=== PATIENT | female | born 1955 | race Caucasian/White ===

== ENCOUNTER → 2018-04-15 14:59 | Outpatient (CLI) | payer MEDICARE, SELFPAY ==
[2018-04-15 17:55] LABS: Hemoglobin A1C 8.6 % (0.0-7.0)
[2018-04-15 18:24] LABS: Alanine Aminotransferase 24 U/L (12-78); Albumin Level 3.5 gm/dL (3.4-5.0); Alkaline Phosphatase 81 U/L (46-116); Aspartate Amino Transferase 25 U/L (15-37); Bilirubin,Total 0.3 mg/dL (0.2-1.0); Blood Urea Nitrogen 15 mg/dL (7-18); Calcium 8.7 mg/dL (8.5-10.1); Carbon Dioxide 28 mmol/L (21.0-32.0); Chloride 101 mmol/L (98-107); Chol/HDL Ratio 2.6 (1-3.5); Cholesterol 243 mg/dL (140-200); Creatinine,Serum 0.83 mg/dL (0.55-1.02); Estimated Glomerular Filt Rate 70 ml/min (>60); GFR (African American) 85 ML/MIN (>60); Globulin 3.6 gm/dl (1.3-3.2); Glucose 102 mg/dL (74-106); HDL Cholesterol 94 mg/dL (29-89); LDL Cholesterol 142 mg/dL (0-130); Sodium 137 mmol/L (136-145); Thyroid Stimulating Hormone 1.79 uIU/ml (0.358-3.740); Total Protein,Serum 7.1 gm/dL (6.4-8.2); Triglycerides 33 mg/dL (30-200); VLDL Cholesterol 7 mg/dL (0-40)
[2018-04-17 11:20] LABS: Microalbumin, Urine 30.6 ug/mL (Not Estab.)
== END ==
PROVIDERS: Visit Provider Internal Medicine
DX: E11.59 Type 2 diabetes mellitus with other circulatory complications (principal); E11.42 Type 2 diabetes mellitus with diabetic polyneuropathy; I25.10 Atherosclerotic heart disease of native coronary artery without angina pectoris; I10 Essential (primary) hypertension; E03.9 Hypothyroidism, unspecified; E78.5 Hyperlipidemia, unspecified
CPT/HCPCS: 80053; 80061; 82043; 83036; 84443

== ENCOUNTER → 2019-04-14 14:40 | Outpatient (CLI) | payer MEDICARE, SELFPAY ==
--- NOTE | 2019-04-14 15:06 | ECG_ITS ---
APPROVED REPORT Exam: Resting ECG HR:87 bpm ECG Measurements Heart Rate 87 AXES SD 180 P 69 QRSd 70 QRS 75 QT 354 T 88 QTc 425 <Conclusion> Normal sinus rhythm Poor R Wave Progression Abnormal ECG Electronically signed by : Marques Isbell, 04/14/2019 16:54:23
== END ==
PROVIDERS: PCP Internal Medicine; Visit Provider Internal Medicine
DX: Z01.810 Encounter for preprocedural cardiovascular examination (principal); I25.10 Atherosclerotic heart disease of native coronary artery without angina pectoris; I10 Essential (primary) hypertension
CPT/HCPCS: 93005

== ENCOUNTER 2019-05-01 20:55 | Observation (INO) ==
[2019-05-01 22:01] LABS: Basophils # 0.1 K/mm3 (0-0.2); Eosinophils # 0.2 K/mm3 (0.0-0.4); Eosinophils % 1.3 % (0.1-12.0); Hematocrit 38.1 % (37.0-47.0); Hemoglobin 12.7 g/dL (12.2-16.2); Lymphocytes # 2.3 K/mm3 (0.7-4.5); Lymphocytes % 18.8 % (10-50); Mean Corpuscular HGB Conc 33.3 g/dL (31.8-35.4); Mean Corpuscular Volume 92.6 fl (81-99); Mean Platelet Volume 8.8 fl (7.4-10.4); Monocytes # 0.7 K/mm3 (0.1-1.0); Monocytes % 5.6 % (1.7-9.3); Neutrophils # 9.1 K/mm3 (1.8-7.8); Neutrophils % 73.3 % (37.0-80.0); Platelet Count 331 K/mm3 (142-424); Red Blood Count 4.12 M/mm3 (4.20-5.40); Red Cell Distribution Width 13.9 % (11.5-17.5); White Blood Count 12.4 K/mm3 (4.8-10.8)
--- NOTE | 2019-05-01 22:05 | Emergency Department Note ---
ED Disposition Clinical Impression: Obesity (BMI 30-39.9), Diabetes mellitus, insulin dependent (IDDM), uncontrolled, Renal insufficiency Ankle fracture, right Qualifiers: Encounter type: initial encounter Fracture type: closed Qualified Code(s): S82.891A - Other fracture of right lower leg, initial encounter for closed fracture Ankle dislocation Qualifiers: Encounter type: initial encounter Laterality: right Qualified Code(s): S93.04XA - Dislocation of right ankle joint, initial encounter Disposition: Admitted As Inpatient Condition on Discharge: Good Referrals: Marques Isbell [Primary Care Provider] - - Critical Care Critical Care Time: No Attestation: On 05/01/19, the high probability of a clinically significant, sudden or life threatening deterioration of the following system(s) required my full and direct attention, intervention and personal management. The time I documented below is in addition to time spent performing reported procedures but includes the following listed in this critical care notation. Medical Decision Making - Medical Records Medical records reviewed: Yes: I reviewed the patient's medical records. - Bro Inquiry Pt receiving controlled substance: No Vital Signs: 05/01/19 21:07 Temperature 98.3 F Temperature Source Oral Pulse Rate [Right] 103 H Respiratory Rate 18 Blood Pressure [Right Arm] 114/79 Blood Pressure Mean [Right Arm] 90 Blood Pressure Source [Right Arm] Automatic Cuff Blood Pressure Position [Right Arm] Sitting 02 Sat by Pulse Oximetry 98 Oxygen Delivery Method Room Air - Lab Data Lab results reviewed: Yes: I reviewed the patient's lab results. Lab Results 05/01/19 21:45: WBC 12.4 H, RBC 4.12 L, Hgb 12.7, Hct 38.1, MCV 92.6, MCH 30.8, MCHC 33.3, RDW 13.9, Plt Count 331, MPV 8.8, Neut % (Auto) 73.3, Lymph % (Auto) 18.8, [place] % (Auto) 5.6, Eos % (Auto) 1.3, Baso % (Auto) 1.0, Neut # (Auto) 9.1 H, Lymph # (Auto) 2.3, [place] # (Auto) 0.7, Eos # (Auto) 0.2, Baso # (Auto) 0.1 05/01/19 21:45: Sodium 136, Potassium 4.4, Chloride 100, Carbon Dioxide 28, Anion Gap 12.4, BUN 19 H, Creatinine 1.09 H, Estimated Creat Clear 83, Estimated GFR 51 L, Est GFR ( Amer) 61, Glucose 329 H, Calcium 8.7, Total Bilirubin 0.3, AST 17, ALT 17, Alkaline Phosphatase 82, Total Protein 6.8, Albumin 3.4, Globulin 3.4 H, Albumin/Globulin Ratio 1.0 L Result diagrams: 05/01/19 21:45 05/01/19 21:45 Orders (Tests/Meds): ED MEDICATIONS Generic Name Dose Route Start Last Admin Trade Name Freq PRN Reason Stop Dose Admin Sodium Chloride 1,000 mls @ 999 mls/hr 05/01/19 23:45 05/01/19 23:00 Sod Chlor 0.9% 1000ml Bag IV 05/02/19 00:45 999 mls/hr .Q1H1M [place] Administration Discontinued Medications Generic Name Dose Route Start Last Admin Trade Name Freq PRN Reason Stop Dose Admin Fentanyl Citrate 100 mcg 05/01/19 23:56 05/01/19 23:10 Fentanyl 100mcg/2ml Vial IV 05/01/19 23:57 100 mcg ONCE ONE Administration Fentanyl Citrate 50 mcg 05/01/19 23:59 05/01/19 23:15 Fentanyl 250mcg/5ml Vial IV 05/02/19 00:00 50 mcg ONCE ONE Administration Midazolam HCl 2 mg 05/01/19 23:56 05/01/19 23:10 Midazolam 2mg/2ml Vial IV 05/01/19 23:57 2 mg ONCE ONE Administration Morphine Sulfate 4 mg 05/01/19 21:36 05/01/19 21:38 Morphine 2mg/Ml Syringe IM 05/01/19 21:37 4 mg ONCE ONE Administration Ondansetron HCl 4 mg 05/01/19 21:36 05/01/19 21:38 Zofran 4mg/2ml Vial IM 05/01/19 21:37 4 mg ONCE ONE Administration ORDERS Category Date Time Status XR ankle RT 2V Stat Exams 05/01/19 21:13 Taken XR ankle RT 2V Stat Exams 05/01/19 22:12 Taken XR ankle RT 2V Stat Exams 05/01/19 23:19 Ordered - Radiology Data #1 Image(s): Ankle Image Reviewed: Yes I reviewed the patient's radiology image Preliminary Findings: Abnormal (fx/dislocation) - Physician Consults Physician Consulted: dimas Reason -: Admission Additional Consult: shea Time: 00:22 Reason -: Pt condition Lower Extremity Injury HPI - General Chief Complaint: Extremity Injury, Lower Stated Complaint: AO 05/01/2019 @ 1000 fell injury to right ankle Time Seen by Provider: 05/01/19 21:20 Mode of Arrival: Wheelchair Source of Information: Patient, Spouse, Medical Record Limitations: No Limitations Description of Symptoms (Recalled from ER Triage Doc. by RN): Pt rolled ankle getting out of bed this AM, unable to walk, ankle has edema, bruising and deforation - History of Present Illness HPI Narrative: acute injury to rt ankle this am with persistent swelling and deformity and unable to bear wt - no other injury reported MD complaint: ankle injury Onset (ago): hour(s) Injury: Right: ankle Place: home Severity: moderate Context: fall Associated symptoms: unable to bear weight Other symptoms: none - Related Data Home Medications Medication Instructions Recorded Confirmed Duloxetine HCl 60 mg PO DAILY 05/01/19 05/01/19 Gabapentin [Gabapentin 300mg Cap] 300 mg PO DAILY PRN 05/01/19 05/01/19 Insulin Aspart [Novolog Flexpen] 10 units SQ TID 05/01/19 05/01/19 Insulin Glargine,Hum.rec.anlog 10 units SQ HS 05/01/19 05/01/19 [Insulin Glargine 100 Units/mL 3mL flexpen] Levothyroxine Sodium 150 mcg PO DAILY 05/01/19 05/01/19 [Levothyroxine 150mcg (0.15mg) Tab] ramipriL [Ramipril] 1.25 mg PO DAILY 05/01/19 05/01/19 Allergies Allergy/AdvReac Type Severity Reaction Status Date / Time codeine Allergy Intermediate MENTAL Verified 05/02/19 00:04 STATUS CHANGES/DROPS BLOOD SUGAR Penicillins Allergy Intermediate I-RASH Verified 05/02/19 00:04 [facility] History - Hepatitis A Screen Drug use history?: No High risk sexual behaviors?: No History of sexually transmitted infection?: No Currently employed?: No Childcare worker?: No Do you have indoor plumbing?: Yes Do you have electricity?: Yes Attestation statement:: This patient has been screened for Hepatitis A risk factors. I have reviewed the patient's past medical history: Yes Medical History: Reports:: Diabetes Mellitus Type 1 Denies:: Diabetes Mellitus Type 2, Internal Pacemaker Other Surgeries: No: Pacemaker - Social History Smoking Status: Current every day smoker Tobacco Type: cigarettes # Packs/Day (cigarettes): 1 Alcohol Intake: never Occupational Status: retired ROS Obtained: Yes All systems reviewed & no additional complaints - Constitutional Constitutional: Denies fever(s) - Eyes Eyes: Denies change in vision - ENT Ears, Nose, Mouth, and Throat: Denies sore throat - Cardiovascular Cardiovascular: Denies chest pain - Respiratory Respiratory: No cough - Gastrointestinal Gastrointestingal: Denies: abdominal pain - Genitourinary Female Genitourinary: Denies hematuria - Musculoskeletal Musculoskeletal: Reports as per HPI, Reports joint pain, Denies back pain, Reports deformity, Reports joint swelling, Reports limited range of motion, Denies neck pain - Integumentary/Breasts Skin/Breast: Denies rash - Neurologic Neurologic: Denies seizure-like activity Physical Exam - General General appearance: alert - Head Head exam: normocephalic - Eye Eye exam: Present: PERRL, EOMI - ENT ENT exam: Present: mucous membranes moist - Neck Neck exam: Present: trachea midline - Respiratory Respiratory exam: Absent: respiratory distress - Cardiovascular Cardiovascular exam: Present: regular rate, systolic murmur - Abdominal Exam Abdominal exam: Present: soft - Expanded Lower Extremity Exam Right Ankle exam: Present: tenderness, swelling, deformity. Absent: full ROM Neurovascular/Tendon exam: Absent: pulse deficit - Neurological Exam Neurological exam: Present: alert, oriented X3, CN II-XII intact - Psychiatric Psychiatric exam: Present: normal affect - Skin Skin exam: Absent: rash Procedures - Orthopedic Joint Reduction Joint #1 Time Out Performed: Yes Side: right Joint Reduction Location: ankle Analgesia: procedural sedation Technique used: direct manipulation Post-reduction neuro exam: intact Post-reduction vascular: intact Post Reduction X-Ray Obtained: Yes Post Reduction X-Ray Results: reduced Splint Applied: Yes Patient Tolerated Procedure: well - Orthopedic Splinting/Casting Injury #1 Side: right Lower Extremity Injury Location: ankle Lower Extremity Immobilizer: posterior splint, stirrup splint Post Cast/Splinting Neuro Status: intact Post Cast/Splinting Vasc Status: intact - Procedural Sedation Indication: fracture/dislocation reduction ASA Class: II Preparation: distribution estimator applied, pulse oximeter, supplemental O2 applied, suction/airway equipment at bedside, IV secured Fentanyl: IV Fentanyl dose (mcg): 15 Midazolam: IV Midazolam dose (mg): 2 Patient Tolerated Procedure: well, no complications Complications: none
[2019-05-01 22:32] LABS: Albumin Level 3.4 gm/dL (3.4-5.0); Anion Gap 12.4 mEq/L (5-15); Bilirubin,Total 0.3 mg/dL (0.2-1.0); Calcium 8.7 mg/dL (8.5-10.1); Globulin 3.4 gm/dl (1.3-3.2); Total Protein,Serum 6.8 gm/dL (6.4-8.2)
[2019-05-02 06:12] LABS: Anion Gap 10.2 mEq/L (5-15); Calcium 8.4 mg/dL (8.5-10.1)
[2019-05-02 06:13] LABS: Basophils # 0.1 K/mm3 (0-0.2); Eosinophils # 0.3 K/mm3 (0.0-0.4); Eosinophils % 2.5 % (0.1-12.0); Hematocrit 38.2 % (37.0-47.0); Hemoglobin 12.5 g/dL (12.2-16.2); Lymphocytes # 2.8 K/mm3 (0.7-4.5); Lymphocytes % 25.7 % (10-50); Mean Corpuscular HGB Conc 32.6 g/dL (31.8-35.4); Mean Corpuscular Volume 93.4 fl (81-99); Mean Platelet Volume 8.7 fl (7.4-10.4); Monocytes # 0.7 K/mm3 (0.1-1.0); Monocytes % 6.6 % (1.7-9.3); Neutrophils % 64.2 % (37.0-80.0); Platelet Count 335 K/mm3 (142-424); Red Blood Count 4.09 M/mm3 (4.20-5.40)
--- NOTE | 2019-05-02 08:31 | History & Physical Report ---
*Admission Date: 05/01/19 *Chief complaint: Fall with right ankle fracture *History of present illness: 64-year-old diabetic with history of coronary disease status post stent placement greater than 2 years ago, who presented to the hospital late yesterday evening with a chief complaint of severe ankle pain. She gives a history of getting out of bed yesterday morning and rolling her ankle with an inversion type injury when she got out of bed with intense pain and inability to walk over the next several hours. At home methods to relieve pain were unsuccessful and she came to the emergency department. X-rays revealed fracture with dislocation, reduced in the ER but given the significant nature of the fracture she was admitted to hospital for pain control and orthopedic consultation for probable surgical intervention. [facility] History I have reviewed the patient's past medical history: Yes Medical History: Reports:: Coronary Artery Disease (Stents [place] in [address] Recinos. No recurrent disease evident), Diabetes Mellitus Type 1 (Insulin requiring.) Denies:: Cancer, Diabetes Mellitus Type 2, Internal Pacemaker *Have you ever received a pneumonia vaccine?: No *Have you received a flu vaccine this season?: Yes Other Medical History: Reports: Hypothyroidism Other Surgeries: Yes: Appendectomy, Cardiac Catheterization, Cholecystectomy, Coronary Stent, Hysterectomy-Total, Tubal Ligation. No: Pacemaker Amputation: No Fractures: No - *Social History Educational Level: Completed High School Smoking Status: Current every day smoker Tobacco Type: cigarettes # Packs/Day (cigarettes): 1 Alcohol Intake: never *Occupational Status:: retired Housing: house Household Members: spouse *Travel in the last 8 weeks: None Family Hx:: Coronary Artery Disease, Diabetes, Heart Attack, Stroke Review of Systems - Review of Systems Review of systems:: pertinent systems reviewed and negative unless documented below - Constitutional Denies anorexia, Denies fever(s), Denies headache(s) - Eyes Denies blurry vision - ENT Denies abnormal hearing, Denies poor balance, Denies dizziness - *Cardiovascular Denies chest pain, Denies chest pain at rest, Denies chest pain with activity (Excellent activity levels. Climb steps, walks, no chest pain), Denies joshua rtness of breath, Denies shortness of breath with activity - *Respiratory Denies change in phlegm color, Denies shortness of breath with activity, Denies excessive phlegm production - *Gastrointestinal Denies abdominal pain - *Genitourinary Denies abnormal periods - *Musculoskeletal Reports joint swelling, Denies abnormal walking - *Neurologic Denies seizure-like activity - Endocrine Denies cold intolerance - Hematologic/Lymphatic Denies easy bleeding - Allergic/Immunologic Denies GI upset with certain foods Meds Home Medications Medication Instructions Recorded Confirmed Type Duloxetine HCl 60 mg PO HS 05/01/19 05/02/19 History Gabapentin [Gabapentin 300mg Cap] 300 mg PO DAILY PRN 05/01/19 05/01/19 History Insulin Aspart [Novolog Flexpen] 10 units SQ TID 05/01/19 05/02/19 History Insulin Glargine,Hum.rec.anlog 10 units SQ HS 05/01/19 05/02/19 History [Insulin Glargine 100 Units/mL 3mL flexpen] Levothyroxine Sodium 150 mcg PO DAILY 05/01/19 05/02/19 History [Levothyroxine 150mcg (0.15mg) Tab] ramipriL [Ramipril] 1.25 mg PO HS 05/01/19 05/02/19 History Allergies Allergy/AdvReac Type Severity Reaction Status Date / Time codeine Allergy Intermediate MENTAL Verified 05/02/19 00:04 STATUS CHANGES/DROPS BLOOD SUGAR Penicillins Allergy Intermediate I-RASH Verified 05/02/19 00:04 Exam Vital signs and Labs for Last 24 Hours: Temp Pulse Resp BP Pulse Ox 97.9 F 101 H 16 145/69 H 100 05/02/19 08:00 05/02/19 08:00 05/02/19 08:00 05/02/19 08:00 05/02/19 08:00 Laboratory Results - last 24 hr 05/01/19 21:45: WBC 12.4 H, RBC 4.12 L, Hgb 12.7, Hct 38.1, MCV 92.6, MCH 30.8, MCHC 33.3, RDW 13.9, Plt Count 331, MPV 8.8, Neut % (Auto) 73.3, Lymph % (Auto) 18.8, [place] % (Auto) 5.6, Eos % (Auto) 1.3, Baso % (Auto) 1.0, Neut # (Auto) 9.1 H, Lymph # (Auto) 2.3, [place] # (Auto) 0.7, Eos # (Auto) 0.2, Baso # (Auto) 0.1 05/01/19 21:45: Sodium 136, Potassium 4.4, Chloride 100, Carbon Dioxide 28, Anion Gap 12.4, BUN 19 H, Creatinine 1.09 H, Estimated Creat Clear 83, Estimated GFR 51 L, Est GFR ( Amer) 61, Glucose 329 H, Calcium 8.7, Total Bilirubin 0.3, AST 17, ALT 17, Alkaline Phosphatase 82, Total Protein 6.8, Albumin 3.4, Globulin 3.4 H, Albumin/Globulin Ratio 1.0 L 05/02/19 05:56: WBC 11.0 H, RBC 4.09 L, Hgb 12.5, Hct 38.2, MCV 93.4, MCH 30.4, MCHC 32.6, RDW 14.0, Plt Count 335, MPV 8.7, Neut % (Auto) 64.2, Lymph % (Auto) 25.7, [place] % (Auto) 6.6, Eos % (Auto) 2.5, Baso % (Auto) 1.0, Neut # (Auto) 7.0, Lymph # (Auto) 2.8, [place] # (Auto) 0.7, Eos # (Auto) 0.3, Baso # (Auto) 0.1 05/02/19 05:56: Sodium 140, Potassium 4.2, Chloride 104, Carbon Dioxide 30, Anion Gap 10.2, BUN 16, Creatinine 0.83 D, Estimated Creat Clear 97, Estimated GFR 69, Est GFR ( Amer) 84 D, Glucose 139 H D, Calcium 8.4 L 05/02/19 06:09: POC Glucose 115 H 05/02/19 06:27: POC Glucose 120 H I & O for Last 24 hours: Intake & Output 04/29/19 04/30/19 05/01/19 05/02/19 11:59 11:59 11:59 11:59 Intake Total 1358 / 1358 Balance 1358 / 1358 Weight 235 lb 8 oz Narrative: Patient is sleeping after having several doses of morphine and Dilaudid through the night. When awakened she is alert, oriented x3. Oropharynx clear, moist. No JVD. Heart rate regular without murmurs or gallops. Abdomen soft, nontender. Right leg is in a splint and elevated. Left side has no edema or clubbing. Good distal pulses. Lungs have good air movement, no JVD noted. Assessment and Plan (1) Coronary atherosclerosis of [place] coronary artery Current visit: Yes Status: Acute Category: Medical Code(s): I25.10 - Atherosclerotic heart disease of [place] coronary artery without angina pectoris Patient currently asymptomatic. Has excellent functional status at home. No contraindication to surgical procedures. Patient has no history of difficulty with anesthesia or free bleeding from prior multiple surgical procedures. We will obtain records of heart disease issues from her primary physician's office. (2) Personal history of nicotine dependence Current visit: Yes Status: Acute Category: Medical Code(s): Z87.891 - Personal history of nicotine dependence Complicates all aspects of her care, will be problems with wound healing given her diabetes and she will be encouraged to stop smoking completely, nicotine replacement in the hospital. (3) Ankle fracture, right Current visit: Yes Status: Acute Qualifiers: Encounter type: initial encounter Fracture type: closed Qualified Code(s): S82.891A - Other fracture of right lower leg, initial encounter for closed fracture Category: Medical Code(s): S82.891A - Other fracture of right lower leg, initial encounter for closed fracture Given dislocation and significant nature of fracture orthopedics will be involved. Significant pain control problems overnight. Given her somnolence this morning we will continue oxygen therapy and cut Dilaudid dose down to 1 mg every 3 hours as needed. (4) Diabetes mellitus, insulin dependent (IDDM), uncontrolled Current visit: Yes Status: Acute Category: Medical Code(s): E11.65 - Type 2 diabetes mellitus with hyperglycemia; Z79.4 - care home (current) use of insulin Some hypoglycemia overnight. Patient has a history of "brittle" diabetes. Currently on glucose infusions. We will watch carefully and try to avoid hypoglycemia. (5) Obesity (BMI 30-39.9) Current visit: Yes Status: Acute Category: Medical Code(s): E66.9 - Obesity, unspecified Complicates all aspects of her care (6) Renal insufficiency Current visit: Yes Status: Acute Category: Medical Code(s): N28.9 - Disorder of kidney and ureter, unspecified Renal insufficiency noted, follow tomorrow on labs (7) Diabetic neuropathy associated with type 2 diabetes mellitus Current visit: Yes Status: Acute Category: Medical Code(s): E11.40 - Type 2 diabetes mellitus with diabetic neuropathy, unspecified Complicates care, continue gabapentin.
--- NOTE | 2019-05-02 12:53 | Pharmacy Consult Notes ---
[facility] Pharmacy VTE Monitoring - Patient Demographics Admission date: 05/02/19 Report Date: 05/02/19 Time: 12:53 Allergies/Adverse Reactions: Patient Allergies codeine Allergy (Intermediate, Verified 05/02/19 00:04) MENTAL STATUS CHANGES/DROPS BLOOD SUGAR Penicillins Allergy (Intermediate, Verified 05/02/19 00:04) I-RASH Height: 1.63 m Weight: 106.821 kg Patient Problems: Current Active Problems Ankle fracture, right (Acute) Ankle dislocation (Acute) Obesity (BMI 30-39.9) (Acute) Diabetes mellitus, insulin dependent (IDDM), uncontrolled (Acute) Renal insufficiency (Acute) Coronary atherosclerosis of [place] coronary artery (Acute) Personal history of nicotine dependence (Acute) Diabetic neuropathy associated with type 2 diabetes mellitus (Acute) - VTE Risk Labs: VTE Related Lab Results Hgb 12.5 g/dL (12.2-16.2) 05/02/19 05:56 Hct 38.2 % (37.0-47.0) 05/02/19 05:56 Plt Count 335 K/mm3 (142-424) 05/02/19 05:56 BUN 16 mg/dL (7-18) 05/02/19 05:56 Creatinine 0.83 mg/dL (0.55-1.02) D 05/02/19 05:56 Estimated Creat Clear 97 mL/min (50-200) 05/02/19 05:56 Was VTE Risk Assessment Performed: Yes VTE Score: 3 VTE Risk Level: Low Risk - Prophylaxis Types of VTE Prophylaxis: TEDS Knee High (PARVIZ HOSE ORDERED. MAY PUT ON UNAFFECTED LEG.) Location of Applied Device: Not Applicable
--- NOTE | 2019-05-02 14:08 | Consult Report ---
*Admission Date: 05/02/19 *Reason for consult:: R ankle fracture *History of present illness: 64yo F admitted overnight with a right ankle fracture. She rolled her ankle while getting out of bed yesterday morning and had immediate, significant pain with difficulty walking. She suspected a bad sprain and tried to treat this at home with elevation and OTC pain medication. Her pain increased throughout the day so she presented to the ER last night where XR revealed a trimalleolar fracture/dislocation. This was reduced and splinted by the ER and admitted. She has had the ankle elevated and iced overnight and reports significant pain but no numbness. She has a history of diabetes since the age of 18 and is on insulin. She is unsure what her last A1C was. She has a history of CAD s/p stent placement >2 years ago. Denies current chest pain, no dyspnea on exertion at baseline. She is a smoker and smokes 1ppd. Review of Systems - Review of Systems Review of systems:: pertinent systems reviewed and negative unless documented below - *Neurologic Denies abnormal walking, Denies abnormal hearing, Denies unsteadiness, Denies dizziness, Denies headache(s), Denies seizure-like activity [facility] History I have reviewed the patient's past medical history: Yes Medical History: Reports:: Coronary Artery Disease (Stents [place] [address] Recinos. No recurrent disease evident), Diabetes Mellitus Type 1 (Insulin requiring.) Denies:: Cancer, Diabetes Mellitus Type 2, Internal Pacemaker *Have you ever received a pneumonia vaccine?: No *Have you received a flu vaccine this season?: Yes Other Medical History: Reports: Hypothyroidism Other Surgeries: Yes: Appendectomy, Cardiac Catheterization, Cholecystectomy, Coronary Stent, Hysterectomy-Total, Tubal Ligation. No: Pacemaker Amputation: No Fractures: No - *Social History Educational Level: Completed High School Smoking Status: Current every day smoker Tobacco Type: cigarettes # Packs/Day (cigarettes): 1 Alcohol Intake: never *Occupational Status:: retired Housing: house Household Members: spouse *Travel in the last 8 weeks: None Family Hx:: Coronary Artery Disease, Diabetes, Heart Attack, Stroke Meds Home Medications Medication Instructions Recorded Confirmed Type Duloxetine HCl 60 mg PO HS 05/01/19 05/02/19 History Gabapentin [Gabapentin 300mg Cap] 300 mg PO DAILY PRN 05/01/19 05/01/19 History Insulin Aspart [Novolog Flexpen] 10 units SQ TID 05/01/19 05/02/19 History Insulin Glargine,Hum.rec.anlog 15 units SQ HS 05/01/19 05/02/19 History [Insulin Glargine 100 Units/mL 3mL flexpen] Levothyroxine Sodium 150 mcg PO DAILY 05/01/19 05/02/19 History [Levothyroxine 150mcg (0.15mg) Tab] ramipriL [Ramipril] 1.25 mg PO HS 05/01/19 05/02/19 History Allergies Allergy/AdvReac Type Severity Reaction Status Date / Time codeine Allergy Intermediate MENTAL Verified 05/02/19 00:04 STATUS CHANGES/DROPS BLOOD SUGAR Penicillins Allergy Intermediate I-RASH Verified 05/02/19 00:04 Exam Vital signs and Labs for Last 24 Hours: Temp Pulse Resp BP Pulse Ox 97.9 F 101 H 16 145/69 H 100 05/02/19 08:00 05/02/19 08:00 05/02/19 08:00 05/02/19 08:00 05/02/19 08:00 Laboratory Results - last 24 hr 05/01/19 21:45: WBC 12.4 H, RBC 4.12 L, Hgb 12.7, Hct 38.1, MCV 92.6, MCH 30.8, MCHC 33.3, RDW 13.9, Plt Count 331, MPV 8.8, Neut % (Auto) 73.3, Lymph % (Auto) 18.8, [place] % (Auto) 5.6, Eos % (Auto) 1.3, Baso % (Auto) 1.0, Neut # (Auto) 9.1 H, Lymph # (Auto) 2.3, [place] # (Auto) 0.7, Eos # (Auto) 0.2, Baso # (Auto) 0.1 05/01/19 21:45: Sodium 136, Potassium 4.4, Chloride 100, Carbon Dioxide 28, Anion Gap 12.4, BUN 19 H, Creatinine 1.09 H, Estimated Creat Clear 83, Estimated GFR 51 L, Est GFR ( Amer) 61, Glucose 329 H, Calcium 8.7, Total Bilirubin 0.3, AST 17, ALT 17, Alkaline Phosphatase 82, Total Protein 6.8, Albumin 3.4, Globulin 3.4 H, Albumin/Globulin Ratio 1.0 L 05/02/19 05:56: WBC 11.0 H, RBC 4.09 L, Hgb 12.5, Hct 38.2, MCV 93.4, MCH 30.4, MCHC 32.6, RDW 14.0, Plt Count 335, MPV 8.7, Neut % (Auto) 64.2, Lymph % (Auto) 25.7, [place] % (Auto) 6.6, Eos % (Auto) 2.5, Baso % (Auto) 1.0, Neut # (Auto) 7.0, Lymph # (Auto) 2.8, [place] # (Auto) 0.7, Eos # (Auto) 0.3, Baso # (Auto) 0.1 05/02/19 05:56: Sodium 140, Potassium 4.2, Chloride 104, Carbon Dioxide 30, Anion Gap 10.2, BUN 16, Creatinine 0.83 D, Estimated Creat Clear 97, Estimated GFR 69, Est GFR ( Amer) 84 D, Glucose 139 H D, Calcium 8.4 L 05/02/19 06:09: POC Glucose 115 H 05/02/19 06:27: POC Glucose 120 H 05/02/19 08:56: POC Glucose 179 H 05/02/19 11:50: POC Glucose 228 H I & O for Last 24 hours: Intake & Output 04/30/19 05/01/19 05/02/19 05/03/19 11:59 11:59 11:59 11:59 Intake Total 1358 / 1358 Balance 1358 / 1358 Weight 235 lb 8 oz - Constitutional no acute distress - *Routine HEENT Exam Head: Present: normocephalic Eye: Present: EOMI ENT: Present: mucous membranes moist - *Routine Respiratory Exam Absent: accessory muscle use, respiratory distress, wheezes - *Routine Cardiovascular Exam Present: RRR - *Routine Abdominal Exam Present: soft. Absent: tenderness - *Routine Extremities Exam Comments: RLE splint removed, ankle was not moved & was kept stationary/elevated by programs assistant R ankle with moderate/severe soft tissue swelling, ecchymosis medially faintly palpable pedal pulses RLE; skin pink/warm SILT distally RLE in all distributions wiggles toes; cannot DF/PF ankle due to pain/deformity/fx; EHL intact R calf soft, non-tender - *Routine Skin Exam Present: intact, warm, ecchymosis. Absent: erythema - *Routine Neurological Exam Present: alert, oriented X3, moving all extremities, normal tone, hearing grossly intact, normal speech. Absent: sensory deficit, motor deficit, altered mental status Results - Labs Result Diagrams: 05/02/19 05:56 05/02/19 05:56 Labs: Abnormal lab results 05/01/19 05/01/19 05/02/19 Range/Units 21:45 21:45 05:56 WBC 12.4 H 11.0 H (4.8-10.8) K/mm3 RBC 4.12 L 4.09 L (4.20-5.40) M/mm3 Neut # (Auto) 9.1 H (1.8-7.8) K/mm3 BUN 19 H (7-18) mg/dL Creatinine 1.09 H (0.55-1.02) mg/dL Estimated GFR 51 L (>60) ml/min Glucose 329 H (74-106) mg/dL POC Glucose (70-110) Calcium (8.5-10.1) mg/dL Globulin 3.4 H (1.3-3.2) gm/dl Albumin/Globulin Ratio 1.0 L (1.1-1.8) 05/02/19 05/02/19 05/02/19 Range/Units 05:56 06:09 06:27 WBC (4.8-10.8) K/mm3 RBC (4.20-5.40) M/mm3 Neut # (Auto) (1.8-7.8) K/mm3 BUN (7-18) mg/dL Creatinine (0.55-1.02) mg/dL Estimated GFR (>60) ml/min Glucose 139 H D (74-106) mg/dL POC Glucose 115 H 120 H (70-110) Calcium 8.4 L (8.5-10.1) mg/dL Globulin (1.3-3.2) gm/dl Albumin/Globulin Ratio (1.1-1.8) 05/02/19 05/02/19 Range/Units 08:56 11:50 WBC (4.8-10.8) K/mm3 RBC (4.20-5.40) M/mm3 Neut # (Auto) (1.8-7.8) K/mm3 BUN (7-18) mg/dL Creatinine (0.55-1.02) mg/dL Estimated GFR (>60) ml/min Glucose (74-106) mg/dL POC Glucose 179 H 228 H (70-110) Calcium (8.5-10.1) mg/dL Globulin (1.3-3.2) gm/dl Albumin/Globulin Ratio (1.1-1.8) H & H 05/01/19 05/02/19 Range/Units 21:45 05:56 Hgb 12.7 12.5 (12.2-16.2) g/dL Hct 38.1 38.2 (37.0-47.0) % All other labs normal. - Diagnostic results Ankle/Foot x-ray: image reviewed (trimalleolar fracture-dislocation R ankle on injury XR; reduced on post-reduction XR ) Assessment and Plan (1) Coronary atherosclerosis of [place] coronary artery Current visit: Yes Status: Acute Category: Medical Code(s): I25.10 - Atherosclerotic heart disease of [place] coronary artery without angina pectoris (2) Personal history of nicotine dependence Current visit: Yes Status: Acute Category: Medical Code(s): Z87.891 - Personal history of nicotine dependence (3) Ankle fracture, right Current visit: Yes Status: Acute Qualifiers: Encounter type: initial encounter Fracture type: closed Qualified Code(s): S82.891A - Other fracture of right lower leg, initial encounter for closed fracture Category: Medical Code(s): S82.891A - Other fracture of right lower leg, initial encounter for closed fracture (4) Diabetes mellitus, insulin dependent (IDDM), uncontrolled Current visit: Yes Status: Acute Category: Medical Code(s): E11.65 - Type 2 diabetes mellitus with hyperglycemia; Z79.4 - [facility] (current) use of insulin (5) Obesity (BMI 30-39.9) Current visit: Yes Status: Acute Category: Medical Code(s): E66.9 - Obesity, unspecified (6) Renal insufficiency Current visit: Yes Status: Acute Category: Medical Code(s): N28.9 - Disorder of kidney and ureter, unspecified (7) Diabetic neuropathy associated with type 2 diabetes mellitus Current visit: Yes Status: Acute Category: Medical Code(s): E11.40 - Type 2 diabetes mellitus with diabetic neuropathy, unspecified - Assessment and plan all Dx Assessment and Plan for all problems:: 64yo F with R ankle trimalleolar fracture/dislocation -- XR after splint change today shows loss of reduction; the fracture is highly unstable and, in combination with the condition of the soft tissues, need to be taken to the OR today for stabilization. ORIF is not feasible at this time. Will take for closed reduction and external fixator application this afternoon. -- NPO -- NWB RLE, continue to ice/elevate -- the procedure was discussed with the patient and her family, including the surgical plan and the associated risks/benefits. I discussed the risk of bleeding, infection, loss of reduction, need for ORIF when soft tissues are amenable, risk of eventual non-union/infection given h/o smoking and DM, and risks of anesthesia. The patient vocalized understanding and provided informed consent for the procedure.
--- NOTE | 2019-05-02 19:59 | Progress Note ---
[facility] Anesthesia Checklist - Patient Identification Patient Identification: Arm Band, Verbal (Name & ) - Structural Data Admitted From: Inpatient Planned Operative Procedure/s: Closed reduction, external fixation of right ankle fracture Consent for Planned Operative Procedure(s) Verified: Yes Verified Documents: Surgical Consent, History and Physical - NPO Status Verified Time NPO: 11:30 - Chart Verification Results Verified: CBC, BMP - Additional verifications Anesthesia Reactions: No - Airway Assessment C-Spine Mobility Assessed: Yes TMJ Mobility Assessed: Yes Dentition: Good Dentition - Neurological Assessment Level of Consciousness: Awake, Appropriate, Follows Commands, Drowsy Hx Seizures: No Numbness or tingling in extremities: Yes (peripheral neuropathy) - Anesthesia Plan Anesthesia Risk discussed: Yes Anesthesia Plan: Verified ASA Class: III (emergent) Anesthesia Type: General w/block [facility] History I have reviewed the patient's past medical history: Yes Medical History: Reports:: Coronary Artery Disease (St[place] [address] Recinos. No recurrent disease evident), Diabetes Mellitus Type 1 (Insulin req uiring.), Hypertension Denies:: Cancer, Diabetes Mellitus Type 2, Internal Pacemaker *Have you ever received a pneumonia vaccine?: No *Have you received a flu vaccine this season?: Yes Other Medical History: Reports: Hypothyroidism Comment:: morbid obesity, peripheral neuropathy Anesthesia experience/problems:: no complications Other Surgeries: Yes: Appendectomy, Cardiac Catheterization, Cholecystectomy, Coronary Stent, Hysterectomy-Total, Tubal Ligation. No: Pacemaker Amputation: No Fractures: No - *Social History Educational Level: Completed High School Smoking Status: Current every day smoker Tobacco Type: cigarettes # Packs/Day (cigarettes): 1 Alcohol Intake: never Substance Use Type: denies use *Occupational Status:: retired Housing: house Household Members: spouse *Travel in the last 8 weeks: None Family Hx:: Coronary Artery Disease, Diabetes, Heart Attack, Stroke
--- NOTE | 2019-05-02 20:00 | Progress Note ---
[facility] Anesthesia Record Part I Intake, IV Amount: 400 Estimated blood loss (mL): 5 Urine output (mL): 0 (NM) Blood Products used (#): none Blood Pressure: 162/68 SaO2: 98 Pulse Rate: 98 Respiratory Rate: 8 Temperature: 98.8 F Patient is:: Drowsy, Nasal O2, Stable Stable to PACU at:: 19:48
--- NOTE | 2019-05-02 20:14 | Operative Note ---
Date of procedure: 05/02/19 Pre-op Diagnosis:: trimalleolar fracture-dislocation R ankle Post-op Diagnosis:: same Procedure performed:: closed reduction R ankle fracture, application of external fixator Surgeon:: MD Christine Parker DPM Wire Frame Dipper(s):: Yancy Cohen CHASSIS DRIVER:: Shon Hayes Anesthesia: regional, LMA Estimated blood loss (mL): 5 Clinical Note:: 64yo F admitted overnight with a right ankle fracture. She rolled her ankle while getting out of bed yesterday morning and had immediate, significant pain with difficulty walking. She suspected a bad sprain and tried to treat this at home with elevation and OTC pain medication. Her pain increased throughout the day so she presented to the ER last night where XR revealed a trimalleolar fracture/dislocation. This was reduced and splinted by the ER and admitted. She has had the ankle elevated and iced overnight and reports significant pain but no numbness. She has a history of diabetes since the age of 18 and is on insulin. She is unsure what her last A1C was. She has a history of CAD s/p stent placement >2 years ago. Denies current chest pain, no dyspnea on exertion at baseline. She is a smoker and smokes 1ppd. I changed her splint on the floor in order to assess her soft tissue status, and felt ORIF was not possible today due to severe swelling and bruising of the ankle. XR after splint change today shows loss of reduction; the fracture is highly unstable and, in combination with the condition of the soft tissues, the decision was made to take the patient to the OR today for stabilization, namely closed reduction and external fixator application. The procedure was discussed with the patient and her family, including the surgical plan and the associated risks/benefits. I discussed the risk of bleeding, infection, loss of reduction, need for ORIF when soft tissues are amenable, risk of eventual non-union/infection given h/o smoking and DM, and risks of anesthesia. The patient vocalized understanding and provided informed consent for the procedure. Operative findings:: [employer] 3 ex-fix system was used, with the following components: pins: tibia = 5 x 180mm apex pins (2) calcaneus = 5 x 250mm transfix pin (1) bars: 8 x 500mm (2) from tibia to calcaneus Operative note:: The patient was identified in preoperative holding and the right leg signed by myself. I reviewed the consent with the patient and her family and answered all questions. Regional nerve block was performed by anesthesia. She was then taken to the operating room and placed supine on the OR table. 900mg clindamycin were infused intravenously and general anesthesia induced with an LMA. Once the patient was asleep, the splint was removed from her right ankle and the right leg prepped and draped in the usual sterile fashion from the upper thigh to the toes. Timeout was performed, identifying the correct patient, correct procedure, and correct site. The procedure was begun by using the C arm to identify the fracture site at the right ankle. Trimalleolar fracture-dislocation was confirmed. A blabfeed 3 external fixator system was used for this case. The first pin placed was a calcaneus pin, which was a 5 x 250 mm transfix pin, which was centrally threaded. This was held over the skin over the lateral calcaneus until the desired starting point was found, at which time the pin was used to rodriguez the skin and placed under power through the center of the calcaneus. Next, 2 pins were placed in the proximal tibia, each measuring 5 x 180 mm. These were distally threaded apex pins and were placed around 3 to 4 cm apart in the proximal tibia, well distal to the tubercle and far below the capsule so as not to be placed intra-articularly. These were placed under power, also under direct visualization with C arm, and were started just medial to the tibial crest over the anterior tibia. They were placed bicortically. Once both tibial pins have been placed, bars were placed on the frame using pin to bar and bar to bar clamps. Radiolucent bars were placed, both measuring 8 x 500 mm from the tibia to the calcaneus both medially and laterally. Once the bars were clamped into place loosely, close reduction of the ankle was performed under C-arm visualization, until the ankle was well reduced on both AP and lateral. I held the ankle in a reduced position while my personal assistant tightened all brackets on the ex fix construct. Appropriate reduction of the ankle was confirmed on both AP and lateral fluoroscopy views. This completed the procedure and the ankle fracture was seen to be well reduced and stable in this construct and all bolts were tightened once more. The pin sites were all dressed with sterile Xeroform, 4 x 4's and the entire construct wrapped with Kerlix, webril and Tadeo wraps. The patient was then awoken from anesthesia and transferred to her cart, where she was taken to PACU in good condition. No tourniquet was used during this case and blood loss was minimal, less than 5 cc. The patient tolerated this procedure well with no immediate perioperative complications. Tourniquet time (min): 0 Condition: stable Disposition: PACU Specimens:: none Complications:: none
[2019-05-03 07:00] LABS: Basophils # 0.1 K/mm3 (0-0.2); Basophils % 0.7 % (0.1-2.0); Eosinophils # 0.1 K/mm3 (0.0-0.4); Eosinophils % 0.9 % (0.1-12.0); Hematocrit 33.5 % (37.0-47.0); Hemoglobin 10.6 g/dL (12.2-16.2); Lymphocytes # 1.6 K/mm3 (0.7-4.5); Lymphocytes % 14.1 % (10-50); Mean Corpuscular HGB Conc 31.6 g/dL (31.8-35.4); Monocytes # 0.6 K/mm3 (0.1-1.0); Neutrophils # 9.1 K/mm3 (1.8-7.8); Neutrophils % 79.3 % (37.0-80.0); Platelet Count 290 K/mm3 (142-424); Red Blood Count 3.49 M/mm3 (4.20-5.40); White Blood Count 11.5 K/mm3 (4.8-10.8)
[2019-05-03 07:13] LABS: Anion Gap 15.4 mEq/L (5-15); Calcium 8.2 mg/dL (8.5-10.1)
--- NOTE | 2019-05-03 08:40 | Progress Note ---
Internal Medicine - PN: Subj *Date: 05/03/19 *Time: 08:36 Interval history: Patient is much more alert than yesterday morning postoperatively, and with less Dilaudid on board. Her pain is improving after surgical fixation. Hyperglycemia this morning prompted discontinuation of D5 infusions. She is now able to eat clear liquids and did so last night and this morning. Exam Vital signs and Labs for Last 24 Hours: Temp Pulse Resp BP Pulse Ox 99.0 F 94 H 16 116/49 L 95 05/03/19 08:00 05/03/19 08:00 05/03/19 08:00 05/03/19 08:00 05/03/19 08:00 Laboratory Results - last 24 hr 05/02/19 08:56: POC Glucose 179 H 05/02/19 11:50: POC Glucose 228 H 05/02/19 15:05: Hemoglobin A1c 7.7 H 05/02/19 16:00: POC Glucose 182 H 05/02/19 19:56: POC Glucose 257 H 05/02/19 21:05: POC Glucose 141 H 05/03/19 03:50: POC Glucose 309 H* 05/03/19 05:12: POC Glucose 329 H* 05/03/19 06:25: WBC 11.5 H, RBC 3.49 L, Hgb 10.6 L, Hct 33.5 L, MCV 96.0, MCH 30.3, MCHC 31.6 L, RDW 14.0, Plt Count 290, MPV 9.0, Neut % (Auto) 79.3, Lymph % (Auto) 14.1, [place] % (Auto) 5.0, Eos % (Auto) 0.9, Baso % (Auto) 0.7, Neut # (Auto) 9.1 H, Lymph # (Auto) 1.6, [place] # (Auto) 0.6, Eos # (Auto) 0.1, Baso # (Auto) 0.1 05/03/19 06:25: Sodium 137, Potassium 4.4, Chloride 102, Carbon Dioxide 24, Anion Gap 15.4 H, BUN 16, Creatinine 1.06 H D, Estimated Creat Clear 91, Estimated GFR 52 L, Est GFR ( Amer) 63 D, Glucose 241 H, Calcium 8.2 L I & O for Last 24 hours: Intake & Output 04/30/19 05/01/19 05/02/19 05/03/19 11:59 11:59 11:59 11:59 Intake Total 1358 / 1358 520 / 520 Output Total 500 / 500 Balance 1358 / 1358 Weight 235 lb 8 oz 234 lb 3 oz Narrative: Alert, talkative, pleasant, normal cranial nerve exam. Oropharynx clear, no JVD. Heart rate regular. Slight expiratory wheezing in the right middle and lower lung field but good air movement. Abdomen soft. Lower extremity exam abnormal with right leg in splint and ORIF device. Please refer to orthopedic notes for details Assessment and Plan (1) Coronary atherosclerosis of [place] coronary artery Current visit: Yes Status: Acute Category: Medical Code(s): I25.10 - Atherosclerotic heart disease of [place] coronary artery without angina pectoris (2) Personal history of nicotine dependence Current visit: Yes Status: Acute Category: Medical Code(s): Z87.891 - Personal history of nicotine dependence Given her pain issues start nicotine patch to avoid complication from cigarette withdrawal (3) Ankle fracture, right Current visit: Yes Status: Acute Qualifiers: Encounter type: initial encounter Fracture type: closed Qualified Code(s): S82.891A - Other fracture of right lower leg, initial encounter for closed fracture Category: Medical Code(s): S82.891A - Other fracture of right lower leg, initial encounter for closed fracture Surgical fixation went well. Continue to follow with orthopedics (4) Diabetes mellitus, insulin dependent (IDDM), uncontrolled Current visit: Yes Status: Acute Category: Medical Code(s): E11.65 - Type 2 diabetes mellitus with hyperglycemia; Z79.4 - intermodal truck driver (current) use of insulin No further hypoglycemia, continue lactated Ringer's infusion and advance diet as tolerated (5) Obesity (BMI 30-39.9) Current visit: Yes Status: Acute Category: Medical Code(s): E66.9 - Obesity, unspecified (6) Renal insufficiency Current visit: Yes Status: Acute Category: Medical Code(s): N28.9 - Disorder of kidney and ureter, unspecified (7) Diabetic neuropathy associated with type 2 diabetes mellitus Current visit: Yes Status: Acute Category: Medical Code(s): E11.40 - Type 2 diabetes mellitus with diabetic neuropathy, unspecified Part of her pain component seems neuropathic. Start 3 times daily gabapentin (8) Wheezing Current visit: Yes Status: Acute Category: Medical Code(s): R06.2 - Wheezing High likelihood of COPD given her long-term cigarette use. Check chest x-ray, start duo nebs.
--- NOTE | 2019-05-03 12:36 | Progress Note ---
Subjective Date: 05/03/19 Time: 11:00 Principal diagnosis: R trimalleolar ankle fracture-dislocation Interval history: The patient is doing well this morning, pain has decreased since ex-fix application. She believes her pain medication is not lasting as long as it shoul d and wears off too quickly; she inquires if it can be given more frequently than every 6 hours. Glucose has been quite elevated, ranging from 115-329 overnight, and accucheck during my visit was >400. WBC 11.5; A1C yesterday was 7.7. Her family reports significantly labile glucose at home with frequent hypoglycemic episodes resulting in falls or necessitating EMS calls. PN: Obj Ex Vital signs: Temp Pulse Resp BP Pulse Ox 99.0 F 94 H 16 116/49 L 94 L 05/03/19 08:00 05/03/19 08:00 05/03/19 08:00 05/03/19 08:00 05/03/19 08:00 - Constitutional no acute distress - Routine Extremities Exam Comments: RLE ex-fix intact, dressings c/d/i w/o strikethrough pin sites c/d/i w/o drainage wiggles toes; cannot DF/PF ankle due to ex-fix; EHL intact palpable pedal pulses RLE, skin warm and pink with BCR SILT distally RLE R calf soft, non-tender Progress Note: A&P (1) Coronary atherosclerosis of [place] coronary artery Status: Acute Current Visit: Yes (2) Personal history of nicotine dependence Status: Acute Current Visit: Yes (3) Ankle fracture, right Status: Acute Current Visit: Yes (4) Diabetes mellitus, insulin dependent (IDDM), uncontrolled Status: Acute Current Visit: Yes (5) Obesity (BMI 30-39.9) Status: Acute Current Visit: Yes (6) Renal insufficiency Status: Acute Current Visit: Yes (7) Diabetic neuropathy associated with type 2 diabetes mellitus Status: Acute Current Visit: Yes (8) Wheezing Status: Acute Current Visit: Yes Assessment and Plan for All Diagnoses:: 64yo F POD 1 s/p closed reduction + external fixator application R trimalleolar ankle fracture-dislocation -- soft tissue envelope needs time to cool off before definitive fixation; swelling is severe, moderate ecchymosis. Keep RLE elevated as often and as high as possible to decrease edema. Once tissue is amenable, ORIF will be performed. Anticipate , 05/07/19 if possible. -- finish 24hr prophy antibiotics; will switch to oral as long as ex-fix in place, but will avoid further use of clinda to avoid possibility of diarrhea and/or c. diff -- will increase percocet to q4 hours; avoid use of IV narcotics. Gabapentin has been added, continue this. -- DVT prophy: continue lovenox 40mg Qday; d/c the night before surgery -- vitamin D level pending -- dispo planning; her family can care for her at home starting tomorrow, until definitive fixation; after that, the patient would like to be discharged to [place] if possible
[2019-05-04 06:42] LABS: Basophils # 0.1 K/mm3 (0-0.2); Basophils % 0.9 % (0.1-2.0); Eosinophils # 0.3 K/mm3 (0.0-0.4); Eosinophils % 1.8 % (0.1-12.0); Hemoglobin 10.8 g/dL (12.2-16.2); Lymphocytes # 1.6 K/mm3 (0.7-4.5); Lymphocytes % 10.7 % (10-50); Mean Corpuscular HGB Conc 31.6 g/dL (31.8-35.4); Mean Corpuscular Volume 96.2 fl (81-99); Monocytes # 0.9 K/mm3 (0.1-1.0); Monocytes % 6.2 % (1.7-9.3); Neutrophils # 11.7 K/mm3 (1.8-7.8); Neutrophils % 80.5 % (37.0-80.0); Platelet Count 311 K/mm3 (142-424); Red Blood Count 3.53 M/mm3 (4.20-5.40); Red Cell Distribution Width 13.8 % (11.5-17.5); White Blood Count 14.6 K/mm3 (4.8-10.8)
[2019-05-04 06:50] LABS: Anion Gap 17.1 mEq/L (5-15); Calcium 8.2 mg/dL (8.5-10.1)
--- NOTE | 2019-05-04 08:37 | Discharge Summary ---
General - General Admission date:: 05/02/19 Discharge date: 05/04/19 HPI HPI: 64-year-old diabetic with history of coronary disease status post stent placement greater than 2 years ago, who presented to the hospital late yesterday evening with a chief complaint of severe ankle pain. She gives a history of getting out of bed yesterday morning and rolling her ankle with an inversion type injury when she got out of bed with intense pain and inability to walk over the next several hours. At home methods to relieve pain were unsuccessful and she came to the emergency department. X-rays revealed fracture with dislocation, reduced in the ER but given the significant nature of the fracture she was admitted to hospital for pain control and orthopedic consultation for probable surgical intervention. Hospital Course Hospital Course: Patient was admitted. Significant swelling and ankle fractures noted. Please see orthopedic consultation. Patient taken to the OR for ORIF. She did well with this. Did have some pain control issues but this was resolved after surgery with oral Percocet in conjunction with occasional IV medication. Was hypoglycemic on admission, this was treated with intravenous dextrose infusion. This is settled out. This morning she is doing great, please see exam notes below. She will be discharged home today with p.o. pain control, follow-up in orthopedic clinic as noted and with her regular physician as tolerated. Have instructed her to avoid hypoglycemia and to reduce her sliding scale dose to maintain glucose levels between 150 and 250. Of note, patient had significant pain related to neuropathic issues. I did increase her gabapentin dose to 3 times daily from nightly dosing of the seems to help. We will prescribe this on discharge as well as a limited supply of Percocet for postoperative surgical fixation pain. Objective Vital signs: Temp Pulse Resp BP Pulse Ox 98.4 F 104 H 18 147/70 H 90 L 05/04/19 08:00 05/04/19 08:00 05/04/19 08:00 05/04/19 08:00 05/04/19 08:00 Narrative: Patient is pleasant, talkative, oriented x3. Of note she was sleeping when I went in the room but was awakened easily with no respiratory distress. Oropharynx clear, no JVD. Anterior lung stern are clear. Abdomen soft. Right leg in a fairly extensive splint with external hardware. Left side with no edema or clubbing. Neurologically intact. Results Labs on day of discharge: Labs from last 24 hours 05/04/19 05/04/19 05/04/19 06:07 06:07 05:58 WBC 14.6 H D RBC 3.53 L Hgb 10.8 L Hct 34.0 L MCV 96.2 MCH 30.4 MCHC 31.6 L RDW 13.8 Plt Count 311 MPV 9.0 Neut % (Auto) 80.5 H Lymph % (Auto) 10.7 [place] % (Auto) 6.2 Eos % (Auto) 1.8 Baso % (Auto) 0.9 Neut # (Auto) 11.7 H Lymph # (Auto) 1.6 [place] # (Auto) 0.9 Eos # (Auto) 0.3 Baso # (Auto) 0.1 Sodium 134 L Potassium 5.1 Chloride 97 L Carbon Dioxide 25 Anion Gap 17.1 H BUN 14 Creatinine 0.92 Estimated Creat Clear 98 Estimated GFR 62 Est GFR ( Amer) 75 Glucose 378 H D POC Glucose 377 H* Calcium 8.2 L 05/03/19 05/03/19 05/03/19 20:25 16:12 12:04 WBC RBC Hgb Hct MCV MCH MCHC RDW Plt Count MPV Neut % (Auto) Lymph % (Auto) [place] % (Auto) Eos % (Auto) Baso % (Auto) Neut # (Auto) Lymph # (Auto) [place] # (Auto) Eos # (Auto) Baso # (Auto) Sodium Potassium Chloride Carbon Dioxide Anion Gap BUN Creatinine Estimated Creat Clear Estimated GFR Est GFR ( Amer) Glucose POC Glucose 113 H 237 H 460 H* Calcium DS: Diagnosis - Discharge Diagnosis (1) Coronary atherosclerosis of [place] coronary artery Status: Chronic (2) Personal history of nicotine dependence Status: Chronic (3) Ankle fracture, right Status: Acute (4) Diabetes mellitus, insulin dependent (IDDM), uncontrolled Status: Chronic (5) Obesity (BMI 30-39.9) Status: Acute (6) Renal insufficiency Status: Chronic (7) Diabetic neuropathy associated with type 2 diabetes mellitus Status: Chronic (8) Wheezing Status: Resolved Discharge Plan - Patient Discharge Instructions ACTIVITY: Limited activity, Up with assistance DIET: continue same diet, diabetic diet Patient Instructions: Ankle Fracture, DI for Ankle Fracture, DI for Fracture Reduction, DI for Surgical Site Infection, How to Care for Your External Fixation Device, DI for Ankle Dislocation - Follow up Plan Follow up with: Maria Antonia Gardner MD [Physician] - Disposition: Home, Self-Alf Medications: Home Medications Medication Instructions Recorded Confirmed Type Duloxetine HCl 60 mg PO HS 05/01/19 05/02/19 History Gabapentin [Gabapentin 300mg Cap] 300 mg PO DAILY PRN 05/01/19 05/01/19 History Insulin Aspart [Novolog Flexpen] 10 units SQ TID 05/01/19 05/02/19 History Insulin Glargine,Hum.rec.anlog 15 units SQ HS 05/01/19 05/02/19 History [Lantus Solostar 100 Units/mL 3mL flexpen] Levothyroxine Sodium 150 mcg PO DAILY 05/01/19 05/02/19 History [Levothyroxine 150mcg (0.15mg) Tab] ramipriL [Ramipril] 1.25 mg PO HS 05/01/19 05/02/19 History Gabapentin [Neurontin 300mg 300 mg PO TID #90 capsule 05/04/19 Rx capsule] Oxycodone HCl/Acetaminophen 1 each PO Q4HP PRN #24 tablet 05/04/19 Rx [Percocet 7.5-325 mg Tablet] Prescriptions/Medication Reconciliation: New Gabapentin [Neurontin 300mg capsule] 300 mg PO TID #90 capsule Oxycodone HCl/Acetaminophen [Percocet 7.5-325 mg Tablet] 1 each PO Q4HP PRN #24 tablet PRN Reason: Severe Pain Continued Levothyroxine Sodium [Levothyroxine 150mcg (0.15mg) Tab] 150 mcg PO DAILY Insulin Glargine,Hum.rec.anlog [Lantus Solostar 100 Units/mL 3mL flexpen] 15 units SQ HS Duloxetine HCl 60 mg PO HS ramipriL [Ramipril] 1.25 mg PO HS Insulin Aspart [Novolog Flexpen] 10 units SQ TID Gabapentin [Gabapentin 300mg Cap] 300 mg PO DAILY PRN PRN Reason: PAIN/SLEEP - Problem Reconciliation Problems Reviewed?: Yes
[2019-05-04 10:11] VITALS: BP 139/60
--- NOTE | 2019-05-04 10:11 | Progress Note ---
[facility] Anesthesia Record Part II Discharge Time: 20:18 Destination: Medical Surgical Department PACU nurse assessment reviewed?: Yes Patient Condition:: Fair Anesthesia Complications:: None Swallowing reflex intact?: Yes Cyanosis?: No Blood Pressure: 139/60 Pulse Rate: 104 Temperature: 99.3 F Mental Status: Confused and Disoriented Pain level:: 10 Nausea and/or vomitting:: None Intake, IV Amount: 0
--- NOTE | 2019-05-04 12:28 | Progress Note ---
Subjective Date: 05/04/19 Time: 09:00 Principal diagnosis: R trimalleolar ankle fracture-dislocation Interval history: The patient is doing well this morning. Changing her percocet to q4hr helped her pain control. She reports a burning sensation in the ankle; she is on g abapentin. Glucose remains labile; >360 this morning. PN: Obj Ex Vital signs: Temp Pulse Resp BP Pulse Ox 99.3 F 104 H 18 139/60 90 L 05/04/19 10:11 05/04/19 10:11 05/04/19 08:00 05/04/19 10:11 05/04/19 08:00 - Constitutional no acute distress - Routine HEENT Exam Head: Present: normocephalic Eye: Present: EOMI ENT: Present: mucous membranes moist - Routine Extremities Exam Comments: RLE ex-fix intact, dressings c/d/i w/o strikethrough pin sites c/d/i w/o drainage wiggles toes; cannot DF/PF ankle due to ex-fix; EHL intact palpable pedal pulses RLE, skin warm and pink with BCR SILT distally RLE R calf soft, non-tender Progress Note: A&P (1) Coronary atherosclerosis of [place] coronary artery Status: Chronic Current Visit: Yes (2) Personal history of nicotine dependence Status: Chronic Current Visit: Yes (3) Ankle fracture, right Status: Acute Current Visit: Yes (4) Diabetes mellitus, insulin dependent (IDDM), uncontrolled Status: Chronic Current Visit: Yes (5) Obesity (BMI 30-39.9) Status: Acute Current Visit: Yes (6) Renal insufficiency Status: Chronic Current Visit: Yes (7) Diabetic neuropathy associated with type 2 diabetes mellitus Status: Chronic Current Visit: Yes (8) Wheezing Status: Resolved Current Visit: Yes Assessment and Plan for All Diagnoses:: 64yo F POD 2 s/p closed reduction + external fixator application R trimalleolar ankle fracture-dislocation -- ok to d/c home today with family; f/u to surgery for possible ORIF pending state of soft tissues. NPO after midnight the night before. Our office will call the patient and/or her son this afternoon with details.
== END 2019-05-04 14:30 | disposition home or self-care (01) ==
LOC: ER 20:55 → 2ND 20:55
PROVIDERS: ADMIT Internal Medicine Adolescent Medicine; ATTEND Internal Medicine Adolescent Medicine
CPT/HCPCS: 36415; 71010; 71045; 73600; 73610; 73700; 76000; 80048; 80053; 82652; 82962; 83036; 85025; 90732; 96365; 96372; 96375; 97161; 99152; 99153; 99285; C1713; G0009; G0378; J2405

== ENCOUNTER 2019-05-07 08:25 | Observation (INO) ==
[2019-05-07 09:09] LABS: Albumin Level 2.4 gm/dL (3.4-5.0); Bilirubin,Direct 0.1 mg/dL (0.0-0.2); Bilirubin,Indirect 0.4 mg/dL (0.0-0.9); Bilirubin,Total 0.5 mg/dL (0.2-1.0); Total Protein,Serum 6.8 gm/dL (6.4-8.2)
--- NOTE | 2019-05-07 10:22 | Emergency Department Note ---
ED Disposition Clinical Impression: Pneumonia, Ankle fracture, right Disposition: Admitted As Inpatient Condition on Discharge: Good - Critical Care Critical Care Time: No Attestation: On 05/07/19, the high probability of a clinically significant, sudden or life threatening deterioration of the following system(s) required my full and direct attention, intervention and personal management. The time I documented below is in addition to time spent performing reported procedures but includes the following listed in this critical care notation. Medical Decision Making - Bro Inquiry Pt receiving controlled substance: No Bro was queried for this patient: No Vital Signs: 05/07/19 08:31 05/07/19 09:14 05/07/19 09:28 Temperature 98.4 F Temperature Source Oral Pulse Rate 98 H Pulse Rate [Right Radial] 89 94 H Respiratory Rate 17 18 Blood Pressure [Right Arm] 148/66 H 152/55 H Blood Pressure Mean [Right Arm] 93 87 Blood Pressure Source [Right Arm] Automatic Cuff Blood Pressure Position [Right Arm] Supine 02 Sat by Pulse Oximetry 94 L 94 L 100 Oxygen Delivery Method Room Air Room Air Room Air - Lab Data Lab results reviewed: Yes: I reviewed the patient's lab results. Lab Results 05/07/19 08:46: Lactate 1.4 05/07/19 08:46: Influenza Type A Ag Negative, Influenza Type B Ag Negative 05/07/19 08:46: Total Bilirubin 0.5, Direct Bilirubin 0.1, Indirect Bilirubin 0.4, AST 23, ALT 21, Alkaline Phosphatase 110, Troponin I 0.05, Total Protein 6.8, Albumin 2.4 L 05/07/19 08:46: B-Natriuretic Peptide 158 H Orders (Tests/Meds): ED MEDICATIONS Generic Name Dose Route Start Last Admin Trade Name Freq PRN Reason Stop Dose Admin Levofloxacin/Dextrose 750 mg in 150 mls @ 100 mls/hr 05/07/19 09:45 05/07/19 09:30 Levofloxacin 750mg/150ml Premix IV 05/21/19 09:44 100 mls/hr Q24H MONICA Administration Protocol Discontinued Medications Generic Name Dose Route Start Last Admin Trade Name Freq PRN Reason Stop Dose Admin Albuterol/Ipratropium 3 ml 05/07/19 08:47 05/07/19 08:55 Duoneb 3ml Neb IH 05/07/19 08:48 3 ml ONCE ONE Administration Levofloxacin/Dextrose 500 mg in 100 mls @ 100 mls/hr 05/07/19 09:00 05/07/19 09:38 Levaquin 500mg/100ml Premix IV 05/21/19 08:59 Not Given Q24H COUNT INCLUDES THE [facility] Protocol Methylprednisolone Sodium Succinate 40 mg 05/07/19 08:46 05/07/19 08:55 Methylprednisolone Sod Succinate 40mg Vial IV 05/07/19 08:47 40 mg ONCE ONE Administration Ondansetron HCl 4 mg 05/07/19 09:24 05/07/19 09:25 Zofran 4mg/2ml Vial IV 05/07/19 09:25 4 mg ONCE ONE Administration ORDERS Category Date Time Status Troponin I Q3H Lab 05/07/19 11:45 Ordered Troponin I Q3H Lab 05/07/19 14:45 Ordered Blood Culture Stat Micro 05/07/19 08:52 Received Medical Decision Narrative: Patient improved after breathing treatment. Improved after IV antibiotics and IV fluids and IV steroids. EKG: Heart rate 85. No P waves. QRS complexes. No ST segment deviations. Is a normal EKG X-ray: Right lower lobe and right upper lobe pneumonia probable Resp/SOB HPI - General Chief Complaint: Upper Respiratory Infection Stated Complaint: Shortness of breath Time Seen by Provider: 05/07/19 09:30 Mode of Arrival: Ambulatory Source of Information: Patient Limitations: Physical Limitations Description of Symptoms (Recalled from ER Triage Doc. by RN): pt presents to ed from pre op in which she was scheduled to have a right ankle surgery by dr barcenas. pt had pre op work up complete and it was found that patient has pneumonia. pt states she has had a slight cough at home over the week but denies fever or other complaints. - History of Present Illness Patient was getting ready to have a procedure done this morning and they noted on chest x-ray she developed a right lower lobe pneumonia. She states that she has had a productive cough for the last 3 to 4 days. Also complains of some minor shortness of breath. Denies any chest pain. States she has had an overwhelming fatigue for the last 2 weeks. She denies any recent fever shakes or chills. MD Complaint: shortness of breath, cough Onset (ago): week(s) Severity: moderate Consistency/Duration: constant Relieving factors: nothing Exacerbating factors: nothing Associated symptoms: denies other symptoms - Related Data Home Medications Medication Instructions Recorded Confirmed Duloxetine HCl 60 mg PO HS 05/01/19 05/07/19 Gabapentin [Gabapentin 300mg Cap] 300 mg PO DAILY PRN 05/01/19 05/07/19 Insulin Aspart [Novolog Flexpen] 10 units SQ TID 05/01/19 05/07/19 Insulin Glargine,Hum.rec.anlog 10 units SQ HS 05/01/19 05/07/19 [Lantus Solostar 100 Units/mL 3mL flexpen] Levothyroxine Sodium 150 mcg PO DAILY 05/01/19 05/07/19 [Levothyroxine 150mcg (0.15mg) Tab] ramipriL [Ramipril] 1.25 mg PO HS 05/01/19 05/07/19 Doxycycline Hyclate [Vibra-Tab 100 mg PO BID 05/06/19 05/07/19 100mg tablet] Enoxaparin Sodium [Lovenox 40 mg SQ BID 05/06/19 05/07/19 40mg/0.4mL syringe] Gabapentin [Neurontin 300mg 300 mg PO TID 05/06/19 05/07/19 capsule] Previous Rx's Medication Instructions Recorded Oxycodone HCl/Acetaminophen 1 each PO Q4HP PRN #24 tab 05/04/19 [Percocet 7.5-325 mg Tablet] Allergies Allergy/AdvReac Type Severity Reaction Status Date / Time codeine Allergy Intermediate MENTAL Verified 05/07/19 08:36 STATUS CHANGES/DROPS BLOOD SUGAR Penicillins Allergy Intermediate I-RASH Verified 05/07/19 08:36 [facility] History - Hepatitis A Screen Drug use history?: No High risk sexual behaviors?: No History of sexually transmitted infection?: No Currently employed?: No Childcare worker?: No Do you have indoor plumbing?: Yes Do you have electricity?: Yes Attestation statement:: This patient has been screened for Hepatitis A risk factors. I have reviewed the patient's past medical history: Yes Medical History: Reports:: Coronary Artery Disease (Stents [place] [address] Recinos. No recurrent disease evident), Diabetes Mellitus Type 1 (Insulin requiring.), Hypertension Denies:: Cancer, Diabetes Mellitus Type 2, Internal Pacemaker, MRSA, Seizures Other Medical History: Reports: Hypothyroidism. Denies: Blood Transfusion Reaction Comment: morbid obesity, peripheral neuropathy Other Surgeries: Yes: Appendectomy, Cardiac Catheterization, Cholecystectomy, Coronary Stent, Hysterectomy-Total, Tubal Ligation. No: Pacemaker Amputation: No Fractures: No - Social History Smoking Status: Current every day smoker Tobacco Type: cigarettes # Packs/Day (cigarettes): 1 Alcohol Intake: never Substance Use Type: denies use Occupational Status: retired Housing: house Household Members: family Family Hx:: Coronary Artery Disease, Diabetes, Heart Attack, Hypertension, Stroke ROS Obtained: Yes All systems reviewed & no additional complaints - Constitutional Constitutional: Reports system reviewed and no additional complaints, except as docu - Eyes Eyes: Reports system reviewed and no additional complaints, except as docu - ENT Ears, Nose, Mouth, and Throat: Reports system reviewed and no additional complaints, except as docu - Cardiovascular Cardiovascular: Reports system reviewed and no additional complaints, except as docu - Gastrointestinal Gastrointestingal: Reports: system reviewed and no additional complaints, except as docu - Genitourinary Male Genitourinary: Reports system reviewed and no additional complaints, except as docu - Musculoskeletal Musculoskeletal: Reports system reviewed and no additional complaints, except as docu - Integumentary/Breasts Skin/Breast: Reports system reviewed and no additional complaints, except as docu - Neurologic Neurologic: Reports system reviewed and no additional complaints, except as docu - Endocrine Endocrine: Reports system reviewed and no additional complaints, except as docu Physical Exam - General General appearance: alert, in no apparent distress - Head Head exam: atraumatic, normocephalic, normal inspection - Eye Eye exam: Present: normal appearance, PERRL, EOMI - ENT ENT exam: Present: normal exam, normal oropharynx, mucous membranes moist - Neck Neck exam: Present: normal inspection - Chest Chest inspection: Present: normal inspection, symmetric chest wall rise - Respiratory Respiratory exam: Present: wheezes - Cardiovascular Cardiovascular exam: Present: regular rate, normal rhythm - Abdominal Exam Abdominal exam: Present: soft - Extremities Exam Extremities exam: Present: normal inspection - Back Exam Back exam: Present: normal inspection - Neurological Exam Neurological exam: Present: alert, oriented X3, CN II-XII intact - Psychiatric Psychiatric exam: Present: normal affect - Skin Skin exam: Present: warm
--- NOTE | 2019-05-07 14:58 | Pharmacy Consult Notes ---
[facility] Pharmacy VTE Monitoring - Patient Demographics Allergies/Adverse Reactions: Patient Allergies codeine Allergy (Intermediate, Verified 05/07/19 08:36) MENTAL STATUS CHANGES/DROPS BLOOD SUGAR Penicillins Allergy (Intermediate, Verified 05/07/19 08:36) I-RASH Height: 1.64 m Weight: 106.254 kg Patient Problems: Current Active Problems Ankle fracture, right (Acute) Pneumonia (Acute) - VTE Risk Was VTE Risk Assessment Performed: Yes VTE Score: 4 VTE Risk Level: Low Risk Clinical Trial Participant: No - Prophylaxis VTE Prophylaxis Ordered?: Yes Types of VTE Prophylaxis: TEDS Knee High
--- NOTE | 2019-05-07 17:10 | History & Physical Report ---
*Admission Date: 05/07/19 *Chief complaint: Pneumonia, SOA *History of present illness: Ms. Sena is a pleasant 64-year-old female who sees Dr. Isbell for primary care. Past medical history concerning for diabetes with complications, long-term insulin dependency, Charcot deformities of her feet, and recent fracture of her right foot with external fixation. She presented today for follow-up on her right tri-malleoli are ankle fracture sustained on 05/01/19 that had closed reduction performed on 05/02 with external fixator placed. Original plan was for ORIF, however on preop labs it was noted that she had concern for infection and electrolyte disturbances along with chest x-ray showing concern for pneumonia. She was sent to the ER for evaluation. On evaluation in the ER it was noted that she had right lower lobe pneumonia and elevated glucose. Her most recent A1c obtained on 05/02 is a 7.7. She has been on insulin since her late teenage years and has multiple complications consisting of coronary artery disease, chronic kidney disease, polyneuropathy, and Charcot deformity. Medicine was consulted for admission and further management. Initiated on antibiotics, orthopedics consulted for monitoring and maintenance of external fixator. [facility] History I have reviewed the patient's past medical history: Yes Medical History: Reports:: Coronary Artery Disease, Diabetes Mellitus Type 1 (Insulin requiring.), Hypertension Denies:: Cancer, Diabetes Mellitus Type 2, Internal Pacemaker, MRSA, Seizures *Have you ever received a pneumonia vaccine?: Yes *Have you received a flu vaccine this season?: Yes Other Medical History: Reports: Hypothyroidism. Denies: Blood Transfusion Reaction Laterality Cases: Bilateral: Cataract Other Surgeries: Yes: Appendectomy, Cardiac Catheterization, Cholecystectomy, Coronary Stent, Hysterectomy-Total, Tubal Ligation. No: Pacemaker Amputation: No Fractures: Yes - *Social History Educational Level: Completed High School Smoking Status: Former smoker Tobacco Type: cigarettes # Packs/Day (cigarettes): 1 #Yrs smoked (if former smoker): 20 Smoking End Date: 04/30/2019 Alcohol Intake: never Substance Use Type: denies use *Occupational Status:: retired Housing: house Household Members: family *Travel in the last 8 weeks: None Family Hx:: Coronary Artery Disease, Diabetes, Heart Attack, Hypertension, Stroke Review of Systems - Review of Systems Review of systems:: pertinent systems reviewed and negative unless documented below (14 point review of systems performed, pertinent positives and negatives as stated in HPI) Meds Home Medications Medication Instructions Recorded Confirmed Type Duloxetine HCl 60 mg PO HS 05/01/19 05/07/19 History Gabapentin [Gabapentin 300mg Cap] 300 mg PO TID PRN 05/01/19 05/07/19 History Insulin Aspart [Novolog Flexpen] 10 units SQ TID 05/01/19 05/07/19 History Insulin Glargine,Hum.rec.anlog 10 units SQ HS 05/01/19 05/07/19 History [Lantus Solostar 100 Units/mL 3mL flexpen] Levothyroxine Sodium 150 mcg PO DAILY 05/01/19 05/07/19 History [Levothyroxine 150mcg (0.15mg) Tab] ramipriL [Ramipril] 1.25 mg PO HS 05/01/19 05/07/19 History Oxycodone HCl/Acetaminophen 1 each PO Q4HP PRN #24 tab 05/04/19 05/07/19 Rx [Percocet 7.5-325 mg Tablet] Doxycycline Hyclate [Vibra-Tab 100 mg PO BID 05/06/19 05/07/19 History 100mg tablet] Gabapentin [Neurontin 300mg 300 mg PO TID 05/06/19 05/07/19 History capsule] Allergies Allergy/AdvReac Type Severity Reaction Status Date / Time codeine Allergy Intermediate MENTAL Verified 05/07/19 08:36 STATUS CHANGES/DROPS BLOOD SUGAR Penicillins Allergy Intermediate I-RASH Verified 05/07/19 08:36 Exam Vital signs and Labs for Last 24 Hours: Temp Pulse Resp BP Pulse Ox 98.1 F 85 20 141/56 H 92 L 05/07/19 15:58 05/07/19 15:58 05/07/19 15:58 05/07/19 15:58 05/07/19 15:58 Laboratory Results - last 24 hr 05/07/19 08:46: Lactate 1.4 05/07/19 08:46: Influenza Type A Ag Negative, Influenza Type B Ag Negative 05/07/19 08:46: Total Bilirubin 0.5, Direct Bilirubin 0.1, Indirect Bilirubin 0.4, AST 23, ALT 21, Alkaline Phosphatase 110, Troponin I 0.05, Total Protein 6.8, Albumin 2.4 L 05/07/19 08:46: B-Natriuretic Peptide 158 H 05/07/19 12:01: POC Glucose 304 H* 05/07/19 16:38: POC Glucose 332 H* I & O for Last 24 hours: Intake & Output 05/04/19 05/05/19 05/06/19 05/07/19 23:59 23:59 23:59 23:59 Intake Total 360 / 360 Balance 360 / 360 Weight 106.254 kg - Constitutional no acute distress, obese - *Routine HEENT Exam Head: Present: normocephalic Eye: Present: EOMI, PERRL ENT: Present: mucous membranes moist - *Routine Neck Exam Present: supple. Absent: lymphadenopathy - *Routine Respiratory Exam Present: CTA bilaterally - *Routine Cardiovascular Exam Present: RRR - *Routine Abdominal Exam Present: soft, normoactive bowel sounds. Absent: tenderness - *Routine Extremities Exam Present: edema (1+). Absent: cyanosis, clubbing Comments: External fixator on right ankle and foot, wrapped in Tadeo bandage. Neurovascularly intact in toes on right foot - *Routine Skin Exam Present: warm. Absent: rash - *Routine Neurological Exam Present: alert, oriented X3 Assessment and Plan (1) Ankle fracture, right Current visit: Yes Status: Acute Category: Medical Code(s): S82.891A - Other fracture of right lower leg, initial encounter for closed fracture Management per Ortho. Pain management as needed. Currently well-tolerated. ORIF pending improvement in response of pneumonia to antibiotics. (2) Pneumonia Current visit: Yes Status: Acute Qualifiers: Laterality: right Lung location: lower lobe of lung Category: Medical Code(s): J18.9 - Pneumonia, unspecified organism Initiated on steroids and antibiotics. Will monitor for improvement. Stable on room air at this time. (3) Obesity (BMI 30-39.9) Current visit: No Status: Chronic Category: Medical Code(s): E66.9 - Obesity, unspecified Class II obesity, complicates all aspects of her care. (4) Coronary atherosclerosis of [place] coronary artery Current visit: No Status: Chronic Qualifiers: [place] vs. transplanted heart: [place] heart Associated angina: without angina Qualified Code(s): I25.10 - Atherosclerotic heart disease of [place] coronary artery without angina pectoris Category: Medical Code(s): I25.10 - Atherosclerotic heart disease of [place] coronary artery without angina pectoris Multiple stents per history. Continue medical management (5) Diabetes mellitus, insulin dependent (IDDM), uncontrolled Current visit: No Status: Chronic Category: Medical Code(s): E11.65 - Type 2 diabetes mellitus with hyperglycemia; Z79.4 - medical terminologist (current) use of insulin Poorly controlled, multiple complications. A1c 7.7 five days ago. -Anticipate worsening control with use of steroids for pneumonia. Will increase basal insulin during admission with continued sliding scale. Monitor for signs of DKA in setting of hyperglycemia and illness. (6) Renal insufficiency Current visit: No Status: Acute Category: Medical Code(s): N28.9 - Disorder of kidney and ureter, unspecified Acute on chronic. Caution with nephrotoxins. Monitor daily (7) Hypothyroidism Current visit: Yes Status: Chronic Qualifiers: Hypothyroidism type: acquired Qualified Code(s): E03.9 - Hypothyroidism, unspecified Category: Medical Code(s): E03.9 - Hypothyroidism, unspecified Continue home levothyroxine. (8) Diabetic neuropathy associated with type 2 diabetes mellitus Current visit: No Status: Chronic Qualifiers: Diabetes mellitus complication detail: diabetic polyneuropathy Qualified Code(s): E11.42 - Type 2 diabetes mellitus with diabetic polyneuropathy Category: Medical Code(s): E11.40 - Type 2 diabetes mellitus with diabetic neuropathy, unspecified Continue gabapentin and Cymbalta. Complicates her healing, directly underlies her reason for injury and fracture. - Assessment and plan all Dx Assessment and Plan for all problems:: 64-year-old uncontrolled diabetic with multiple comorbidities and recent ankle fracture. Admitted acutely for pneumonia. Monitor for improvement with IV antibiotics and steroids. If continues to improve, will discuss discharge versus surgical intervention and appropriate timing thereof. Management as per above. Continues to require inpatient management at this time. Orthopedics assisting with external fixator. Appreciate recommendations.
--- NOTE | 2019-05-07 21:27 | Consult Report ---
*Admission Date: 05/07/19 *Reason for consult:: R ankle fracture *History of present illness: 64yo F admitted this morning with suspected pneumonia. She sustained a R trimalleolar ankle fracture on 05/01/2019 and due to severe soft tissue swelling and instability, closed reduction was performed 05/02/2019 with external fixator placement. She was discharged home on 05/04/2019 with instructions to keep the ankle elevated; she was discharged on oral doxycycline. She presented to pre-op this morning for anticipated ORIF and pre-op labs/CXR/EKG performed. Her CXR was concerning and anesthesia did not feel surgery was safe at this time. She was sent to the ER for evaluation and admitted to Dr. Ford/Shara. Review of Systems - Review of Systems Review of systems:: pertinent systems reviewed and negative unless documented below [facility] History I have reviewed the patient's past medical history: Yes Medical History: Reports:: Coronary Artery Disease, Diabetes Mellitus Type 1 (I nsulin requiring.), Hypertension Denies:: Cancer, Diabetes Mellitus Type 2, Internal Pacemaker, MRSA, Seizures *Have you ever received a pneumonia vaccine?: Yes *Have you received a flu vaccine this season?: Yes Other Medical History: Reports: Hypothyroidism. Denies: Blood Transfusion Reaction Laterality Cases: Bilateral: Cataract Other Surgeries: Yes: Appendectomy, Cardiac Catheterization, Cholecystectomy, Coronary Stent, Hysterectomy-Total, Tubal Ligation. No: Pacemaker Amputation: No Fractures: Yes - *Social History Educational Level: Completed High School Smoking Status: Former smoker Tobacco Type: cigarettes # Packs/Day (cigarettes): 1 #Yrs smoked (if former smoker): 20 Smoking End Date: 04/30/2019 Alcohol Intake: never Substance Use Type: denies use *Occupational Status:: retired Housing: house Household Members: family *Travel in the last 8 weeks: None Family Hx:: Coronary Artery Disease, Diabetes, Heart Attack, Hypertension, Stroke Meds Home Medications Medication Instructions Recorded Confirmed Type Duloxetine HCl 60 mg PO HS 05/01/19 05/07/19 History Gabapentin [Gabapentin 300mg Cap] 300 mg PO TID PRN 05/01/19 05/07/19 History Insulin Aspart [Novolog Flexpen] 10 units SQ TID 05/01/19 05/07/19 History Insulin Glargine,Hum.rec.anlog 10 units SQ HS 05/01/19 05/07/19 History [Lantus Solostar 100 Units/mL 3mL flexpen] Levothyroxine Sodium 150 mcg PO DAILY 05/01/19 05/07/19 History [Levothyroxine 150mcg (0.15mg) Tab] ramipriL [Ramipril] 1.25 mg PO HS 05/01/19 05/07/19 History Oxycodone HCl/Acetaminophen 1 each PO Q4HP PRN #24 tab 05/04/19 05/07/19 Rx [Percocet 7.5-325 mg Tablet] Doxycycline Hyclate [Vibra-Tab 100 mg PO BID 05/06/19 05/07/19 History 100mg tablet] Gabapentin [Neurontin 300mg 300 mg PO TID 05/06/19 05/07/19 History capsule] Allergies Allergy/AdvReac Type Severity Reaction Status Date / Time codeine Allergy Intermediate MENTAL Verified 05/07/19 08:36 STATUS CHANGES/DROPS BLOOD SUGAR Penicillins Allergy Intermediate I-RASH Verified 05/07/19 08:36 Exam Vital signs and Labs for Last 24 Hours: Temp Pulse Resp BP Pulse Ox 98.2 F 92 H 17 144/69 H 93 L 05/07/19 20:00 05/07/19 20:00 05/07/19 20:00 05/07/19 20:00 05/07/19 20:00 Laboratory Results - last 24 hr 05/07/19 08:46: Lactate 1.4 05/07/19 08:46: Influenza Type A Ag Negative, Influenza Type B Ag Negative 05/07/19 08:46: Total Bilirubin 0.5, Direct Bilirubin 0.1, Indirect Bilirubin 0.4, AST 23, ALT 21, Alkaline Phosphatase 110, Troponin I 0.05, Total Protein 6.8, Albumin 2.4 L 05/07/19 08:46: B-Natriuretic Peptide 158 H 05/07/19 12:01: POC Glucose 304 H* 05/07/19 16:38: POC Glucose 332 H* 05/07/19 20:33: POC Glucose 383 H* I & O for Last 24 hours: Intake & Output 05/05/19 05/06/19 05/07/19 05/08/19 11:59 11:59 11:59 11:59 Intake Total 720 / 720 Balance 720 / 720 Weight 234 lb 4 oz Microbiology Reports for the Last 24 Hours: Microbiology 05/07/19 18:15 Sputum - Expectorated Sputum Gram Stain - Final - Constitutional no acute distress - *Routine HEENT Exam Head: Present: normocephalic Eye: Present: EOMI ENT: Present: mucous membranes moist - *Routine Respiratory Exam Present: wheezes, crackles. Absent: respiratory distress - *Routine Cardiovascular Exam Present: RRR - *Routine Abdominal Exam Present: soft. Absent: tenderness - *Routine Extremities Exam Comments: RLE with external fixator in place: 2 pins in proximal tibia, 1 through calcaneus dressings removed, pin sites c/d/i, no erythema or drainage soft tissue swelling improved from last exam 5 days ago interval development of large fluid-filled blister over anterior ankle, extending medially wiggles toes R foot, no DF/PF given presence of ex-fix; EHL intact sensation intact to light touch RLE in all distributions palpable pedal pulses RLE, skin warm with brisk capillary refill R calf soft, non-tender - *Routine Skin Exam Present: wounds, ecchymosis - *Routine Neurological Exam Present: alert, oriented X3, moving all extremities, normal tone, hearing grossly intact, normal speech. Absent: sensory deficit, motor deficit, altered mental status - Routine Psychiatric Exam Present: normal affect Results - Labs Labs: Abnormal lab results 05/07/19 05/07/19 05/07/19 Range/Units 08:46 08:46 12:01 POC Glucose 304 H* (70-110) B-Natriuretic Peptide 158 H (0-100) pg/mL Albumin 2.4 L (3.4-5.0) gm/dL 05/07/19 05/07/19 Range/Units 16:38 20:33 POC Glucose 332 H* 383 H* (70-110) B-Natriuretic Peptide (0-100) pg/mL Albumin (3.4-5.0) gm/dL All other labs normal. Assessment and Plan (1) Ankle fracture, right Current visit: Yes Status: Acute Category: Medical Code(s): S82.891A - Other fracture of right lower leg, initial encounter for closed fracture (2) Pneumonia Current visit: Yes Status: Acute Category: Medical Code(s): J18.9 - Pneumonia, unspecified organism (3) Ankle dislocation Current visit: No Status: Acute Qualifiers: Encounter type: initial encounter Laterality: right Qualified Code(s): S93.04XA - Dislocation of right ankle joint, initial encounter Category: Medical Code(s): S93.06XA - Dislocation of unspecified ankle joint, initial encounter (4) Obesity (BMI 30-39.9) Current visit: No Status: Acute Category: Medical Code(s): E66.9 - Obesity, unspecified (5) Coronary atherosclerosis of [place] coronary artery Current visit: No Status: Chronic Category: Medical Code(s): I25.10 - Atherosclerotic heart disease of [place] coronary artery without angina pectoris (6) Diabetes mellitus, insulin dependent (IDDM), uncontrolled Current visit: No Status: Chronic Category: Medical Code(s): E11.65 - Type 2 diabetes mellitus with hyperglycemia; Z79.4 - care home (current) use of insulin (7) Personal history of nicotine dependence Current visit: No Status: Chronic Category: Medical Code(s): Z87.891 - Personal history of nicotine dependence - Assessment and plan all Dx Assessment and Plan for all problems:: 64yo F with R ankle trimalleolar fracture-dislocation s/p closed reduction/ex- fix application 05/02/19 -- NWB RLE, keep leg elevated to continue to decrease swelling -- pin care performed today, recommend performing this + dressing change at least every other day -- medical management per primary physicians Logan/Shara -- will plan on definitive ORIF when soft tissues are amenable to fixation and when pulmonary status improved
[2019-05-08 07:21] LABS: Basophils % 0.1 % (0.1-2.0); Eosinophils % 0.2 % (0.1-12.0); Hematocrit 31.4 % (37.0-47.0); Hemoglobin 10.1 g/dL (12.2-16.2); Lymphocytes # 0.8 K/mm3 (0.7-4.5); Lymphocytes % 6.6 % (10-50); Mean Corpuscular HGB Conc 32.3 g/dL (31.8-35.4); Mean Corpuscular Volume 96.8 fl (81-99); Mean Platelet Volume 9.5 fl (7.4-10.4); Monocytes # 0.4 K/mm3 (0.1-1.0); Neutrophils # 10.5 K/mm3 (1.8-7.8); Neutrophils % 90.1 % (37.0-80.0); Platelet Count 347 K/mm3 (142-424); Red Blood Count 3.24 M/mm3 (4.20-5.40); Red Cell Distribution Width 14.1 % (11.5-17.5); White Blood Count 11.6 K/mm3 (4.8-10.8)
[2019-05-08 07:23] LABS: Albumin Level 2.3 gm/dL (3.4-5.0); Albumin/Globulin Ratio 0.5 (1.1-1.8); Anion Gap 15.6 mEq/L (5-15); Bilirubin,Total 0.3 mg/dL (0.2-1.0); Calcium 8.5 mg/dL (8.5-10.1); Globulin 4.4 gm/dl (1.3-3.2); Total Protein,Serum 6.7 gm/dL (6.4-8.2)
--- NOTE | 2019-05-08 08:23 | Discharge Summary ---
General - General Admission date:: 05/07/19 Discharge date: 05/08/19 HPI HPI: Ms. Sena is a pleasant 64-year-old female who sees Dr. Isbell for primary care. Past medical history concerning for diabetes with complications, long-term insulin dependency, Charcot deformities of her feet, and recent fracture of her right foot with external fixation. She presented today for follow-up on her right tri-malleoli are ankle fracture sustained on 05/01/19 that had closed reduction performed on 05/02 with external fixator placed. Original plan was for ORIF, however on preop labs it was noted that she had concern for infection and electrolyte disturbances along with chest x-ray showing concern for pneumonia. She was sent to the ER for evaluation. On evaluation in the ER it was noted that she had right lower lobe pneumonia and elevated glucose. Her most recent A1c obtained on 05/02 is a 7.7. She has been on insulin since her late teenage years and has multiple complications consisting of coronary artery disease, chronic kidney disease, polyneuropathy, and Charcot deformity. Medicine was consulted for admission and further management. Initiated on antibiotics, orthopedics consulted for monitoring and maintenance of external fixator. Hospital Course Hospital Course: Presented for outpatient surgery, was found to have pneumonia and abnormal labs. Admitted overnight and monitored with improvement in overall clinical status. Transition oral antibiotics. Did not need any oxygen during admission. Blood sugar severely elevated with use of steroids. We will stop steroids at this time and not continue in the outpatient setting due to risk for worsening hyperglycemia/DKA. Recommend insulin increase to 15 units nightly of basaglar. Continue her adjustable dose with meals. Overall patient feeling well. Denies chest pain, shortness of breath, nausea, vomiting, diarrhea. Leg pain stable. Continue management of right lower extremity per orthopedics. Would recommend waiting 1 to 2 weeks before surgery to allow for resolution of pneumonia and improvement of glucose control. Follow-up with her primary care within a week Objective Vital signs: Temp Pulse Resp BP Pulse Ox 98.4 F 85 19 159/61 H 96 05/08/19 07:51 05/08/19 07:51 05/08/19 07:51 05/08/19 07:51 05/08/19 08:00 Narrative: - Constitutional no acute distress, obese - *Routine HEENT Exam Head: Present: normocephalic Eye: Present: EOMI, PERRL ENT: Present: mucous membranes moist - *Routine Neck Exam Present: supple. Absent: lymphadenopathy - *Routine Respiratory Exam Present: crackles in right lower posterior field. no rhonchi or wheeze, left lung field CTA - *Routine Cardiovascular Exam Present: RRR - *Routine Abdominal Exam Present: soft, normoactive bowel sounds. Absent: tenderness - *Routine Extremities Exam Present: edema (1+). Absent: cyanosis, clubbing Comments: External fixator on right ankle and foot, wrapped in Tadeo bandage. Neurovascularly intact in toes on right foot - *Routine Skin Exam Present: warm. Absent: rash - *Routine Neurological Exam Present: alert, oriented X3 Results Labs on day of discharge: Labs from last 24 hours 05/08/19 05/08/19 05/08/19 07:02 07:02 06:41 WBC 11.6 H RBC 3.24 L Hgb 10.1 L Hct 31.4 L MCV 96.8 MCH 31.3 H MCHC 32.3 RDW 14.1 Plt Count 347 MPV 9.5 Neut % (Auto) 90.1 H Lymph % (Auto) 6.6 L [place] % (Auto) 3.0 Eos % (Auto) 0.2 Baso % (Auto) 0.1 Neut # (Auto) 10.5 H Lymph # (Auto) 0.8 [place] # (Auto) 0.4 Eos # (Auto) 0.0 Baso # (Auto) 0.0 Sodium 133 L Potassium 5.6 H D Chloride 96 L Carbon Dioxide 27 Anion Gap 15.6 H BUN 20 H D Creatinine 0.99 Estimated Creat Clear 97 Estimated GFR 57 L Est GFR ( Amer) 69 Glucose 413 H* POC Glucose 401 H* Lactate Calcium 8.5 Magnesium 1.8 Total Bilirubin 0.3 Direct Bilirubin Indirect Bilirubin AST 19 ALT 22 Alkaline Phosphatase 107 Troponin I B-Natriuretic Peptide Total Protein 6.7 Albumin 2.3 L Globulin 4.4 H Albumin/Globulin Ratio 0.5 L Influenza Type A Ag Influenza Type B Ag 05/07/19 05/07/19 05/07/19 20:33 16:38 12:01 WBC RBC Hgb Hct MCV MCH MCHC RDW Plt Count MPV Neut % (Auto) Lymph % (Auto) [place] % (Auto) Eos % (Auto) Baso % (Auto) Neut # (Auto) Lymph # (Auto) [place] # (Auto) Eos # (Auto) Baso # (Auto) Sodium Potassium Chloride Carbon Dioxide Anion Gap BUN Creatinine Estimated Creat Clear Estimated GFR Est GFR ( Amer) Glucose POC Glucose 383 H* 332 H* 304 H* Lactate Calcium Magnesium Total Bilirubin Direct Bilirubin Indirect Bilirubin AST ALT Alkaline Phosphatase Troponin I B-Natriuretic Peptide Total Protein Albumin Globulin Albumin/Globulin Ratio Influenza Type A Ag Influenza Type B Ag 05/07/19 05/07/19 05/07/19 08:46 08:46 08:46 WBC RBC Hgb Hct MCV MCH MCHC RDW Plt Count MPV Neut % (Auto) Lymph % (Auto) [place] % (Auto) Eos % (Auto) Baso % (Auto) Neut # (Auto) Lymph # (Auto) [place] # (Auto) Eos # (Auto) Baso # (Auto) Sodium Potassium Chloride Carbon Dioxide Anion Gap BUN Creatinine Estimated Creat Clear Estimated GFR Est GFR ( Amer) Glucose POC Glucose Lactate Calcium Magnesium Total Bilirubin 0.5 Direct Bilirubin 0.1 Indirect Bilirubin 0.4 AST 23 ALT 21 Alkaline Phosphatase 110 Troponin I 0.05 B-Natriuretic Peptide 158 H Total Protein 6.8 Albumin 2.4 L Globulin Albumin/Globulin Ratio Influenza Type A Ag Negative Influenza Type B Ag Negative 05/07/19 08:46 WBC RBC Hgb Hct MCV MCH MCHC RDW Plt Count MPV Neut % (Auto) Lymph % (Auto) [place] % (Auto) Eos % (Auto) Baso % (Auto) Neut # (Auto) Lymph # (Auto) [place] # (Auto) Eos # (Auto) Baso # (Auto) Sodium Potassium Chloride Carbon Dioxide Anion Gap BUN Creatinine Estimated Creat Clear Estimated GFR Est GFR ( Amer) Glucose POC Glucose Lactate 1.4 Calcium Magnesium Total Bilirubin Direct Bilirubin Indirect Bilirubin AST ALT Alkaline Phosphatase Troponin I B-Natriuretic Peptide Total Protein Albumin Globulin Albumin/Globulin Ratio Influenza Type A Ag Influenza Type B Ag Preliminary micro results at discharge 05/07/19 18:15 Sputum Culture - Preliminary Sputum - Expectorated Sputum DS: Diagnosis - Discharge Diagnosis (1) Ankle fracture, right Status: Acute (2) Pneumonia Status: Acute (3) Obesity (BMI 30-39.9) Status: Chronic (4) Coronary atherosclerosis of [place] coronary artery Status: Chronic (5) Diabetes mellitus, insulin dependent (IDDM), uncontrolled Status: Chronic (6) Renal insufficiency Status: Resolved (7) Hypothyroidism Status: Chronic (8) Diabetic neuropathy associated with type 2 diabetes mellitus Status: Chronic Discharge Plan - Patient Discharge Instructions Patient Instructions: Pneumonia-Adult, DI for Ankle Fracture, DI for Urinary Tract Infection (UTI) - Follow up Plan Follow up with: Marques Isbell [Primary Care Provider] - 05/13/19 2:20 pm Maria Antonia Gardner MD [Physician] - 05/15/19 11:00 am Disposition: Home Health Service Home Medications: Home Medications Medication Instructions Recorded Confirmed Type Duloxetine HCl 60 mg PO HS 05/01/19 05/07/19 History Gabapentin [Gabapentin 300mg Cap] 300 mg PO TID PRN 05/01/19 05/07/19 History Insulin Aspart [Novolog Flexpen] 10 units SQ TID 05/01/19 05/07/19 History Levothyroxine Sodium 150 mcg PO DAILY 05/01/19 05/07/19 History [Levothyroxine 150mcg (0.15mg) Tab] ramipriL [Ramipril] 1.25 mg PO HS 05/01/19 05/07/19 History Oxycodone HCl/Acetaminophen 1 each PO Q4HP PRN #24 tab 05/04/19 05/07/19 Rx [Percocet 7.5-325 mg Tablet] Gabapentin [Neurontin 300mg 300 mg PO TID 05/06/19 05/07/19 History capsule] Insulin Glargine,Hum.rec.anlog 15 units SQ HS #0 05/08/19 05/07/19 Rx [Lantus Solostar 100 Units/mL 3mL flexpen] Sennosides [Senokot 8.6mg tablet] 8.6 mg PO BID PRN 15 Days #30 tab 05/08/19 Rx levoFLOXacin [Levaquin 750mg 750 mg PO DAILY #5 tab 05/08/19 Rx tablet] polyethylene glycoL 3350 [Miralax 17 gm PO BID PRN 15 Days #30 05/08/19 Rx 17gm Packet] [email or web address] Prescriptions/Medication Reconciliation: New levoFLOXacin [Levaquin 750mg tablet] 750 mg PO DAILY #5 tab polyethylene glycoL 3350 [Miralax 17gm Packet] 17 gm PO BID PRN 15 Days #30 powd.pack PRN Reason: Constipation Sennosides [Senokot 8.6mg tablet] 8.6 mg PO BID PRN 15 Days #30 tab PRN Reason: Constipation Continued Levothyroxine Sodium [Levothyroxine 150mcg (0.15mg) Tab] 150 mcg PO DAILY Duloxetine HCl 60 mg PO HS Gabapentin [Neurontin 300mg capsule] 300 mg PO TID ramipriL [Ramipril] 1.25 mg PO HS Insulin Aspart [Novolog Flexpen] 10 units SQ TID Gabapentin [Gabapentin 300mg Cap] 300 mg PO TID PRN PRN Reason: PAIN/SLEEP Oxycodone HCl/Acetaminophen [Percocet 7.5-325 mg Tablet] 1 each PO Q4HP PRN #24 tab PRN Reason: Severe Pain Changed Insulin Glargine,Hum.rec.anlog [Lantus Solostar 100 Units/mL 3mL flexpen] 15 units SQ HS #0 Discontinued Doxycycline Hyclate [Vibra-Tab 100mg tablet] 100 mg PO BID - Problem Reconciliation Problems Reviewed?: Yes
[2019-05-08 10:21] LABS: Lymphocytes % 9 % (10-50); Monocytes % 2 % (2-9); Neutrophils % 89 % (42-76); RBC Morphology Normal; Total Cells Counted 100
== END 2019-05-08 13:58 | disposition home health service (06) ==
LOC: 2ND 08:25 → ER 08:25 → 2ND 11:11
PROVIDERS: ADMIT Internal Medicine Adolescent Medicine; ATTEND Internal Medicine Adolescent Medicine
CPT/HCPCS: 36415; 80053; 80076; 82962; 83605; 83735; 83880; 84484; 85007; 85025; 87040; 87070; 87077; 87205; 87275; 87276; 94640; 96365; 96367; 96375; 97162; 99284; G0378; J1956; J2405

== ENCOUNTER 2019-05-19 09:00 | Observation (INO) ==
[2019-05-19 10:32] LABS: Basophils # 0.2 K/mm3 (0-0.2); Basophils % 1.9 % (0.1-2.0); Eosinophils # 0.2 K/mm3 (0.0-0.4); Eosinophils % 2.3 % (0.1-12.0); Hematocrit 39.9 % (37.0-47.0); Hemoglobin 12.9 g/dL (12.2-16.2); Lymphocytes # 1.3 K/mm3 (0.7-4.5); Lymphocytes % 14.6 % (10-50); Mean Corpuscular HGB Conc 32.3 g/dL (31.8-35.4); Mean Corpuscular Volume 93.5 fl (81-99); Mean Platelet Volume 8.8 fl (7.4-10.4); Monocytes # 0.5 K/mm3 (0.1-1.0); Monocytes % 6.1 % (1.7-9.3); Neutrophils # 6.6 K/mm3 (1.8-7.8); Neutrophils % 75.1 % (37.0-80.0); Platelet Count 609 K/mm3 (142-424); Red Blood Count 4.27 M/mm3 (4.20-5.40); Red Cell Distribution Width 14.3 % (11.5-17.5); White Blood Count 8.8 K/mm3 (4.8-10.8)
[2019-05-19 10:44] LABS: Anion Gap 13.6 mEq/L (5-15); C-Reactive Protein 2.2 mg/dL (0.0-0.9); Calcium 9.2 mg/dL (8.5-10.1)
[2019-05-19 10:56] LABS: Erythrocyte Sedimentation Rate 29 mm/hr (0-30)
--- NOTE | 2019-05-19 12:41 | Progress Note ---
[facility] Anesthesia Checklist - Patient Identification Patient Identification: Arm Band - Structural Data Admitted From: Home Planned Operative Procedure/s: ORIF right ankle Consent for Planned Operative Procedure(s) Verified: Yes Verified Documents: Surgical Consent, History and Physical - NPO Status Verified Time NPO: 00:00 - Additional verifications Anesthesia Reactions: No Hx Blood Transfusions: No Blood Transfusion Reaction: No - Airway Assessment C-Spine Mobility Assessed: Yes (mp2) TMJ Mobility Assessed: Yes Dentition: Good Dentition - Neurological Assessment Level of Consciousness: Awake, Alert - Anesthesia Plan Anesthesia Risk discussed: Yes ASA Class: III Anesthesia Type: General w/block [facility] History I have reviewed the patient's past medical history: Yes Medical History: Reports:: Coronary Artery Disease, Diabetes Mellitus Type 1, Hypertension Denies:: Cancer, Diabetes Mellitus Type 2, Internal Pacemaker, MRSA, Seizures *Have you ever received a pneumonia vaccine?: Yes *Have you received a flu vaccine this season?: Yes Other Medical History: Reports: Hypothyroidism. Denies: Blood Transfusion Reaction Anesthesia experience/problems:: nac Laterality Cases: Bilateral: Cataract Other Surgeries: Yes: Appendectomy, Cardiac Catheterization, Cholecystectomy, Coronary Stent, Hysterectomy-Total, Tubal Ligation, Other. No: Pacemaker Amputation: No Fractures: Yes - *Social History Educational Level: Completed High School Smoking Status: Never smoker Tobacco Type: cigarettes # Packs/Day (cigarettes): 1 #Yrs smoked (if former smoker): 20 Alcohol Intake: never Substance Use Type: denies use *Occupational Status:: retired Housing: house Household Members: none *Travel in the last 8 weeks: None Family Hx:: Hyperlipidemia, Hypertension
--- NOTE | 2019-05-19 19:35 | History & Physical Report ---
*Admission Date: 05/19/19 *Reason for consult:: s/p ORIF R ankle + ex-fix application *History of present illness: 64yo F status post closed trimalleolar fracture dislocation of the right ankle sustained on 05/01/2019, followed by closed reduction and external fixator application on 05/02/2019. She subsequently developed pneumonia and this, in combination with severe soft tissue swelling and fracture blistering, led to an inability to definitively fix the fracture on 05/07/2019. She was treated with prophylactic antibiotics while the pins were in place as well as antibiotics for her pneumonia, but she developed significantly increased redness around the ankle at her office visit on 05/15/19. XR at that time were also concerning for early Charcot changes, so the frame was removed on 05/15/19. Unna boot and a bulky dressing w/splint was applied. She presented to outpatient surgery today with decreased soft tissue swelling, no respiratory issues, and was able to undergo definitive fixation. Procedure: ORIF R ankle (posterior malleolus + distal fibula + medial malleolus + syndesmosis), HENRIK, repair of peroneus brevis/longus tendons + posterior tibial tendon, ankle synovectomy, soft tissue debridement with graft application, external fixator application. Intra-operatively the patient did well but did have 2-3 runs of a-fib each lasting <1 min (HR 120-125). IV metoprolol was given. BP was stable throughout the case. 2900cc crystalloid given (LR). 450cc UOP. [facility] History I have reviewed the patient's past medical history: Yes Medical History: Reports:: Coronary Artery Disease, Diabetes Mellitus Type 1, Hypertension Denies:: Cancer, Diabetes Mellitus Type 2, Internal Pacemaker, MRSA, Seizures *Have you ever received a pneumonia vaccine?: Yes *Have you received a flu vaccine this season?: Yes Other Medical History: Reports: Hypothyroidism. Denies: Blood Transfusion Reaction Anesthesia experience/problems:: nac Laterality Cases: Bilateral: Cataract Other Surgeries: Yes: Appendectomy, Cardiac Catheterization, Cholecystectomy, Coronary Stent, Hysterectomy-Total, Tubal Ligation, Other. No: Pacemaker Amputation: No Fractures: Yes - *Social History Educational Level: Completed High School Smoking Status: Never smoker Tobacco Type: cigarettes # Packs/Day (cigarettes): 1 #Yrs smoked (if former smoker): 20 Alcohol Intake: never Substance Use Type: denies use *Occupational Status:: retired Housing: house Household Members: none *Travel in the last 8 weeks: None Family Hx:: Hyperlipidemia, Hypertension Review of Systems - Review of Systems Review of systems:: pertinent systems reviewed and negative unless documented below Meds Home Medications Medication Instructions Recorded Confirmed Type Duloxetine HCl 60 mg PO HS 05/01/19 05/19/19 History Gabapentin [Gabapentin 300mg Cap] 300 mg PO TID PRN 05/01/19 05/19/19 History Insulin Aspart [Novolog Flexpen] 10 units SQ TID 05/01/19 05/19/19 History Levothyroxine Sodium 150 mcg PO DAILY 05/01/19 05/19/19 History [Levothyroxine 150mcg (0.15mg) Tab] ramipriL [Ramipril] 1.25 mg PO HS 05/01/19 05/19/19 History Oxycodone HCl/Acetaminophen 1 each PO Q4HP PRN #24 tab 05/04/19 05/19/19 Rx [Percocet 7.5-325 mg Tablet] Gabapentin [Neurontin 300mg 300 mg PO TID 05/06/19 05/19/19 History capsule] Insulin Glargine,Hum.rec.anlog 15 units SQ HS #0 05/08/19 05/19/19 Rx [Lantus Solostar 100 Units/mL 3mL flexpen] Sennosides [Senokot 8.6mg tablet] 8.6 mg PO BID PRN 15 Days #30 tab 05/08/19 05/19/19 Rx polyethylene glycoL 3350 [Miralax 17 gm PO BID PRN 15 Days #30 05/08/19 05/19/19 Rx 17gm Packet] powd.pack Enoxaparin Sodium [Lovenox 40 mg SQ DAILY 05/15/19 05/19/19 History 40mg/0.4mL syringe] Allergies Allergy/AdvReac Type Severity Reaction Status Date / Time codeine Allergy Intermediate MENTAL Verified 05/19/19 10:02 STATUS CHANGES/DROPS BLOOD SUGAR Penicillins Allergy Intermediate I-RASH Verified 05/19/19 10:02 Exam Vital signs and Labs for Last 24 Hours: Temp Pulse Resp BP Pulse Ox 98.2 F 92 H 18 116/62 98 05/19/19 10:14 05/19/19 10:14 05/19/19 10:14 05/19/19 10:14 05/19/19 10:14 Laboratory Results - last 24 hr 05/19/19 10:20: WBC 8.8, RBC 4.27, Hgb 12.9, Hct 39.9, MCV 93.5, MCH 30.2, MCHC 32.3, RDW 14.3, Plt Count 609 H, MPV 8.8, Neut % (Auto) 75.1, Lymph % (Auto) 14 .6, [place] % (Auto) 6.1, Eos % (Auto) 2.3, Baso % (Auto) 1.9, Neut # (Auto) 6.6, Lymph # (Auto) 1.3, [place] # (Auto) 0.5, Eos # (Auto) 0.2, Baso # (Auto) 0.2, ESR 29 05/19/19 10:20: Sodium 139, Potassium 4.6, Chloride 102, Carbon Dioxide 28, Anion Gap 13.6, BUN 15, Creatinine 0.89, Estimated Creat Clear 91, Estimated GFR 64, Est GFR ( Amer) 78, Glucose 233 H, Calcium 9.2, C-Reactive Protein 2.2 H 05/19/19 10:20: POC Glucose 222 H 05/19/19 11:35: Urine Color Yellow, Urine Appearance Clear, Urine pH 6.5, Ur Specific [place] 1.015, Urine Protein Negative, Urine Glucose (UA) 3+, Urine Ketones Negative, Urine Blood Negative, Urine Nitrate Negative, Urine Bilirubin Negative, Urine Urobilinogen 0.2, Ur Leukocyte Esterase Negative, Urine RBC 5- 10, Urine WBC Occasional, Ur Squamous Epith Cells Occasional, Urine Bacteria None I & O for Last 24 hours: Intake & Output 05/17/19 05/18/19 05/19/19 05/20/19 11:59 11:59 11:59 11:59 Weight 220 lb Narrative: patient is recovering in PACU - Constitutional no acute distress - *Routine HEENT Exam Head: Present: normocephalic Eye: Present: EOMI ENT: Present: mucous membranes moist - *Routine Respiratory Exam Present: CTA bilaterally. Absent: respiratory distress, wheezes - *Routine Cardiovascular Exam Present: RRR - *Routine Abdominal Exam Present: soft. Absent: tenderness - *Routine Exam Comments: lester to gravity, clear yellow urine - *Routine Extremities Exam Comments: RLE external fixator intact, dressings c/d/i due to presence of nerve block, sensation/motion diminished RLE foot pink, warm, palpable pedal pulses, brisk capillary refill RLE R calf soft, compressible, non-tender - *Routine Skin Exam Present: warm Results - Labs Result Diagrams: 05/19/19 10:20 05/19/19 10:20 Labs: Abnormal lab results 05/19/19 05/19/19 05/19/19 Range/Units 10:20 10:20 10:20 Plt Count 609 H (142-424) K/mm3 Glucose 233 H (74-106) mg/dL POC Glucose 222 H (70-110) C-Reactive Protein 2.2 H (0.0-0.9) mg/dL H & H 05/19/19 Range/Units 10:20 Hgb 12.9 (12.2-16.2) g/dL Hct 39.9 (37.0-47.0) % All other labs normal. Assessment and Plan (1) Ankle dislocation Current visit: No Status: Acute Qualifiers: Encounter type: initial encounter Laterality: right Qualified Code(s): S93.04XA - Dislocation of right ankle joint, initial encounter Category: Medical Code(s): S93.06XA - Dislocation of unspecified ankle joint, initial encounter (2) Ankle fracture, right Current visit: No Status: Acute Category: Medical Code(s): S82.891A - Other fracture of right lower leg, initial encounter for closed fracture (3) Diabetes mellitus, insulin dependent (IDDM), uncontrolled Current visit: No Status: Chronic Category: Medical Code(s): E11.65 - Type 2 diabetes mellitus with hyperglycemia; Z79.4 - manager floor (current) use of insulin (4) Diabetic neuropathy associated with type 2 diabetes mellitus Current visit: No Status: Chronic Qualifiers: Diabetes mellitus complication detail: diabetic polyneuropathy Qualified Code(s): E11.42 - Type 2 diabetes mellitus with diabetic polyneuropathy Category: Medical Code(s): E11.40 - Type 2 diabetes mellitus with diabetic neuropathy, unspecified (5) Obesity (BMI 30-39.9) Current visit: No Status: Chronic Category: Medical Code(s): E66.9 - Obesity, unspecified (6) Personal history of nicotine dependence Current visit: No Status: Chronic Category: Medical Code(s): Z87.891 - Personal history of nicotine dependence - Assessment and plan all Dx Assessment and Plan for all problems:: 64yo F POD 0 s/p ORIF R ankle (posterior malleolus + distal fibula + medial malleolus + syndesmosis), HENRIK, repair of peroneus brevis/longus tendons + posterior tibial tendon, ankle synovectomy, soft tissue debridement with graft application, external fixator application. -- admit to med/surg floor, Dr. Olmedo on consult -- stat labs, EKG, XR in PACU -- will place on tele overnight -- restart home meds -- SSI, low dose; q6hr accuchecks -- elevate RLE, out of bed with assistance -- PT/OT evals -- NWB RLE -- do not remove dressings; notify of drainage -- d/c lester tomorrow morning -- pain control: norco/morphine PRN -- SCDs, encourage IS -- DVT prophy: lovenox 40mg qday to start tomorrow -- 24hr prophy antibiotics; clinda 900mg -- dispo planning: plan on d/c to SNF pending insurance approval/acceptance
--- NOTE | 2019-05-19 19:50 | Progress Note ---
[facility] Anesthesia Record Part I Intake, IV Amount: 2,900 Estimated blood loss (mL): 50 Urine output (mL): 450 Blood Pressure: 132/51 SaO2: 95 Pulse Rate: 90 Respiratory Rate: 16 Temperature: 97.9 F Patient is:: Drowsy, Stable Stable to PACU at:: 19:45 Comments:: Dr. Gardner notified of unstable blood glucose during procedure along with intermittant arrythmia. Orders for labs/ekg/cxr in pacu. Dr. Linder notified Dr. Olmedo of these findings.
--- NOTE | 2019-05-19 19:54 | Operative Note ---
Date of procedure: 05/19/19 Pre-op Diagnosis:: 1. Right displaced trimalleolar diabetic ankle fracture 2. Right Charcot ankle deformity 3. Right gastrocsoleus equinus 4. Right posterior tibial tendon entrapment and tear 5. Right peroneal tendon tear 6. Right ankle synovitis 7. Right anterior ankle wound Post-op Diagnosis:: Same Procedure performed:: See Dr. Gardner's op note for full list: right ORIF trimalleolar displaced ankle fracture (posterior malleolus, distal fibula, medial malleolus, syndesmosis ORIF), ankle synovectomy, application of external fixation device 1. Right tendo Achilles lengthening 2. Right peroneal tendon debridement and repair x 2 3. Right posterior tibial tendon debridement and repair 4. Right anterior ankle wound debridement 5. Right anterior ankle wound graft application 6. Right application of external fixation device Surgeon:: MD Christine Parker DPM TRAINING AND DEVELOPMENT REP:: Donato Feeback Anesthesia: GETA, regional (R popliteal block) Estimated blood loss (mL): 50 Clinical Note:: See Dr. Gardner's H&P Operative findings:: There was a tear noted to the peroneal tendons. The brevis had a longitudinal full-thickness split tear. The longus had a partial thickness longitudinal tear. The posterior tibial tendon was noted to be entrapped within the medial mall fracture fragment and torn. Synovitis and fibrotic tissue within the ankle joint. Comminuted medial malleolus, posterior malleolus and distal fibula fractures. Syndesmosis tear. Equinus deformity noted. Soft crumbly bone consistent with osteo-porosis and Charcot deformity. There is also a wound noted to the anterior ankle. It was sharply excisionally debrided. Post debridement measurements: 5.1 x 3.4 x 0.2 cm, wound base 100% granular. Operative note:: See Dr. Gardner's op note for complete details. I assisted during the case. I performed the tendo Achilles lengthening, peroneal tendon debridement and repair, posterior tibial tendon debridement and repair and wound debridement with graft application. Also performed to the application of external fixation device. Right Tendon Achilles Lengthening Attention was directed to the posterior leg once the posterior excision had been made. Three stab incisions where made overlying the Achilles. Utilizing the three holes, david-section of the Achilles was performed with the foot maximally dorsiflexed. Release of the Achilles contracture was noted. The incisions were flushed with copious amounts of sterile saline with bacitracin irrigation and the wound was closed with 3-0 Nylon. Right ankle synovectomy: The tourniquet was inflated at 250 mmHg. Attention was directed to the posterior lateral foot where the incision was mapped out. Dissection was carried through skin to subcutaneous tissue with care taken to maintain surgical hemostasis and safely retract neurovascular structures. The peroneal tendons were identified. There was pink and red synovitic tissue and fluid noted surrounding the tendon sheath and in the ankle joint. Dissection was then carried down through the sheath overlying the peroneal tendons and immediately synovitic fluid was noted. Synovitis and fluid was cleaned up and the synovitis was debrided from around the tendons. The incision was flushed with copious amounts of sterile saline. RIGHT PERONEAL TENDON EXPLORATION, RIGHT PERONEUS BREVIS DIRECT OPEN REPAIR: At this point the wound was flushed copious as normal sterile saline. The peroneus brevis and longus tendons were identified and evaluated. There was some synovitis noted around the brevis and longus tendon. It was debrided and the wound was flushed copious amounts of normal sterile saline. The brevis had a splint longitudinal tear noted at the level of the lateral malleoli and was about 4 cm long. A 15' blade was used to debride the tendon. A piece of the tendon was sent to the lab as a specimen. Each of the tears were separately repaired. The peroneal tendon was re-tubularized with 4-0 Vicryl. Next 4-0 Prolene was used to reinforce the entire longitudinal tear in a running baseball type fashion. RIGHT PERONEUS LONGUS DEBRIDEMENT AND REPAIR: The peroneal longus tendon did have a longitudinal tear. The tendon was debrided and repaired in same fashion as the brevis. It was flushed with copious amounts of normal sterile saline. RIGHT POSTERIOR TIBIAL TENDON DEBRIDEMENT AND REPAIR: The PT tendon was noted to be entrapped within the medial malleolar fracture fragment. It did have a longitudinal tear. The tendon was debrided and repaired in same fashion as the brevis. It was flushed with copious amounts of normal sterile saline. RIGHT APPLICATION OF AMNIOTIC TISSUE GRAFT: Half of an amnio graft was cut and wrapped around the peroneal tendons so they would not adhesions or adhered to the staple or deep tissue. Deep tissues were approximated with 2-0 in a running fashion and interrupted sutures. 3-0 Vicryl was used to reapproximate the subcutaneous tissue in an interrupted suture fashion. The other half of the amniotic graft was inserted prior to skin closure. Skin was closed with 3-0 nylon in an interrupted mattress fashion. Viaflow x1 (2cc) was inserted into the skin incisions. RIGHT ANKLE WOUND DEBRIDEMENT and ActiShield wound skin graft application: Patient was directed to the anterior ankle where 100% dark eschar was noted to wound from previous trauma fracture blister. Utilizing a 15 blade and forceps the wound was sharply debrided through the skin and subcutaneous tissue layer. Post debridement sharply excisionally into the subcu layer revealed 100% granular tissue. Post debridement the wound measured 5.1 x 3.4 x 0.2 cm. The ActiShield graft x 1 (4x8cm) was placed over the open wound and vicryl was used to tag down corners. Next steri strips applied over the graft. Next adaptic placed and secured over the graft site with steri strips. The skin was cleansed. RIGHT APPLICATION OF EXTERNAL FIXATION (ILIZAROV) DEVICE: Leg holders were positioned and the leg placed in the frame. [facility] frame used, size 220 with 3 rings. Attention was directed to the lateral calcaneus where an olive wire was positioned from the inferior lateral calcaneus and driven to the medial inferior calcaneus. The calcaneus felt very soft in texture. Next a second olive wire was driven from the medial calcaneus into the lateral calcaneus. Attention was directed proximally to the proximal most ring where a wire was driven from the anterior face of the tibia lateral to medial and a second wire driven from medial to lateral. The wires were tensioned and some stability was noted to the frame. Next 2 more wires were used this time on the distal tibia. The leg wires were tensioned to 125. Good stability of the frame was noted. Next an olive wire was positioned from the medial first metatarsal capturing the second and third metatarsals and exi ting dorsal lateral on the midfoot. Similarly another olive wire was placed from the fifth metatarsal angle proximal medial capturing the fifth fourth and third metatarsal prior to exiting. The distal foot olive wires were then tensioned to 80 and some deformity was noted to be reduced with the foot being pulled internally and more medially in the frame. Adequate position of the foot within the frame was noted. The skin was not touching or rubbing against the frame in any plane. Intraoperative fluoroscopy was utilized to obtain x-rays which showed adequate position with some reduction of the deformity. Charcot ankle fracture dislocation appreciated with stable ORIF and frame application. Skin was cleansed. Xeroform applied to each pin site followed by a dry sterile dressing. Tourniquet time (min): 240 Condition: stable Disposition: floor Specimens:: Right peroneal tendon Complications:: None
[2019-05-19 20:02] LABS: Basophils # 0.1 K/mm3 (0-0.2); Eosinophils % 0.1 % (0.1-12.0); Monocytes # 0.1 K/mm3 (0.1-1.0)
--- NOTE | 2019-05-19 20:09 | Operative Note ---
Date of procedure: 05/19/19 Pre-op Diagnosis:: 1) trimalleolar fracture-dislocation RIGHT ankle 2) diabetes mellitus, type 1 3) R ankle Charcot deformity 4) R ankle equinus deformity 5) R anterior ankle wound Post-op Diagnosis:: 1) trimalleolar fracture-dislocation RIGHT ankle 2) diabetes mellitus, type 1 3) R ankle Charcot deformity 4) R ankle equinus deformity 5) R posterior tibial tendon entrapment and tear 6) R peroneal tendon tear 7) R ankle synovitis 8) R anterior ankle wound Procedure performed:: 1) R tendo Achilles lengthening 2) open reduction internal fixation (ORIF) R ankle fracture --> posterior fixation of posterior malleolus (tibia) + distal fibula fractures; anteromedial fixation of medial malleolus fracture 3) syndesmosis fixation with tightrope, R ankle 4) bone grafting R medial malleolus fracture defect 5) R ankle synovectomy 6) R peroneal tendon debridement and repair x2 7) R posterior tibial tendon debridement and repair 8) R anterior ankle wound debridement + graft application 9) application of external fixation device R ankle See Dr. Arauz's op note for full detail of: tendo Achilles lengthening, repairs of peroneal tendons/posterior tibial tendon, ankle synovectomy, wound debridement with graft application, application of external fixator. Surgeon:: MD Christine Parker, DPM Real Estate Intern(s):: BYRON Cheek DIRECTOR OF MECHANICAL ENGINEERING:: Donato Leroy Anesthesia: GETA, regional (popliteal block) Estimated blood loss (mL): 50 Clinical Note:: 64yo F s/p closed trimalleolar fracture-dislocation of the R ankle sustained on 05/01/2019, followed by closed reduction and external fixator application on 05/02/2019. She subsequently developed pneumonia and this, in combination with severe soft tissue swelling and fracture blistering, led to an inability to definitively fix the fracture as planned on 05/07/2019. She was treated with prophylactic antibiotics for her pin sites, as well as antibiotics for her pneumonia, but she developed significantly increased redness around the ankle. X-rays on 05/15/19 were also concerning for early Charcot changes, so the frame was removed on that date. Unna boot and a bulky dressing w/splint was applied. She presented to outpatient surgery today with decreased soft tissue swelling, no respiratory issues, and was felt to be appropriate for definitive fixation today. Chest XR was performed in pre-op today, which showed resolution of pneumonia. Risks of the surgery were discussed with the patient, including bleeding, infection, neurovascular damage, fracture comminution/failure of fixation requiring ankle fusion, and risks of anesthesia. The patient vocalized understanding and provided informed consent for the procedure. Operative findings:: -- equinus deformity; HENRIK performed -- posterior malleolus fracture: fixed with giddy posterior tibial plate + 6 screws, all 3.5mm (1 non-locking; 5 locking) -- distal fibula fracture: highly comminuted, fixed with giddy lateral fibula plate + 9 screws, all 3.5mm locking -- tears noted to peroneus brevis + longus; debrided/repaired -- syndesmosis injury: giddy Synchfix tightrope x1 placed -- medial malleolus fracture: highly comminuted with bone void, fixed with giddy medial tibial plate + 5 screws; 3.5mm x4 (3 locking, 1 non- locking), 2.7mm x1 (locking) --> void was grafted with Augment + ViaFlow + 5cc crushed cancellous bone chips -- ankle synovitis present, synovectomy performed -- posterior tibial tendon was entrapped in medial malleolus fracture site and torn; repaired -- anterior ankle wound debrided + graft applied (Actishield) -- external fixator applied (Ilizarov-type recon frame); [facility] frame biologics used: ViaFlow (flowable placental tissue matrix) [[place]] Augment (injectable DBM) [[place]] Actishield 4x8cm graft (amniotic barrier membrane) [[place]] Amnio Biograft 3x4cm [[employer]] Operative note:: The patient was identified in preoperative holding and the right ankle signed by myself. Operative consent was reviewed with the patient and all questions were answered. Popliteal nerve block was then performed by DIRECTOR OF MECHANICAL ENGINEERING. The patient was taken to the OR and general anesthesia was induced while the patient was still on her cart. After she was asleep, she was turned into a prone position with well-padded chest and pelvic rolls in place. All bony prominences were well- padded and lap belt placed. The splint was then removed from the right ankle, a nonsterile tourniquet placed on the upper thigh, and the ankle prepped and draped in the usual sterile fashion. Timeout was performed, identifying the correct patient, correct procedure, and correct site. The procedure was begun by exsanguinating the right lower extremity with an Esmarch and elevating the tourniquet to 250 mmHg. Next, an incision was made over the posterolateral ankle. The incision was based in the interval between the Achilles tendon and the peroneal tendons, measuring approximately 8 cm long. Skin was incised with a 15 blade and the subcutaneous tissue bluntly dissected with finger dissection and Metzenbaum scissors. Care was taken around the inferior portion of the incision to identify, avoid and protect the sural nerve. Prior to fracture fixation, Achilles lengthening was performed; see Dr. Arauz's operative note for more detail. The interval between the Achilles and peroneals was developed and blunt self-retaining retractors placed. The distal fibula and distal tibia were immediately identified and soft tissue was cleared off of both of these bones. The fibula fracture was highly comminuted and bone quality poor. The posterior tibia was fixed first. Pointed reduction forceps were used to reduce/hold the fracture in an acceptable position. C-arm was used to confirm adequate reduction/alignment on PA and lateral views. The fracture was fixed with a giddy posterior tibial plate and 6 screws; all were 3.5mm diameter, 1 was non-locking and 5 locking screws. The ankle was seen to have abundant synovial tissue and fibrous tissue at the fracture sites, and ankle synovectomy was performed. The talar dome was visualized during this portion of the procedure as well, and seen to be intact without any large OCD lesions. The dome was slightly flattened however, consistent with Charcot changes seen on preoperative x-rays. Next the distal fibula was fixed using a giddy lateral fibula plate and 9 screws, all 3.5mm diameter locking screws. The fracture site was of soft, poor bone quality and was highly comminuted. The plate was placed and fixed proximally, then the distal fracture reduced to the plate and distal screws placed to secure the plate and bridge the fracture site. After the fibula was fixed, the peroneal tendons were examined and both were in poor condition with extensive tearing. Both were repaired; see Dr. Arauz's note for more detail. The wound was then closed in a layered fashion, including nylon on the skin, reinforced with jaquan. Sterile dressings were applied to the wound, tourniquet dropped and drapes removed. The patient was then turned supine, the leg re-prepped, and new drapes placed in sterile fashion. A medial incision was made, taking care to avoid the wound over the anterior ankle; this was a fracture blister and exact wound measurements can be found in Dr. Arauz's operative note. Skin was incised and bluntly dissected, exposing the medial malleolus fracture. The was also highly comminuted, and the posterior tibial tendon was seen to be entrapped in the fracture site. This was torn longitudinally as well. After the ankle synovectomy was continued/completed anteriorly and fracture debris cleared, a large bone void was seen medially. The medial malleolus fracture was reduced and provisionally pinned with k-wires, then fixed with a [facility] medial tibial plate. The bone void was filled with cancellous bone chips and DBM putty, and the anterior joint capsule repaired. The posterior tibial tendon was repaired, as dictated in Dr. Arauz's report. To complete bony fixation of the fracture, syndesmosis fixation was added with [facility] Synchfix tightrope x1. The medial wound was then closed in a layered fashion; it should be noted that the tourniquet was not inflated during the supine portion of the case and was only used while prone, with a total tourniquet time of 2 hours. The anterior ankle wound was sharply debrided per Dr. Arauz's report and wound graft applied. To complete the procedure, an Ilizarov-type reconstruction frame was added; this was the [facility] Sal[facility] frame. For full detail on ex-fix application see Dr. Arauz's report. Sterile dressings were applied to the wound and pin sites and wrapped with sterile DARYA wraps. The patient was then extubated and transferred to her cart; she was then taken to PACU in good condition. The patient tolerated the procedure well with no immediate adverse sequelae. There were no complications during this case. See Dr. Arauz's op note for full detail of: tendo Achilles lengthening, repairs of peroneal tendons/posterior tibial tendon, ankle synovectomy, wound debridement with graft application, application of external fixator. Tourniquet time (min): 120 Condition: stable Disposition: PACU Specimens:: R peroneal tendon Complications:: none
[2019-05-19 20:13] LABS: Anion Gap 21.6 mEq/L (5-15); Calcium 8.3 mg/dL (8.5-10.1)
[2019-05-19 20:18] LABS: Basophils % 0.3 % (0.1-2.0); Hematocrit 34.4 % (37.0-47.0); Lymphocytes # 0.7 K/mm3 (0.7-4.5); Lymphocytes % 4.6 % (10-50); Mean Platelet Volume 9.7 fl (7.4-10.4); Neutrophils # 13.7 K/mm3 (1.8-7.8); Platelet Count 554 K/mm3 (142-424); Red Blood Count 3.51 M/mm3 (4.20-5.40); Red Cell Distribution Width 14.5 % (11.5-17.5); White Blood Count 14.6 K/mm3 (4.8-10.8)
[2019-05-19 20:19] LABS: Hemoglobin 10.7 g/dL (12.2-16.2)
[2019-05-19 20:23] LABS: Lymphocytes % 3 % (10-50); Neutrophils % 97 % (42-76); Total Cells Counted 100
[2019-05-19 20:24] LABS: Hypochromasia 1+
[2019-05-20 06:03] LABS: Basophils % 0.2 % (0.1-2.0); Eosinophils % 0.1 % (0.1-12.0); Hematocrit 30.9 % (37.0-47.0); Lymphocytes # 1.4 K/mm3 (0.7-4.5); Lymphocytes % 6.5 % (10-50); Mean Corpuscular HGB Conc 32.2 g/dL (31.8-35.4); Mean Corpuscular Volume 94.2 fl (81-99); Mean Platelet Volume 9.5 fl (7.4-10.4); Monocytes # 1.2 K/mm3 (0.1-1.0); Monocytes % 5.6 % (1.7-9.3); Neutrophils # 18.5 K/mm3 (1.8-7.8); Neutrophils % 87.7 % (37.0-80.0); Platelet Count 503 K/mm3 (142-424); Red Blood Count 3.28 M/mm3 (4.20-5.40); Red Cell Distribution Width 14.4 % (11.5-17.5); White Blood Count 21.1 K/mm3 (4.8-10.8)
[2019-05-20 06:33] LABS: Anion Gap 13.2 mEq/L (5-15); Calcium 7.9 mg/dL (8.5-10.1)
--- NOTE | 2019-05-20 07:36 | Pharmacy Consult Notes ---
[facility] Pharmacy VTE Monitoring - Patient Demographics Admission date: 05/19/19 Report Date: 05/20/19 Time: 07:36 Allergies/Adverse Reactions: Patient Allergies codeine Allergy (Intermediate, Verified 05/19/19 10:02) MENTAL STATUS CHANGES/DROPS BLOOD SUGAR Penicillins Allergy (Intermediate, Verified 05/19/19 10:02) I-RASH Height: 1.63 m Weight: 104.525 kg - VTE Risk Labs: VTE Related Lab Results Hgb 10.0 g/dL (12.2-16.2) L 05/20/19 05:47 Hct 30.9 % (37.0-47.0) L 05/20/19 05:47 Plt Count 503 K/mm3 (142-424) H 05/20/19 05:47 BUN 20 mg/dL (7-18) H 05/20/19 05:47 Creatinine 1.07 mg/dL (0.55-1.02) H D 05/20/19 05:47 Estimated Creat Clear 89 mL/min (50-200) 05/20/19 05:47 VTE Score: 3 VTE Risk Level: Low Risk - Prophylaxis VTE Prophylaxis Ordered?: Yes Types of VTE Prophylaxis: TEDS Knee High Location of Applied Device: Left Leg Pharmacologic Type: Enoxaparin
[2019-05-20 08:43] LABS: Lymphocytes % 9 % (10-50); Monocytes % 4 % (2-9); Neutrophils % 87 % (42-76); Total Cells Counted 100
[2019-05-20 08:44] LABS: RBC Morphology Normal
--- NOTE | 2019-05-20 08:53 | Consult Report ---
*Admission Date: 05/19/19 *Reason for consult:: Follow-up glucose, postoperative status *History of present illness: 64yo F status post closed trimalleolar fracture dislocation of the right ankle sustained on 05/01/2019, followed by closed reduction and external fixator application on 05/02/2019. She subsequently developed pneumonia and this, in combination with severe soft tissue swelling and fracture blistering, led to an inability to definitively fix the fracture on 05/07/2019. She was treated with prophylactic antibiotics while the pins were in place as well as antibiotics for her pneumonia, but she developed significantly increased redness around the ankle at her office visit on 05/15/19. XR at that time were also concerning for early Charcot changes, so the frame was removed on 05/15/19. Unna boot and a bulky dressing w/splint was applied. She presented to outpatient surgery today with decreased soft tissue swelling, no respiratory issues, and was able to undergo definitive fixation. Procedure: ORIF R ankle (posterior malleolus + distal fibula + medial malleolus + syndesmosis), HENRIK, repair of peroneus brevis/longus tendons + posterior tibial tendon, ankle synovectomy, soft tissue debridement with graft application, external fixator application. Intra-operatively the patient did well but did have 2-3 runs of a-fib each lasting <1 min (HR 120-125). IV metoprolol was given. BP was stable throughout the case. 2900cc crystalloid given (LR). 450cc UOP. Above note per orthopedics. Patient transitioned well to second floor. Telemetry monitoring has been sinus rhythm. We changed insulin regimen to low intensity sliding scale given her propensity for hypoglycemia. This morning patient is awake, alert. Drinking well but is unable to hold food utensils. Secondary to weakness. [facility] History I have reviewed the patient's past medical history: Yes Medical History: Reports:: Coronary Artery Disease, Diabetes Mellitus Type 1, Hypertension Denies:: Cancer, Diabetes Mellitus Type 2, Internal Pacemaker, MRSA, Seizures *Have you ever received a pneumonia vaccine?: No *Have you received a flu vaccine this season?: Yes Other Medical History: Reports: Hypothyroidism. Denies: Blood Transfusion Reaction Anesthesia experience/problems:: nac Laterality Cases: Bilateral: Cataract Other Surgeries: Yes: Appendectomy, Cardiac Catheterization, Cholecystectomy, Coronary Stent, Hysterectomy-Total, Tubal Ligation, Other. No: Pacemaker Amputation: No Fractures: Yes - *Social History Educational Level: Completed High School Smoking Status: Never smoker Tobacco Type: cigarettes # Packs/Day (cigarettes): 1 #Yrs smoked (if former smoker): 20 Alcohol Intake: never Substance Use Type: denies use *Occupational Status:: disabled Housing: house Household Members: none *Travel in the last 8 weeks: None Family Hx:: Unable to obtain Review of Systems - Review of Systems Denies chest pain or shortness of air. Please see orthopedic review of systems for details Meds Home Medications Medication Instructions Recorded Confirmed Type Duloxetine HCl 60 mg PO HS 05/01/19 05/20/19 History Gabapentin [Gabapentin 300mg Cap] 300 mg PO HS 05/01/19 05/20/19 History Insulin Aspart [Novolog Flexpen] 10 units SQ TID 05/01/19 05/20/19 History Levothyroxine Sodium 150 mcg PO DAILY 05/01/19 05/20/19 History [Levothyroxine 150mcg (0.15mg) Tab] ramipriL [Ramipril] 1.25 mg PO HS 05/01/19 05/20/19 History Oxycodone HCl/Acetaminophen 1 each PO Q4HP PRN #24 tab 05/04/19 05/20/19 Rx [Percocet 7.5-325 mg Tablet] Gabapentin [Neurontin 300mg 300 mg PO TIDP PRN 05/06/19 05/20/19 History capsule] Insulin Glargine,Hum.rec.anlog 15 units SQ HS #0 05/08/19 05/20/19 Rx [Lantus Solostar 100 Units/mL 3mL flexpen] Sennosides [Senokot 8.6mg tablet] 8.6 mg PO BID PRN 15 Days #30 tab 05/08/19 05/20/19 Rx polyethylene glycoL 3350 [Miralax 17 gm PO BID PRN 15 Days #30 05/08/19 05/20/19 Rx 17gm Packet] powd.pack Enoxaparin Sodium [Lovenox 40 mg SQ DAILY 05/15/19 05/20/19 History 40mg/0.4mL syringe] Allergies Allergy/AdvReac Type Severity Reaction Status Date / Time codeine Allergy Intermediate MENTAL Verified 05/19/19 10:02 STATUS CHANGES/DROPS BLOOD SUGAR Penicillins Allergy Intermediate I-RASH Verified 05/19/19 10:02 Exam Vital signs and Labs for Last 24 Hours: Temp Pulse Resp BP Pulse Ox 98.7 F 92 H 18 138/51 L 97 05/20/19 08:00 05/20/19 08:00 05/20/19 08:00 05/20/19 08:00 05/20/19 08:00 Laboratory Results - last 24 hr 05/19/19 10:20: WBC 8.8, RBC 4.27, Hgb 12.9, Hct 39.9, MCV 93.5, MCH 30.2, MCHC 32.3, RDW 14.3, Plt Count 609 H, MPV 8.8, Neut % (Auto) 75.1, Lymph % (Auto) 14.6, [place] % (Auto) 6.1, Eos % (Auto) 2.3, Baso % (Auto) 1.9, Neut # (Auto) 6.6, Lymph # (Auto) 1.3, [place] # (Auto) 0.5, Eos # (Auto) 0.2, Baso # (Auto) 0.2, ESR 29 05/19/19 10:20: Sodium 139, Potassium 4.6, Chloride 102, Carbon Dioxide 28, Anion Gap 13.6, BUN 15, Creatinine 0.89, Estimated Creat Clear 91, Estimated GFR 64, Est GFR ( Amer) 78, Glucose 233 H, Calcium 9.2, C-Reactive Protein 2.2 H 05/19/19 10:20: POC Glucose 222 H 05/19/19 11:35: Urine Color Yellow, Urine Appearance Clear, Urine pH 6.5, Ur Specific [place] 1.015, Urine Protein Negative, Urine Glucose (UA) 3+, Urine Ketones Negative, Urine Blood Negative, Urine Nitrate Negative, Urine Bilirubin Negative, Urine Urobilinogen 0.2, Ur Leukocyte Esterase Negative, Urine RBC 5- 10, Urine WBC Occasional, Ur Squamous Epith Cells Occasional, Urine Bacteria None 05/19/19 12:25: POC Glucose 291 H 05/19/19 12:58: POC Glucose 202 H 05/19/19 13:45: POC Glucose 102 05/19/19 15:28: POC Glucose 132 H 05/19/19 19:26: POC Glucose 394 H* 05/19/19 19:52: POC Glucose 386 H* 05/19/19 19:54: WBC 14.6 H D, RBC 3.51 L, Hgb 10.7 L D, Hct 34.4 L, MCV 98.0, MCH 30.4, MCHC 31.0 L, RDW 14.5, Plt Count 554 H, MPV 9.7, Neut % (Auto) 94.0 H, Lymph % (Auto) 4.6 L, [place] % (Auto) 1.0 L, Eos % (Auto) 0.1, Baso % (Auto) 0.3, Neut # (Auto) 13.7 H, Lymph # (Auto) 0.7, [place] # (Auto) 0.1, Eos # (Auto) 0.0, Baso # (Auto) 0.1, Total Counted 100, Neutrophils % (Manual) 97 H, Lymphocytes % (Manual) 3 L, Platelet Estimate Slight increase, Hypochromasia 1+ 05/19/19 19:54: Sodium 138, Potassium 4.6, Chloride 101, Carbon Dioxide 20 L D, Anion Gap 21.6 H, BUN 20 H D, Creatinine 1.90 H D, Estimated Creat Clear 48, Estimated GFR 27 L, Est GFR ( Amer) 32 L D, Glucose 373 H D, Calcium 8.3 L 05/20/19 05:47: WBC 21.1 H* D, RBC 3.28 L, Hgb 10.0 L, Hct 30.9 L, MCV 94.2, MCH 30.4, MCHC 32.2, RDW 14.4, Plt Count 503 H, MPV 9.5, Neut % (Auto) 87.7 H, Lymph % (Auto) 6.5 L, [place] % (Auto) 5.6, Eos % (Auto) 0.1, Baso % (Auto) 0.2, Neut # (Auto) 18.5 H, Lymph # (Auto) 1.4, [place] # (Auto) 1.2 H, Eos # (Auto) 0.0, Baso # (Auto) 0.0, Total Counted 100, Neutrophils % (Manual) 87 H, Lymphocytes % (Manual) 9 L, Monocytes % (Manual) 4, Platelet Estimate Slight increase, RBC Morphology Normal 05/20/19 05:47: Sodium 139, Potassium 5.2 H, Chloride 104, Carbon Dioxide 27 D, Anion Gap 13.2, BUN 20 H, Creatinine 1.07 H D, Estimated Creat Clear 89, Estimated GFR 52 L, Est GFR ( Amer) 63 D, Glucose 244 H D, Calcium 7.9 L 05/20/19 07:51: POC Glucose 317 H* I & O for Last 24 hours: Intake & Output 05/17/19 05/18/19 05/19/19 05/20/19 11:59 11:59 11:59 11:59 Intake Total 3525 / 3525 Output Total 400 / 400 Balance 3125 / 3125 Weight 220 lb 230 lb 7 oz Narrative: Patient is awake, drowsy. Oriented x3. ENT exam clear, no JVD. Heart rate regular. Lungs clear. Abdomen soft. Extremity and neuro exam per orthopedic service. Internal Medicine - CN: Reslt - Labs CBC & Chem 7: 05/20/19 05:47 05/20/19 05:47 Labs: Short CBC 05/19/19 05/19/19 05/20/19 Range/Units 10:20 19:54 05:47 WBC 8.8 14.6 H D 21.1 H* D (4.8-10.8) K/mm3 Hgb 12.9 10.7 L D 10.0 L (12.2-16.2) g/dL Hct 39.9 34.4 L 30.9 L (37.0-47.0) % Plt Count 609 H 554 H 503 H (142-424) K/mm3 BMP 05/19/19 05/19/19 05/20/19 10:20 19:54 05:47 Sodium 139 138 139 Potassium 4.6 4.6 5.2 H Chloride 102 101 104 Carbon Dioxide 28 20 L D 27 D BUN 15 20 H D 20 H Creatinine 0.89 1.90 H D 1.07 H D Glucose 233 H 373 H D 244 H D Calcium 9.2 8.3 L 7.9 L Urine 05/19/19 Range/Units 11:35 Urine Color Yellow (Yellow) Urine Appearance Clear (Clear) Urine pH 6.5 (5.0-8.5) Ur Specific [place] 1.015 (1.005-1.030) Urine Protein Negative (Negative) Urine Glucose (UA) 3+ (Negative) Assessment and Plan (1) Ankle dislocation Current visit: No Status: Acute Qualifiers: Encounter type: initial encounter Laterality: right Qualified Code(s): S93.04XA - Dislocation of right ankle joint, initial encounter Category: Medical Code(s): S93.06XA - Dislocation of unspecified ankle joint, initial encounter (2) Ankle fracture, right Current visit: No Status: Acute Category: Medical Code(s): S82.891A - Other fracture of right lower leg, initial encounter for closed fracture (3) Diabetes mellitus, insulin dependent (IDDM), uncontrolled Current visit: No Status: Chronic Category: Medical Code(s): E11.65 - Type 2 diabetes mellitus with hyperglycemia; Z79.4 - intermediate (current) use of insulin (4) Diabetic neuropathy associated with type 2 diabetes mellitus Current visit: No Status: Chronic Qualifiers: Diabetes mellitus complication detail: diabetic polyneuropathy Qualified Code(s): E11.42 - Type 2 diabetes mellitus with diabetic polyneuropathy Category: Medical Code(s): E11.40 - Type 2 diabetes mellitus with diabetic neuropathy, unspecified (5) Obesity (BMI 30-39.9) Current visit: No Status: Chronic Category: Medical Code(s): E66.9 - Obesity, unspecified (6) Personal history of nicotine dependence Current visit: No Status: Chronic Category: Medical Code(s): Z87.891 - Personal history of nicotine dependence - Assessment and plan all Dx Assessment and Plan for all problems:: Reviewed medications. Start incentive spirometry. Low intensity sliding scale until patient is able to eat better. Clear liquids until patient is able to safely handle food.
--- NOTE | 2019-05-20 10:38 | Progress Note ---
Subjective Date: 05/20/19 Time: 09:30 Principal diagnosis: s/p ORIF R ankle + ex-fix application Interval history: The patient did well overnight. Feeling fatigued this morning with pain in the R ankle, appropriate for post-op state. No fevers/chills reported, no chest pain or shortness of breath. On tele overnight, sinus rhythm. PN: Obj Ex Vital signs: Temp Pulse Resp BP Pulse Ox 98.7 F 92 H 18 138/51 L 97 05/20/19 08:00 05/20/19 08:00 05/20/19 08:00 05/20/19 08:00 05/20/19 08:00 - Constitutional no acute distress - Routine HEENT Exam Head: Present: normocephalic Eye: Present: EOMI ENT: Present: mucous membranes moist - Routine Extremities Exam Comments: RLE external fixator intact, dressings c/d/i wiggles toes RLE; unable to perform any other motion of foot/ankle due to presence of ex-fix sensation intact RLE in all distributions, slightly diminished quality c/w baseline neuropathy foot pink, warm, palpable pedal pulses, brisk capillary refill RLE R calf soft, compressible, non-tender - Routine Neurological Exam Present: alert, oriented X3, moving all extremities, normal tone, hearing grossly intact, normal speech. Absent: sensory deficit, motor deficit, altered mental status - Urinary Catheter Management Lester Cath placed during this visit: no Progress Note: A&P (1) Ankle dislocation Status: Acute Current Visit: No (2) Ankle fracture, right Status: Acute Current Visit: No (3) Diabetes mellitus, insulin dependent (IDDM), uncontrolled Status: Chronic Current Visit: No (4) Diabetic neuropathy associated with type 2 diabetes mellitus Status: Chronic Current Visit: No (5) Obesity (BMI 30-39.9) Status: Chronic Current Visit: No (6) Personal history of nicotine dependence Status: Chronic Current Visit: No Assessment and Plan for All Diagnoses:: 64yo F POD 1 s/p ORIF R ankle (posterior malleolus + distal fibula + medial malleolus + syndesmosis), HENRIK, repair of peroneus brevis/longus tendons + posterior tibial tendon, ankle synovectomy, soft tissue debridement with graft application, external fixator application. -- PT/OT evals this morning -- NWB RLE, elevate RLE in bed; may be OOB with assistance -- do not remove dressings; notify MD of drainage -- d/c lester today -- SSI, low dose; q6hr accuchecks -- pain control: norco/morphine PRN -- SCDs, encourage IS -- DVT prophy: lovenox 40mg qday to start today -- 24hr prophy antibiotics; clinda 900mg to finish today -- Dr. Olmedo on consult, appreciate medical management -- dispo planning: plan on d/c to SNF pending insurance approval/acceptance
--- NOTE | 2019-05-20 10:52 | Progress Note ---
[facility] Anesthesia Record Part II Discharge Time: 22:30 Destination: Medical Surgical Department PACU nurse assessment reviewed?: Yes Patient Condition:: Good Anesthesia Complications:: None Swallowing reflex intact?: Yes Cyanosis?: No Blood Pressure: 147/62 Pulse Rate: 94 Temperature: 97.9 F Mental Status: Alert & Oriented Pain level:: 0 Nausea and/or vomitting:: None Intake, IV Amount: 0
[2019-05-21 06:31] LABS: Basophils # 0.1 K/mm3 (0-0.2); Basophils % 0.9 % (0.1-2.0); Eosinophils # 0.2 K/mm3 (0.0-0.4); Eosinophils % 1.1 % (0.1-12.0); Hematocrit 30.3 % (37.0-47.0); Hemoglobin 9.3 g/dL (12.2-16.2); Lymphocytes # 2.2 K/mm3 (0.7-4.5); Lymphocytes % 15.1 % (10-50); Mean Corpuscular HGB Conc 30.7 g/dL (31.8-35.4); Mean Corpuscular Volume 96.1 fl (81-99); Mean Platelet Volume 9.4 fl (7.4-10.4); Monocytes # 0.9 K/mm3 (0.1-1.0); Monocytes % 6.5 % (1.7-9.3); Neutrophils % 76.3 % (37.0-80.0); Platelet Count 450 K/mm3 (142-424); Red Blood Count 3.15 M/mm3 (4.20-5.40); Red Cell Distribution Width 14.7 % (11.5-17.5); White Blood Count 14.4 K/mm3 (4.8-10.8)
[2019-05-21 06:51] LABS: Anion Gap 13.2 mEq/L (5-15); Calcium 8.2 mg/dL (8.5-10.1)
--- NOTE | 2019-05-21 09:04 | Progress Note ---
Internal Medicine - PN: Subj *Date: 05/21/19 *Time: 08:45 Interval history: Patient has had intermittent nausea and vomiting overnight. Mostly related to her pain. Otherwise hemodynamically stable. Afebrile. Poorly tolerant of liquid diet due to pain induced nausea. Shortness of breath, chest pain, confusion. Exam Vital signs and Labs for Last 24 Hours: Temp Pulse Resp BP Pulse Ox 98.2 F 115 H 18 181/69 H 93 L 05/21/19 07:47 05/21/19 07:47 05/21/19 07:47 05/21/19 07:47 05/21/19 07:47 Laboratory Results - last 24 hr 05/20/19 14:39: POC Glucose 412 H* 05/20/19 20:36: POC Glucose 160 H 05/21/19 01:56: POC Glucose 202 H 05/21/19 06:15: WBC 14.4 H D, RBC 3.15 L, Hgb 9.3 L, Hct 30.3 L, MCV 96.1, MCH 29.5, MCHC 30.7 L, RDW 14.7, Plt Count 450 H, MPV 9.4, Neut % (Auto) 76.3, Lymph % (Auto) 15.1, [place] % (Auto) 6.5, Eos % (Auto) 1.1, Baso % (Auto) 0.9, Neut # (Auto) 11.0 H, Lymph # (Auto) 2.2, [place] # (Auto) 0.9, Eos # (Auto) 0.2, Baso # (Auto) 0.1 05/21/19 06:15: Sodium 140, Potassium 4.2, Chloride 104, Carbon Dioxide 27, Anion Gap 13.2, BUN 11 D, Creatinine 0.72 D, Estimated Creat Clear 93, Estimated GFR 82, Est GFR ( Amer) 99 D, Glucose 171 H, Calcium 8.2 L I & O for Last 24 hours: Intake & Output 05/18/19 05/19/19 05/20/19 05/21/19 23:59 23:59 23:59 23:59 Intake Total 2900 / 2900 1465 / 1465 480 / 480 Output Total 400 / 400 Balance 2900 / 2700 1065 / 1065 480 / 480 Weight 99.79 kg 101.179 kg 105 kg 102.682 kg Narrative: Patient is awake, alert and oriented x3. No acute distress on room air. Heart rate regular, no murmurs Lungs clear to auscultation bilaterally, no rhonchi or wheeze ENT exam clear, no JVD. Abdomen soft. Active bowel sounds, nonfocal tenderness. Extremity and neuro exam per orthopedic service. Assessment and Plan (1) Ankle dislocation Current visit: No Status: Acute Qualifiers: Encounter type: initial encounter Laterality: right Qualified Code(s): S93.04XA - Dislocation of right ankle joint, initial encounter Category: Medical Code(s): S93.06XA - Dislocation of unspecified ankle joint, initial encounter (2) Ankle fracture, right Current visit: No Status: Acute Category: Medical Code(s): S82.891A - Other fracture of right lower leg, initial encounter for closed fracture (3) Diabetes mellitus, insulin dependent (IDDM), uncontrolled Current visit: No Status: Chronic Category: Medical Code(s): E11.65 - Type 2 diabetes mellitus with hyperglycemia; Z79.4 - long term (current) use of insulin (4) Diabetic neuropathy associated with type 2 diabetes mellitus Current visit: No Status: Chronic Qualifiers: Diabetes mellitus complication detail: diabetic polyneuropathy Qualified Code(s): E11.42 - Type 2 diabetes mellitus with diabetic polyneuropathy Category: Medical Code(s): E11.40 - Type 2 diabetes mellitus with diabetic neuropathy, unspecified (5) Obesity (BMI 30-39.9) Current visit: No Status: Chronic Category: Medical Code(s): E66.9 - Obesity, unspecified (6) Personal history of nicotine dependence Current visit: No Status: Chronic Category: Medical Code(s): Z87.891 - Personal history of nicotine dependence (7) Nausea and vomiting Current visit: Yes Status: Acute Category: Medical Code(s): R11.2 - Nausea with vomiting, unspecified - Assessment and plan all Dx Assessment and Plan for all problems:: Hemodynamically stable overnight. Pain difficult to control. Required gradual escalation to IV Dilaudid. Emesis responding to antiemetics at this time. Patient interested in advancing her diet, recommend advancing to full liquid. Continue incentive spirometry. We will continue with low intensity sliding scale however, will resume basal insulin at reduced dose tonight. Will for placement and disposition placed however do not anticipate patient b eing ready for another day or 2 pending pain control regimen and advancement of diet/diabetes management. Continue wound care per orthopedics nursing
--- NOTE | 2019-05-21 12:56 | Progress Note ---
Subjective Date: 05/21/19 Time: 12:30 Principal diagnosis: s/p ORIF R ankle + ex-fix application Interval history: The patient is well this morning but continues to experience severe pain in the R ankle. Pain medication was changed to Percocet/dilaudid yesterday, which has helped. She is lethargic but responds appropriately to questions this morning. Reports nausea and decreased oral intake. Urinating, but only 2x in past 24 hours. No chest pain/shortness of breath, no fevers/chills, vitals stable. Using incentive spirometer as instructed. PN: Obj Ex Vital signs: Temp Pulse Resp BP Pulse Ox 98.7 F 98 H 18 141/61 H 96 05/21/19 12:00 05/21/19 12:00 05/21/19 12:00 05/21/19 12:00 05/21/19 12:00 - Constitutional no acute distress - Routine HEENT Exam Head: Present: normocephalic Eye: Present: EOMI ENT: Present: mucous membranes moist - Routine Respiratory Exam Present: CTA bilaterally - Routine Cardiovascular Exam Present: RRR - Routine Abdominal Exam Present: soft. Absent: tenderness - Routine Extremities Exam Comments: RLE external fixator intact, dressings c/d/i wiggles toes RLE; unable to perform any other motion of foot/ankle due to presence of ex-fix sensation intact RLE in all distributions, slightly diminished quality c/w baseline neuropathy foot pink, warm, palpable pedal pulses, brisk capillary refill RLE R calf soft, compressible, non-tender - Routine Skin Exam Present: warm - Routine Neurological Exam Present: alert, oriented X3, moving all extremities, normal tone, hearing grossly intact, normal speech. Absent: sensory deficit, motor deficit, altered mental status - Urinary Catheter Management Garcia Cath placed during this visit: no Progress Note: A&P (1) Ankle dislocation Status: Acute Current Visit: No (2) Ankle fracture, right Status: Acute Current Visit: No (3) Diabetes mellitus, insulin dependent (IDDM), uncontrolled Status: Chronic Current Visit: No (4) Diabetic neuropathy associated with type 2 diabetes mellitus Status: Chronic Current Visit: No (5) Obesity (BMI 30-39.9) Status: Chronic Current Visit: No (6) Personal history of nicotine dependence Status: Chronic Current Visit: No Assessment and Plan for All Diagnoses:: 64yo F POD 2 s/p ORIF R ankle (posterior malleolus + distal fibula + medial malleolus + syndesmosis), HENRIK, repair of peroneus brevis/longus tendons + posterior tibial tendon, ankle synovectomy, soft tissue debridement with graft application, external fixator application. -- continue PT/OT -- NWB RLE, elevate RLE in bed; may be OOB with assistance -- do not remove dressings; notify of drainage -- SSI, low dose; q6hr accuchecks -- pain control: percocet/dilaudid PRN -- SCDs, encourage IS -- DVT prophy: lovenox 40mg daily -- keflex 500mg TID x3 weeks -- dispo planning: plan on d/c to SNF pending insurance approval/acceptance
[2019-05-22 09:54] LABS: Basophils # 0.1 K/mm3 (0-0.2); Basophils % 1.3 % (0.1-2.0); Eosinophils # 0.3 K/mm3 (0.0-0.4); Eosinophils % 2.7 % (0.1-12.0); Hematocrit 29.6 % (37.0-47.0); Hemoglobin 9.1 g/dL (12.2-16.2); Lymphocytes # 1.9 K/mm3 (0.7-4.5); Lymphocytes % 16.9 % (10-50); Mean Corpuscular HGB Conc 30.8 g/dL (31.8-35.4); Mean Corpuscular Volume 94.2 fl (81-99); Mean Platelet Volume 11.3 fl (7.4-10.4); Monocytes # 0.6 K/mm3 (0.1-1.0); Monocytes % 5.4 % (1.7-9.3); Neutrophils # 8.1 K/mm3 (1.8-7.8); Neutrophils % 73.7 % (37.0-80.0); Platelet Count 399 K/mm3 (142-424); Red Blood Count 3.15 M/mm3 (4.20-5.40); Red Cell Distribution Width 14.4 % (11.5-17.5)
[2019-05-22 10:17] LABS: Anion Gap 11.8 mEq/L (5-15); Calcium 8.5 mg/dL (8.5-10.1)
--- NOTE | 2019-05-22 13:28 | Progress Note ---
Internal Medicine - PN: Subj *Date: 05/22/19 *Time: 08:30 Interval history: Patient had persistent pain overnight. Tolerating intense regimen of 10 mg every 4 hours of oxycodone with PRN Dilaudid use twice in the past 24 hours. Pain described as burning. Has history of neuropathy. Denies any further nausea or vomiting. No diarrhea. Patient's glucose noted to be high on labs. Steroids were stopped. Tolerated basal insulin last night at reduced dose. Still awaiting placement at this time, has been referred to [facility], awaiting their acceptance. Denies chest pain, palpitations, shortness of breath, headache, confusion. Does report however when she takes the pain meds she feels a little "loopy." Exam Vital signs and Labs for Last 24 Hours: Temp Pulse Resp BP Pulse Ox 98.0 F 70 18 129/52 L 96 05/22/19 12:00 05/22/19 12:00 05/22/19 12:00 05/22/19 12:00 05/22/19 12:00 Laboratory Results - last 24 hr 05/19/19 19:00: POC Glucose 439 H* 05/19/19 20:50: POC Glucose 293 H 05/20/19 01:49: POC Glucose 296 H 05/21/19 09:01: POC Glucose 341 H* 05/21/19 13:32: POC Glucose 297 H 05/21/19 20:43: POC Glucose 370 H* 05/22/19 02:02: POC Glucose 390 H* 05/22/19 07:25: C-Reactive Protein 13.8 H D 05/22/19 08:12: POC Glucose 179 H 05/22/19 09:45: WBC 11.0 H, RBC 3.15 L, Hgb 9.1 L, Hct 29.6 L, MCV 94.2, MCH 29.0, MCHC 30.8 L, RDW 14.4, Plt Count 399, MPV 11.3 H, Neut % (Auto) 73.7, Lymph % (Auto) 16.9, [place] % (Auto) 5.4, Eos % (Auto) 2.7, Baso % (Auto) 1.3, Neut # (Auto) 8.1 H, Lymph # (Auto) 1.9, [place] # (Auto) 0.6, Eos # (Auto) 0.3, Baso # (Auto) 0.1 05/22/19 09:45: Sodium 139, Potassium 4.8, Chloride 102, Carbon Dioxide 30, Anion Gap 11.8, BUN 7 D, Creatinine 0.70, Estimated Creat Clear 94, Estimated GFR 85, Est GFR ( Amer) 102, Glucose 189 H, Calcium 8.5 I & O for Last 24 hours: Intake & Output 05/19/19 05/20/19 05/21/19 05/22/19 23:59 23:59 23:59 23:59 Intake Total 2900 / 2900 1465 / 1465 3300 / 3420 4159 / 4159 Output Total 400 / 400 500 / 500 Balance 2900 / 2700 1065 / 1065 3300 / 2920 3659 / 3659 Weight 101.179 kg 105 kg 102.682 kg 103.022 kg Narrative: Patient is awake, alert and oriented x3. Mild distress due to pain in foot. Stable on ambient air. Heart rate regular, no murmurs Lungs clear to auscultation bilaterally, no rhonchi or wheeze ENT exam clear, no JVD. Abdomen soft. Active bowel sounds, nonfocal tenderness. Extremity and neuro exam per orthopedic service. Assessment and Plan (1) Ankle dislocation Current visit: No Status: Acute Qualifiers: Encounter type: initial encounter Laterality: right Qualified Code(s): S93.04XA - Dislocation of right ankle joint, initial encounter Category: Medical Code(s): S93.06XA - Dislocation of unspecified ankle joint, initial encounter (2) Ankle fracture, right Current visit: No Status: Acute Category: Medical Code(s): S82.891A - Other fracture of right lower leg, initial encounter for closed fracture (3) Diabetes mellitus, insulin dependent (IDDM), uncontrolled Current visit: No Status: Chronic Category: Medical Code(s): E11.65 - Type 2 diabetes mellitus with hyperglycemia; Z79.4 - group home (current) use of insulin (4) Diabetic neuropathy associated with type 2 diabetes mellitus Current visit: No Status: Chronic Qualifiers: Diabetes mellitus complication detail: diabetic polyneuropathy Qualified Code(s): E11.42 - Type 2 diabetes mellitus with diabetic polyneuropathy Category: Medical Code(s): E11.40 - Type 2 diabetes mellitus with diabetic neuropathy, unspecified (5) Obesity (BMI 30-39.9) Current visit: No Status: Chronic Category: Medical Code(s): E66.9 - Obesity, unspecified (6) Personal history of nicotine dependence Current visit: No Status: Chronic Category: Medical Code(s): Z87.891 - Personal history of nicotine dependence (7) Nausea and vomiting Current visit: Yes Status: Acute Category: Medical Code(s): R11.2 - Nausea with vomiting, unspecified - Assessment and plan all Dx Assessment and Plan for all problems:: Hemodynamically stable overnight. Pain difficult to control. Required significant opioids over the past 24 hours. Better tolerance of p.o. intake. recommend any advancement of her diet. Continue incentive spirometry. We will increase to moderate intensity sliding scale insulin, resume her home basal insulin dosage Monitor for improved pain control on more consistent regimen today. Increase gabapentin to 900 mg 4 times a day. Anticipate patient being ready as early as tomorrow for discharge given improvement in pain management. Continue home regimen for blood pressure and other comorbidities Continue wound care per orthopedics nursing
--- NOTE | 2019-05-22 15:44 | Progress Note ---
Subjective Date: 05/22/19 Time: 15:00 Principal diagnosis: s/p ORIF R ankle + ex-fix application Interval history: Patient seen this morning, pain significant but tolerable with pain medication. She has had difficulty with pain control, requiring percocet 10/325mg q4hr + 2 doses of dilaudid in the past 24 hours. Gabapentin has been increased. Vitals stable, WBC trending downwards. Glucose remains labile. PN: Obj Ex Vital signs: Temp Pulse Resp BP Pulse Ox 98.0 F 70 18 129/52 L 96 05/22/19 12:00 05/22/19 12:00 05/22/19 12:00 05/22/19 12:00 05/22/19 12:00 - Constitutional no acute distress - Routine HEENT Exam Head: Present: normocephalic Eye: Present: EOMI ENT: Present: mucous membranes moist - Routine Respiratory Exam Absent: respiratory distress, wheezes - Routine Cardiovascular Exam Present: RRR - Routine Abdominal Exam Present: soft. Absent: tenderness - Routine Extremities Exam Comments: RLE external fixator intact, dressings c/d/i dressings removed/changed; pin sites all c/d/i w/o erythema or drainage surgical incisions c/d/i w/o erythema anterior ankle graft intact wiggles toes RLE; unable to perform any other motion of foot/ankle due to presence of ex-fix sensation intact RLE in all distributions, slightly diminished quality c/w baseline neuropathy foot pink, warm, palpable pedal pulses, brisk capillary refill RLE R calf soft, compressible, non-tender - Routine Neurological Exam Present: alert, oriented X3, moving all extremities, normal tone, hearing grossly intact, normal speech. Absent: sensory deficit, motor deficit, altered mental status - Urinary Catheter Management Garcia Cath placed during this visit: no Progress Note: A&P (1) Ankle dislocation Status: Acute Current Visit: No (2) Ankle fracture, right Status: Acute Current Visit: No (3) Diabetes mellitus, insulin dependent (IDDM), uncontrolled Status: Chronic Current Visit: No (4) Diabetic neuropathy associated with type 2 diabetes mellitus Status: Chronic Current Visit: No (5) Obesity (BMI 30-39.9) Status: Chronic Current Visit: No (6) Personal history of nicotine dependence Status: Chronic Current Visit: No (7) Nausea and vomiting Status: Acute Current Visit: Yes Assessment and Plan for All Diagnoses:: 64yo F POD 3 s/p ORIF R ankle (posterior malleolus + distal fibula + medial malleolus + syndesmosis), H[facility]RIK, repair of peroneus brevis/longus tendons + posterior tibial tendon, ankle synovectomy, soft tissue debridement with graft application, external fixator application. -- continue PT/OT -- NWB RLE, elevate RLE in bed; may be OOB with assistance -- dressings changed today; do not remove at [facility], will perform dressing change at first clinic follow-up -- SSI, low dose; q6hr accuchecks -- pain control: percocet/dilaudid PRN. Would not recommend repeat nerve block; On-Q pumps not available here and [facility] will not take her with nerve block. Gabapentin has been increased. -- SCDs, encourage IS -- DVT prophy: lovenox 40mg daily -- keflex 500mg TID x3 weeks -- dispo planning: plan on d/c to [facility], likely tomorrow
[2019-05-23 05:47] LABS: Basophils # 0.1 K/mm3 (0-0.2); Basophils % 1.1 % (0.1-2.0); Eosinophils # 0.4 K/mm3 (0.0-0.4); Hemoglobin 8.9 g/dL (12.2-16.2); Lymphocytes # 2.2 K/mm3 (0.7-4.5); Lymphocytes % 20.9 % (10-50); Mean Corpuscular HGB Conc 31.8 g/dL (31.8-35.4); Mean Platelet Volume 9.8 fl (7.4-10.4); Monocytes # 0.7 K/mm3 (0.1-1.0); Monocytes % 6.3 % (1.7-9.3); Neutrophils # 7.2 K/mm3 (1.8-7.8); Neutrophils % 67.8 % (37.0-80.0); Platelet Count 403 K/mm3 (142-424); Red Blood Count 2.96 M/mm3 (4.20-5.40); Red Cell Distribution Width 14.4 % (11.5-17.5); White Blood Count 10.7 K/mm3 (4.8-10.8)
[2019-05-23 05:51] LABS: Anion Gap 10.9 mEq/L (5-15); Calcium 8.6 mg/dL (8.5-10.1)
[2019-05-23 05:52] LABS: Hematocrit 27.9 % (37.0-47.0)
--- NOTE | 2019-05-23 10:48 | Discharge Summary ---
General - General Admission date:: 05/19/19 Discharge date: 05/23/19 HPI HPI: 64yo F status post closed trimalleolar fracture dislocation of the right ankle sustained on 05/01/2019, followed by closed reduction and external fixator application on 05/02/2019. She subsequently developed pneumonia and this, in combination with severe soft tissue swelling and fracture blistering, led to an inability to definitively fix the fracture on 05/07/2019. She was treated with prophylactic antibiotics while the pins were in place as well as antibiotics for her pneumonia, but she developed significantly increased redness around the ankle at her office visit on 05/15/19. XR at that time were also concerning for early Charcot changes, so the frame was removed on 05/15/19. Unna boot and a bulky dressing w/splint was applied. She presented to outpatient surgery today with decreased soft tissue swelling, no respiratory issues, and was able to undergo definitive fixation. Procedure: ORIF R ankle (posterior malleolus + distal fibula + medial malleolus + syndesmosis), HENRIK, repair of peroneus brevis/longus tendons + posterior tibial tendon, ankle synovectomy, soft tissue debridement with graft application, external fixator application. Intra-operatively the patient did well but did have 2-3 runs of a-fib each lasting <1 min (HR 120-125). IV metoprolol was given. BP was stable throughout the case. 2900cc crystalloid given (LR). 450cc UOP. Hospital Course Hospital Course: Post-operatively the patient was found not to be in atrial fibrillation, on 12 lead EKG and continuous bus monitor. She was followed by Drs. Olmedo and Logan and had no acute issues during her stay. Glucose is labile, which is her baseline. She has periods of hyperglycemia >400, followed by lows <50 at home, which may have contributed to her initial injury. SSI was given as needed during her stay. SCDs were placed on BLE, IS encouraged, and lester removed POD 1. The main issue during her stay was pain control, which was improved after switching to Percocet/Dilaudid. Gabapentin was increased as well. Dressings were removed on POD 3 and pin care performed, with new dressings applied; these should not be removed unless absolutely necessary, and the next dressing change will be done in the office on 05/28/19. Lovenox 40mg daily was started on POD 1, will continue after discharge. Oral antibiotics were started after initial 24hr of IV antibiotics; keflex TID x3 weeks. PT/OT evals were performed during admission and the patient did well, will continue after discharge and the patient must remain strictly non-weightbearing RLE. Objective Vital signs: Temp Pulse Resp BP Pulse Ox 98.7 F 93 H 18 144/62 H 96 05/23/19 07:33 05/23/19 07:33 05/23/19 07:33 05/23/19 07:33 05/23/19 07:33 - *Routine HEENT Exam Head: Present: normocephalic Eye: Present: EOMI ENT: Present: mucous membranes moist - *Routine Respiratory Exam Absent: respiratory distress, rhonchi, wheezes - *Routine Cardiovascular Exam Present: RRR - *Routine Abdominal Exam Present: soft. Absent: tenderness - *Routine Extremities Exam Comments: RLE external fixator intact, dressings c/d/i wiggles toes RLE; unable to perform any other motion of foot/ankle due to presence of ex-fix sensation intact RLE in all distributions, slightly diminished quality c/w baseline neuropathy foot pink, warm, palpable pedal pulses, brisk capillary refill RLE R calf soft, compressible, non-tender - *Routine Skin Exam Present: warm - *Routine Neurological Exam Present: alert, oriented X3, moving all extremities, normal tone, hearing grossly intact, normal speech. Absent: sensory deficit, motor deficit, altered mental status Results Completed studies during hospitalization [Text1]: Laboratory Tests 05/19/19 05/19/19 05/19/19 10:20 10:20 10:20 WBC 8.8 RBC 4.27 Hgb 12.9 Hct 39.9 MCV 93.5 MCH 30.2 MCHC 32.3 RDW 14.3 Plt Count 609 H MPV 8.8 Neut % (Auto) 75.1 Lymph % (Auto) 14.6 [place] % (Auto) 6.1 Eos % (Auto) 2.3 Baso % (Auto) 1.9 Neut # (Auto) 6.6 Lymph # (Auto) 1.3 [place] # (Auto) 0.5 Eos # (Auto) 0.2 Baso # (Auto) 0.2 Total Counted Neutrophils % (Manual) Lymphocytes % (Manual) Monocytes % (Manual) Platelet Estimate RBC Morphology Hypochromasia ESR 29 Sodium 139 Potassium 4.6 Chloride 102 Carbon Dioxide 28 Anion Gap 13.6 BUN 15 Creatinine 0.89 Estimated Creat Clear 91 Estimated GFR 64 Est GFR ( Amer) 78 Glucose 233 H POC Glucose 222 H Calcium 9.2 C-Reactive Protein 2.2 H Urine Color Urine Appearance Urine pH Ur Specific [place] Urine Protein Urine Glucose (UA) Urine Ketones Urine Blood Urine Nitrate Urine Bilirubin Urine Urobilinogen Ur Leukocyte Esterase Urine RBC Urine WBC Ur Squamous Epith Cells Urine Bacteria 05/19/19 05/19/19 05/19/19 11:35 12:25 12:58 WBC RBC Hgb Hct MCV MCH MCHC RDW Plt Count MPV Neut % (Auto) Lymph % (Auto) [place] % (Auto) Eos % (Auto) Baso % (Auto) Neut # (Auto) Lymph # (Auto) [place] # (Auto) Eos # (Auto) Baso # (Auto) Total Counted Neutrophils % (Manual) Lymphocytes % (Manual) Monocytes % (Manual) Platelet Estimate RBC Morphology Hypochromasia ESR Sodium Potassium Chloride Carbon Dioxide Anion Gap BUN Creatinine Estimated Creat Clear Estimated GFR Est GFR ( Amer) Glucose POC Glucose 291 H 202 H Calcium C-Reactive Protein Urine Color Yellow Urine Appearance Clear Urine pH 6.5 Ur Specific [place] 1.015 Urine Protein Negative Urine Glucose (UA) 3+ Urine Ketones Negative Urine Blood Negative Urine Nitrate Negative Urine Bilirubin Negative Urine Urobilinogen 0.2 Ur Leukocyte Esterase Negative Urine RBC 5-10 Urine WBC Occasional Ur Squamous Epith Cells Occasional Urine Bacteria None 05/19/19 05/19/19 05/19/19 13:45 15:28 19:00 WBC RBC Hgb Hct MCV MCH MCHC RDW Plt Count MPV Neut % (Auto) Lymph % (Auto) [place] % (Auto) Eos % (Auto) Baso % (Auto) Neut # (Auto) Lymph # (Auto) [place] # (Auto) Eos # (Auto) Baso # (Auto) Total Counted Neutrophils % (Manual) Lymphocytes % (Manual) Monocytes % (Manual) Platelet Estimate RBC Morphology Hypochromasia ESR Sodium Potassium Chloride Carbon Dioxide Anion Gap BUN Creatinine Estimated Creat Clear Estimated GFR Est GFR ( Amer) Glucose POC Glucose 102 132 H 439 H* Calcium C-Reactive Protein Urine Color Urine Appearance Urine pH Ur Specific [place] Urine Protein Urine Glucose (UA) Urine Ketones Urine Blood Urine Nitrate Urine Bilirubin Urine Urobilinogen Ur Leukocyte Esterase Urine RBC Urine WBC Ur Squamous Epith Cells Urine Bacteria 05/19/19 05/19/19 05/19/19 19:26 19:52 19:54 WBC 14.6 H D RBC 3.51 L Hgb 10.7 L D Hct 34.4 L MCV 98.0 MCH 30.4 MCHC 31.0 L RDW 14.5 Plt Count 554 H MPV 9.7 Neut % (Auto) 94.0 H Lymph % (Auto) 4.6 L [place] % (Auto) 1.0 L Eos % (Auto) 0.1 Baso % (Auto) 0.3 Neut # (Auto) 13.7 H Lymph # (Auto) 0.7 [place] # (Auto) 0.1 Eos # (Auto) 0.0 Baso # (Auto) 0.1 Total Counted 100 Neutrophils % (Manual) 97 H Lymphocytes % (Manual) 3 L Monocytes % (Manual) Platelet Estimate Slight increase RBC Morphology Hypochromasia 1+ ESR Sodium Potassium Chloride Carbon Dioxide Anion Gap BUN Creatinine Estimated Creat Clear Estimated GFR Est GFR ( Amer) Glucose POC Glucose 394 H* 386 H* Calcium C-Reactive Protein Urine Color Urine Appearance Urine pH Ur Specific [place] Urine Protein Urine Glucose (UA) Urine Ketones Urine Blood Urine Nitrate Urine Bilirubin Urine Urobilinogen Ur Leukocyte Esterase Urine RBC Urine WBC Ur Squamous Epith Cells Urine Bacteria 05/19/19 05/19/19 05/20/19 19:54 20:50 01:49 WBC RBC Hgb Hct MCV MCH MCHC RDW Plt Count MPV Neut % (Auto) Lymph % (Auto) [place] % (Auto) Eos % (Auto) Baso % (Auto) Neut # (Auto) Lymph # (Auto) [place] # (Auto) Eos # (Auto) Baso # (Auto) Total Counted Neutrophils % (Manual) Lymphocytes % (Manual) Monocytes % (Manual) Platelet Estimate RBC Morphology Hypochromasia ESR Sodium 138 Potassium 4.6 Chloride 101 Carbon Dioxide 20 L D Anion Gap 21.6 H BUN 20 H D Creatinine 1.90 H D Estimated Creat Clear 48 Estimated GFR 27 L Est GFR ( Amer) 32 L D Glucose 373 H D POC Glucose 293 H 296 H Calcium 8.3 L C-Reactive Protein Urine Color Urine Appearance Urine pH Ur Specific [place] Urine Protein Urine Glucose (UA) Urine Ketones Urine Blood Urine Nitrate Urine Bilirubin Urine Urobilinogen Ur Leukocyte Esterase Urine RBC Urine WBC Ur Squamous Epith Cells Urine Bacteria 05/20/19 05/20/19 05/20/19 05:47 05:47 07:51 WBC 21.1 H* D RBC 3.28 L Hgb 10.0 L Hct 30.9 L MCV 94.2 MCH 30.4 MCHC 32.2 RDW 14.4 Plt Count 503 H MPV 9.5 Neut % (Auto) 87.7 H Lymph % (Auto) 6.5 L [place] % (Auto) 5.6 Eos % (Auto) 0.1 Baso % (Auto) 0.2 Neut # (Auto) 18.5 H Lymph # (Auto) 1.4 [place] # (Auto) 1.2 H Eos # (Auto) 0.0 Baso # (Auto) 0.0 Total Counted 100 Neutrophils % (Manual) 87 H Lymphocytes % (Manual) 9 L Monocytes % (Manual) 4 Platelet Estimate Slight increase RBC Morphology Normal Hypochromasia ESR Sodium 139 Potassium 5.2 H Chloride 104 Carbon Dioxide 27 D Anion Gap 13.2 BUN 20 H Creatinine 1.07 H D Estimated Creat Clear 89 Estimated GFR 52 L Est GFR ( Amer) 63 D Glucose 244 H D POC Glucose 317 H* Calcium 7.9 L C-Reactive Protein Urine Color Urine Appearance Urine pH Ur Specific [place] Urine Protein Urine Glucose (UA) Urine Ketones Urine Blood Urine Nitrate Urine Bilirubin Urine Urobilinogen Ur Leukocyte Esterase Urine RBC Urine WBC Ur Squamous Epith Cells Urine Bacteria 05/20/19 05/20/19 05/21/19 14:39 20:36 01:56 WBC RBC Hgb Hct MCV MCH MCHC RDW Plt Count MPV Neut % (Auto) Lymph % (Auto) [place] % (Auto) Eos % (Auto) Baso % (Auto) Neut # (Auto) Lymph # (Auto) [place] # (Auto) Eos # (Auto) Baso # (Auto) Total Counted Neutrophils % (Manual) Lymphocytes % (Manual) Monocytes % (Manual) Platelet Estimate RBC Morphology Hypochromasia ESR Sodium Potassium Chloride Carbon Dioxide Anion Gap BUN Creatinine Estimated Creat Clear Estimated GFR Est GFR ( Amer) Glucose POC Glucose 412 H* 160 H 202 H Calcium C-Reactive Protein Urine Color Urine Appearance Urine pH Ur Specific [place] Urine Protein Urine Glucose (UA) Urine Ketones Urine Blood Urine Nitrate Urine Bilirubin Urine Urobilinogen Ur Leukocyte Esterase Urine RBC Urine WBC Ur Squamous Epith Cells Urine Bacteria 05/21/19 05/21/19 05/21/19 06:15 06:15 09:01 WBC 14.4 H D RBC 3.15 L Hgb 9.3 L Hct 30.3 L MCV 96.1 MCH 29.5 MCHC 30.7 L RDW 14.7 Plt Count 450 H MPV 9.4 Neut % (Auto) 76.3 Lymph % (Auto) 15.1 [place] % (Auto) 6.5 Eos % (Auto) 1.1 Baso % (Auto) 0.9 Neut # (Auto) 11.0 H Lymph # (Auto) 2.2 [place] # (Auto) 0.9 Eos # (Auto) 0.2 Baso # (Auto) 0.1 Total Counted Neutrophils % (Manual) Lymphocytes % (Manual) Monocytes % (Manual) Platelet Estimate RBC Morphology Hypochromasia ESR Sodium 140 Potassium 4.2 Chloride 104 Carbon Dioxide 27 Anion Gap 13.2 BUN 11 D Creatinine 0.72 D Estimated Creat Clear 93 Estimated GFR 82 Est GFR ( Amer) 99 D Glucose 171 H POC Glucose 341 H* Calcium 8.2 L C-Reactive Protein Urine Color Urine Appearance Urine pH Ur Specific [place] Urine Protein Urine Glucose (UA) Urine Ketones Urine Blood Urine Nitrate Urine Bilirubin Urine Urobilinogen Ur Leukocyte Esterase Urine RBC Urine WBC Ur Squamous Epith Cells Urine Bacteria 05/21/19 05/21/19 05/22/19 13:32 20:43 02:02 WBC RBC Hgb Hct MCV MCH MCHC RDW Plt Count MPV Neut % (Auto) Lymph % (Auto) [place] % (Auto) Eos % (Auto) Baso % (Auto) Neut # (Auto) Lymph # (Auto) [place] # (Auto) Eos # (Auto) Baso # (Auto) Total Counted Neutrophils % (Manual) Lymphocytes % (Manual) Monocytes % (Manual) Platelet Estimate RBC Morphology Hypochromasia ESR Sodium Potassium Chloride Carbon Dioxide Anion Gap BUN Creatinine Estimated Creat Clear Estimated GFR Est GFR ( Amer) Glucose POC Glucose 297 H 370 H* 390 H* Calcium C-Reactive Protein Urine Color Urine Appearance Urine pH Ur Specific [place] Urine Protein Urine Glucose (UA) Urine Ketones Urine Blood Urine Nitrate Urine Bilirubin Urine Urobilinogen Ur Leukocyte Esterase Urine RBC Urine WBC Ur Squamous Epith Cells Urine Bacteria 05/22/19 05/22/19 05/22/19 07:25 08:12 09:45 WBC 11.0 H RBC 3.15 L Hgb 9.1 L Hct 29.6 L MCV 94.2 MCH 29.0 MCHC 30.8 L RDW 14.4 Plt Count 399 MPV 11.3 H Neut % (Auto) 73.7 Lymph % (Auto) 16.9 [place] % (Auto) 5.4 Eos % (Auto) 2.7 Baso % (Auto) 1.3 Neut # (Auto) 8.1 H Lymph # (Auto) 1.9 [place] # (Auto) 0.6 Eos # (Auto) 0.3 Baso # (Auto) 0.1 Total Counted Neutrophils % (Manual) Lymphocytes % (Manual) Monocytes % (Manual) Platelet Estimate RBC Morphology Hypochromasia ESR Sodium Potassium Chloride Carbon Dioxide Anion Gap BUN Creatinine Estimated Creat Clear Estimated GFR Est GFR ( Amer) Glucose POC Glucose 179 H Calcium C-Reactive Protein 13.8 H D Urine Color Urine Appearance Urine pH Ur Specific [place] Urine Protein Urine Glucose (UA) Urine Ketones Urine Blood Urine Nitrate Urine Bilirubin Urine Urobilinogen Ur Leukocyte Esterase Urine RBC Urine WBC Ur Squamous Epith Cells Urine Bacteria 05/22/19 05/22/19 05/22/19 09:45 14:13 16:15 WBC RBC Hgb Hct MCV MCH MCHC RDW Plt Count MPV Neut % (Auto) Lymph % (Auto) [place] % (Auto) Eos % (Auto) Baso % (Auto) Neut # (Auto) Lymph # (Auto) [place] # (Auto) Eos # (Auto) Baso # (Auto) Total Counted Neutrophils % (Manual) Lymphocytes % (Manual) Monocytes % (Manual) Platelet Estimate RBC Morphology Hypochromasia ESR Sodium 139 Potassium 4.8 Chloride 102 Carbon Dioxide 30 Anion Gap 11.8 BUN 7 D Creatinine 0.70 Estimated Creat Clear 94 Estimated GFR 85 Est GFR ( Amer) 102 Glucose 189 H POC Glucose 311 H* 290 H Calcium 8.5 C-Reactive Protein Urine Color Urine Appearance Urine pH Ur Specific [place] Urine Protein Urine Glucose (UA) Urine Ketones Urine Blood Urine Nitrate Urine Bilirubin Urine Urobilinogen Ur Leukocyte Esterase Urine RBC Urine WBC Ur Squamous Epith Cells Urine Bacteria 05/22/19 05/23/19 05/23/19 20:13 02:02 05:25 WBC 10.7 RBC 2.96 L Hgb 8.9 L Hct 27.9 L MCV 94.0 MCH 29.9 MCHC 31.8 RDW 14.4 Plt Count 403 MPV 9.8 Neut % (Auto) 67.8 Lymph % (Auto) 20.9 [place] % (Auto) 6.3 Eos % (Auto) 4.0 Baso % (Auto) 1.1 Neut # (Auto) 7.2 Lymph # (Auto) 2.2 [place] # (Auto) 0.7 Eos # (Auto) 0.4 Baso # (Auto) 0.1 Total Counted Neutrophils % (Manual) Lymphocytes % (Manual) Monocytes % (Manual) Platelet Estimate RBC Morphology Hypochromasia ESR Sodium Potassium Chloride Carbon Dioxide Anion Gap BUN Creatinine Estimated Creat Clear Estimated GFR Est GFR ( Amer) Glucose POC Glucose 205 H 127 H Calcium C-Reactive Protein Urine Color Urine Appearance Urine pH Ur Specific [place] Urine Protein Urine Glucose (UA) Urine Ketones Urine Blood Urine Nitrate Urine Bilirubin Urine Urobilinogen Ur Leukocyte Esterase Urine RBC Urine WBC Ur Squamous Epith Cells Urine Bacteria 05/23/19 05/23/19 05/23/19 05:25 05:25 07:51 WBC RBC Hgb Hct MCV MCH MCHC RDW Plt Count MPV Neut % (Auto) Lymph % (Auto) [place] % (Auto) Eos % (Auto) Baso % (Auto) Neut # (Auto) Lymph # (Auto) [place] # (Auto) Eos # (Auto) Baso # (Auto) Total Counted Neutrophils % (Manual) Lymphocytes % (Manual) Monocytes % (Manual) Platelet Estimate RBC Morphology Hypochromasia ESR Sodium 145 Potassium 4.9 Chloride 107 Carbon Dioxide 32 Anion Gap 10.9 BUN 5 L D Creatinine 0.71 Estimated Creat Clear 94 Estimated GFR 83 Est GFR ( Amer) 101 Glucose 105 D POC Glucose 112 H 108 Calcium 8.6 C-Reactive Protein Urine Color Urine Appearance Urine pH Ur Specific [place] Urine Protein Urine Glucose (UA) Urine Ketones Urine Blood Urine Nitrate Urine Bilirubin Urine Urobilinogen Ur Leukocyte Esterase Urine RBC Urine WBC Ur Squamous Epith Cells Urine Bacteria Labs on day of discharge: Labs from last 24 hours 05/23/19 05/23/19 05/23/19 07:51 05:25 05:25 WBC RBC Hgb Hct MCV MCH MCHC RDW Plt Count MPV Neut % (Auto) Lymph % (Auto) [place] % (Auto) Eos % (Auto) Baso % (Auto) Neut # (Auto) Lymph # (Auto) [place] # (Auto) Eos # (Auto) Baso # (Auto) Sodium 145 Potassium 4.9 Chloride 107 Carbon Dioxide 32 Anion Gap 10.9 BUN 5 L D Creatinine 0.71 Estimated Creat Clear 94 Estimated GFR 83 Est GFR ( Amer) 101 Glucose 105 D POC Glucose 108 112 H Calcium 8.6 05/23/19 05/23/19 05/22/19 05:25 02:02 20:13 WBC 10.7 RBC 2.96 L Hgb 8.9 L Hct 27.9 L MCV 94.0 MCH 29.9 MCHC 31.8 RDW 14.4 Plt Count 403 MPV 9.8 Neut % (Auto) 67.8 Lymph % (Auto) 20.9 [place] % (Auto) 6.3 Eos % (Auto) 4.0 Baso % (Auto) 1.1 Neut # (Auto) 7.2 Lymph # (Auto) 2.2 [place] # (Auto) 0.7 Eos # (Auto) 0.4 Baso # (Auto) 0.1 Sodium Potassium Chloride Carbon Dioxide Anion Gap BUN Creatinine Estimated Creat Clear Estimated GFR Est GFR ( Amer) Glucose POC Glucose 127 H 205 H Calcium 05/22/19 05/22/19 05/22/19 16:15 14:13 08:12 WBC RBC Hgb Hct MCV MCH MCHC RDW Plt Count MPV Neut % (Auto) Lymph % (Auto) [place] % (Auto) Eos % (Auto) Baso % (Auto) Neut # (Auto) Lymph # (Auto) [place] # (Auto) Eos # (Auto) Baso # (Auto) Sodium Potassium Chloride Carbon Dioxide Anion Gap BUN Creatinine Estimated Creat Clear Estimated GFR Est GFR ( Amer) Glucose POC Glucose 290 H 311 H* 179 H Calcium Preliminary micro results at discharge 05/22/19 22:10 Sputum Culture - Preliminary Sputum - Expectorated Sputum DS: Diagnosis - Discharge Diagnosis (1) Ankle dislocation Status: Acute (2) Ankle fracture, right Status: Acute (3) Diabetes mellitus, insulin dependent (IDDM), uncontrolled Status: Chronic (4) Diabetic neuropathy associated with type 2 diabetes mellitus Status: Chronic (5) Obesity (BMI 30-39.9) Status: Chronic (6) Personal history of nicotine dependence Status: Chronic (7) Nausea and vomiting Status: Acute Discharge Plan - Patient Discharge Instructions ACTIVITY: Up with assistance DIET: diabetic diet Additional Instructions: -- up with assistance, NWB RLE -- elevate RLE on pillows while seated/in bed -- do not remove dressings; this will be done at first office visit on 05/28/19 -- pain medication, oral antibiotic, DVT prophy RX given -- NON-WEIGHTBEARING RIGHT LOWER EXTREMITY -- follow-up with Dr. Gardner in the office 05/28/19 at 1pm; will need x-rays prior, suggest arriving around 12:30pm Patient Instructions: Ankle Fracture, DI for Open Reduction Internal Fixation Surgery, DI for Surgical Site Infection, How to Care for Your External Fixation Device - Follow up Plan Follow up with: Maria Antonia Gardner MD [Physician] - 05/28/19 1:00 pm Home Medications: Home Medications Medication Instructions Recorded Confirmed Type Duloxetine HCl 60 mg PO HS 05/01/19 05/20/19 History Gabapentin [Gabapentin 300mg Cap] 300 mg PO HS 05/01/19 05/20/19 History Insulin Aspart [Novolog Flexpen] 10 units SQ TID 05/01/19 05/20/19 History Levothyroxine Sodium 150 mcg PO DAILY 05/01/19 05/20/19 History [Levothyroxine 150mcg (0.15mg) Tab] ramipriL [Ramipril] 1.25 mg PO HS 05/01/19 05/20/19 History Oxycodone HCl/Acetaminophen 1 each PO Q4HP PRN #24 tab 05/04/19 05/20/19 Rx [Percocet 7.5-325 mg Tablet] Gabapentin [Neurontin 300mg 300 mg PO TIDP PRN 05/06/19 05/20/19 History capsule] Insulin Glargine,Hum.rec.anlog 15 units SQ HS #0 05/08/19 05/20/19 Rx [Lantus Solostar 100 Units/mL 3mL flexpen] Sennosides [Senokot 8.6mg tablet] 8.6 mg PO BID PRN 15 Days #30 tab 05/08/19 05/20/19 Rx polyethylene glycoL 3350 [Miralax 17 gm PO BID PRN 15 Days #30 05/08/19 05/20/19 Rx 17gm Packet] powd.pack Enoxaparin Sodium [Lovenox 40 mg SQ DAILY 05/15/19 05/20/19 History 40mg/0.4mL syringe] Acetaminophen [Acetaminophen 325mg 650 mg PO Q6HP PRN tablet 05/23/19 Rx tab] Docusate Sodium [Docusate Sodium 100 mg PO BIDP PRN capsule 05/23/19 Rx 100mg Cap] Enoxaparin Sodium [Lovenox 40 mg SQ DAILY 21 Days syringe 05/23/19 Rx 40mg/0.4mL syringe] Insulin Glargine,Hum.rec.anlog 8 unit SQ HS insuln.pen 05/23/19 Rx [Lantus Solostar 100 Units/mL 3mL flexpen] Insulin Glargine,Hum.rec.anlog 15 unit SQ HS insuln.pen 05/23/19 Rx [Lantus Solostar 100 Units/mL 3mL flexpen] Non Formulary [Pt's Own Medication] 0 each PO Q6H each 05/23/19 Rx Ondansetron HCl/Pf [Zofran 4mg/2mL 4 mg IV Q6HP PRN vial 05/23/19 Rx vial] Oxycodone HCl/Acetaminophen 1 each PO Q4HP PRN #30 tab 05/23/19 Rx [Oxycodone W/Apap 325mg Tablet] Sennosides [Senokot 8.6mg tablet] 8.6 mg PO DAILYP PRN tablet 05/23/19 Rx cephALEXin [cephALEXin 500mg 500 mg PO TID 21 Days cap 05/23/19 Rx capsule*] Prescriptions/Medication Reconciliation: New Oxycodone HCl/Acetaminophen [Oxycodone W/Apap 325mg Tablet] 1 each PO Q4HP PRN #30 tab PRN Reason: Moderate To Severe Pain cephALEXin [cephALEXin 500mg capsule*] 500 mg PO TID 21 Days cap Enoxaparin Sodium [Lovenox 40mg/0.4mL syringe] 40 mg SQ DAILY 21 Days syringe Acetaminophen [Acetaminophen 325mg tab] 650 mg PO Q6HP PRN tablet PRN Reason: Mild To Moderate Pain Docusate Sodium [Docusate Sodium 100mg Cap] 100 mg PO BIDP PRN capsule PRN Reason: Constipation Insulin Glargine,Hum.rec.anlog [Lantus Solostar 100 Units/mL 3mL flexpen] 15 unit SQ HS insuln.pen Insulin Glargine,Hum.rec.anlog [Lantus Solostar 100 Units/mL 3mL flexpen] 8 unit SQ HS insuln.pen Non Formulary [Pt's Own Medication] 0 each PO Q6H each Sennosides [Senokot 8.6mg tablet] 8.6 mg PO DAILYP PRN tablet PRN Reason: Constipation Ondansetron HCl/Pf [Zofran 4mg/2mL vial] 4 mg IV Q6HP PRN vial PRN Reason: Nausea Continued Levothyroxine Sodium [Levothyroxine 150mcg (0.15mg) Tab] 150 mcg PO DAILY Duloxetine HCl 60 mg PO HS Gabapentin [Neurontin 300mg capsule] 300 mg PO TIDP PRN PRN Reason: PAIN Insulin Glargine,Hum.rec.anlog [Lantus Solostar 100 Units/mL 3mL flexpen] 15 units SQ HS #0 Enoxaparin Sodium [Lovenox 40mg/0.4mL syringe] 40 mg SQ DAILY ramipriL [Ramipril] 1.25 mg PO HS Insulin Aspart [Novolog Flexpen] 10 units SQ TID Gabapentin [Gabapentin 300mg Cap] 300 mg PO HS Oxycodone HCl/Acetaminophen [Percocet 7.5-325 mg Tablet] 1 each PO Q4HP PRN #24 tab PRN Reason: Severe Pain polyethylene glycoL 3350 [Miralax 17gm Packet] 17 gm PO BID PRN 15 Days #30 powd.pack PRN Reason: Constipation Sennosides [Senokot 8.6mg tablet] 8.6 mg PO BID PRN 15 Days #30 tab PRN Reason: Constipation - Problem Reconciliation Problems Reviewed?: Yes
--- NOTE | 2019-05-24 07:53 | Electrocardiograph Report ---
APPROVED REPORT Exam: Resting ECG HR:95 bpm ECG Measurements Heart Rate 95 AXES ND 218 P 71 QRSd 82 QRS 75 QT 382 T88 QTc 480 <Conclusion> Sinus rhythm with 1st degree AV block Prolonged QT Abnormal ECG Electronically signed by : Ovi Olmedo, 05/24/2019 07:53:29
== END 2019-05-23 12:01 ==
LOC: OR 09:00 → 2ND 09:00
PROVIDERS: ADMIT Orthopaedic Surgery; ATTEND Orthopaedic Surgery
CPT/HCPCS: 36415; 71010; 71045; 73600; 73610; 73630; 76000; 80048; 81001; 82962; 85007; 85025; 85651; 86140; 87070; 87205; 88304; 93005; 93923; 96374; 97110; 97161; 97166; 97530; 97535; C1713; C1762; C1776; C9399; G0378; J2405; J2710; S0077

== ENCOUNTER → 2019-05-28 11:48 | Outpatient (CLI) | payer MEDICARE, SELFPAY ==
--- NOTE | 2019-05-28 11:54 | XR_ITS ---
PROCEDURE: XR TIBIA FIBULA RT 2V CLINICAL INDICATION: ankle fracture COMPARISON: No exams were available for comparison FINDINGS: There are 2 separate metallic fixation plates with reduction screws in the distal tibia and there is a metallic fixation plate and reduction screws in the distal fibula for reduction of trimalleolar fracture. External fixation apparatus is also noted. There is near anatomical positioning at the ankle. No fracture or dislocation of the proximal tibia/fibula are noted. Two lucent defects in the tibia from prior reduction hardware placement are noted. IMPRESSION: Postsurgical changes as described. Dictated by: Stephan Nguyễn 05/28/2019 13:21 Electronically signed by Stephan Nguyễn in [facility] 05/28/2019 13:21
--- NOTE | 2019-05-28 11:54 | XR_ITS ---
PROCEDURE: XR ANKLE RT MIN 3V CLINICAL INDICATION: ankle fracture COMPARISON: XR ANKLE RT MIN 3V from 05/02/2019 XR ANKLE RT MIN 3V from 05/15/2019 XR ANKLE RT MIN 3V from 05/15/2019 FINDINGS: There has been ORIF for fractures of the distal tibia and fibula. Two separate metallic fixation plates with reduction screws are seen in the distal tibia and 1 in the fibula. External fixation device is also present. There is some resulting limitation of the exam. There has been marked improvement from the initial pre reduction images with near anatomical positioning post reduction. The oblique view suggests some additional lateral displacement of the distal fibular fracture fragment compared to 05/15/2019 exam. There is diastasis up to 8 millimeters of the distal most fibula fracture fragment and the distal tibia. IMPRESSION: Postsurgical changes as described status post reduction of trimalleolar fracture. Dictated by: Stephan Nguyễn 05/28/2019 13:18 Electronically signed by Stephan Nguyễn in [facility] 05/28/2019 13:18
== END ==
PROVIDERS: PCP Internal Medicine; Visit Provider Orthopaedic Surgery
DX: S82.891A Other fracture of right lower leg, initial encounter for closed fracture (principal)
CPT/HCPCS: 73590; 73610

== ENCOUNTER → 2019-06-05 14:51 | Outpatient (CLI) | payer MEDICARE, SELFPAY ==
[2019-06-05 15:07] LABS: Basophils # 0.1 K/mm3 (0-0.2); Basophils % 1.2 % (0.1-2.0); Eosinophils # 0.2 K/mm3 (0.0-0.4); Eosinophils % 3.1 % (0.1-12.0); Hematocrit 32.2 % (37.0-47.0); Hemoglobin 10.6 g/dL (12.2-16.2); Lymphocytes # 1.8 K/mm3 (0.7-4.5); Lymphocytes % 26.6 % (10-50); Mean Corpuscular Hemoglobin 30.9 pg (27.0-31.2); Mean Corpuscular Volume 93.6 fl (81-99); Mean Platelet Volume 10.5 fl (7.4-10.4); Monocytes # 0.4 K/mm3 (0.1-1.0); Monocytes % 5.9 % (1.7-9.3); Neutrophils # 4.3 K/mm3 (1.8-7.8); Neutrophils % 63.3 % (37.0-80.0); Platelet Count 445 K/mm3 (142-424); Red Blood Count 3.44 M/mm3 (4.20-5.40); Red Cell Distribution Width 14.6 % (11.5-17.5); White Blood Count 6.8 K/mm3 (4.8-10.8)
[2019-06-05 17:26] LABS: Erythrocyte Sedimentation Rate > 140 mm/hr (0-30)
[2019-06-05 17:48] LABS: Alanine Aminotransferase 54 U/L (12-78); Albumin/Globulin Ratio 1.4 (1.1-1.8); Alkaline Phosphatase 133 U/L (38-126); Anion Gap 15.3 mEq/L (5-15); Aspartate Amino Transferase 93 U/L (14-36); Bilirubin,Total 0.2 mg/dl (0.2-1.3); Blood Urea Nitrogen 25 mg/dl (7-17); Calcium 9.7 mg/dl (8.4-10.2); Carbon Dioxide 28 mmol/L (22.0-30.0); Chloride 95 mmol/L (98-107); Estimated Glomerular Filt Rate 50 ml/min (>60); GFR (African American) 61 ML/MIN (>60); Globulin 2.8 g/dL (1.3-3.2); Glucose 102 mg/dl (74-100); Potassium 5.3 mmoL/L (3.5-5.1); Sodium 133 mmol/L (136-145); Total Protein,Serum 6.8 g/dl (6.3-8.2)
[2019-06-05 17:54] LABS: C-Reactive Protein 43.6 mg/L (0-4)
== END ==
PROVIDERS: Visit Provider Orthopaedic Surgery
DX: S82.891A Other fracture of right lower leg, initial encounter for closed fracture (principal)
CPT/HCPCS: 36415; 80053; 85025; 85651; 86140

== ENCOUNTER → 2019-06-10 08:03 | Outpatient (CLI) | payer MEDICARE, SELFPAY ==
--- NOTE | 2019-06-10 08:09 | XR_ITS ---
PROCEDURE: XR ANKLE RT 2V CLINICAL INDICATION: ankle fracture Follow-up ORIF COMPARISON: XR ANKLE RT MIN 3V from 05/15/2019 XR ANKLE RT MIN 3V from 05/15/2019 XR ANKLE RT MIN 3V from 05/19/2019 XR ANKLE RT MIN 3V from 05/28/2019 FINDINGS: Status post ORIF with lateral fibular bone plate, medial tibial bone plate, and posterior tibial bone plate. External fixator is in place and obscures fine detail and much of the bony structures. There is good alignment. Skin clips are present. IMPRESSION: Good alignment status post ORIF distal tib fib with external fixator in place Dictated by: Wally Banuelos MD 06/10/2019 18:25 Electronically signed by Wally Banuelos MD in [place] 06/10/2019 18:25
== END ==
PROVIDERS: PCP Internal Medicine; Visit Provider Orthopaedic Surgery
DX: S82.851A Displaced trimalleolar fracture of right lower leg, initial encounter for closed fracture (principal)
CPT/HCPCS: 73600

== ENCOUNTER → 2019-06-18 10:10 | Outpatient (CLI) | payer MEDICARE, SELFPAY ==
[2019-06-18 10:33] LABS: Basophils # 0.1 K/mm3 (0-0.2); Basophils % 1.4 % (0.1-2.0); Eosinophils # 0.4 K/mm3 (0.0-0.4); Eosinophils % 4.8 % (0.1-12.0); Hematocrit 35.6 % (37.0-47.0); Hemoglobin 11.3 g/dL (12.2-16.2); Lymphocytes # 2.2 K/mm3 (0.7-4.5); Lymphocytes % 26.8 % (10-50); Mean Corpuscular HGB Conc 31.8 g/dL (31.8-35.4); Mean Corpuscular Hemoglobin 30.7 pg (27.0-31.2); Mean Corpuscular Volume 96.5 fl (81-99); Mean Platelet Volume 8.9 fl (7.4-10.4); Monocytes # 0.6 K/mm3 (0.1-1.0); Neutrophils # 4.9 K/mm3 (1.8-7.8); Platelet Count 433 K/mm3 (142-424); Red Blood Count 3.69 M/mm3 (4.20-5.40); Red Cell Distribution Width 14.7 % (11.5-17.5); White Blood Count 8.2 K/mm3 (4.8-10.8)
[2019-06-18 10:37] LABS: Chloride 101 mmol/L (98-107); Potassium 5.1 mmoL/L (3.5-5.1); Sodium 141 mmol/L (136-145)
[2019-06-18 10:40] LABS: Blood Urea Nitrogen 14 mg/dl (7-17); Estimated Glomerular Filt Rate 85 ml/min (>60); GFR (African American) 102 ML/MIN (>60)
[2019-06-18 10:41] LABS: Anion Gap 17.1 mEq/L (5-15); Calcium 9.7 mg/dl (8.4-10.2); Carbon Dioxide 28 mmol/L (22.0-30.0); Glucose 84 mg/dl (74-100)
[2019-06-18 10:46] LABS: C-Reactive Protein 14.7 mg/L (0-4)
[2019-06-18 11:03] LABS: Erythrocyte Sedimentation Rate 58 mm/hr (0-30)
== END ==
PROVIDERS: Visit Provider Orthopaedic Surgery
DX: S82.853A Displaced trimalleolar fracture of unspecified lower leg, initial encounter for closed fracture (principal)
CPT/HCPCS: 36415; 80048; 85025; 85651; 86140

== ENCOUNTER → 2019-07-09 09:52 | Outpatient (CLI) | payer MEDICARE, SELFPAY ==
--- NOTE | 2019-07-09 10:09 | XR_ITS ---
PROCEDURE: XR FOOT RT MIN 3V CLINICAL INDICATION: follow up from surgery on 05/19/2019 COMPARISON: XR FOOT RT MIN 3V from 05/19/2019 FINDINGS: Patient is status post ORIF with lateral fibular bone plate, medial tibial bone plate, and posterior tibial bone plate. External fixator apparatus is in place. The bony elements are obscured by the metal. The overall bony alignment is similar to the previous exam and appears near anatomical. IMPRESSION: Status post ORIF. Bony alignment appears near anatomical. Exam markedly limited. Dictated by: Stephan Nguyễn 07/09/2019 15:14 Electronically signed by Stephan Nguyễn in [place] 07/09/2019 15:14
--- NOTE | 2019-07-09 10:09 | XR_ITS ---
PROCEDURE: XR ANKLE RT MIN 3V CLINICAL INDICATION: RT ankle surgery, xrays non weightbearing COMPARISON: XR ANKLE RT MIN 3V from 05/15/2019 XR ANKLE RT MIN 3V from 05/19/2019 XR ANKLE RT MIN 3V from 05/28/2019 FINDINGS: AP and lateral views were obtained. There are metallic fixation plates and reduction screws involving distal tibia and fibula for reduction of trimalleolar fracture with extension to the tibiotalar joint. External fixator apparatus is also noted. There is some resulting limitation of the exam. Alignment is not significantly changed. Some interval callus formation of healing of the fractures appears present at the tibia with fracture lines less discrete. No significant change in fibular fracture fragments are apparent. There is relative decreased medial and widened lateral tibiotalar joint space. 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 IMPRESSION: No significant change in overall alignment and positioning. Some interval healing of tibial fractures with little if any interval callus formation at fibular fracture. Dictated by: Stephan Nguyễn 07/09/2019 12:09 Electronically signed by Stephan Nguyễn in [place] 07/09/2019 12:09
[2019-07-09 10:47] LABS: Chloride 100 mmol/L (98-107); Potassium 5.2 mmoL/L (3.5-5.1); Sodium 135 mmol/L (136-145)
[2019-07-09 10:50] LABS: Anion Gap 13.2 mEq/L (5-15); Blood Urea Nitrogen 11 mg/dl (7-17); Calcium 9.6 mg/dl (8.4-10.2); Carbon Dioxide 27 mmol/L (22.0-30.0); Estimated Glomerular Filt Rate 101 ml/min (>60); GFR (African American) 122 ML/MIN (>60)
[2019-07-09 10:55] LABS: Glucose 49 mg/dl (74-100)
[2019-07-09 10:56] LABS: Basophils # 0.1 K/mm3 (0-0.2); Basophils % 1.4 % (0.1-2.0); Eosinophils # 0.2 K/mm3 (0.0-0.4); Hematocrit 35.6 % (37.0-47.0); Hemoglobin 11.3 g/dL (12.2-16.2); Lymphocytes # 1.5 K/mm3 (0.7-4.5); Lymphocytes % 20.3 % (10-50); Mean Corpuscular HGB Conc 31.6 g/dL (31.8-35.4); Mean Corpuscular Hemoglobin 29.7 pg (27.0-31.2); Mean Corpuscular Volume 94.1 fl (81-99); Mean Platelet Volume 9.2 fl (7.4-10.4); Monocytes # 0.5 K/mm3 (0.1-1.0); Neutrophils # 5.1 K/mm3 (1.8-7.8); Neutrophils % 68.3 % (37.0-80.0); Platelet Count 387 K/mm3 (142-424); Red Blood Count 3.79 M/mm3 (4.20-5.40); Red Cell Distribution Width 14.3 % (11.5-17.5); White Blood Count 7.4 K/mm3 (4.8-10.8)
[2019-07-09 11:31] LABS: Erythrocyte Sedimentation Rate 47 mm/hr (0-30)
== END ==
PROVIDERS: PCP Internal Medicine; Visit Provider Orthopaedic Surgery
DX: Z48.89 Encounter for other specified surgical aftercare (principal); S82.851G Displaced trimalleolar fracture of right lower leg, subsequent encounter for closed fracture with delayed healing; M14.671 Charcot's joint, right ankle and foot; S93.04XA Dislocation of right ankle joint, initial encounter
CPT/HCPCS: 36415; 73610; 73630; 80048; 85025; 85651; 86140

== ENCOUNTER → 2019-07-16 10:47 | Outpatient (CLI) | payer MEDICARE, SELFPAY ==
[2019-07-16 11:34] LABS: C-Reactive Protein 6.7 mg/L (0-4)
== END ==
PROVIDERS: Visit Provider Orthopaedic Surgery
DX: Z48.89 Encounter for other specified surgical aftercare (principal)
CPT/HCPCS: 36415; 86140

== ENCOUNTER → 2019-07-21 10:18 | Outpatient (CLI) | payer MEDICARE, SELFPAY ==
[2019-07-21 10:48] LABS: Basophils # 0.1 K/mm3 (0-0.2); Basophils % 1.7 % (0.1-2.0); Eosinophils # 0.2 K/mm3 (0.0-0.4); Eosinophils % 2.9 % (0.1-12.0); Hematocrit 37.1 % (37.0-47.0); Lymphocytes # 1.5 K/mm3 (0.7-4.5); Mean Corpuscular HGB Conc 32.3 g/dL (31.8-35.4); Mean Corpuscular Hemoglobin 30.3 pg (27.0-31.2); Mean Corpuscular Volume 94.1 fl (81-99); Mean Platelet Volume 8.6 fl (7.4-10.4); Monocytes # 0.4 K/mm3 (0.1-1.0); Monocytes % 5.9 % (1.7-9.3); Neutrophils # 4.7 K/mm3 (1.8-7.8); Neutrophils % 67.5 % (37.0-80.0); Platelet Count 476 K/mm3 (142-424); Red Blood Count 3.95 M/mm3 (4.20-5.40); Red Cell Distribution Width 14.7 % (11.5-17.5); White Blood Count 6.9 K/mm3 (4.8-10.8)
[2019-07-21 10:51] LABS: Alanine Aminotransferase 18 U/L (12-78); Albumin Level 4.3 g/dl (3.5-5.0); Albumin/Globulin Ratio 1.2 (1.1-1.8); Alkaline Phosphatase 79 U/L (38-126); Anion Gap 14.4 mEq/L (5-15); Aspartate Amino Transferase 24 U/L (14-36); Blood Urea Nitrogen 13 mg/dl (7-17); Calcium 9.9 mg/dl (8.4-10.2); Carbon Dioxide 27 mmol/L (22.0-30.0); Chloride 102 mmol/L (98-107); Estimated Glomerular Filt Rate 101 ml/min (>60); GFR (African American) 122 ML/MIN (>60); Globulin 3.5 g/dL (1.3-3.2); Glucose 61 mg/dl (74-100); Potassium 4.4 mmoL/L (3.5-5.1); Sodium 139 mmol/L (136-145); Total Protein,Serum 7.8 g/dl (6.3-8.2)
[2019-07-21 10:52] LABS: Bilirubin,Total 0.1 mg/dl (0.2-1.3)
[2019-07-21 11:16] LABS: Erythrocyte Sedimentation Rate 73 mm/hr (0-30)
--- NOTE | 2019-07-21 12:18 | XR_ITS ---
PROCEDURE: XR ANKLE RT MIN 3V CLINICAL INDICATION: follow up from surgery on 05/19/2019 Follow-up surgery/ COMPARISON: XR ANKLE RT MIN 3V from 05/15/2019 XR ANKLE RT MIN 3V from 05/19/2019 XR ANKLE RT MIN 3V from 05/28/2019 XR ANKLE RT 2V from 06/10/2019 XR ANKLE RT MIN 3V from 07/09/2019 FINDINGS: External fixator device remains in place stabilizing the distal tibia and fibula. No change in the orthopedic hardware with good alignment of the distal tibia and fibula. Is a transverse fracture of the distal tibia medially unchanged. Skin clips have been removed. There is diffuse osteopenia IMPRESSION: No change status post ORIF distal tib fib with orthopedic hardware in place with good alignment Dictated by: Wally Banuelos MD 07/21/2019 17:18 Electronically signed by Wally Banuelos MD in [place] 07/21/2019 17:18
--- NOTE | 2019-07-21 12:18 | XR_ITS ---
PROCEDURE: XR CHEST 2V CLINICAL HISTORY: PNEUMONIA FU COMPARISON: CXR1 CHEST-PORTABLE from 10/12/2012 XR CHEST PORTABLE from 05/03/2019 XR CHEST PORTABLE from 05/07/2019 XR CHEST PORTABLE from 05/19/2019 FINDINGS: The cardiomediastinal silhouette and pulmonary vascularity are within normal limits. No lobar consolidation or collapse. There is a faint nodular opacity in the right lower lung at 9 mm which is nonspecific. The remaining lungs are clear. No acute bony abnormalities. IMPRESSION: No acute finding. Nonspecific nodular opacity right lower lobe. CT may provide further evaluation Dictated by: Wally Banuelos MD 07/21/2019 17:12 Electronically signed by Wally Banuelos MD in [place] 07/21/2019 17:12
[2019-07-21 14:59] LABS: C-Reactive Protein 19.5 mg/L (0-4)
[2019-07-22 04:26] LABS: Iron 46 ug/dL (27-139); UIBC 255 ug/dL (118-369)
[2019-07-23 07:18] LABS: Iron Saturation 15 % (15-55)
[2019-07-23 07:19] LABS: Prealbumin 20 mg/dL (10-36); Vitamin D 25 Hydroxy 35.8 ng/mL (30.0-100.0)
== END ==
PROVIDERS: Visit Provider Orthopaedic Surgery
DX: S82.891A Other fracture of right lower leg, initial encounter for closed fracture (principal); E11.65 Type 2 diabetes mellitus with hyperglycemia; Z79.4 Long term (current) use of insulin; Z09 Encounter for follow-up examination after completed treatment for conditions other than malignant neoplasm; Z87.01 Personal history of pneumonia (recurrent)
CPT/HCPCS: 36415; 71046; 73610; 80053; 82652; 83036; 83540; 83550; 84134; 85025; 85651; 86140

== ENCOUNTER → 2019-07-30 08:34 | Outpatient (CLI) | payer MEDICARE, SELFPAY ==
[2019-07-30 09:16] LABS: Erythrocyte Sedimentation Rate 25 mm/hr (0-30)
[2019-07-30 09:23] LABS: C-Reactive Protein 9.5 mg/L (0-4)
== END ==
PROVIDERS: Visit Provider Orthopaedic Surgery
DX: S93.04XA Dislocation of right ankle joint, initial encounter (principal); S82.851A Displaced trimalleolar fracture of right lower leg, initial encounter for closed fracture
CPT/HCPCS: 36415; 85651; 86140

== ENCOUNTER → 2019-08-06 08:31 | Outpatient (CLI) | payer MEDICARE, SELFPAY ==
--- NOTE | 2019-08-06 08:47 | XR_ITS ---
PROCEDURE: XR ANKLE RT MIN 3V CLINICAL INDICATION: ankle fracture Follow-up postop right ankle fracture COMPARISON: XR ANKLE RT 2V from 05/01/2019 XR ANKLE RT MIN 3V from 05/28/2019 XR ANKLE RT 2V from 06/10/2019 XR ANKLE RT MIN 3V from 07/09/2019 XR ANKLE RT MIN 3V from 07/21/2019 FINDINGS: External fixator device remains in place along with the lateral fibular bone plate and the medial and posterior tibial bone plate with good alignment of the fracture fragments. Small calcification is noted along the anterior distal tibia. The ankle mortise appears intact and the talar dome has an unremarkable appearance IMPRESSION: Good alignment status post ORIF trimalleolar fracture with external fixator device also in place Dictated by: Wally Banuelos MD 08/06/2019 13:00 Electronically signed by Wally Banuelos MD in [place] 08/06/2019 13:00
[2019-08-06 08:50] LABS: Basophils # 0.2 K/mm3 (0-0.2); Eosinophils # 0.3 K/mm3 (0.0-0.4); Eosinophils % 3.2 % (0.1-12.0); Hematocrit 35.8 % (37.0-47.0); Hemoglobin 11.4 g/dL (12.2-16.2); Lymphocytes # 1.3 K/mm3 (0.7-4.5); Lymphocytes % 16.7 % (10-50); Mean Corpuscular HGB Conc 31.9 g/dL (31.8-35.4); Mean Corpuscular Hemoglobin 30.1 pg (27.0-31.2); Mean Corpuscular Volume 94.2 fl (81-99); Mean Platelet Volume 10.2 fl (7.4-10.4); Monocytes # 0.5 K/mm3 (0.1-1.0); Neutrophils # 5.6 K/mm3 (1.8-7.8); Neutrophils % 72.1 % (37.0-80.0); Platelet Count 385 K/mm3 (142-424); Red Cell Distribution Width 14.4 % (11.5-17.5); White Blood Count 7.8 K/mm3 (4.8-10.8)
[2019-08-06 09:24] LABS: Erythrocyte Sedimentation Rate 50 mm/hr (0-30)
[2019-08-06 09:39] LABS: C-Reactive Protein 10.3 mg/L (0-4)
== END ==
PROVIDERS: Visit Provider Orthopaedic Surgery
DX: S82.891A Other fracture of right lower leg, initial encounter for closed fracture (principal)
CPT/HCPCS: 36415; 73610; 85025; 85651; 86140

== ENCOUNTER → 2019-08-09 11:42 | Outpatient (CLI) | payer MEDICARE, SELFPAY ==
[2019-08-10 17:20] LABS: Covid-19 Nasal PCR Sendout Lex Not Detected
== END ==
PROVIDERS: Visit Provider Orthopaedic Surgery
DX: Z03.818 Encounter for observation for suspected exposure to other biological agents ruled out (principal)
CPT/HCPCS: U0003

== ENCOUNTER 2019-08-11 08:21 | Day surgery (SDC) | payer MEDICARE, SELFPAY ==
--- NOTE | 2019-08-07 12:40 | SUR.PREOP ---
Notified Lilibeth @[phone] on 08/07/19 to come to MRI entrance and contact covid nurse [phone] to have outpatient covid testing done on Monday 08/07@ 9 AM. Pt was also instructed that the test had to be done at this time in order to have surgery performed on Thursday 08/10. Pt Voiced understanding. Verbal Consent given to Tho and Lexis Wade for Covid testing. Consent placed in chart.
[2019-08-10 10:05] VITALS: BMI 36.0
--- NOTE | 2019-08-10 17:24 | PC.NURSE ---
notified pt of negative COVID 19 results.
--- NOTE | 2019-08-10 17:35 | PC.NURSE ---
notified pt and of negative COVID 19 results.
[2019-08-11] VITALS (16 sets, daily range): BP systolic 110–136; BP diastolic 48–74; PULSE 90–103; RESP 16–20; TEMP 36.6–43; O2SAT 95–100
[2019-08-11 09:07] LABS: POC Glucose,Bedside 216 (70-110)
--- NOTE | 2019-08-11 09:35 | XR_ITS ---
PROCEDURE: XR ANKLE RT 2V CLINICAL INDICATION: IN OR. E.F. REMOVAL Follow-up external fixator removal COMPARISON: XR ANKLE RT 2V from 06/10/2019 XR ANKLE RT MIN 3V from 07/09/2019 XR ANKLE RT MIN 3V from 07/21/2019 XR ANKLE RT MIN 3V from 08/06/2019 FINDINGS: External fixator has been removed. The fibular bone plate and 2 tibia bone plates are once again noted with good alignment. No significant callus formation. Suspect small avulsion fracture of the anterior distal tibia. IMPRESSION: Good alignment status post external fixator removal Dictated by: Wally Banuelos MD 08/11/2019 12:33 Electronically signed by Wally Banuelos MD in [place] 08/11/2019 12:33
--- NOTE | 2019-08-11 10:01 | P.PN_ITS ---
[facility] Anesthesia Checklist - Patient Identification Patient Identification: Arm Band - Structural Data Admitted From: Home Planned Operative Procedure/s: right external fixation device removal Consent for Planned Operative Procedure(s) Verified: Yes Verified Documents: Surgical Consent, History and Physical - NPO Status Verified Time NPO: 00:00 - Additional verifications Anesthesia Reactions: No Hx Blood Transfusions: No Blood Transfusion Reaction: No - Airway Assessment C-Spine Mobility Assessed: Yes (mp2) TMJ Mobility Assessed: Yes Dentition: Good Dentition - Neurological Assessment Level of Consciousness: Awake, Alert - Anesthesia Plan Anesthesia Risk discussed: Yes Anesthesia Plan: Verified ASA Class: III Anesthesia Type: General [facility] History Medical History: Reports:: Coronary Artery Disease, Diabetes Mellitus Type 1, Hypertension Denies:: Cancer, Diabetes Mellitus Type 2, Internal Pacemaker, MRSA, Seizures *Have you ever received a pneumonia vaccine?: Yes *Have you received a flu vaccine this season?: Yes Other Medical History: Reports: Hypothyroidism. Denies: Blood Transfusion Reaction Anesthesia experience/problems:: nac Laterality Cases: Bilateral: Cataract Other Surgeries: Yes: Appendectomy, Cardiac Catheterization, Cholecystectomy, Coronary Stent, Hysterectomy-Total, Tubal Ligation, Other. No: Pacemaker Amputation: No Fractures: Yes - *Social History Educational Level: Completed High School Smoking Status: Current every day smoker Tobacco Type: cigarettes # Packs/Day (cigarettes): 1 #Yrs smoked (if former smoker): 20 Alcohol Intake: never Substance Use Type: denies use *Occupational Status:: retired Housing: house Household Members: family *Travel in the last 8 weeks: None Family Hx:: Unable to obtain
[2019-08-11 10:43] LABS: POC Glucose,Bedside 146 (70-110)
--- NOTE | 2019-08-11 11:55 | P.PN_ITS ---
[facility] Anesthesia Record Part I Intake, IV Amount: 1,500 Estimated blood loss (mL): 10 Urine output (mL): 0 Blood Pressure: 120/53 SaO2: 99 Pulse Rate: 90 Respiratory Rate: 16 Temperature: 98.4 F Patient is:: Drowsy, Stable Stable to PACU at:: 11:50
[2019-08-11 12:00] LABS: POC Glucose,Bedside 194 (70-110)
--- NOTE | 2019-08-11 12:09 | XR_ITS ---
PROCEDURE: XR ANKLE RT 2V CLINICAL INDICATION: surgery External fixator removal in OR COMPARISON: XR ANKLE RT 2V from 06/10/2019 XR ANKLE RT MIN 3V from 07/09/2019 XR ANKLE RT MIN 3V from 07/21/2019 FINDINGS: Fluoro time: 4 seconds External fixator device use with C-arm guidance with post removal images showing good alignment. IMPRESSION: External fixator removal Dictated by: Wally Banuelos MD 08/11/2019 14:42 Electronically signed by Wally Banuelos MD in [place] 08/11/2019 14:42
--- NOTE | 2019-08-11 12:40 | HMH.OPNOTE ---
Date of procedure: 08/11/19 Pre-op Diagnosis:: 1) R trimalleolar fracture-dislocation, date of injury 05/01/19 2) s/p ORIF R ankle + ex-fix application 05/19/19 3) Charcot arthropathy R ankle 4) diabetes mellitus, type I 5) impaired wound healing R ankle 6) obesity 7) personal history of nicotine dependence Post-op Diagnosis:: 1) R trimalleolar fracture-dislocation, date of injury 05/01/19 2) s/p ORIF R ankle + ex-fix application 05/19/19 3) Charcot arthropathy R ankle 4) diabetes mellitus, type I 5) impaired wound healing R ankle 6) obesity 7) personal history of nicotine dependence Procedure performed:: 1) removal of external fixator RLE 2) debridement R ankle wounds (medial, anterior, lateral) 3) integra (acellular wound matrix) application to R ankle wounds (medial, anterior, lateral) 4) splint application RLE Surgeon:: Maria Antonia Gardner MD Shop Steward(s):: Christine Arauz DPM TERMITE TREATER:: Donato Leroy Anesthesia: GETErinn Estimated blood loss (mL): 25 Clinical Note:: 64-year-old female who sustained a right ankle trimalleolar fracture/dislocation on 05/01/2019; this was reduced in the emergency room. She was seen by myself the following day and due to malreduction and instability of the ankle, closed reduction with external fixator application was performed the following day in the operating room, 05/02/2019. This was a [place] delta frame and remained in place until 05/15/2019, at which time it was removed due to loss of reduction and early Charcot changes of the ankle. The patient underwent definitive fixation of the ankle on 05/19/2019, where ORIF of the trimalleolar fracture in addition to syndesmotic fixation, ankle synovectomy, tendoachilles lengthening, and wound debridement with amniotic tissue grafting was performed. At that time a Spaseebo reconstructive external fixator frame was applied to the ankle and she has been nonweightbearing since that time. She has been doing local wound and pin site care with no reported fevers or chills, no prolonged purulent drainage from her pin sites. She had one episode of questionable drainage from her pins, which resolved with wound care and antibiotics. She has been on oral antibiotics intermittently throughout the last 12 weeks, mostly doxycycline. She has never had leukocytosis and ESR/CRP have been fairly stable. CRP was 2.2 on 05/19/2019 which increased to a peak of 43.6 on 06/05/2019. Since that time it has steadily declined, with the exception of one peak on 07/09/2019 of 38. After that time the CRP continued to decline and was noted to be 10.3 on 08/06/2027. The frame has been on for 12 weeks at this point and she is showing evidence of fracture healing, albeit delayed; no further Charcot changes have been seen. She has had significantly delayed wound healing with development of eschars over all 3 of her surgical incisions. Local wound care has been performed with a variety of dressings and application of Santyl with in-office debridement weekly. The eschar has remained stable for the last 3 to 4 weeks and the lateral wound appears to be dehiscing slightly. There has been no erythema of the foot or ankle, no purulent drainage from her incisions, no exposed hardware. The remainder of her labs have remained stable over the last 3 months, and her most recent hemoglobin A1c on 07/21/2019 was 7.0, which is the best it has been several years. I discussed with the patient the need for external fixator removal, and at that time her wounds will be debrided. If additional wound grafting were needed, my plan would be an acellular dermal matrix such as Integra, which may later be followed with split thickness skin grafting or primatrix application in the office. This would be based upon intraoperative findings at the time of debridement. I discussed the risks of surgery with the patient, including the risk of infection, bleeding, neurovascular damage, persistent pain, ankle stiffness, need for pe
--- NOTE | 2019-08-11 14:01 | P.PN_ITS ---
[facility] Anesthesia Record Part II Discharge Time: 12:40 Destination: Surgical Day Care (OP Surgery) PACU nurse assessment reviewed?: Yes Patient Condition:: Good Anesthesia Complications:: None Swallowing reflex intact?: Yes Cyanosis?: No Blood Pressure: 132/56 Pulse Rate: 100 Temperature: 98.2 F Mental Status: Alert & Oriented Pain level:: 6 Nausea and/or vomitting:: None Intake, IV Amount: 0
== END 2019-08-11 13:36 | disposition home or self-care (01) ==
LOC: OR 08:22
PROVIDERS: PCP Internal Medicine; Visit Provider Orthopaedic Surgery
DX: S82.851G Displaced trimalleolar fracture of right lower leg, subsequent encounter for closed fracture with delayed healing; T81.42XD Infection following a procedure, deep incisional surgical site, subsequent encounter; E10.65 Type 1 diabetes mellitus with hyperglycemia; Z79.4 Long term (current) use of insulin; E10.610 Type 1 diabetes mellitus with diabetic neuropathic arthropathy; E10.42 Type 1 diabetes mellitus with diabetic polyneuropathy; I25.10 Atherosclerotic heart disease of native coronary artery without angina pectoris; Z95.5 Presence of coronary angioplasty implant and graft; E03.9 Hypothyroidism, unspecified; Z83.3 Family history of diabetes mellitus; Z88.0 Allergy status to penicillin; Z88.5 Allergy status to narcotic agent; Z82.49 Family history of ischemic heart disease and other diseases of the circulatory system; Z90.49 Acquired absence of other specified parts of digestive tract; Z96.1 Presence of intraocular lens; Z90.79 Acquired absence of other genital organ(s); Z87.891 Personal history of nicotine dependence
CPT/HCPCS: 15275; 15276 ×2; 73600; 73610; 76000; 82962; 87070; 87205; 96374; J2405; J3370; Q4104

== ENCOUNTER → 2019-08-13 13:21 | Outpatient (CLI) | payer MEDICARE, SELFPAY ==
--- NOTE | 2019-08-13 13:25 | XR_ITS ---
PROCEDURE: XR ANKLE RT MIN 3V CLINICAL INDICATION: Ankle FX Follow-up fracture/ORIF COMPARISON: XR ANKLE RT MIN 3V from 07/21/2019 XR ANKLE RT MIN 3V from 08/06/2019 XR ANKLE RT 2V from 08/11/2019 XR ANKLE RT 2V from 08/11/2019 FINDINGS: Prior ORIF with lateral bone plate at the fibula, posterior and medial bone plate at the tibia with good alignment. Multiple skin clips are present as before. Posterior splint remains in place. There is diffuse osteopenia. IMPRESSION: No change good alignment status post ORIF distal tib fib Dictated by: Wally Banuelos MD 08/13/2019 14:24 Electronically signed by Wally Banuelos MD in [place] 08/13/2019 14:24
== END ==
PROVIDERS: PCP Internal Medicine; Visit Provider Orthopaedic Surgery
DX: S82.891A Other fracture of right lower leg, initial encounter for closed fracture (principal)
CPT/HCPCS: 73610

== ENCOUNTER → 2019-08-24 13:27 | Outpatient (CLI) | payer MEDICARE, SELFPAY ==
[2019-08-24 13:37] LABS: Microscopic, Urine URINE MICROSCOPIC (MICROSCOPIC)
--- NOTE | 2019-08-24 13:56 | XR_ITS ---
PROCEDURE: XR ANKLE RT MIN 3V CLINICAL INDICATION: s/p rt ankle FX Follow-up ORIF COMPARISON: XR ANKLE RT 2V from 06/10/2019 XR ANKLE RT MIN 3V from 08/06/2019 XR ANKLE RT 2V from 08/11/2019 XR ANKLE RT 2V from 08/11/2019 XR ANKLE RT MIN 3V from 08/13/2019 FINDINGS: Status post ORIF trimalleolar fracture with lateral bone plate of the fibula, medial and posterior bone plates the tibia. There is some minimal lateral displacement of the distal fibular fracture by 2-3 mm. This is not readily apparent on the previous exam. The positioning could be slightly different. The ankle mortise appears slightly widened.. The talus at appears slightly dorsally subluxed. Bony fragment projects over the anterior aspect of the ankle joint. Follow-up recommended. IMPRESSION: Hardware remains in place. There is questionable minimal lateral displacement of the distal fibular fracture and mild dorsal subluxation of the talus with bone fragment projecting over the anterior aspect of the ankle joint. Dictated by: Wally Banuelos MD 08/24/2019 14:45 Electronically signed by Wally Banuelos MD in [place] 08/24/2019 14:45
[2019-08-24 14:12] LABS: C-Reactive Protein 31.7 mg/L (0-4)
[2019-08-24 14:20] LABS: Erythrocyte Sedimentation Rate 108 mm/hr (0-30)
[2019-08-24 14:24] LABS: Basophils # 0.1 K/mm3 (0-0.2); Basophils % 1.4 % (0.1-2.0); Eosinophils # 0.2 K/mm3 (0.0-0.4); Hematocrit 32.7 % (37.0-47.0); Hemoglobin 10.5 g/dL (12.2-16.2); Lymphocytes # 1.9 K/mm3 (0.7-4.5); Lymphocytes % 20.8 % (10-50); Mean Corpuscular HGB Conc 32.2 g/dL (31.8-35.4); Mean Corpuscular Hemoglobin 29.1 pg (27.0-31.2); Mean Corpuscular Volume 90.3 fl (81-99); Monocytes # 0.6 K/mm3 (0.1-1.0); Monocytes % 6.2 % (1.7-9.3); Neutrophils # 6.2 K/mm3 (1.8-7.8); Neutrophils % 69.5 % (37.0-80.0); Platelet Count 442 K/mm3 (142-424); Red Blood Count 3.62 M/mm3 (4.20-5.40); Red Cell Distribution Width 14.7 % (11.5-17.5)
[2019-08-24 15:20] LABS: Appearance,Urine CLEAR (Clear); Bilirubin,Urine Negative (Negative); Blood, Urine Negative (Negative); Color,Urine YELLOW (Yellow); Glucose,Urine (UA) Negative (Negative); Ketones,Urine Negative (Negative); Leukocyte Esterase,Urine Negative (Negative); Nitrate,Urine Negative (Negative); Protein,Urine TRACE (Negative); Urobilinogen,Urine 0.2 EU/dl (0.2)
[2019-08-24 15:53] LABS: Bacteria,Urine Trace /lpf; Squamous Epithelial Cell,Urine Occasional #/hpf (0-5); WBC,Urine Occasional #/hpf (0-3)
== END ==
PROVIDERS: Internal Medicine; Visit Provider Orthopaedic Surgery
DX: S82.891A Other fracture of right lower leg, initial encounter for closed fracture (principal); S93.06XA Dislocation of unspecified ankle joint, initial encounter
CPT/HCPCS: 36415; 73610; 81001; 85025; 85651; 86140

== ENCOUNTER 2019-09-01 15:00 | Outpatient (RCR) | payer MEDICARE, SELFPAY ==
--- NOTE | 2019-08-17 17:32 | HMH.PTOPWND ---
Rehab Outpt Wound Evaluation Rehab OP Wound Evaluation Start: 08/17/19 17:15 Freq: Status: Active Protocol: Document 08/17/19 17:15 PWMORGAN (Rec: 08/17/19 17:32 [email or web address] [id number]) Electronically Signed By Tl Hurst, DAT 08/17/19 17:15 Subjective/History History History This is the initial Physical Therapy wound evaluation for Lilibeth Sena. Pt was referred to PT for wound vac changes. Pt had fx tibial w/ ex-fix placement before ORIF. Pt has had integra graft placement for surgically debrided wounds . Pt reports now to PT for wound vac dressing change Wound Eval Wound Right Lower Medial Calf Wound Type Incision Is This a Chronic Wound Yes Wound Length (cm) 10 Wound Width (cm) 10 Wound Bed Appearance Beefy Red,Yellow Percentage Granulated (%) 25 Percentage of Eschar (Yellow) (%) 75 Wound Margins Description Well Defined Surrounding Tissue Appearance Shiny,Taut Drainage Amount None Drainage Odor No Odor Packing Type Woundvac Sponge Primary Dressing Film Dressing Dressing Change Date 08/17/19 Right Lower Lateral Calf Wound Type surgical debridement Is This a Chronic Wound Yes Wound Length (cm) 13 Wound Width (cm) 10 Wound Bed Appearance Beefy Red,Yellow Percentage Granulated (%) 25 Percentage of Eschar (Yellow) (%) 75 Wound Margins Description Well Defined Surrounding Tissue Appearance Shiny,Taut Drainage Description None Drainage Amount None Drainage Odor No Odor Packing Type Woundvac Sponge Comment wound vac Wound Secondary Dressing Type Film Dressing Wound Problems/Impairments Impairments Problems/Impairmments Wound Care Needs,Impaired Self Care/Self Management Prognosis Rehab Potential Good Clinical Impression Consistent with Diagnosis Yes Short Term Goals Number of Weeks 4 Decrease Wound Area Yes: 25% Increase Red Granulation Tissue % Yes: 50% Mcfp Goals Number of Weeks 8 Decrease Wound Area Yes: 50% Increase Red Granulation Tissue % Yes: 75% Outpatient Therapy Plan of Care Treatment Plan May Include Manual Lymphatic Drainage Yes Wound Care Yes Eval/Re-Eval
== END 2019-09-01 15:05 | disposition home or self-care (01) ==
LOC: PT 15:00
PROVIDERS: PCP Internal Medicine; Visit Provider Orthopaedic Surgery
DX: S82.851G Displaced trimalleolar fracture of right lower leg, subsequent encounter for closed fracture with delayed healing (principal)
CPT/HCPCS: 97140; 97161; 97597; 97598; 97605; 97606

== ENCOUNTER → 2019-09-03 11:09 | Outpatient (CLI) | payer MEDICARE, SELFPAY ==
--- NOTE | 2019-09-03 11:23 | XR_ITS ---
PROCEDURE: XR ANKLE RT MIN 3V CLINICAL INDICATION: S/P right ankle FX Follow-up surgery COMPARISON: XR ANKLE RT 2V from 08/11/2019 XR ANKLE RT 2V from 08/11/2019 XR ANKLE RT MIN 3V from 08/13/2019 XR ANKLE RT MIN 3V from 08/24/2019 FINDINGS: Status post ORIF with a medial and posterior bone plate at the distal tibia and lateral bone plate at the distal fibula. The distal fibular fracture fragment appears slightly lateral displaced similar to the previous exam.. While this could represent a slightly different degree and rotation, true lateral displacement is also consideration and continued follow-up is recommended. There is also mild dorsal subluxation of talus with a small bony fragment projecting over the anterior aspect of the ankle joint not significantly changed. There is generalized osteopenia. IMPRESSION: Postsurgical changes with persistent dorsal displacement of the talus and a bony fragment projecting over the ankle joint anteriorly. Mild lateral displacement of the distal fibular fragment. Overall no significant change Dictated by: Wally Banuelos MD 09/03/2019 13:07 Electronically signed by Wally Banuelos MD in [place] 09/03/2019 13:07
[2019-09-03 11:29] LABS: Basophils # 0.3 K/mm3 (0-0.2); Basophils % 1.5 % (0.1-2.0); Eosinophils # 0.2 K/mm3 (0.0-0.4); Eosinophils % 0.9 % (0.1-12.0); Hematocrit 31.2 % (37.0-47.0); Hemoglobin 10.5 g/dL (12.2-16.2); Lymphocytes # 1.2 K/mm3 (0.7-4.5); Lymphocytes % 6.8 % (10-50); Mean Corpuscular HGB Conc 33.6 g/dL (31.8-35.4); Mean Corpuscular Hemoglobin 30.4 pg (27.0-31.2); Mean Corpuscular Volume 90.5 fl (81-99); Mean Platelet Volume 8.9 fl (7.4-10.4); Monocytes % 5.5 % (1.7-9.3); Neutrophils # 15.1 K/mm3 (1.8-7.8); Neutrophils % 85.3 % (37.0-80.0); Platelet Count 442 K/mm3 (142-424); Red Blood Count 3.45 M/mm3 (4.20-5.40); Red Cell Distribution Width 14.2 % (11.5-17.5); White Blood Count 17.7 K/mm3 (4.8-10.8)
[2019-09-03 11:32] LABS: MANUAL DIFFERENTIAL MANUAL DIFFERENTIAL (MANUAL DIFF)
[2019-09-03 12:01] LABS: Erythrocyte Sedimentation Rate > 140 mm/hr (0-30)
[2019-09-03 12:04] LABS: Lymphocytes % 8 % (10-50); Monocytes % 3 % (2-9); Neutrophils % 83 % (42-76); Total Cells Counted 100
[2019-09-03 12:05] LABS: Platelet Estimate Marked Increase; RBC Morphology Normal
[2019-09-03 12:22] LABS: C-Reactive Protein 255.8 mg/L (0-4)
== END ==
PROVIDERS: Visit Provider Orthopaedic Surgery
DX: S82.853A Displaced trimalleolar fracture of unspecified lower leg, initial encounter for closed fracture; S93.06XA Dislocation of unspecified ankle joint, initial encounter
CPT/HCPCS: 36415; 73610; 85007; 85025; 85651; 86140; 87070; 87075; 87077; 87186; 87205; 88305; 88311

== ENCOUNTER 2019-09-03 12:41 | Inpatient (IN) | payer MEDICARE, SELFPAY ==
[2019-09-03] VITALS (19 sets, daily range): BP systolic 114–151; BP diastolic 48–73; PULSE 95–112; RESP 14–22; TEMP -8.8–38.5; O2SAT 16–98; BMI 34.8
--- NOTE | 2019-09-03 14:49 | HMH.ORTHHP ---
*Admission Date: 09/03/19 *Reason for consult:: R ankle wound infection/cellulitis *History of present illness: 64yo F with chronic, poorly-controlled type-1 DM; status-post: 05/02/2019 closed reduction R trimalleolar ankle fracture-dislocation + external fixator application (delta frame) 05/15/2019 external fixator removal; showing evidence of Charcot changes at that point 05/19/2019 ORIF R ankle + external fixator application [ORIF posterior malleolus/distal fibula while prone, with ankle synovectomy, achilles lengthening and repair of peroneal tendons --> ORIF medial malleolus and repair of posterior tibialis tendon supine --> debridement/grafting of anterior ankle wound (amniotic tissue graft placement) --> external fixator placement (ilizarov-type recon frame) 08/11/2019 external fixator removal, wound debridement with integra application; cultures taken from wounds, no growth to date The patient presented to my office this morning for routine post-operative follow-up and anticipated silicone layer removal from her integra and possible allograft application in the office. She had been doing very well and the wounds appeared heathy at prior visits. Around 2-3 days ago, however, she developed a foul odor with increasing pain at the wound vac site. She denies fevers or chills at home, no drainage from around her wound vac dressing. She has been strictly NWB RLE and elevating the leg as much as possible. Last week her WBC was 9; today it is 17.7. ESR last week was 108, today is >140; CRP was 31.7, today it is 255. The silicone was removed in clinic but the integra does not appear to have adhered to the underlying wound bed. There was no active drainage from the wounds, but cloudy fluid was expressible and there was a strong, foul odor. She was admitted from clinic for planned surgical I&D of her wounds this afternoon. [facility] History I have reviewed the patient's past medical history: Yes Medical History: Reports:: Congestive Heart Failure, Coronary Artery Disease, Diabetes Mellitus Type 1, Hypertension Denies:: Cancer, Diabetes Mellitus Type 2, Internal Pacemaker, MRSA, Seizures *Have you ever received a pneumonia vaccine?: Yes *Have you received a flu vaccine this season?: Yes Other Medical History: Reports: Cataracts, Hypothyroidism, Thyroid Disease. Denies: Blood Transfusion Reaction Other Surgeries: Yes: Appendectomy, Cardiac Catheterization, Cholecystectomy, Coronary Stent, Hysterectomy-Total, Tubal Ligation, Other. No: Pacemaker Amputation: No Fractures: Yes - *Social History Educational Level: Completed High School Smoking Status: Current every day smoker Tobacco Type: cigarettes # Packs/Day (cigarettes): 1 #Yrs smoked (if former smoker): 20 Alcohol Intake: never Substance Use Type: denies use *Occupational Status:: retired Housing: house Household Members: family *Travel in the last 8 weeks: None Family Hx:: Anemia, Diabetes, Heart Attack, Hypertension, Stroke Review of Systems - Review of Systems Review of systems:: pertinent systems reviewed and negative unless documented below Meds Home Medications Medication Instructions Recorded Confirmed Type Duloxetine HCl 60 mg PO HS 05/01/19 09/03/19 History Gabapentin [Gabapentin 300mg Cap] 300 mg PO HS 05/01/19 09/03/19 History Insulin Aspart [Novolog Flexpen] 15 units SQ TID 05/01/19 09/03/19 History Levothyroxine Sodium 150 mcg PO DAILY 05/01/19 09/03/19 History [Levothyroxine 150mcg (0.15mg) Tab] ramipriL [Ramipril] 1.25 mg PO HS 05/01/19 09/03/19 History polyethylene glycoL 3350 [Miralax 17 gm PO BID PRN 15 Days #30 05/08/19 09/03/19 Rx 17gm Packet] powd.pack Acetaminophen [Acetaminophen 325mg 650 mg PO Q6HP PRN tab 05/23/19 09/03/19 Rx tab] Docusate Sodium [Docusate Sodium 100 mg PO BIDP PRN cap 05/23/19 09/03/19 Rx 100mg Cap] Ondansetron HCl/Pf [Zofran 4mg/2mL 4 mg IV Q6HP PRN vial 05/23/19 09/03/19 Rx vial] Sennosides [Senokot 8.6mg table
--- NOTE | 2019-09-03 15:03 | P.CONPHA_ITS ---
[facility] Pharmacy VTE Monitoring - Patient Demographics Admission date: 09/03/19 Report Date: 09/03/19 Time: 15:03 Allergies/Adverse Reactions: Patient Allergies codeine Allergy (Intermediate, Verified 09/03/19 14:51) MENTAL STATUS CHANGES/DROPS BLOOD SUGAR Penicillins Allergy ([facility], Verified 09/03/19 14:51) I-RASH Height: 1.63 m Weight: 92.079 kg - VTE Risk Was VTE Risk Assessment Performed: Yes VTE Score: 9 VTE Risk Level: Moderate Risk Clinical Trial Participant: No - Prophylaxis VTE Prophylaxis Ordered?: Yes Types of VTE Prophylaxis: IPCS Thigh High (POST OP)
[2019-09-03 15:14] LABS: Chloride 98 mmol/L (98-107); Potassium 4.1 mmoL/L (3.5-5.1); Sodium 135 mmol/L (136-145)
[2019-09-03 15:17] LABS: Alanine Aminotransferase 11 U/L (12-78); Albumin Level 3.7 g/dl (3.5-5.0); Albumin/Globulin Ratio 1.1 (1.1-1.8); Alkaline Phosphatase 126 U/L (38-126); Anion Gap 15.1 mEq/L (5-15); Aspartate Amino Transferase 21 U/L (14-36); Bilirubin,Total 0.4 mg/dl (0.2-1.3); Blood Urea Nitrogen 15 mg/dl (7-17); Carbon Dioxide 26 mmol/L (22.0-30.0); Creatinine Clearance Estimated 84 mL/min (50-200); Estimated Glomerular Filt Rate 85 ml/min (>60); GFR (African American) 102 ML/MIN (>60); Globulin 3.5 g/dL (1.3-3.2); Glucose 111 mg/dl (74-100); Total Protein,Serum 7.2 g/dl (6.3-8.2)
[2019-09-03 15:38] LABS: Coronavirus 19 IgG Antibody Negative (Negative); Coronavirus 19 IgM Antibody Negative (Negative)
[2019-09-03 16:18] LABS: INR 0.93 (0.9-1.1); Prothrombin Time 9.5 seconds (9.4-11.8)
[2019-09-03 16:19] LABS: Activated Partial Thrombo Time 29.2 seconds (23.6-34.0)
--- NOTE | 2019-09-03 16:50 | HMH.HP ---
*Admission Date: 09/03/19 *Chief complaint: infection in foot. *History of present illness: Ms. Sena is a pleasant 64-year-old female who sees Dr. Isbell for primary care. Past medical history concerning for diabetes with complications, long-term insulin dependency, Charcot deformities of her feet, and recent fracture of her right foot with external fixation. She has had an extensive course of complications including infection and subsequent allograft and wound VAC placements. She presented to orthopedics clinic today for follow-up and further management where it was noted however that she had developed foul-smelling drainage and increased pain at her wound VAC site. She denied any fevers, chills, systemic symptoms. She reportedly has been strictly nonweightbearing and elevating her leg however has had progression of her wounds. Labs today noted to have significant elevation in her white cell count, increase in her inflammatory markers including both ESR and CRP. She was directly admitted to the hospital for IV antibiotics and further management of her ankle wound. Orthopedics planning further debridement. Medicine was consulted for medication comanagement. Appreciate the consultation Of note, see orthopedics H&P for full surgical timeline with current issues concerning her foot. [facility] History I have reviewed the patient's past medical history: Yes Medical History: Reports:: Congestive Heart Failure, Coronary Artery Disease, Diabetes Mellitus Type 1, Hypertension Denies:: Cancer, Diabetes Mellitus Type 2, Internal Pacemaker, MRSA, Seizures *Have you ever received a pneumonia vaccine?: Yes *Have you received a flu vaccine this season?: Yes Other Medical History: Reports: Cataracts, Hypothyroidism, Thyroid Disease. Denies: Blood Transfusion Reaction Other Surgeries: Yes: Appendectomy, Cardiac Catheterization, Cholecystectomy, Coronary Stent, Hysterectomy-Total, Tubal Ligation, Other. No: Pacemaker Amputation: No Fractures: Yes - *Social History Educational Level: Completed High School Smoking Status: Current every day smoker Tobacco Type: cigarettes # Packs/Day (cigarettes): 1 #Yrs smoked (if former smoker): 20 Alcohol Intake: never Substance Use Type: denies use *Occupational Status:: retired Housing: house Household Members: family *Travel in the last 8 weeks: None Family Hx:: Anemia, Diabetes, Heart Attack, Hypertension, Stroke Review of Systems - Review of Systems Review of systems:: pertinent systems reviewed and negative unless documented below (14 point review of systems performed, pertinent positives and negatives as per HPI) Meds Home Medications Medication Instructions Recorded Confirmed Type Duloxetine HCl 60 mg PO HS 05/01/19 09/03/19 History Gabapentin [Gabapentin 300mg Cap] 300 mg PO HS 05/01/19 09/03/19 History Insulin Aspart [Novolog Flexpen] 10 units SQ TID 05/01/19 09/03/19 History Levothyroxine Sodium 150 mcg PO DAILY 05/01/19 09/03/19 History [Levothyroxine 150mcg (0.15mg) Tab] ramipriL [Ramipril] 1.25 mg PO HS 05/01/19 09/03/19 History Acetaminophen [Acetaminophen 325mg 650 mg PO Q6HP PRN tab 05/23/19 09/03/19 Rx tab] Insulin Glargine,Hum.rec.anlog 18 unit SQ HS 08/11/19 09/03/19 History [Lantus Solostar 100 Units/mL 3mL flexpen] Oxycodone HCl/Acetaminophen 1 tab PO BID PRN 09/03/19 09/03/19 History [Percocet 5/325mg tablet] Allergies Allergy/AdvReac Type Severity Reaction Status Date / Time codeine Allergy Intermediate MENTAL Verified 09/03/19 14:51 STATUS CHANGES/DROPS BLOOD SUGAR Penicillins Allergy Intermediate I-RASH Verified 09/03/19 14:51 Exam Vital signs and Labs for Last 24 Hours: Temp Pulse Resp BP Pulse Ox 99.2 F 95 H 18 114/51 L 98 09/03/19 13:16 09/03/19 13:16 09/03/19 13:16 09/03/19 13:16 09/03/19 13:16 Laboratory Results - last 24 hr 09/03/19 14:00: PT 9.5, INR 0.93, APTT 29.2 09/03/19 14:00: Sodium 135 L,
[2019-09-03 16:51] LABS: POC Glucose,Bedside 176 (70-110)
--- NOTE | 2019-09-03 18:01 | HMH.ANESCL ---
[facility] Anesthesia Checklist - Patient Identification Patient Identification: Arm Band, Verbal (Name & ) - Structural Data Admitted From: Inpatient Planned Operative Procedure/s: i and d ankle Consent for Planned Operative Procedure(s) Verified: Yes Verified Documents: History and Physical - NPO Status Verified Time NPO: 10:00 - Chart Verification Results Verified: CBC, BMP - Additional verifications Patient : No Anesthesia Reactions: No Hx Blood Transfusions: No Blood Transfusion Reaction: No Cephalosporin Allergy: No Previous Colonoscopy: Yes - Cardiovascular Assessment Heart Sounds: S1 & S2 Pulse Strength: Baseline Pulse Rhythm: Regular Peripheral Edema: No - Airway Assessment C-Spine Mobility Assessed: Yes TMJ Mobility Assessed: Yes Dentition: Good Dentition - Neurological Assessment Level of Consciousness: Awake, Alert, Appropriate Hx Seizures: No Numbness or tingling in extremities: No - Anesthesia Plan Anesthesia Risk discussed: Yes Anesthesia Plan: Verified ASA Class: III Anesthesia Type: General [facility] History I have reviewed the patient's past medical history: Yes Medical History: Reports:: Congestive Heart Failure, Coronary Artery Disease, Diabetes Mellitus Type 1, Hypertension Denies:: Cancer, Diabetes Mellitus Type 2, Internal Pacemaker, MRSA, Seizures *Have you ever received a pneumonia vaccine?: Yes *Have you received a flu vaccine this season?: Yes Other Medical History: Reports: Cataracts, Hypothyroidism, Thyroid Disease. Denies: Blood Transfusion Reaction Anesthesia experience/problems:: none Other Surgeries: Yes: Appendectomy, Cardiac Catheterization, Cholecystectomy, Coronary Stent, Hysterectomy-Total, Tubal Ligation, Other. No: Pacemaker Amputation: No Fractures: Yes - *Social History Educational Level: Completed High School Smoking Status: Current every day smoker Tobacco Type: cigarettes # Packs/Day (cigarettes): 1 #Yrs smoked (if former smoker): 20 Alcohol Intake: never Substance Use Type: denies use *Occupational Status:: retired Housing: house Household Members: family *Travel in the last 8 weeks: None Family Hx:: Anemia, Diabetes, Heart Attack, Hypertension, Stroke
--- NOTE | 2019-09-03 18:54 | PC.NURSE ---
PATIENT OFF FLOOR AT 1830
--- NOTE | 2019-09-03 20:38 | P.PN_ITS ---
[facility] Anesthesia Record Part I Intake, IV Amount: 1,000 Estimated blood loss (mL): 50 Urine output (mL): 0 Blood Products used (#): none Blood Pressure: 142/61 SaO2: 94 Pulse Rate: 109 Respiratory Rate: 20 Temperature: 98.4 F Patient is:: Drowsy, Nasal O2, Stable Stable to PACU at:: 20:34
--- NOTE | 2019-09-03 20:41 | XR_ITS ---
PROCEDURE: XR ANKLE RT MIN 3V CLINICAL INDICATION: s/p I D with hardware removal Follow-up hardware removal COMPARISON: XR ANKLE RT 2V from 08/11/2019 XR ANKLE RT MIN 3V from 08/13/2019 XR ANKLE RT MIN 3V from 08/24/2019 XR ANKLE RT MIN 3V from 09/03/2019 FINDINGS: There is a cast in place. There has been interval removal of the medial tibial bone plate and the lateral fibular bone plate with good alignment of the fracture fragments. Posterior bone plate remains in place. IMPRESSION: Good alignment status post hardware removal Dictated by: Wally Banuelos MD 09/04/2019 05:30 Electronically signed by Wally Banuelos MD in [place] 09/04/2019 05:30
--- NOTE | 2019-09-03 20:45 | HMH.OPNOTE ---
Date of procedure: 09/04/19 Pre-op Diagnosis:: R ankle wound infection, cellulitis Post-op Diagnosis:: R ankle wound infection, cellulitis Procedure performed:: Right ankle: 1) irrigation and debridement of wounds 2) removal of hardware 3) bone biopsy Surgeon:: Maria Antonia Gardner MD [employer]r(s):: WESLEY Galeano HEALTH ANALYST:: Ovi Felix Anesthesia: LMA Estimated blood loss (mL): 50 Clinical Note:: 64yo F with chronic, poorly-controlled type-1 DM; status-post: 05/02/2019 closed reduction R trimalleolar ankle fracture-dislocation + external fixator application (delta frame) 05/15/2019 external fixator removal; showing evidence of Charcot changes at that point 05/19/2019 ORIF R ankle + external fixator application [ORIF posterior malleolus/distal fibula while prone, with ankle synovectomy, achilles lengthening and repair of peroneal tendons --> ORIF medial malleolus and repair of posterior tibialis tendon supine --> debridement/grafting of anterior ankle wound (amniotic tissue graft placement) --> external fixator placement (ilizarov-type recon frame) 08/11/2019 external fixator removal, wound debridement with integra application; cultures taken from wounds, no growth to date The patient presented to my office this morning for routine post-operative follow-up and anticipated silicone layer removal from her integra and possible allograft application in the office. She had been doing very well and the wounds appeared heathy at prior visits. Around 2-3 days ago, however, she developed a foul odor with increasing pain at the wound vac site. She denies fevers or chills at home, no drainage from around her wound vac dressing. She has been strictly NWB RLE and elevating the leg as much as possible. Last week her WBC was 9; today it is 17.7. ESR last week was 108, today is >140; CRP was 31.7, today it is 255. The silicone was removed in clinic but the integra does not appear to have adhered to the underlying wound bed. There was no active drainage from the wounds, but cloudy fluid was expressible and there was a strong, foul odor. She was admitted from clinic for planned surgical I&D of her wounds this afternoon. I discussed the risks of surgery with the patient, including the risk of persistent infection, bleeding, neurovascular damage, persistent pain, need for wound grafting and/or wound vac placement, possible need for plastic surgery consultation for soft tissue coverage procedure, risk of eventual amputation, and the risk of anesthesia including heart attack, stroke and . The patient vocalized understanding and provided informed consent for the procedure. Operative findings:: Wounds: Anteromedial: 8cm L x 10.4cm W; exposed tendon. Small amount of purulent fluid expressed from superior margin of wound. culture swabs (aerobic/anaerobic) + tissue sample sent for culture. Medial tibial plate/screws removed. Bone biopsy taken. Lateral: 14cm L x 8.5cm W; wound boggy, small amount of purulent fluid expressed, exposed lateral plate. culture swabs (aerobic/anaerobic) + tissue sample sent for culture. Lateral fibula plate/screws removed. Bone biopsy taken. Operative note:: The patient was identified in preoperative holding and the right ankle signed by myself. Consent was reviewed with the patient and all questions answered. She was then taken to the operating room and placed supine on the OR table, where general anesthesia was induced. Antibiotics were held; cultures were planned before they were to be given. Next the right lower extremity was prepped and draped in the usual sterile fashion; tourniquet was not applied. Timeout was performed, identifying the correct patient, correct procedure, and correct site. The patient's wounds were examined: the anteromedial wound measured 8cm L x 10.4cm W, largely unchanged from last debridement. The integra bilayer dermal matrix did not take. Tendon is still exposed anteriorly, and a smal
--- NOTE | 2019-09-03 20:48 | P.PN_ITS ---
Subjective Date: 09/03/19 Time: 20:48 Principal diagnosis: R ankle wound infection s/p I&D/hardware removal Interval history: The patient is in PACU recovering, comfortable and vitals stable. PN: Obj Ex Vital signs: Temp Pulse Resp BP Pulse Ox 98.4 F 109 H 20 142/61 H 97 09/03/19 20:40 09/03/19 20:40 09/03/19 20:40 09/03/19 20:40 09/03/19 16:00 - Constitutional no acute distress - Routine HEENT Exam Head: Present: normocephalic Eye: Present: EOMI ENT: Present: mucous membranes moist - Routine Respiratory Exam Absent: respiratory distress, wheezes - Routine Cardiovascular Exam Present: RRR - Routine Extremities Exam Comments: RLE splinted, no strikethrough on dressings toes pink/warm, brisk capillary refill RLE R calf soft, non-tender - Routine Skin Exam Present: warm Progress Note: A&P (1) Wound infection after surgery Status: Acute Current Visit: Yes (2) Cellulitis Status: Acute Current Visit: Yes (3) Ankle fracture, right Status: Acute Current Visit: No (4) Diabetes mellitus, insulin dependent (IDDM), uncontrolled Status: Chronic Current Visit: No (5) Obesity (BMI 30-39.9) Status: Chronic Current Visit: No (6) Personal history of nicotine dependence Status: Chronic Current Visit: No Assessment and Plan for All Diagnoses:: 64yo F with chronic, poorly-controlled type-1 DM; status-post: 05/02/2019 closed reduction R trimalleolar ankle fracture-dislocation + external fixator application (delta frame) 05/15/2019 external fixator removal; showing evidence of Charcot changes at that point 05/19/2019 ORIF R ankle + external fixator application [ORIF posterior malleolus/distal fibula while prone, with ankle synovectomy, achilles lengthening and repair of peroneal tendons --> ORIF medial malleolus and repair of posterior tibialis tendon supine --> debridement/grafting of anterior ankle wound (amniotic tissue graft placement) --> external fixator placement (ilizarov-type recon frame) 08/11/2019 external fixator removal, wound debridement with integra application; cultures taken from wounds, no growth to date 09/03/2019 I&D ankle wounds, hardware removal (medial/lateral plates & screws), b one biopsies Plan: -- do not remove splint, elevate RLE -- IV vancomycin + ertapenem -- f/u wound/bone biopsies -- continue NWB RLE -- anticipate wound vac application tomorrow
[2019-09-03 21:26] LABS: POC Glucose,Bedside 219 (70-110)
--- NOTE | 2019-09-03 21:48 | PC.NURSE ---
PT ARRIVED VIA BED FROM OR DEPARTMENT TO FLOOR @ [phone].
--- NOTE | 2019-09-03 22:34 | P.PN_ITS ---
[facility] Anesthesia Record Part II Discharge Time: 21:04 Destination: Medical Surgical Department PACU nurse assessment reviewed?: Yes Patient Condition:: Good Anesthesia Complications:: None Swallowing reflex intact?: Yes Cyanosis?: No Blood Pressure: 143/59 Pulse Rate: 111 Temperature: 16 F Mental Status: Alert & Oriented Pain level:: 2 Nausea and/or vomitting:: None Intake, IV Amount: 50
[2019-09-03 23:25] LABS: POC Glucose,Bedside 255 (70-110)
[2019-09-04] VITALS (11 sets, daily range): BP systolic 92–148; BP diastolic 49–63; PULSE 90–108; RESP 12–18; TEMP 36.7–38.2; O2SAT 92–100; BMI 34.5; BMI 34.6
--- NOTE | 2019-09-04 03:47 | PC.NURSE ---
A&OX4/ PT ON 2LNC ON ARRIVAL TO FLOOR BUT IS NOW TOLERATING RA WELL. PT HAS C/O SHARP PAIN IN R ANKLE X2, ADMINISTERED PAIN MED PER JUN. ON REASSESSMENT PT RESTING IN BED WITH EYES CLOSED. PT HAS RESTED WELL T/O MAJORITY OF SHIFT. PT R ANKLE ELEVATED. DRESSING CDI. PT UP TO BEDSIDE COMMODE X2 ASSIST USING WALKER, DID VERY WELL. PT HAS HAD ADEQUATE URINE OUTPUT. EDUCATED PT ON IMPORTANCE OF DEEP BREATHING. PT HAS NO OTHER COMPLAINTS THUS FAR, VSS WILL CONTINUE TO MONITOR.
[2019-09-04 06:38] LABS: POC Glucose,Bedside 153 (70-110)
[2019-09-04 07:42] LABS: Basophils # 0.3 K/mm3 (0-0.2); Basophils % 1.5 % (0.1-2.0); Eosinophils # 0.2 K/mm3 (0.0-0.4); Eosinophils % 1.3 % (0.1-12.0); Hematocrit 28.7 % (37.0-47.0); Lymphocytes # 1.7 K/mm3 (0.7-4.5); Lymphocytes % 8.9 % (10-50); Mean Corpuscular HGB Conc 32.3 g/dL (31.8-35.4); Mean Corpuscular Hemoglobin 30.5 pg (27.0-31.2); Mean Corpuscular Volume 94.5 fl (81-99); Mean Platelet Volume 9.4 fl (7.4-10.4); Monocytes # 1.5 K/mm3 (0.1-1.0); Monocytes % 8.3 % (1.7-9.3); Neutrophils % 80.2 % (37.0-80.0); Platelet Count 419 K/mm3 (142-424); Red Blood Count 3.03 M/mm3 (4.20-5.40); Red Cell Distribution Width 14.2 % (11.5-17.5); White Blood Count 18.7 K/mm3 (4.8-10.8)
--- NOTE | 2019-09-04 07:44 | SUR.PHASEI ---
09/03/2019 at 2046, radiology here to do x-rays
[2019-09-04 07:46] LABS: MANUAL DIFFERENTIAL MANUAL DIFFERENTIAL (MANUAL DIFF)
[2019-09-04 07:47] LABS: Anion Gap 10.7 mEq/L (5-15); Blood Urea Nitrogen 17 mg/dl (7-17); Calcium 8.8 mg/dl (8.4-10.2); Carbon Dioxide 28 mmol/L (22.0-30.0); Chloride 99 mmol/L (98-107); Creatinine Clearance Estimated 83 mL/min (50-200); Estimated Glomerular Filt Rate 72 ml/min (>60); GFR (African American) 88 ML/MIN (>60); Glucose 141 mg/dl (74-100); Potassium 4.7 mmoL/L (3.5-5.1); Sodium 133 mmol/L (136-145)
[2019-09-04 07:54] LABS: C-Reactive Protein 314.3 mg/L (0-4)
--- NOTE | 2019-09-04 08:19 | HMH.ACPN2 ---
Internal Medicine - PN: Subj *Date: 09/04/19 *Time: 08:22 Interval history: Patient had surgical debridement performed last night. Please see operative note for full details. Has had good pain control with as needed Dilaudid. Patient sleeping on exam this morning. Afebrile, hemodynamically stable. No acute events overnight. Reviewed labs, glucose control is fair. Exam Vital signs and Labs for Last 24 Hours: Temp Pulse Resp BP Pulse Ox 98.3 F 98 H 14 120/60 92 L 09/04/19 04:45 09/04/19 04:45 09/04/19 04:45 09/04/19 04:45 09/04/19 04:45 Laboratory Results - last 24 hr 09/03/19 14:00: PT 9.5, INR 0.93, APTT 29.2 09/03/19 14:00: Sodium 135 L, Potassium 4.1, Chloride 98, Carbon Dioxide 26, Anion Gap 15.1 H, BUN 15, Creatinine 0.70, Estimated Creat Clear 84, Estimated GFR 85, Est GFR ( Amer) 102, Glucose 111 H, Calcium 9.0, Total Bilirubin 0.4, AST 21, ALT 11 L, Alkaline Phosphatase 126, Total Protein 7.2, Albumin 3.7, Globulin 3.5 H, Albumin/Globulin Ratio 1.1 09/03/19 14:00: SARS-CoV-2 IgG Ab (Rapid) Negative, SARS-CoV-2 IgM Ab (Rapid) Negative 09/03/19 16:19: POC Glucose 176 H 09/03/19 21:23: POC Glucose 219 H 09/03/19 22:35: POC Glucose 255 H 09/04/19 05:25: POC Glucose 153 H 09/04/19 05:42: WBC 18.7 H, RBC 3.03 L, Hct 28.7 L, MCV 94.5, MCH 30.5, MCHC 32.3, RDW 14.2, Plt Count 419, MPV 9.4, Neut % (Auto) 80.2 H, Lymph % (Auto) 8.9 L, [place] % (Auto) 8.3, Eos % (Auto) 1.3, Baso % (Auto) 1.5, Neut # (Auto) 15.0 H, Lymph # (Auto) 1.7, [place] # (Auto) 1.5 H, Eos # (Auto) 0.2, Baso # (Auto) 0.3 H 09/04/19 05:42: Sodium 133 L, Potassium 4.7, Chloride 99, Carbon Dioxide 28, Anion Gap 10.7, BUN 17, Creatinine 0.80, Estimated Creat Clear 83, Estimated GFR 72, Est GFR ( Amer) 88, Glucose 141 H D, Calcium 8.8, C-Reactive Protein 314.3 H I & O for Last 24 hours: Intake & Output 09/01/19 09/02/19 09/03/19 09/04/19 23:59 23:59 23:59 23:59 Intake Total 1050 / 1050 574 / 574 Output Total 600 / 600 Balance 1050 / 1050 - Weight 92.079 kg 91.796 kg Microbiology Reports for the Last 24 Hours: Microbiology 09/03/19 20:14 Ankle,Right Gram Stain - Final 09/03/19 21:03 Ankle,Right Gram Stain - Final Narrative: - Constitutional no acute distress, obese, sleeping - *Routine HEENT Exam Head: Present: normocephalic ENT: Present: mucous membranes moist - *Routine Neck Exam Present: supple. Absent: lymphadenopathy - *Routine Respiratory Exam Present: CTA bilaterally. Absent: wheezes, crackles - *Routine Cardiovascular Exam Present: RRR - *Routine Abdominal Exam Present: soft, normoactive bowel sounds. Absent: tenderness - *Routine Extremities Exam Present: Right lower extremity in postsurgical bandage, elevated. Brisk capillary refill in toes. Assessment and Plan (1) Wound infection after surgery Current visit: Yes Status: Acute Category: Medical Code(s): T81.49XA - Infection following a procedure, other surgical site, initial encounter (2) Cellulitis Current visit: Yes Status: Acute Qualifiers: Site of cellulitis: extremity Site of cellulitis of extremity: lower extremity Laterality: right Qualified Code(s): L03.115 - Cellulitis of right lower limb Category: Medical Code(s): L03.90 - Cellulitis, unspecified (3) Ankle fracture, right Current visit: No Status: Acute Category: Medical Code(s): S82.891A - Other fracture of right lower leg, initial encounter for closed fracture (4) Diabetes mellitus, insulin dependent (IDDM), uncontrolled Current visit: No Status: Chronic Category: Medical Code(s): E11.65 - Type 2 diabetes mellitus with hyperglycemia; Z79.4 - intermediate (current) use of insulin (5) Obesity (BMI 30-39.9) Current visit: No Status: Chronic Category: Medical Code(s): E66.9 - Obesity, unspecified (6) Personal history of nicotine dependence Current visit: No Status: Chronic Category: Medical
--- NOTE | 2019-09-04 08:59 | HMH.PHACONS ---
- Pharmacy Consult Date: 09/04/19 Time: 08:59 Referring provider: DR. BYNUM Reason for Consult:: VANCOMYCIN DOSING Allergies and ADEs:: Allergies Allergy/AdvReac Type Severity Reaction Status Date / Time codeine Allergy Intermediate MENTAL Verified 09/03/19 14:51 STATUS CHANGES/DROPS BLOOD SUGAR Penicillins Allergy Intermediate I-RASH Verified 09/03/19 14:51 Home Medications:: Home Medications Medication Instructions Recorded Confirmed Type Duloxetine HCl 60 mg PO HS 05/01/19 09/03/19 History Gabapentin [Gabapentin 300mg Cap] 300 mg PO HS 05/01/19 09/03/19 History Insulin Aspart [Novolog Flexpen] 10 units SQ TID 05/01/19 09/03/19 History Levothyroxine Sodium 150 mcg PO DAILY 05/01/19 09/03/19 History [Levothyroxine 150mcg (0.15mg) Tab] ramipriL [Ramipril] 1.25 mg PO HS 05/01/19 09/03/19 History Acetaminophen [Acetaminophen 325mg 650 mg PO Q6HP PRN tab 05/23/19 09/03/19 Rx tab] Insulin Glargine,Hum.rec.anlog 18 unit SQ HS 08/11/19 09/03/19 History [Lantus Solostar 100 Units/mL 3mL flexpen] Oxycodone HCl/Acetaminophen 1 tab PO BID PRN 09/03/19 09/03/19 History [Percocet 5/325mg tablet] Height: 1.63 m Weight: 91.796 kg Laboratory Results:: Laboratory Results - last 24 hr 09/03/19 14:00: PT 9.5, INR 0.93, APTT 29.2 09/03/19 14:00: Sodium 135 L, Potassium 4.1, Chloride 98, Carbon Dioxide 26, Anion Gap 15.1 H, BUN 15, Creatinine 0.70, Estimated Creat Clear 84, Estimated GFR 85, Est GFR ( Amer) 102, Glucose 111 H, Calcium 9.0, Total Bilirubin 0.4, AST 21, ALT 11 L, Alkaline Phosphatase 126, Total Protein 7.2, Albumin 3.7, Globulin 3.5 H, Albumin/Globulin Ratio 1.1 09/03/19 14:00: SARS-CoV-2 IgG Ab (Rapid) Negative, SARS-CoV-2 IgM Ab (Rapid) Negative 09/03/19 16:19: POC Glucose 176 H 09/03/19 21:23: POC Glucose 219 H 09/03/19 22:35: POC Glucose 255 H 09/04/19 05:25: POC Glucose 153 H 09/04/19 05:42: WBC 18.7 H, RBC 3.03 L, Hct 28.7 L, MCV 94.5, MCH 30.5, MCHC 32.3, RDW 14.2, Plt Count 419, MPV 9.4, Neut % (Auto) 80.2 H, Lymph % (Auto) 8.9 L, [place] % (Auto) 8.3, Eos % (Auto) 1.3, Baso % (Auto) 1.5, Neut # (Auto) 15.0 H, Lymph # (Auto) 1.7, [place] # (Auto) 1.5 H, Eos # (Auto) 0.2, Baso # (Auto) 0.3 H 09/04/19 05:42: Sodium 133 L, Potassium 4.7, Chloride 99, Carbon Dioxide 28, Anion Gap 10.7, BUN 17, Creatinine 0.80, Estimated Creat Clear 83, Estimated GFR 72, Est GFR ( Amer) 88, Glucose 141 H D, Calcium 8.8, C-Reactive Protein 314.3 H Medical History: Reports:: Congestive Heart Failure, Coronary Artery Disease, Diabetes Mellitus Type 1, Hypertension Denies:: Cancer, Diabetes Mellitus Type 2, Internal Pacemaker, MRSA, Seizures Assessment and Plan (1) Wound infection after surgery Current visit: Yes Status: Acute Category: Medical Code(s): T81.49XA - Infection following a procedure, other surgical site, initial encounter (2) Cellulitis Current visit: Yes Status: Acute Qualifiers: Site of cellulitis: extremity Site of cellulitis of extremity: lower extremity Laterality: right Qualified Code(s): L03.115 - Cellulitis of right lower limb Category: Medical Code(s): L03.90 - Cellulitis, unspecified (3) Ankle fracture, right Current visit: No Status: Acute Category: Medical Code(s): S82.891A - Other fracture of right lower leg, initial encounter for closed fracture (4) Diabetes mellitus, insulin dependent (IDDM), uncontrolled Current visit: No Status: Chronic Category: Medical Code(s): E11.65 - Type 2 diabetes mellitus with hyperglycemia; Z79.4 - terminal press operator (current) use of insulin (5) Obesity (BMI 30-39.9) Current visit: No Status: Chronic Category: Medical Code(s): E66.9 - Obesity, unspecified (6) Personal history of nicotine dependence Current visit: No Status: Chronic Category: Medical Code(s): Z87.891 - Personal history of nicotine dependence - Assessment and plan all Dx Assessment and Plan for all pro
[2019-09-04 09:19] LABS: Hemoglobin 9.3 g/dL (12.2-16.2)
[2019-09-04 10:42] LABS: Eosinophils % 2 % (0-3); Lymphocytes % 10 % (10-50); Monocytes % 7 % (2-9); Neutrophils % 81 % (42-76); Total Cells Counted 100
[2019-09-04 10:43] LABS: Platelet Estimate Moderate Increase; RBC Morphology Normal
--- NOTE | 2019-09-04 11:58 | HMH.ORTHPN ---
Subjective Date: 09/04/19 Time: 10:00 Principal diagnosis: R ankle wound infection s/p I&D/hardware removal Interval history: The patient is doing well this morning but having quite a bit of pain in the R ankle. Remains afebrile. IV vancomycin and ertapenem being given. PN: Obj Ex Vital signs: Temp Pulse Resp BP Pulse Ox 98.1 F 90 16 139/50 L 100 09/04/19 08:00 09/04/19 08:00 09/04/19 08:00 09/04/19 08:00 09/04/19 08:00 - Constitutional no acute distress - Routine HEENT Exam Head: Present: normocephalic Eye: Present: EOMI ENT: Present: mucous membranes moist - Routine Respiratory Exam Absent: respiratory distress, wheezes - Routine Cardiovascular Exam Present: RRR - Routine Abdominal Exam Present: soft. Absent: distended - Routine Extremities Exam Comments: R ankle dressings/splint removed and wound packing removed no increasing erythema or wound necrosis, wound are dry w/o purulent material or active bleeding/drainage sensation intact to light touch RLE, palpable pedal pulses, skin warm/pink wounds: Anteromedial: 8cm L x 10.4cm W; exposed tendon. Wound base beefy red, no necrosis. Lateral: 14cm L x 8.5cm W; wound base beefy red, well defined margins w/o necrosis, periwound tissue with mild erythema - Routine Skin Exam Present: warm - Routine Neurological Exam Present: alert, oriented X3, moving all extremities, normal tone, vision grossly intact, hearing grossly intact, normal speech. Absent: sensory deficit, motor deficit, altered mental status - Routine Psychiatric Exam Present: normal affect Progress Note: A&P (1) Wound infection after surgery Status: Acute Current Visit: Yes (2) Cellulitis Status: Acute Current Visit: Yes (3) Ankle fracture, right Status: Acute Current Visit: No (4) Diabetes mellitus, insulin dependent (IDDM), uncontrolled Status: Chronic Current Visit: No (5) Obesity (BMI 30-39.9) Status: Chronic Current Visit: No (6) Personal history of nicotine dependence Status: Chronic Current Visit: No Assessment and Plan for All Diagnoses:: 64yo F with chronic, poorly-controlled type-1 DM; status-post: 05/02/2019 closed reduction R trimalleolar ankle fracture-dislocation + external fixator application (delta frame) 05/15/2019 external fixator removal; showing evidence of Charcot changes at that point 05/19/2019 ORIF R ankle + external fixator application [ORIF posterior malleolus/distal fibula while prone, with ankle synovectomy, achilles lengthening and repair of peroneal tendons --> ORIF medial malleolus and repair of posterior tibialis tendon supine --> debridement/grafting of anterior ankle wound (amniotic tissue graft placement) --> external fixator placement (ilizarov-type recon frame) 08/11/2019 external fixator removal, wound debridement with integra application; cultures taken from wounds, no growth to date 09/03/2019 I&D ankle wounds, hardware removal (medial/lateral plates & screws), bone biopsies Plan: -- dressing changed and wound vac applied at bedside today; patient tolerated well -- continue IV vancomycin + ertapenem; watch renal function -- PICC line placement today -- f/u wound/bone biopsies -- continue NWB RLE -- wound vac change Saturday -- do not feel patient is medically appropriate for discharge at this time, given WBC 18 and presence of infection; will need continued IV antibiotics. Anticipate need for home IV antibiotic administration after discharge as well as ongoing outpatient wound care clinic visits.
--- NOTE | 2019-09-04 11:58 | HMH.PTWOUND ---
Rehab Inpt Wound Evaluation Rehab IP Wound Evaluation Start: 09/04/19 11:48 Freq: Status: Active Protocol: Document 09/04/19 11:48 GAY (Rec: 09/04/19 11:58 PHORHECTOR [id number]) Rehab PT Wound Assessment Subjective Subjective 64 yowf adm with R ankle wound infection now S/P I&D with increased wound size. Pt had wound VAC previously and this will be reapplied. Wound Right Lateral Ankle Wound Type post surgical debridement Is This a Chronic Wound No Wound Length (cm) 14.0 Wound Width (cm) 8.5 Wound Bed Appearance Beefy Red Percentage Granulated (%) 100 Wound Margins Description Well Defined Surrounding Tissue Appearance [place],Bright Red Edema Appearance Puffy Surrounding Tissue Temperature Warm Wound Drainage Description Sanguineous Drainage Amount Moderate Packing Type Woundvac Sponge Primary Dressing Film Dressing Wound Debridement Amount of Tissue None Removed Dressing Change Patient Tolerance Tolerated Well Right Medial Ankle Wound Type post surgical debridement Is This a Chronic Wound No Wound Length (cm) 8.0 Wound Width (cm) 10.4 Wound Bed Appearance Beefy Red Percentage Granulated (%) 100 Wound Margins Description Well Defined Surrounding Tissue Appearance [place],Bright Red Edema Appearance Puffy Surrounding Tissue Temperature Warm Wound Drainage Description Sanguineous Drainage Amount Moderate Packing Type Woundvac Sponge Primary Dressing Film Dressing Wound Debridement Amount of Tissue None Removed Dressing Change Patient Tolerance Tolerated Well Plan/Recommendation Comment Wound VAC dressing to remain in place for 3-4 days then changed unless necessary sooner. Pt can retunr home once medically stable with outpatient VAC dressing changes. Eval Complexity Eval Charge Codes 87378 - High Complexity PHYSICIAN CERTIFICATION: I certify the specified therapy services for Lilibeth Sena are required, authorized, and reviewed every 30 days.
--- NOTE | 2019-09-04 12:18 | XR_ITS ---
PROCEDURE: XR CHEST PORTABLE PICC PLAC CLINICAL HISTORY: Confirm PICC line placement COMPARISON: XR CHEST PORTABLE from 05/07/2019 XR CHEST PORTABLE from 05/19/2019 XR CHEST 2V from 07/21/2019 FINDINGS: The cardiomediastinal silhouette and pulmonary vascularity are within normal limits. There are subtle somewhat ill-defined reticular nodular opacities in the right perihilar region and right lower lobe not seen on most recent chest film of 07/21/2019 suggesting mild diffuse pneumonic infiltrate possibly viral in origin. The right upper lobe and left lung stern are clear. There is no pleural fluid. The PICC line is seen ascending left axillary vein and the tip is in the SVC at the junction with the right atrium. There is no pneumothorax. No acute bony abnormalities. IMPRESSION: Satisfactory position of PICC line, possible new development of ill-defined diffuse pneumonic infiltrate right perihilar region and right lower lobe Dictated by: Dr. Teddy Gilbert MD 09/04/2019 14:[address] Teddy Gilbert MD in [place] 09/04/2019 14:33
--- NOTE | 2019-09-04 15:35 | SW/DCPLANNER ---
Addendum entered by Elisabet Garay 09/08/19 11:40: WENT BACK TO SEE PATIENT AND TO SET UP PATIENT WITH OUT PATIENT WOUND VAC CHANGES TO BE SET UP ON SEPTEMBER 09 @8:00 AM..SHE WILL ALSO RECEIVE PICC LINE CARE. SHE IS ALSO GOING TO BE SCHEDULED TO SEE PLASTICS ONCE AN APPT IS OBTAINED.... SHE IS GOING TO DISCHARGE LATER TODAY.... SHE WILL GET HER ANTIBIOTIC AT CLINIC PHARMACY AND DISCOUNT CARDS PER PROVIDED TO HER... Original Note: RECEIVED REFERRAL FOR THIS PATIENT WITH ANTICIPATION TO DISCHARGE AND WILL NEED ANTIBIOTIC INFUSIONS POST DISCHARGE.. PATIENT UNDERWENT SURGERY TO REMOVE HARDWARE IN ANKLE, SHE CURRENTLY HAS A WOUND VAC ON AND WISHES TO COME BACK TO HOSPITAL ONCE SHE IS DISCHARGED TO HAVE WOUND VAC CARE AND HER IV INFUSIONS.. I SPOKE WITH PATIENT AND THIS IS WHAT SHE WISHES TO DO.. MAY D/C OVER THE WEEKEND...
--- NOTE | 2019-09-04 16:20 | PC.NURSE ---
AT START OF THIS RN SHIFT, PATIENT WAS SLEEPING COMFORTABLY. AT 1300 ADL CHECK, PATIENT COMPLAINED OF PAIN, THIS RN ADMINISTERED 0.5MG IV DILAUDID. PATIENT IS ABLE TO USE WALKER AND STAND ON RIGHT FOOT AND PIVOT TO BEDSIDE COMMODE. DURING PICC INSERTION, PATIENT BEGAN CRYING IN PAIN, THIS RN ADMINISTERED 0.5MG IV DILAUDID AND 15 MINUTES LATER THIS RN ADMINISTERED PERCOCET. THIS RN NOTIFIED DR. BYNUM OF UNCONTROLLED PAIN. MD STATED TO INCREASE IV DILAUDID TO 1MG PRN Q 2HRS. PATIENT IS NOW RESTING COMFORTABLY. NO OTHER NEEDS AT THIS TIME.
[2019-09-04 16:27] LABS: POC Glucose,Bedside 252 (70-110)
[2019-09-04 16:54] LABS: POC Glucose,Bedside 176 (70-110)
--- NOTE | 2019-09-04 19:08 | PC.NURSE ---
report given to allen
[2019-09-04 20:19] LABS: POC Glucose,Bedside 195 (70-110)
[2019-09-05 01:03] LABS: POC Glucose,Bedside 217 (70-110)
--- NOTE | 2019-09-05 01:58 | PC.NURSE ---
A&OX4, PT HAS TOLERATED ROOM AIR WELL THROUGHOUT SHIFT. DIMINISHED LUNG SOUNDS NOTED THROUGHOUT. RESPIRATIONS REGULAR AND UNLABORED. NO COUGH NOTED. INCENTIVE SPIROMETER USED Q1 HOUR WHILE AWAKE. HEART RATE REGULAR. +2 PULSES NOTED THROUGHOUT. HAND WATER FABRICATOR OPERATOR EQUAL. ACTIVE BOWEL SOUNDS HEARD IN ALL 4 QUADRANTS. SOFT AND NONTENDER. PT HAS BEEN IN SEVERE PAIN AND HAS BEEN GIVEN DILAUDID AND PERCOCET NEEDED. ON REASSESSMENT, PT HAS BEEN RESTING WITH EYES CLOSED. PT HAS A WOUND VAC NOTED TO HER RIGHT LEG WITH SANGUINEOUS FLUID DRAINING INTO THE COLLECTION CHAMBER. R TOES ARE RED. CAPILLARY REFILL <3 SECONDS. PEDAL PULSES NOTED. SCUD NOTED TO HER L LEG. LR INFUSING AT 75ML/HR. PT SPIKED A FEVER AT MIDNIGHT OF 100.8. ACETAMINOPHEN WAS ADMINISTERED. PT WAS ASSISTED TO THE RESTROOM WITH STAFF MEMBER AND WALKER ONCE DURING THE SHIFT. PT REMAINED NONWEIGHT BEARING ON THE R LEG. PT TOLERATED WELL. PT RECEIVED BED BATH AND LINEN CHANGE BY THE TECHNICAL COMMUNICATOR. BED IN LOWEST POSITION. CALL LIGHT WITHIN REACH. VSS. NO CONCERNS AT THIS TIME. WILL CONTINUE TO MONITOR.
[2019-09-05 03:33] VITALS: BP 128/83; PULSE 94; RESP 20; TEMP 37; O2SAT 93
[2019-09-05 04:41] VITALS: BMI 36.3
[2019-09-05 05:57] LABS: POC Glucose,Bedside 195 (70-110)
[2019-09-05 07:13] LABS: Basophils # 0.1 K/mm3 (0-0.2); Basophils % 0.6 % (0.1-2.0); Eosinophils # 0.5 K/mm3 (0.0-0.4); Eosinophils % 4.2 % (0.1-12.0); Lymphocytes # 1.7 K/mm3 (0.7-4.5); Mean Corpuscular HGB Conc 32.2 g/dL (31.8-35.4); Mean Corpuscular Hemoglobin 29.8 pg (27.0-31.2); Mean Corpuscular Volume 92.4 fl (81-99); Mean Platelet Volume 8.8 fl (7.4-10.4); Monocytes # 0.8 K/mm3 (0.1-1.0); Neutrophils % 74.2 % (37.0-80.0); Platelet Count 372 K/mm3 (142-424); Red Cell Distribution Width 14.4 % (11.5-17.5); White Blood Count 12.1 K/mm3 (4.8-10.8)
[2019-09-05 07:16] LABS: Chloride 99 mmol/L (98-107); Potassium 4.2 mmoL/L (3.5-5.1); Sodium 134 mmol/L (136-145)
[2019-09-05 07:19] LABS: Anion Gap 10.2 mEq/L (5-15); Blood Urea Nitrogen 17 mg/dl (7-17); Calcium 8.6 mg/dl (8.4-10.2); Carbon Dioxide 29 mmol/L (22.0-30.0); Creatinine Clearance Estimated 88 mL/min (50-200); Estimated Glomerular Filt Rate 63 ml/min (>60); GFR (African American) 77 ML/MIN (>60); Glucose 165 mg/dl (74-100)
[2019-09-05 07:25] LABS: C-Reactive Protein 307.6 mg/L (0-4)
--- NOTE | 2019-09-05 07:58 | HMH.ACPN2 ---
Internal Medicine - PN: Subj *Date: 09/05/19 *Time: 07:58 Interval history: Overall patient feels good in regards to cardiopulmonary status and appetite. Complains of fairly significant discomfort in the right leg. Exam Vital signs and Labs for Last 24 Hours: Temp Pulse Resp BP Pulse Ox 98.6 F 94 H 20 128/83 93 L 09/05/19 03:33 09/05/19 03:33 09/05/19 03:33 09/05/19 03:33 09/05/19 03:33 Laboratory Results - last 24 hr 09/04/19 05:42: Hgb 9.3 L D, Total Counted 100, Neutrophils % (Manual) 81 H, Lymphocytes % (Manual) 10, Monocytes % (Manual) 7, Eosinophils % (Manual) 2, Platelet Estimate Moderate increase, RBC Morphology Normal 09/04/19 05:42: Sodium 133 L, Potassium 4.7, Chloride 99, Carbon Dioxide 28, Anion Gap 10.7, BUN 17, Creatinine 0.80, Estimated Creat Clear 83, Estimated GFR 72, Est GFR ( Amer) 88, Glucose 141 H D, Calcium 8.8, C-Reactive Protein 314.3 H 09/04/19 11:23: POC Glucose 252 H 09/04/19 16:46: POC Glucose 176 H 09/04/19 20:00: POC Glucose 195 H 09/05/19 00:55: POC Glucose 217 H 09/05/19 05:50: POC Glucose 195 H 09/05/19 06:42: WBC 12.1 H D, RBC 2.70 L, Hgb 8.0 L, Hct 25.0 L, MCV 92.4, MCH 29.8, MCHC 32.2, RDW 14.4, Plt Count 372, MPV 8.8, Neut % (Auto) 74.2, Lymph % (Auto) 14.0, [place] % (Auto) 7.0, Eos % (Auto) 4.2, Baso % (Auto) 0.6, Neut # (Auto) 9.0 H, Lymph # (Auto) 1.7, [place] # (Auto) 0.8, Eos # (Auto) 0.5 H, Baso # (Auto) 0.1 09/05/19 06:42: Sodium 134 L, Potassium 4.2, Chloride 99, Carbon Dioxide 29, Anion Gap 10.2, BUN 17, Creatinine 0.90, Estimated Creat Clear 88, Estimated GFR 63, Est GFR ( Amer) 77, Glucose 165 H, Calcium 8.6, C-Reactive Protein 307.6 H I & O for Last 24 hours: Intake & Output 09/02/19 09/03/19 09/04/19 09/05/19 11:59 11:59 11:59 11:59 Intake Total 1864 / 1864 2438 / 2438 Output Total 600 / 600 300 / 300 Balance 1264 / 1264 2138 / 2138 Weight 202 lb 13.204 oz 212 lb 8 oz Microbiology Reports for the Last 24 Hours: Microbiology 09/03/19 21:02 Ankle,Right Gram Stain - Final 09/03/19 21:02 Ankle,Right Surgical Biopsy Culture - Preliminary Gram Positive Cocci 09/03/19 21:04 Ankle,Right Gram Stain - Final 09/03/19 21:04 Ankle,Right Surgical Biopsy Culture - Preliminary Gram Positive Cocci 09/03/19 21:05 Ankle,Right Gram Stain - Final 09/03/19 21:05 Ankle,Right Surgical Biopsy Culture - Preliminary Gram Positive Cocci 09/03/19 21:00 Ankle,Right Gram Stain - Final 09/03/19 21:00 Ankle,Right Surgical Biopsy Culture - Preliminary Gram Positive Cocci 09/03/19 20:11 Ankle,Right Gram Stain - Final 09/03/19 20:11 Ankle,Right Surgical Biopsy Culture - Preliminary Gram Positive Cocci 09/03/19 21:01 Ankle,Right Gram Stain - Final 09/03/19 21:01 Ankle,Right Surgical Biopsy Culture - Preliminary Gram Positive Cocci 09/03/19 20:14 Ankle,Right Gram Stain - Final 09/03/19 20:14 Ankle,Right Wound Culture - Preliminary Gram Positive Cocci 09/03/19 21:03 Ankle,Right Gram Stain - Final 09/03/19 21:03 Ankle,Right Wound Culture - Preliminary Gram Positive Cocci Narrative: Extremity examination deferred to orthopedics. Right leg wrapped in surgical bandage and has drain with occasional scant amounts of blood. Heart rate regular, no murmurs. Lungs are clear, abdomen soft, ENT exam clear. Neurologic exam nonfocal. Assessment and Plan (1) Wound infection after surgery Current visit: Yes Status: Acute Category: Medical Code(s): T81.49XA - Infection following a procedure, other surgical site, initial encounter (2) Cellulitis Current visit: Yes Status: Acute Qualifiers: Site of cellulitis: extremity Site of cellulitis of extremity: lower extremity Lateralit
[2019-09-05 08:00] VITALS: BP 122/41; PULSE 95; RESP 20; TEMP 36.7; O2SAT 96
[2019-09-05 12:00] VITALS: BP 154/58; PULSE 89; RESP 18; TEMP 36.8; O2SAT 94
[2019-09-05 12:15] LABS: POC Glucose,Bedside 293 (70-110)
[2019-09-05 16:00] VITALS: BP 133/44; PULSE 96; RESP 20; TEMP 37.1; O2SAT 96
--- NOTE | 2019-09-05 17:29 | HMH.ORTHPN ---
Subjective Date: 09/05/19 Time: 17:00 Principal diagnosis: R ankle wound infection s/p I&D/hardware removal Interval history: Patient is status post right ankle wound debridement/I&D/hardware removal, post op day #2. Patient is lying down on the bed; says she is doing well and reports no problems. Patient reports some pain around the right ankle and says it's well-controlled with as needed pain medication. No history of any nausea or vomiting. No history of any cough, chest pain, shortness of breath or palpitations. Patient says she is eating and drinking well. PN: Obj Ex Vital signs: Temp Pulse Resp BP Pulse Ox 98.8 F 96 H 20 133/44 L 96 09/05/19 16:00 09/05/19 16:00 09/05/19 16:00 09/05/19 16:00 09/05/19 16:00 Narrative: Laboratory Results - last 24 hr 09/04/19 20:00: POC Glucose 195 H 09/05/19 00:55: POC Glucose 217 H 09/05/19 05:50: POC Glucose 195 H 09/05/19 06:42: WBC 12.1 H D, RBC 2.70 L, Hgb 8.0 L, Hct 25.0 L, MCV 92.4, MCH 29.8, MCHC 32.2, RDW 14.4, Plt Count 372, MPV 8.8, Neut % (Auto) 74.2, Lymph % (Auto) 14.0, [place] % (Auto) 7.0, Eos % (Auto) 4.2, Baso % (Auto) 0.6, Neut # (Auto) 9.0 H, Lymph # (Auto) 1.7, [place] # (Auto) 0.8, Eos # (Auto) 0.5 H, Baso # (Auto) 0.1 09/05/19 06:42: Sodium 134 L, Potassium 4.2, Chloride 99, Carbon Dioxide 29, Anion Gap 10.2, BUN 17, Creatinine 0.90, Estimated Creat Clear 88, Estimated GFR 63, Est GFR ( Amer) 77, Glucose 165 H, Calcium 8.6, C-Reactive Protein 307.6 H 09/05/19 11:52: POC Glucose 293 H Microbiology 09/03/19 21:02 Ankle,Right Gram Stain - Final 09/03/19 21:02 Ankle,Right Surgical Biopsy Culture - Preliminary Gram Positive Cocci 09/03/19 21:04 Ankle,Right Gram Stain - Final 09/03/19 21:04 Ankle,Right Surgical Biopsy Culture - Preliminary Gram Positive Cocci 09/03/19 21:05 Ankle,Right Gram Stain - Final 09/03/19 21:05 Ankle,Right Surgical Biopsy Culture - Preliminary Gram Positive Cocci 09/03/19 21:00 Ankle,Right Gram Stain - Final 09/03/19 21:00 Ankle,Right Surgical Biopsy Culture - Preliminary Gram Positive Cocci 09/03/19 20:11 Ankle,Right Gram Stain - Final 09/03/19 20:11 Ankle,Right Surgical Biopsy Culture - Preliminary Gram Positive Cocci 09/03/19 21:01 Ankle,Right Gram Stain - Final 09/03/19 21:01 Ankle,Right Surgical Biopsy Culture - Preliminary Gram Positive Cocci 09/03/19 20:14 Ankle,Right Gram Stain - Final 09/03/19 20:14 Ankle,Right Wound Culture - Preliminary Gram Positive Cocci 09/03/19 21:03 Ankle,Right Gram Stain - Final 09/03/19 21:03 Ankle,Right Wound Culture - Preliminary Gram Positive Cocci Exam General appearance: alert, active, awake, no acute distress Cardiovascular: regular rate & rhythm, normal peripheral pulses Respiratory: No respiratory distress noted, speaks in full sentences ABD: soft and non tender Neuro: alert, awake, oriented x 3 On examination of the lower extremities the dressings over the right ankle are clean, dry and intact. The VAC dressings are in place; there is no soakage of the dressings. Distally capillary refill is sluggish. There is some edema of the foot and toes. She is able to actively mobilize the toes. No stretch pain or symptoms of compartment syndrome noted. Progress Note: A&P (1) Wound infection after surgery Status: Acute Current Visit: Yes (2) Cellulitis Status: Acute Current Visit: Yes (3) Ankle fracture, right Status: Acute Current Visit: No (4) Diabetes mellitus, insulin dependent (IDDM), uncontrolled Status: Chronic Current Visit: No (5) Obesity (BMI 30-39.9) Status: Chronic Current Visit: No (6) Personal history of nicotine dependence Status: Chronic Current Visit: No Assess
--- NOTE | 2019-09-05 17:56 | PC.NURSE ---
PT IS RESTING IN BED. PT HAS BEEN IN SOME SIGNIFICANT PAIN THIS SHIFT. MEDICATED PER JUN. PT STATES THE PAIN MEDICATION HELPS FOR A VERY SHORT AMOUNT OF TIME BUT WHEN THE PAIN RETURNS IT IS EXCRUCIATING. DRESSING TO THE LLE C/D/I WITH WOUND VAC DRAINING. PT GETS OOB TO THE BSC WITH 1 ASSIST. LUNG SOUNDS CLEAR. ABDOMEN IS SOFT/NONTENDER WITH ACTIVE BOWEL SOUNDS. PT STILL HAS NOT BEEN ABLE TO HAVE A BOWEL MOVEMENT. VSS. PICC DRESSING TO THE JAZZY HAS BEEN CHANGED THIS SHIFT. WILL CONTINUE TO MONITOR.
--- NOTE | 2019-09-05 19:15 | PC.NURSE ---
Francy SERVIN will be providing care under my supervision.
[2019-09-05 19:48] LABS: POC Glucose,Bedside 159 (70-110)
[2019-09-05 20:00] VITALS: BP 131/54; PULSE 89; RESP 17; TEMP 37.4; O2SAT 95
[2019-09-05 20:56] LABS: POC Glucose,Bedside 222 (70-110)
[2019-09-06] VITALS (8 sets, daily range): BP systolic 136–149; BP diastolic 57–76; PULSE 64–105; RESP 16–20; TEMP 36.7–37.1; O2SAT 92–97; BMI 36.1
--- NOTE | 2019-09-06 05:25 | PC.NURSE ---
Pt has rested on and off t/o this shift. Pt has been up to BSC x2. Urine is clear and light yellow. Coarse crackles heard at bilateral bases. Pt has complained of pain x3 throughout the shift, medication administered per MAR. Wound vac working properly and draining serosanguineous exudate. No complaints at this time. Call light within reach, all safety measures are in place. No complaints at this time, will continue to monitor.
[2019-09-06 06:41] LABS: POC Glucose,Bedside 183 (70-110)
--- NOTE | 2019-09-06 08:45 | HMH.ACPN2 ---
Internal Medicine - PN: Subj *Date: 09/06/19 *Time: 08:45 Interval history: Internal medicine follow-up note: Patient resting comfortably and sleeping. When awakened feels pretty good. Had a good breakfast this morning. Exam Vital signs and Labs for Last 24 Hours: Temp Pulse Resp BP Pulse Ox 98.1 F 105 H 18 146/67 H 95 09/06/19 07:51 09/06/19 07:51 09/06/19 07:51 09/06/19 07:51 09/06/19 07:52 Laboratory Results - last 24 hr 09/05/19 11:52: POC Glucose 293 H 09/05/19 16:39: POC Glucose 159 H 09/05/19 20:29: POC Glucose 222 H 09/06/19 06:32: POC Glucose 183 H I & O for Last 24 hours: Intake & Output 09/03/19 09/04/19 09/05/19 09/06/19 11:59 11:59 11:59 11:59 Intake Total 1864 / 1864 2918 / 2918 2450 / 2450 Output Total 600 / 600 1000 / 1000 2600 / 2600 Balance 1264 / 1264 1918 / 1918 -150 / -150 Weight 202 lb 13.204 oz 212 lb 8 oz 212 lb Microbiology Reports for the Last 24 Hours: Microbiology 09/03/19 21:03 Ankle,Right Gram Stain - Final 09/03/19 21:03 Ankle,Right Wound Culture - Final Staphylococcus aureus 09/03/19 20:14 Ankle,Right Gram Stain - Final 09/03/19 20:14 Ankle,Right Wound Culture - Final Staphylococcus aureus 09/03/19 21:01 Ankle,Right Gram Stain - Final 09/03/19 21:01 Ankle,Right Surgical Biopsy Culture - Final Staphylococcus aureus 09/03/19 20:11 Ankle,Right Gram Stain - Final 09/03/19 20:11 Ankle,Right Surgical Biopsy Culture - Final Staphylococcus aureus 09/03/19 21:00 Ankle,Right Gram Stain - Final 09/03/19 21:00 Ankle,Right Surgical Biopsy Culture - Final Enterococcus faecalis 09/03/19 21:05 Ankle,Right Gram Stain - Final 09/03/19 21:05 Ankle,Right Surgical Biopsy Culture - Final Enterococcus faecalis 09/03/19 21:04 Ankle,Right Gram Stain - Final 09/03/19 21:04 Ankle,Right Surgical Biopsy Culture - Final Enterococcus faecalis 09/03/19 21:02 Ankle,Right Gram Stain - Final 09/03/19 21:02 Ankle,Right Surgical Biopsy Culture - Final Enterococcus faecalis Narrative: Alert, oriented, neurologically intact. ENT exam clear. Heart rate regular. Breathing easily with good air movement. Abdomen with no pain. Extremity exam per orthopedics. Assessment and Plan (1) Wound infection after surgery Current visit: Yes Status: Acute Category: Medical Code(s): T81.49XA - Infection following a procedure, other surgical site, initial encounter (2) Cellulitis Current visit: Yes Status: Acute Qualifiers: Site of cellulitis: extremity Site of cellulitis of extremity: lower extremity Laterality: right Qualified Code(s): L03.115 - Cellulitis of right lower limb Category: Medical Code(s): L03.90 - Cellulitis, unspecified (3) Ankle fracture, right Current visit: No Status: Acute Category: Medical Code(s): S82.891A - Other fracture of right lower leg, initial encounter for closed fracture (4) Diabetes mellitus, insulin dependent (IDDM), uncontrolled Current visit: No Status: Chronic Category: Medical Code(s): E11.65 - Type 2 diabetes mellitus with hyperglycemia; Z79.4 - intermediate (current) use of insulin (5) Obesity (BMI 30-39.9) Current visit: No Status: Chronic Category: Medical Code(s): E66.9 - Obesity, unspecified (6) Personal history of nicotine dependence Current visit: No Status: Chronic Category: Medical Code(s): Z87.891 - Personal history of nicotine dependence - Assessment and plan all Dx Assessment and Plan for all problems:: Current antibiotics will continue. Current insulin coverage for diabetes will continue. I have reordered labs and inflammatory markers for tomorrow. Care management consult for re
[2019-09-06 11:06] LABS: POC Glucose,Bedside 195 (70-110)
[2019-09-06 15:24] LABS: Vancomycin,Trough 8.2 ug/mL (5.0-10.0)
[2019-09-06 16:47] LABS: POC Glucose,Bedside 371 (70-110)
--- NOTE | 2019-09-06 18:27 | PC.NURSE ---
Pt has been sitting up in bed watching tv most of day. Remains on room air. H PRN perocet given once w/ no relief noted, dilaudid then given to follow. Has required IV dilaudid twice this shift. Pt describes pain as pulling . Pt ambulates nwb w/ use of rolling walker and standby assistance of staff to bathroom, tolerating well. Dressing remains C/D/I. Wound vac draining serosang drainage at beginning of shift, has transitioned more to sang drainage noted in tubing. Family present at bedside. Scud in place to LLE. Will continue to monitor.
--- NOTE | 2019-09-06 19:55 | PC.NURSE ---
Care provided by Francy SERVIN under my supervision.
[2019-09-06 20:13] LABS: POC Glucose,Bedside 175 (70-110)
--- NOTE | 2019-09-06 21:04 | HMH.ORTHPN ---
Subjective Date: 09/06/19 Time: 20:45 Principal diagnosis: R ankle wound infection s/p I&D/hardware removal Interval history: Patient is status post right ankle wound debridement/I&D/hardware removal, post op day #3. Patient is lying down on the bed; says she is doing well and reports some pain over the right ankle but otherwise no problems. She says the pain is well-controlled with as needed pain medication. No history of any nausea or vomiting. No history of any cough, chest pain, shortness of breath or palpitations. Patient says she is eating and drinking well. PN: Obj Ex Vital signs: Temp Pulse Resp BP Pulse Ox 98.2 F 84 16 143/57 H 96 09/06/19 19:53 09/06/19 19:53 09/06/19 19:53 09/06/19 19:53 09/06/19 19:53 Narrative: Laboratory Results - last 24 hr 09/06/19 06:32: POC Glucose 183 H 09/06/19 10:51: POC Glucose 195 H 09/06/19 14:20: Vancomycin Trough 8.2 09/06/19 16:26: POC Glucose 371 H* 09/06/19 19:48: POC Glucose 175 H Microbiology 09/03/19 21:03 Ankle,Right Gram Stain - Final 09/03/19 21:03 Ankle,Right Wound Culture - Final Staphylococcus aureus 09/03/19 20:14 Ankle,Right Gram Stain - Final 09/03/19 20:14 Ankle,Right Wound Culture - Final Staphylococcus aureus 09/03/19 21:01 Ankle,Right Gram Stain - Final 09/03/19 21:01 Ankle,Right Surgical Biopsy Culture - Final Staphylococcus aureus 09/03/19 20:11 Ankle,Right Gram Stain - Final 09/03/19 20:11 Ankle,Right Surgical Biopsy Culture - Final Staphylococcus aureus 09/03/19 21:00 Ankle,Right Gram Stain - Final 09/03/19 21:00 Ankle,Right Surgical Biopsy Culture - Final Enterococcus faecalis 09/03/19 21:05 Ankle,Right Gram Stain - Final 09/03/19 21:05 Ankle,Right Surgical Biopsy Culture - Final Enterococcus faecalis 09/03/19 21:04 Ankle,Right Gram Stain - Final 09/03/19 21:04 Ankle,Right Surgical Biopsy Culture - Final Enterococcus faecalis 09/03/19 21:02 Ankle,Right Gram Stain - Final 09/03/19 21:02 Ankle,Right Surgical Biopsy Culture - Final Enterococcus faecalis Exam General appearance: alert, active, awake, no acute distress Cardiovascular: regular rate & rhythm, normal peripheral pulses Respiratory: No respiratory distress noted, speaks in full sentences ABD: soft and non tender Neuro: alert, awake, oriented x 3 On examination of the lower extremities the dressings over the right ankle are clean, dry and intact. The VAC dressings are in place; there is no soakage of the dressings. Distally capillary refill is sluggish. There is some edema of the foot and toes. She is able to actively mobilize the toes. No stretch pain or symptoms of compartment syndrome noted. Progress Note: A&P (1) Wound infection after surgery Status: Acute Current Visit: Yes (2) Cellulitis Status: Acute Current Visit: Yes (3) Ankle fracture, right Status: Acute Current Visit: No (4) Diabetes mellitus, insulin dependent (IDDM), uncontrolled Status: Chronic Current Visit: No (5) Obesity (BMI 30-39.9) Status: Chronic Current Visit: No (6) Personal history of nicotine dependence Status: Chronic Current Visit: No Assessment and Plan for All Diagnoses:: I have reviewed the clinical findings and progress with the patient. Patient is doing well without any setbacks after surgery. Microbiology results show staph aureus and Enterococcus faecalis growth. Both organisms are sensitive to vancomycin. Therefore, continue the IV antibiotics as ordered. Continue elevation of right ankle, VAC dressings, nonweightbearing mobilization on the right side and antibiotics as ordered. Repeat labs tomorrow. Continue medical management as per Dr. Olmedo.
[2019-09-07] VITALS (19 sets, daily range): BP systolic 115–169; BP diastolic 50–93; PULSE 77–90; RESP 14–20; TEMP 36.6–36.8; O2SAT 90–99; BMI 36.1
--- NOTE | 2019-09-07 04:30 | PC.NURSE ---
Pt has been in bed t/o this shift and has rested comfortably most of the night. Pt c/o pain x2 t/o shift and was given medication per MAR. Pt has coarse crackles at the bilateral bases and is tolerating RA appropriately. Active bowel sounds in all four quadrants. Pt has been up to the bathroom x2, urine is clear and light yellow. Using walker to help with ambulation appropriately and is tolerating well. Dressing on RLE are CDI. Wound vac draining serosanguineous exudate and working properly. Call light is within reach and all safety measures are in place at this time. Pt has no complaints or concerns at this time, will continue to monitor.
[2019-09-07 06:05] LABS: POC Glucose,Bedside 144 (70-110)
[2019-09-07 06:05] LABS: POC Glucose,Bedside 86 (70-110)
[2019-09-07 06:24] LABS: Basophils # 0.1 K/mm3 (0-0.2); Basophils % 0.9 % (0.1-2.0); Eosinophils # 0.5 K/mm3 (0.0-0.4); Lymphocytes # 1.6 K/mm3 (0.7-4.5); Lymphocytes % 18.6 % (10-50); Mean Corpuscular HGB Conc 32.9 g/dL (31.8-35.4); Mean Corpuscular Hemoglobin 29.8 pg (27.0-31.2); Mean Corpuscular Volume 90.5 fl (81-99); Mean Platelet Volume 8.4 fl (7.4-10.4); Monocytes # 0.6 K/mm3 (0.1-1.0); Monocytes % 6.9 % (1.7-9.3); Neutrophils # 5.7 K/mm3 (1.8-7.8); Neutrophils % 67.5 % (37.0-80.0); Platelet Count 449 K/mm3 (142-424); Red Blood Count 2.59 M/mm3 (4.20-5.40); Red Cell Distribution Width 13.9 % (11.5-17.5); White Blood Count 8.4 K/mm3 (4.8-10.8)
[2019-09-07 06:37] LABS: Chloride 102 mmol/L (98-107); Potassium 4.1 mmoL/L (3.5-5.1); Sodium 134 mmol/L (136-145)
[2019-09-07 06:39] LABS: Alanine Aminotransferase 29 U/L (12-78); Aspartate Amino Transferase 53 U/L (14-36); Blood Urea Nitrogen 12 mg/dl (7-17); Creatinine Clearance Estimated 87 mL/min (50-200); Estimated Glomerular Filt Rate 72 ml/min (>60); GFR (African American) 88 ML/MIN (>60)
[2019-09-07 06:40] LABS: Albumin Level 2.9 g/dl (3.5-5.0); Albumin/Globulin Ratio 0.9 (1.1-1.8); Alkaline Phosphatase 174 U/L (38-126); Anion Gap 7.1 mEq/L (5-15); Bilirubin,Total 0.2 mg/dl (0.2-1.3); Calcium 8.4 mg/dl (8.4-10.2); Carbon Dioxide 29 mmol/L (22.0-30.0); Globulin 3.4 g/dL (1.3-3.2); Glucose 76 mg/dl (74-100); Total Protein,Serum 6.3 g/dl (6.3-8.2)
[2019-09-07 06:45] LABS: C-Reactive Protein 202.6 mg/L (0-4)
[2019-09-07 06:58] LABS: Hematocrit 23.4 % (37.0-47.0); Hemoglobin 7.7 g/dL (12.2-16.2)
--- NOTE | 2019-09-07 07:29 | PC.NURSE ---
Critical HGB OF 7.7 AND HCT 23.4. MD BYNUM NOTIFIED. TYPE AND SCREEN. TRANSFUSE 1 UNIT NOW.
--- NOTE | 2019-09-07 08:03 | HMH.PHACONS ---
- Pharmacy Consult Date: 09/07/19 Time: 08:03 Referring provider: DR. BYNUM Reason for Consult:: VANCOMYCIN TROUGH LEVEL Allergies and ADEs:: Allergies Allergy/AdvReac Type Severity Reaction Status Date / Time codeine Allergy Intermediate MENTAL Verified 09/03/19 14:51 STATUS CHANGES/DROPS BLOOD SUGAR Penicillins Allergy Intermediate I-RASH Verified 09/03/19 14:51 Home Medications:: Home Medications Medication Instructions Recorded Confirmed Type Duloxetine HCl 60 mg PO HS 05/01/19 09/03/19 History Gabapentin [Gabapentin 300mg Cap] 300 mg PO HS 05/01/19 09/03/19 History Insulin Aspart [Novolog Flexpen] 10 units SQ TID 05/01/19 09/03/19 History Levothyroxine Sodium 150 mcg PO DAILY 05/01/19 09/03/19 History [Levothyroxine 150mcg (0.15mg) Tab] ramipriL [Ramipril] 1.25 mg PO HS 05/01/19 09/03/19 History Acetaminophen [Acetaminophen 325mg 650 mg PO Q6HP PRN tab 05/23/19 09/03/19 Rx tab] Insulin Glargine,Hum.rec.anlog 18 unit SQ HS 08/11/19 09/03/19 History [Lantus Solostar 100 Units/mL 3mL flexpen] Oxycodone HCl/Acetaminophen 1 tab PO BID PRN 09/03/19 09/03/19 History [Percocet 5/325mg tablet] Height: 1.63 m Weight: 96.162 kg Laboratory Results:: Laboratory Results - last 24 hr 09/06/19 10:51: POC Glucose 195 H 09/06/19 14:20: Vancomycin Trough 8.2 09/06/19 16:26: POC Glucose 371 H* 09/06/19 19:48: POC Glucose 175 H 09/07/19 05:40: WBC 8.4 D, RBC 2.59 L, Hgb 7.7 L*, Hct 23.4 L*, MCV 90.5, MCH 29.8, MCHC 32.9, RDW 13.9, Plt Count 449 H, MPV 8.4, Neut % (Auto) 67.5, Lymph % (Auto) 18.6, [place] % (Auto) 6.9, Eos % (Auto) 6.0, Baso % (Auto) 0.9, Neut # (Auto) 5.7, Lymph # (Auto) 1.6, [place] # (Auto) 0.6, Eos # (Auto) 0.5 H, Baso # (Auto) 0.1 09/07/19 05:40: Sodium 134 L, Potassium 4.1, Chloride 102, Carbon Dioxide 29, Anion Gap 7.1, BUN 12 D, Creatinine 0.80, Estimated Creat Clear 87, Estimated GFR 72, Est GFR ( Amer) 88, Glucose 76, Calcium 8.4, Total Bilirubin 0.2, AST 53 H, ALT 29, Alkaline Phosphatase 174 H, C-Reactive Protein 202.6 H, Total Protein 6.3, Albumin 2.9 L, Globulin 3.4 H, Albumin/Globulin Ratio 0.9 L 09/07/19 05:43: POC Glucose 144 H 09/07/19 05:52: POC Glucose 86 Medical History: Reports:: Congestive Heart Failure, Coronary Artery Disease, Diabetes Mellitus Type 1, Hypertension Denies:: Cancer, Diabetes Mellitus Type 2, Internal Pacemaker, MRSA, Seizures Assessment and Plan (1) Wound infection after surgery Current visit: Yes Status: Acute Category: Medical Code(s): T81.49XA - Infection following a procedure, other surgical site, initial encounter (2) Cellulitis Current visit: Yes Status: Acute Qualifiers: Site of cellulitis: extremity Site of cellulitis of extremity: lower extremity Laterality: right Qualified Code(s): L03.115 - Cellulitis of right lower limb Category: Medical Code(s): L03.90 - Cellulitis, unspecified (3) Ankle fracture, right Current visit: No Status: Acute Category: Medical Code(s): S82.891A - Other fracture of right lower leg, initial encounter for closed fracture (4) Diabetes mellitus, insulin dependent (IDDM), uncontrolled Current visit: No Status: Chronic Category: Medical Code(s): E11.65 - Type 2 diabetes mellitus with hyperglycemia; Z79.4 - manager long term care (current) use of insulin (5) Obesity (BMI 30-39.9) Current visit: No Status: Chronic Category: Medical Code(s): E66.9 - Obesity, unspecified (6) Personal history of nicotine dependence Current visit: No Status: Chronic Category: Medical Code(s): Z87.891 - Personal history of nicotine dependence - Assessment and plan all Dx Assessment and Plan for all problems:: BASED ON PATIENT FACTORS AND VANCOMYCIN TROUGH LEVEL, RECOMMEND CHANGING INTERVAL TO VANCOMYCIN 2 GM IV Q18H. PHARMACY WILL CONTINUE TO MONITOR DAILY AND ADJUST APPROPRIATE.
[2019-09-07 08:55] LABS: Erythrocyte Sedimentation Rate > 140 mm/hr (0-30)
--- NOTE | 2019-09-07 11:51 | HMH.ORTHPN ---
Subjective Date: 09/07/19 Time: 09:00 Principal diagnosis: R ankle wound infection s/p I&D/hardware removal Interval history: The patient reports less pain in the ankle today. She has been fatigued but otherwise well; no f/c, no n/v/d, no cp/soa. PN: Obj Ex Vital signs: Temp Pulse Resp BP Pulse Ox 98.0 F 84 16 115/50 L 90 L 09/07/19 11:29 09/07/19 11:29 09/07/19 11:29 09/07/19 11:09/07/19 11:29 - Constitutional no acute distress - Routine HEENT Exam Head: Present: normocephalic Eye: Present: EOMI ENT: Present: mucous membranes moist - Routine Respiratory Exam Absent: respiratory distress, wheezes - Routine Cardiovascular Exam Present: RRR - Routine Abdominal Exam Present: soft. Absent: distended - Routine Extremities Exam Comments: RLE dressings/splint intact dressings removed, wound vac intact; vac removed mild/moderate erythema around anteromedial and lateral wounds, improving SILT distally RLE in all distributions palpable pedal pulses RLE, foot warm with brisk capillary refill wiggles toes, EHL intact, DF/PF intact wounds (measurements taken intra-operatively prior to integra application): Anteromedial: 8cm L x 10.4cm W; exposed tendon. culture swabs (aerobic/anaerobic) + tissue sample sent for culture. Medial tibial plate/screws removed. Bone biopsy taken. Lateral: 14cm L x 8.5cm W; culture swabs (aerobic/anaerobic) + tissue sample sent for culture. Lateral fibula plate/screws removed. Bone biopsy taken. wound bases are covered with yellow/morales fibrinous tissue no active drainage from wounds tendon remains exposed in anterior wound no maxwell pus or necrotic tissue - Routine Skin Exam Present: warm - Routine Neurological Exam Present: alert, oriented X3, moving all extremities, normal tone, vision grossly intact, hearing grossly intact, normal speech. Absent: sensory deficit, motor deficit, altered mental status - Routine Psychiatric Exam Present: normal affect Progress Note: A&P (1) Wound infection after surgery Status: Acute Current Visit: Yes (2) Cellulitis Status: Acute Current Visit: Yes (3) Ankle fracture, right Status: Acute Current Visit: No (4) Diabetes mellitus, insulin dependent (IDDM), uncontrolled Status: Chronic Current Visit: No (5) Obesity (BMI 30-39.9) Status: Chronic Current Visit: No (6) Personal history of nicotine dependence Status: Chronic Current Visit: No Assessment and Plan for All Diagnoses:: 64yo F with chronic, poorly-controlled type-1 DM; status-post: 05/02/2019 closed reduction R trimalleolar ankle fracture-dislocation + external fixator application (delta frame) 05/15/2019 external fixator removal; showing evidence of Charcot changes at that point 05/19/2019 ORIF R ankle + external fixator application [ORIF posterior malleolus/distal fibula while prone, with ankle synovectomy, achilles lengthening and repair of peroneal tendons --> ORIF medial malleolus and repair of posterior tibialis tendon supine --> debridement/grafting of anterior ankle wound (amniotic tissue graft placement) --> external fixator placement (ilizarov-type recon frame) 08/11/2019 external fixator removal, wound debridement with integra application; cultures taken from wounds, no growth to date 09/03/2019 I&D ankle wounds, hardware removal (medial/lateral plates & screws), bone biopsies Plan: -- labs responding appropriately to treatment: WBC down to 8.4 today; CRP decreased to 202.6 -- Hgb 7.7; 1 unit PRBC has been ordered -- albumin 2.9, encourage increased protein intake -- dressing changed and wound vac applied at bedside today; patient tolerated well -- continue IV vancomycin + ertapenem; watch renal function -- PICC line placed Saturday; anticipate prolonged IV antibiotic therapy. In process of arranging ID consult at . -- wound cultures: positive for both MRSA and enterococcus, both susceptible to vancomycin
[2019-09-07 14:08] LABS: POC Glucose,Bedside 269 (70-110)
--- NOTE | 2019-09-07 15:47 | PC.NURSE ---
322-blood intake 40- ns intake for blood
[2019-09-07 17:12] LABS: POC Glucose,Bedside 96 (70-110)
[2019-09-07 17:12] LABS: Hematocrit 27.1 % (37.0-47.0)
[2019-09-07 17:39] LABS: Hemoglobin 8.7 g/dL (12.2-16.2)
--- NOTE | 2019-09-07 18:04 | PC.NURSE ---
patient has done well this shift. dressing changed per md and then again per pt who changed out wound vac. complaints of pain through out shift and medicated appropriately. tolerated blood well. uses walker for ambulation with stand by assistance. vitals stable will continue to monitor.
--- NOTE | 2019-09-07 19:07 | PC.NURSE ---
report given to uriel
[2019-09-07 21:06] LABS: POC Glucose,Bedside 188 (70-110)
--- NOTE | 2019-09-08 03:21 | PC.NURSE ---
A&OX4. PT HAS TOLERATED ROOM AIR WELL THROUGHOUT SHIFT. RESPIRATIONS UNLABORED AND REGULAR. FINE CRACKLES NOTED THROUGHOUT BASES. INCENTIVE SPIROMETER USED Q1HR WHILE AWAKE. NO COUGH NOTED. NO EDEMA NOTED. HEART RATE REGULAR. SOFT NONTENDER ABDOMEN. NO BM NOTED THIS SHIFT. ACTIVE BOWEL SOUNDS HEARD IN ALL 4 QUADRANTS. +2 PULSES NOTED THROUGHOUT. HAND FUR COMBER EQUAL. WOUND VAC AND DRESSING NOTED TO RLE. SEROUS FLUID DRAINING FROM THE WOUND VAC. PT WAS ASSISTED TO THE RESTROOM USING STANDARD WALKER AND STANDBY ASSISTANCE. PT TOLERATED WELL. PT HAD AN EPISODE OF PAIN IN THE R FOOT AT THE BEGINNING OF SHIFT. DILAUDID ADMINISTERED PER JUN. PT HAS REPORTED PAIN TOLERABLE ON REASSESSMENT. R FOOT ELEVATED THROUGHTOUT SHIFT. REFUSED ICE PACKS ON FOOT. PT HAS REMAINED A LEFT LIMB ALERT THROUGHOUT SHIFT AND A SIGN IS POSTED ON THE DOOR. REMAINED IN CONTACT PRECAUTION AND WAS EDUCATED ON MRSA AND THE USE OF PPE. PT HAS REMAINED AFEBRILE. PICC NOTED TO L FOREARM WITH LR INFUSING AT 75ML/HR. PT RESTING COMFORTABLY IN BED. BED IN LOWEST POSITION. CALL LIGHT WITHIN REACH. VSS. NO CONCERNS AT THIS TIME. WILL CONTINUE TO MONITOR.
[2019-09-08 03:39] VITALS: BP 164/74; PULSE 85; RESP 18; TEMP 36.8; O2SAT 94
[2019-09-08 05:00] VITALS: BMI 38.2
--- NOTE | 2019-09-08 05:42 | PC.NURSE ---
RN NOTIFIED OF 12 POUND WEIGHT GAIN
[2019-09-08 05:46] LABS: POC Glucose,Bedside 111 (70-110)
[2019-09-08 06:47] LABS: Basophils # 0.1 K/mm3 (0-0.2); Eosinophils # 0.6 K/mm3 (0.0-0.4); Eosinophils % 6.6 % (0.1-12.0); Hematocrit 25.8 % (37.0-47.0); Hemoglobin 8.4 g/dL (12.2-16.2); Lymphocytes # 1.3 K/mm3 (0.7-4.5); Lymphocytes % 13.7 % (10-50); Mean Corpuscular HGB Conc 32.4 g/dL (31.8-35.4); Mean Corpuscular Hemoglobin 29.4 pg (27.0-31.2); Mean Corpuscular Volume 90.8 fl (81-99); Mean Platelet Volume 8.3 fl (7.4-10.4); Monocytes # 0.8 K/mm3 (0.1-1.0); Monocytes % 7.9 % (1.7-9.3); Neutrophils # 6.7 K/mm3 (1.8-7.8); Neutrophils % 70.8 % (37.0-80.0); Platelet Count 480 K/mm3 (142-424); Red Blood Count 2.84 M/mm3 (4.20-5.40); Red Cell Distribution Width 14.4 % (11.5-17.5); White Blood Count 9.5 K/mm3 (4.8-10.8)
[2019-09-08 07:16] LABS: Chloride 102 mmol/L (98-107); Potassium 4.1 mmoL/L (3.5-5.1); Sodium 134 mmol/L (136-145)
[2019-09-08 07:19] LABS: Anion Gap 7.1 mEq/L (5-15); Blood Urea Nitrogen 12 mg/dl (7-17); Calcium 7.9 mg/dl (8.4-10.2); Carbon Dioxide 29 mmol/L (22.0-30.0); Creatinine Clearance Estimated 93 mL/min (50-200); Estimated Glomerular Filt Rate 72 ml/min (>60); GFR (African American) 88 ML/MIN (>60); Glucose 96 mg/dl (74-100)
[2019-09-08 07:24] LABS: C-Reactive Protein 121.5 mg/L (0-4)
[2019-09-08 07:30] VITALS: BP 160/78; PULSE 84; RESP 18; TEMP 36.6; O2SAT 91
--- NOTE | 2019-09-08 08:56 | HMH.ACPN2 ---
Internal Medicine - PN: Subj *Date: 09/08/19 *Time: 08:56 Interval history: Ms. Sena overall doing well. Afebrile, hemodynamically stable. Blood sugar fairly controlled. No complaints this morning. Wound VAC with serous drainage Exam Vital signs and Labs for Last 24 Hours: Temp Pulse Resp BP Pulse Ox 97.9 F 84 18 160/78 H 91 L 09/08/19 07:30 09/08/19 07:30 09/08/19 07:30 09/08/19 07:30 09/08/19 07:30 Laboratory Results - last 24 hr 09/07/19 10:12: Blood Type O Positive, Antibody Screen Negative, Crossmatch (AHG) See Detail 09/07/19 11:38: POC Glucose 269 H 09/07/19 11:43: Blood Type Confirm O Positive 09/07/19 16:29: POC Glucose 96 09/07/19 16:59: Hgb 8.7 L D, Hct 27.1 L 09/07/19 20:56: POC Glucose 188 H 09/08/19 05:36: POC Glucose 111 H 09/08/19 06:24: WBC 9.5, RBC 2.84 L, Hgb 8.4 L, Hct 25.8 L, MCV 90.8, MCH 29.4, MCHC 32.4, RDW 14.4, Plt Count 480 H, MPV 8.3, Neut % (Auto) 70.8, Lymph % (Auto) 13.7, [place] % (Auto) 7.9, Eos % (Auto) 6.6, Baso % (Auto) 1.0, Neut # (Auto) 6.7, Lymph # (Auto) 1.3, [place] # (Auto) 0.8, Eos # (Auto) 0.6 H, Baso # (Auto) 0.1 09/08/19 06:24: Sodium 134 L, Potassium 4.1, Chloride 102, Carbon Dioxide 29, Anion Gap 7.1, BUN 12, Creatinine 0.80, Estimated Creat Clear 93, Estimated GFR 72, Est GFR ( Amer) 88, Glucose 96, Calcium 7.9 L, C-Reactive Protein 121.5 H I & O for Last 24 hours: Intake & Output 09/05/19 09/06/19 09/07/19 09/08/19 23:59 23:59 23:59 23:59 Intake Total 3490 / 3490 3556 / 3556 3944 / 3944 924 / 924 Output Total 1949 / 1949 1600 / 1600 475 / 1075 600 / 600 Balance 1540 / 1540 1955 / 1955 3469 / 2869 324 / 324 Weight 96.388 kg 96.162 kg 96.162 kg 101.775 kg Narrative: Alert, oriented, neurologically intact. ENT exam clear. Heart rate regular. Breathing easily with good air movement. Abdomen with no pain. Extremity exam per orthopedics. Assessment and Plan (1) Wound infection after surgery Current visit: Yes Status: Acute Category: Medical Code(s): T81.49XA - Infection following a procedure, other surgical site, initial encounter (2) Cellulitis Current visit: Yes Status: Acute Qualifiers: Site of cellulitis: extremity Site of cellulitis of extremity: lower extremity Laterality: right Qualified Code(s): L03.115 - Cellulitis of right lower limb Category: Medical Code(s): L03.90 - Cellulitis, unspecified (3) Ankle fracture, right Current visit: No Status: Acute Category: Medical Code(s): S82.891A - Other fracture of right lower leg, initial encounter for closed fracture (4) Diabetes mellitus, insulin dependent (IDDM), uncontrolled Current visit: No Status: Chronic Category: Medical Code(s): E11.65 - Type 2 diabetes mellitus with hyperglycemia; Z79.4 - bed bug exterminator (current) use of insulin (5) Obesity (BMI 30-39.9) Current visit: No Status: Chronic Category: Medical Code(s): E66.9 - Obesity, unspecified (6) Personal history of nicotine dependence Current visit: No Status: Chronic Category: Medical Code(s): Z87.891 - Personal history of nicotine dependence - Assessment and plan all Dx Assessment and Plan for all problems:: Patient showing clinical improvement. Improvement in her inflammatory markers. Will transition oral antibiotics. Discussion with pharmacy and orthopedics on bioavailability of medication, bone penetration, and ease of regimen compliance has led to decision to recommend oral Zyvox for prolonged course of 4 to 6 weeks due to concern for osteomyelitis. Would resume home regimen for chronic medical conditions. Wound VAC per Ortho. Plan to leave PICC line in place as patient is being referred to infectious disease. Further wound recommendations per orthopedics. Medicine will sign off at this time. Patient stable for discharge home once antibiotic regimen is approved by insurance
--- NOTE | 2019-09-08 09:45 | HMH.ORTHPN ---
Subjective Date: 09/08/19 Time: 09:00 Principal diagnosis: R ankle wound infection s/p I&D/hardware removal Interval history: The patient is doing well this morning, no complaints. Pain in R ankle is controlled with medication. No fevers or chills reported. Wound vac with serous output in cannister. Received 1 unit PRBC yesterday. PN: Obj Ex Vital signs: Temp Pulse Resp BP Pulse Ox 97.9 F 84 18 160/78 H 91 L 09/08/19 07:30 09/08/19 07:30 09/08/19 07:30 09/08/19 07:30 09/08/19 07:30 - Constitutional no acute distress - Routine HEENT Exam Head: Present: normocephalic Eye: Present: EOMI ENT: Present: mucous membranes moist - Routine Respiratory Exam Absent: respiratory distress, wheezes - Routine Cardiovascular Exam Present: RRR - Routine Abdominal Exam Present: soft. Absent: distended - Routine Extremities Exam Comments: RLE dressings/splint intact SILT distally RLE in all distributions palpable pedal pulses RLE, foot warm with brisk capillary refill wiggles toes, EHL intact, DF/PF intact - Routine Skin Exam Present: warm - Routine Neurological Exam Present: alert, oriented X3, moving all extremities, normal tone, vision grossly intact, hearing grossly intact, normal speech. Absent: sensory deficit, motor deficit, altered mental status - Routine Psychiatric Exam Present: normal affect Progress Note: A&P (1) Wound infection after surgery Status: Acute Current Visit: Yes (2) Cellulitis Status: Acute Current Visit: Yes (3) Ankle fracture, right Status: Acute Current Visit: No (4) Diabetes mellitus, insulin dependent (IDDM), uncontrolled Status: Chronic Current Visit: No (5) Obesity (BMI 30-39.9) Status: Chronic Current Visit: No (6) Personal history of nicotine dependence Status: Chronic Current Visit: No Assessment and Plan for All Diagnoses:: 64yo F with chronic, poorly-controlled type-1 DM; status-post: 05/02/2019 closed reduction R trimalleolar ankle fracture-dislocation + external fixator application (delta frame) 05/15/2019 external fixator removal; showing evidence of Charcot changes at that point 05/19/2019 ORIF R ankle + external fixator application [ORIF posterior malleolus/distal fibula while prone, with ankle synovectomy, achilles lengthening and repair of peroneal tendons --> ORIF medial malleolus and repair of posterior tibialis tendon supine --> debridement/grafting of anterior ankle wound (amniotic tissue graft placement) --> external fixator placement (ilizarov-type recon frame) 08/11/2019 external fixator removal, wound debridement with integra application; cultures taken from wounds, no growth to date 09/03/2019 I&D ankle wounds, hardware removal (medial/lateral plates & screws), bone biopsies Plan: -- labs continue to respond appropriately to treatment: WBC/CRP trending downwards -- will d/c on oral zyvox; arranging f/u with [facility], will leave PICC in place until that evaluation -- wound cultures: positive for both MRSA and enterococcus, both susceptible to vancomycin fibula bone cx = enterococcus faecalis lateral wound tissue = enterococcus lateral wound swab = MRSA medial bone cx = enterococcus hardware = MRSA anterior wound swab = MRSA medial wound tissue = MRSA -- continue NWB RLE, splint RLE -- in process or arranging plastic surgery consultation at for wound coverage; most likely in 1 week -- anticipate d/c later today if antibiotics arranged with insurance/pharmacy and f/u with plastics secured
--- NOTE | 2019-09-08 12:27 | HMH.DCSUM ---
General - General Admission date:: 09/03/19 Discharge date: 09/08/19 HPI HPI: 64yo F with chronic, poorly-controlled type-1 DM; status-post: 05/02/2019 closed reduction R trimalleolar ankle fracture-dislocation + external fixator application (delta frame) 05/15/2019 external fixator removal; showing evidence of Charcot changes at that point 05/19/2019 ORIF R ankle + external fixator application [ORIF posterior malleolus/distal fibula while prone, with ankle synovectomy, achilles lengthening and repair of peroneal tendons --> ORIF medial malleolus and repair of posterior tibialis tendon supine --> debridement/grafting of anterior ankle wound (amniotic tissue graft placement) --> external fixator placement (ilizarov-type recon frame) 08/11/2019 external fixator removal, wound debridement with integra application; cultures taken from wounds, no growth to date The patient presented to my office on 09/03/19 for routine post-operative follow-up and anticipated silicone layer removal from her integra and possible allograft application in the office. She had been doing very well and the wounds appeared heathy at prior visits. Around 2-3 days ago, however, she developed a foul odor with increasing pain at the wound vac site. She denies fevers or chills at home, no drainage from around her wound vac dressing. She has been strictly NWB RLE and elevating the leg as much as possible. Last week her WBC was 9; today it is 17.7. ESR last week was 108, today is >140; CRP was 31.7, today it is 255. The silicone was removed in clinic but the integra does not appear to have adhered to the underlying wound bed. There was no active drainage from the wounds, but cloudy fluid was expressible and there was a strong, foul odor. She was admitted from clinic for planned surgical I&D of her wounds that afternoon. Hospital Course Hospital Course: The patient underwent surgical debridement of her right ankle wounds with hardware removal and bone biopsy on 09/03/2019. Postoperatively she was immobilized in a posterior splint and wound VAC applied. Postoperatively her WBC and CRP began to decrease appropriately. IV antibiotics were administered; ertapenem and vancomycin. PICC line was placed on 09/04/2019. Postoperatively she did experience anemia with hemoglobin of 7.7; this responded appropriately to 1 unit packed red blood cells. Wound VAC was changed on 09/07/2019. She did not experience fevers during her admission, no chest pain or shortness of breath. Her pain improved with p.o. and IV pain medication. By 09/08/2019, pain was manageable on only p.o. medications. She was tolerating good p.o. intake and voiding appropriately. Wound cultures were positive for both enterococcus and MRSA, susceptible to vancomycin. The recommended dosage of vancomycin was every 18 hours, which presented difficulty with outpatient infusion services. She is planning on undergoing VAC changes in the outpatient wound care clinic and as such does not qualify for home antibiotic administration. The decision was made to discharge her on Zyvox. She was scheduled for consultation with a plastic surgeon at on 09/09/2019, and infectious disease consultation is being arranged as well. She has an appointment for wound care visit at [facility] on 09/10/2019 and I will be following up with her at that time. Objective Vital signs: Temp Pulse Resp BP Pulse Ox 97.9 F 84 18 160/78 H 91 L 09/08/19 07:30 09/08/19 07:30 09/08/19 07:30 09/08/19 07:30 09/08/19 07:30 no acute distress - *Routine HEENT Exam Head: Present: normocephalic Eye: Present: EOMI ENT: Present: mucous membranes moist - *Routine Neck Exam Present: supple - *Routine Respiratory Exam Present: CTA bilaterally. Absent: respiratory distress, wheezes - *Routine Cardiovascular Exam Present: RRR - *Routine Abdominal Exam Present: soft. Absent: distended - *Routine Rectal Exam Comments: deferre
[2019-09-08 12:32] LABS: POC Glucose,Bedside 115 (70-110)
--- NOTE | 2019-09-08 12:58 | PC.NURSE ---
patient educated on importance of going and picking up prescriptions from clinic pharmacy, educated that someone from [facility] office would call with a plastics appointment at . educated that she would have dressing and wound vac change on with pt. educated to also go upstairs to infusion to have pic flushed and dressing changed. instructed to not put any weight on foot or mess with dressing inbetween dressing changes. voiced understanding
--- NOTE | 2019-09-08 13:18 | HMH.PHAINT ---
prescription for linezolid po sent to clinic pharmacy by care management upon discharge
== END 2019-09-08 13:06 | disposition home or self-care (01) | DRG 857 ==
PROVIDERS: Internal Medicine Adolescent Medicine; Admitting Provider Orthopaedic Surgery; PCP Internal Medicine; Visit Provider Orthopaedic Surgery
DX: T81.42XA Infection following a procedure, deep incisional surgical site, initial encounter; L03.115 Cellulitis of right lower limb; M86.172 Other acute osteomyelitis, left ankle and foot; S82.851G Displaced trimalleolar fracture of right lower leg, subsequent encounter for closed fracture with delayed healing; E10.65 Type 1 diabetes mellitus with hyperglycemia; Z79.4 Long term (current) use of insulin; E10.610 Type 1 diabetes mellitus with diabetic neuropathic arthropathy; E10.42 Type 1 diabetes mellitus with diabetic polyneuropathy; I11.0 Hypertensive heart disease with heart failure; I50.9 Heart failure, unspecified; Z95.5 Presence of coronary angioplasty implant and graft; I25.10 Atherosclerotic heart disease of native coronary artery without angina pectoris; Z87.891 Personal history of nicotine dependence
CPT/HCPCS: 20680; 20240; 36415; 36569; 71045; 73610; 80048; 80053; 80202; 82962; 85007; 85014; 85018; 85025; 85610; 85651; 85730; 86140; 86328; 86850; 87070; 87075; 87077; 87186; 87205; C1751; J1335; J2405; J3370; P9016

== ENCOUNTER 2019-09-10 11:24 | Outpatient (CLI) | payer MEDICARE, SELFPAY ==
[2019-09-10 12:05] LABS: Basophils # 0.1 K/mm3 (0-0.2); Eosinophils # 0.6 K/mm3 (0.0-0.4); Eosinophils % 5.3 % (0.1-12.0); Hematocrit 27.1 % (37.0-47.0); Hemoglobin 8.7 g/dL (12.2-16.2); Lymphocytes # 1.7 K/mm3 (0.7-4.5); Mean Corpuscular HGB Conc 32.2 g/dL (31.8-35.4); Mean Corpuscular Hemoglobin 29.5 pg (27.0-31.2); Mean Corpuscular Volume 91.7 fl (81-99); Mean Platelet Volume 8.3 fl (7.4-10.4); Monocytes # 0.7 K/mm3 (0.1-1.0); Neutrophils # 8.1 K/mm3 (1.8-7.8); Neutrophils % 72.7 % (37.0-80.0); Platelet Count 593 K/mm3 (142-424); Red Blood Count 2.96 M/mm3 (4.20-5.40); Red Cell Distribution Width 14.5 % (11.5-17.5); White Blood Count 11.2 K/mm3 (4.8-10.8)
[2019-09-10 12:20] LABS: Anion Gap 9.3 mEq/L (5-15); Blood Urea Nitrogen 14 mg/dl (7-17); Calcium 8.6 mg/dl (8.4-10.2); Carbon Dioxide 28 mmol/L (22.0-30.0); Chloride 101 mmol/L (98-107); Estimated Glomerular Filt Rate 50 ml/min (>60); GFR (African American) 61 ML/MIN (>60); Glucose 153 mg/dl (74-100); Potassium 4.3 mmoL/L (3.5-5.1); Sodium 134 mmol/L (136-145)
[2019-09-10 12:25] LABS: C-Reactive Protein 65.2 mg/L (0-4)
== END 2019-09-10 11:45 | disposition home or self-care (01) ==
LOC: INF 11:24
PROVIDERS: Visit Provider Orthopaedic Surgery
DX: S82.851G Displaced trimalleolar fracture of right lower leg, subsequent encounter for closed fracture with delayed healing; S93.06XA Dislocation of unspecified ankle joint, initial encounter; T81.49XA Infection following a procedure, other surgical site, initial encounter; L03.115 Cellulitis of right lower limb; E11.65 Type 2 diabetes mellitus with hyperglycemia; Z79.4 Long term (current) use of insulin
CPT/HCPCS: 80048; 85025; 86140

== ENCOUNTER → 2019-09-11 11:07 | Outpatient (CLI) | payer MEDICARE, SELFPAY ==
--- NOTE | 2019-09-11 11:08 | CT_ITS ---
PROCEDURE: CT ANKLE RT WO CON CLINICAL HISTORY: Right ankle eval. Follow-up hardware removal, prior ORIF COMPARISON: CT LOWER LEG RT WO CON from 05/02/2019 XR ANKLE RT MIN 3V from 09/03/2019 XR ANKLE RT MIN 3V from 09/03/2019 XR ANKLE RT MIN 3V from 09/11/2019 TECHNIQUE: Axial images obtained with sagittal and coronal reformats. All CT scans at the facility use one or more dose reduction, viz: automated exposure control, ma/kV adjustment per patient size (including targeted exams where dose is matched to indication, i.e. head), or iterative reconstruction technique. FINDINGS: There is diffuse subcutaneous edema about the lower leg and ankle. There has been prior ORIF with a posterior bone plate at the distal tibia stabilizing an oblique distal tibial fracture with intra-articular extension distally. Calcific density is present at this fracture line medially. 5 mm calcific density is present in the joint space at the fracture line. There is 8 mm dorsal displacement of the fracture fragment medially and there is posterior subluxation of the talus by approximately 12 mm. There appears to be a healing fracture involving the base of the medial malleolus with callus formation. The talus is postop subluxed posteriorly by 12 mm with mild medial talar tilt. There has been removal of the fibular bone plate. There is distraction of the distal fibular fragment by approximately 10 mm. A prominent soft tissue defect is present laterally at the area of bone plate removal. There is irregularity of the proximal aspect of the distal fibular fragment which is suspicious for osteomyelitis. The soft tissue defect extends to the surface of the fibula. There is extensive soft tissue swelling in the lateral aspect of the ankle. The abscess evaluation is limited without IV contrast. There is diffuse osteopenia of the foot and ankle. Avulsion fracture involves the anterior aspect of the distal tibia with cortical irregularity of the anterior aspect of the distal tibia. An additional soft tissue defect is present involving the medial aspect of the ankle extending to the medial malleolar region. At this region there is decrease in density of the bony cortex of the tibia. Osteomyelitis at this region is also consideration. Bone plate has been removed at the medial aspect of the distal tibia. Syndesmotic repair noted with translucent fixator at the distal tib fib. The ankle mortise is widened. IMPRESSION: The extensive postsurgical changes with interval removal of bone plate at the distal fibula and the medial aspect of the distal tibia with persistent bone plate noted at the posterior distal tibia. Postsurgical defect at the medial and distal aspect of the ankle with associated cortical lucency/erosion of the proximal aspect of the distal fibular fragment and the adjacent medial malleolar region suspicious for underlying osteomyelitis. Extensive soft tissue swelling at the ankle. Consider MRI without and with contrast for more thorough evaluation There is widened ankle mortise with posterior subluxation of the talus Dictated by: Wally Banuelos MD 09/14/2019 09:40 Electronically signed by Wally Banuelos MD in [place] 09/14/2019 09:40
--- NOTE | 2019-09-11 11:08 | XR_ITS ---
PROCEDURE: XR ANKLE RT MIN 3V CLINICAL INDICATION: ankle fx fu- NWB COMPARISON: XR ANKLE RT MIN 3V from 05/15/2019 XR ANKLE RT MIN 3V from 05/19/2019 XR ANKLE RT 2V from 06/10/2019 XR ANKLE RT MIN 3V from 07/21/2019 XR ANKLE RT 2V from 08/11/2019 XR ANKLE RT MIN 3V from 08/24/2019 XR ANKLE RT MIN 3V from 09/03/2019 XR ANKLE RT MIN 3V from 09/03/2019 FINDINGS: The cast has been removed since the most recent study 09/03/2019. A posterior splint is now seen in place. The posterior medial bone plate of the distal tibia is again noted. The medial malleolar fracture shows partial bony fusion medially. The distal fibular fracture is nonunited. There is mild patchy disuse osteoporosis of the distal tibia and fibula and talus and calcaneus. IMPRESSION: Status post ORIF distal tibial and distal fibular fracture dislocation of the ankle joint with partial fusion of the medial malleolar fracture and nonunited fracture of the distal fibula Dictated by: Dr. Teddy Gilbert MD 09/11/2019 11:[address] Teddy Gilbert MD in [place] 09/11/2019 11:46
== END ==
PROVIDERS: PCP Internal Medicine; Visit Provider Orthopaedic Surgery
DX: S82.853A Displaced trimalleolar fracture of unspecified lower leg, initial encounter for closed fracture; S82.891A Other fracture of right lower leg, initial encounter for closed fracture; T81.49XA Infection following a procedure, other surgical site, initial encounter; S82.851G Displaced trimalleolar fracture of right lower leg, subsequent encounter for closed fracture with delayed healing; S93.06XA Dislocation of unspecified ankle joint, initial encounter
CPT/HCPCS: 73610; 73700

== ENCOUNTER 2019-09-17 10:20 | Outpatient (CLI) | payer MEDICARE, SELFPAY ==
[2019-09-17 10:26] VITALS: BMI 38.4
[2019-09-17 11:05] LABS: Basophils # 0.2 K/mm3 (0-0.2); Basophils % 1.6 % (0.1-2.0); Eosinophils # 0.2 K/mm3 (0.0-0.4); Eosinophils % 2.4 % (0.1-12.0); Hematocrit 26.8 % (37.0-47.0); Hemoglobin 8.7 g/dL (12.2-16.2); Lymphocytes # 1.4 K/mm3 (0.7-4.5); Lymphocytes % 15.4 % (10-50); Mean Corpuscular HGB Conc 32.5 g/dL (31.8-35.4); Mean Corpuscular Hemoglobin 29.7 pg (27.0-31.2); Mean Corpuscular Volume 91.5 fl (81-99); Mean Platelet Volume 7.8 fl (7.4-10.4); Monocytes # 0.6 K/mm3 (0.1-1.0); Monocytes % 6.4 % (1.7-9.3); Neutrophils # 6.9 K/mm3 (1.8-7.8); Neutrophils % 74.3 % (37.0-80.0); Platelet Count 530 K/mm3 (142-424); Red Blood Count 2.93 M/mm3 (4.20-5.40); Red Cell Distribution Width 14.7 % (11.5-17.5); White Blood Count 9.3 K/mm3 (4.8-10.8)
[2019-09-17 12:24] LABS: Erythrocyte Sedimentation Rate > 140 mm/hr (0-30)
[2019-09-17 12:28] LABS: C-Reactive Protein 34.8 mg/L (0-4)
== END 2019-09-17 10:42 | disposition home or self-care (01) ==
LOC: INF 10:20
PROVIDERS: Visit Provider Orthopaedic Surgery
DX: T81.49XA Infection following a procedure, other surgical site, initial encounter; S82.891A Other fracture of right lower leg, initial encounter for closed fracture
CPT/HCPCS: 85025; 85651; 86140

== ENCOUNTER → 2019-09-24 09:50 | Outpatient (CLI) | payer MEDICARE, SELFPAY ==
[2019-09-24 10:32] LABS: Basophils # 0.1 K/mm3 (0-0.2); Basophils % 0.7 % (0.1-2.0); Eosinophils # 0.5 K/mm3 (0.0-0.4); Eosinophils % 4.7 % (0.1-12.0); Hematocrit 26.1 % (37.0-47.0); Hemoglobin 8.8 g/dL (12.2-16.2); Lymphocytes # 1.4 K/mm3 (0.7-4.5); Lymphocytes % 14.7 % (10-50); Mean Corpuscular HGB Conc 33.7 g/dL (31.8-35.4); Mean Corpuscular Hemoglobin 29.6 pg (27.0-31.2); Mean Platelet Volume 8.5 fl (7.4-10.4); Monocytes # 0.8 K/mm3 (0.1-1.0); Monocytes % 7.7 % (1.7-9.3); Neutrophils # 7.1 K/mm3 (1.8-7.8); Neutrophils % 72.2 % (37.0-80.0); Platelet Count 436 K/mm3 (142-424); Red Blood Count 2.97 M/mm3 (4.20-5.40); White Blood Count 9.8 K/mm3 (4.8-10.8)
[2019-09-24 10:38] LABS: C-Reactive Protein 48.8 mg/L (0-4)
== END ==
PROVIDERS: Visit Provider Orthopaedic Surgery
DX: T81.49XA Infection following a procedure, other surgical site, initial encounter; S82.891A Other fracture of right lower leg, initial encounter for closed fracture; Z45.2 Encounter for adjustment and management of vascular access device
CPT/HCPCS: 85025; 86140

== ENCOUNTER → 2019-09-28 15:11 | Outpatient (CLI) | payer MEDICARE, SELFPAY | PROVIDERS: PCP Internal Medicine; Visit Provider Orthopaedic Surgery | DX: M25.571 Pain in right ankle and joints of right foot (principal) ==

== ENCOUNTER 2019-09-29 08:33 | Emergency (ER) | payer MEDICARE, SELFPAY ==
[2019-09-29] VITALS (11 sets, daily range): BP systolic 108–183; BP diastolic 48–99; PULSE 68–98; RESP 16–20; TEMP 36.6; O2SAT 96–99; BMI 36.0
[2019-09-29 09:36] LABS: Basophils # 0.1 K/mm3 (0-0.2); Basophils % 0.8 % (0.1-2.0); Eosinophils # 0.5 K/mm3 (0.0-0.4); Eosinophils % 4.5 % (0.1-12.0); Hematocrit 27.1 % (37.0-47.0); Hemoglobin 8.8 g/dL (12.2-16.2); Lymphocytes # 1.1 K/mm3 (0.7-4.5); Lymphocytes % 11.4 % (10-50); Mean Corpuscular HGB Conc 32.4 g/dL (31.8-35.4); Mean Corpuscular Hemoglobin 29.7 pg (27.0-31.2); Mean Corpuscular Volume 91.5 fl (81-99); Mean Platelet Volume 8.1 fl (7.4-10.4); Monocytes # 0.6 K/mm3 (0.1-1.0); Monocytes % 6.4 % (1.7-9.3); Neutrophils # 7.6 K/mm3 (1.8-7.8); Neutrophils % 76.9 % (37.0-80.0); Platelet Count 447 K/mm3 (142-424); Red Blood Count 2.96 M/mm3 (4.20-5.40); Red Cell Distribution Width 16.2 % (11.5-17.5); White Blood Count 9.8 K/mm3 (4.8-10.8)
--- NOTE | 2019-09-29 10:02 | PC.NURSE ---
Pt's leg re-wrapped. Called surgery suite and spoke with Rosana and let her know it would look different due to pt having blood all over her previous bandages.
--- NOTE | 2019-09-29 10:31 | HMH.EDEPIS ---
ED Disposition Clinical Impression: Epistaxis Disposition: Home, Self-Care Condition on Discharge: Good Instructions: DI for Nosebleed Referrals: Marques Isbell [Primary Care Provider] - - Critical Care Critical Care Time: No Attestation: On 09/29/19, the high probability of a clinically significant, sudden or life threatening deterioration of the following system(s) required my full and direct attention, intervention and personal management. The time I documented below is in addition to time spent performing reported procedures but includes the following listed in this critical care notation. Medical Decision Making - Medical Records Medical records reviewed: Yes: I reviewed the patient's medical records. - Bro Inquiry Pt receiving controlled substance: No Vital Signs: 09/29/19 08:47 09/29/19 09:42 Temperature 97.8 F Temperature Source Oral Pulse Rate [Right Brachial] 97 H 93 H Respiratory Rate 18 Blood Pressure [Right Arm] 121/64 108/65 L Blood Pressure Mean [Right Arm] 83 79 Blood Pressure Source [Right Arm] Automatic Cuff Automatic Cuff Blood Pressure Position [Right Arm] Sitting Sitting 02 Sat by Pulse Oximetry 99 99 Oxygen Delivery Method Room Air Room Air - Lab Data Lab results reviewed: Yes: I reviewed the patient's lab results. Lab Results 09/29/19 09:30: WBC 9.8, RBC 2.96 L, Hgb 8.8 L, Hct 27.1 L, MCV 91.5, MCH 29.7, MCHC 32.4, RDW 16.2, Plt Count 447 H, MPV 8.1, Neut % (Auto) 76.9, Lymph % (Auto) 11.4, Jay % (Auto) 6.4, Eos % (Auto) 4.5, Baso % (Auto) 0.8, Neut # (Auto) 7.6, Lymph # (Auto) 1.1, Jay # (Auto) 0.6, Eos # (Auto) 0.5 H, Baso # (Auto) 0.1 Result diagrams: 09/29/19 09:30 Epistaxis HPI - General Chief complaint: Epistaxis Stated complaint: nose bleed Time Seen by Provider: 09/29/19 10:30 Mode of Arrival: Wheelchair Source of Information: Patient Limitations: Physical Limitations Description of Symptoms (Recalled from ER Triage Doc. by RN): Nosebleed - History of Present Illness MD complaint: epistaxis Location: left nostril Onset (ago): hour(s) Duration: intermittent Context: history of previous Treatment prior to arrival: nose pinching - Related Data Home Medications Medication Instructions Recorded Confirmed Duloxetine HCl 60 mg PO HS 05/01/19 09/24/19 Gabapentin [Gabapentin 300mg Cap] 300 mg PO HS 05/01/19 09/24/19 Insulin Aspart [Novolog Flexpen] 10 units SQ TID 05/01/19 09/24/19 Levothyroxine Sodium 150 mcg PO DAILY 05/01/19 09/24/19 [Levothyroxine 150mcg (0.15mg) Tab] ramipriL [Ramipril] 1.25 mg PO HS 05/01/19 09/24/19 Insulin Glargine,Hum.rec.anlog 18 unit SQ HS 08/11/19 09/24/19 [Lantus Solostar 100 Units/mL 3mL flexpen] Oxycodone HCl/Acetaminophen 1 tab PO BID PRN 09/03/19 09/24/19 [Percocet 5/325mg tablet] Ertapenem Sodium [Invanz 1gm Vial] 1 gm IV Q24H 09/29/19 Insulin Lispro [HumaLOG 100 0 unit SQ ACHS 09/29/19 units/mL 3mL vial (SSI)] Previous Rx's Medication Instructions Recorded Acetaminophen [Acetaminophen 325mg 650 mg PO Q6HP PRN tab 05/23/19 tab] 0.9 % Sodium Chloride [Saline 10 ml IV NEEDED PRN syringe 09/08/19 Flush 10mL syringe] 0.9 % Sodium Chloride [Saline 10 ml IV NEEDED PRN syringe 09/08/19 Flush 10mL syringe] Docusate Sodium [Docusate Sodium 100 mg PO BIDP PRN cap 09/08/19 100mg Cap] Oxycodone HCl/Acetaminophen 1 each PO Q6HP PRN #30 tab 09/08/19 [Percocet 5/325mg tablet] Sennosides [Senokot 8.6mg tablet] 8.6 mg PO DAILYP PRN tab 09/08/19 polyethylene glycoL 3350 [Miralax 17 gm PO BIDP PRN powd.pack 09/08/19 17gm Packet] oxycodone-acetaminophen 5 mg-325 1 tab PO Q8H PRN #30 tab 09/18/19 mg tablet Allergies Allergy/AdvReac Type Severity Reaction Status Date / Time codeine Allergy Intermediate MENTAL Verified 09/24/19 10:41 STATUS CHANGES/DROPS BLOOD SUGAR Penicillins Allergy Intermediate I-RASH Verified 09/24/19 10:41
--- NOTE | 2019-09-29 10:46 | PC.NURSE ---
dr crowder [facility]
--- NOTE | 2019-09-29 11:27 | PC.NURSE ---
Pt's nose continues to bleed despite rhino rocket.
--- NOTE | 2019-09-29 12:06 | PC.NURSE ---
RHINO ROCKET WAS NOT STOPPING NASAL BLEEDING. ADVISED TO SOAK GAUZE IN COCAINE HYDROCHLORIDE AND PLACE INTO NOSTRIL
--- NOTE | 2019-09-29 12:47 | PC.NURSE ---
SOAKED RHINO ROCKETS WITH LIQUID COCAINE AND PLACED IN EACH NOSTRIL
--- NOTE | 2019-09-29 12:58 | PC.NURSE ---
Dr Gardner at [facility]. Pt was to see her for an appt that was scheduled today, but due to her visit to the ER she missed it.
--- NOTE | 2019-09-29 13:41 | PC.NURSE ---
FSBS [id number]
[2019-09-29 13:43] LABS: POC Glucose,Bedside 276 (70-110)
--- NOTE | 2019-09-29 13:46 | PC.NURSE ---
Pt states it is time for her insulin, pt's son went and got it and she is taking it at this time.
--- NOTE | 2019-09-29 14:37 | PC.NURSE ---
Dr Downs called reguarding pt continuous epistaxis
--- NOTE | 2019-09-29 14:40 | PC.NURSE ---
pt very agitated wanting to leave, i spoke with pt advised her we were consulting dr Downs, if she could wait a few more minutes. pt stated her head was aching, dr advised meds ordered.
--- NOTE | 2019-09-29 14:50 | PC.NURSE ---
Dr Georges on with Dr Downs.
== END 2019-09-29 15:49 | disposition home or self-care (01) ==
PROVIDERS: Emergency Provider Family Medicine; PCP Internal Medicine
DX: R04.0 Epistaxis (principal); E10.649 Type 1 diabetes mellitus with hypoglycemia without coma; E10.65 Type 1 diabetes mellitus with hyperglycemia; Z79.4 Long term (current) use of insulin; Z79.84 Long term (current) use of oral hypoglycemic drugs; F17.210 Nicotine dependence, cigarettes, uncomplicated; I50.9 Heart failure, unspecified; I10 Essential (primary) hypertension; I25.10 Atherosclerotic heart disease of native coronary artery without angina pectoris; E03.9 Hypothyroidism, unspecified; Z79.899 Other long term (current) drug therapy
CPT/HCPCS: 82962; 85025; 96374; 96375; 96376; 99283

== ENCOUNTER 2019-10-05 13:52 | Outpatient (CLI) | payer MEDICARE, SELFPAY ==
[2019-10-05] VITALS (20 sets, daily range): BP systolic 90–134; BP diastolic 31–91; PULSE 48–99; RESP 16–19; TEMP 36.4–37.1; O2SAT 18–100; BMI 36.0
[2019-10-05 15:06] LABS: Blood Urea Nitrogen 9 mg/dl (7-17); Creatinine Clearance Estimated 87 mL/min (50-200); Estimated Glomerular Filt Rate 56 ml/min (>60); GFR (African American) 68 ML/MIN (>60)
--- NOTE | 2019-10-05 17:04 | PC.NURSE ---
1700-gave phone report to erasmo gentile on 2nd floor.
--- NOTE | 2019-10-05 21:30 | PC.NURSE ---
PT IS A&OX4. PT RECEIVED 1 UNIT OF BLOOD ON OUR SHIFT AND 1 UNIT ON DAY SHIFT. SHE TOLERATED THE BLOOD TRANSFUSION WELL. POST H&H DRAWN 1 HOUR POST INFUSION. PT TOLERATED WELL. PT TOLERATED ROOM AIR WELL THROUGHOUT SHIFT. PT HAD NO SIGNS OR SYMPTOMS OF BLOOD TRANSFUSION REACTION. VSS. IV REMOVED BEFORE DISCHARGE WITH CATHETER INTACT. COBAN AND 4X4 IN PL[address] PICC WAS INTACT. DRESSING CDI. NO S/S OF INFECTION. PT WAS DISCHARGED OFF THE FLOOR PER WHEELCHAIR WITH STAFF AND FAMILY MEMBER. PT AMBULATED FROM CHAIR TO WHEELCHAIR AND WHEELCHAIR TO CAR WITH THE HELP OF HER WALKER AND STANDBY ASSISTANCE. PT TOLERATED WELL. STEADY GAIT NOTED. INSTRUCTED PT TO FOLLOW UP WITH PCP IN THE AM TO FOLLOW UP WITH POST H&H.
[2019-10-05 22:04] LABS: Hematocrit 26.5 % (37.0-47.0); Hemoglobin 8.8 g/dL (12.2-16.2)
== END 2019-10-05 21:30 | disposition home or self-care (01) ==
LOC: INF 13:52
PROVIDERS: PCP Internal Medicine; Visit Provider Orthopaedic Surgery
DX: D64.9 Anemia, unspecified (principal)
CPT/HCPCS: 36430; 82565; 84520; 85014; 85018; 86850; 96365; P9016

== ENCOUNTER → 2019-10-06 09:33 | Outpatient (CLI) | payer MEDICARE, SELFPAY ==
--- NOTE | 2019-10-06 09:33 | MR_ITS ---
PROCEDURE: MR ANKLE RT WO/W CON CLINICAL INDICATION: pre-operative exam Ankle fracture with MR assay. Infection with redness and swelling, COMPARISON: CT ANKLE RT WO CON from 09/11/2019 TECHNIQUE: Pre and post enhanced MR images are obtained. The study was begin on 09/28/2019 but discontinued at that time. Repeat exam was performed on 10/06/2019. Images from both settings are reviewed. This exam is very limited technically due to motion artifact. Subtle findings would not be evident. FINDINGS: Artifact is present from motion and from the posterior tibial bone plate with cortical screws. There is diffuse subcutaneous edema and diffuse muscular edema of the lower extremity. Tracks are present within the proximal mid tibia from the previous external fixator manifested by areas of decreased T1 and increased T2 signal. Prominent soft tissue defect is present along the medial malleolar region and also along the lateral malleolar region. Significant artifact is present from the bone plate and motion. There is increased T2 signal involving the distal tibia medially for length of approximately 6 cm of the distal tibia including the medial malleolar region.. There is also diffuse increase in T2 signal involving the distal aspect of the fibula. The fibula is not well delineated due to the motion an artifact. There is a known ununited fracture of the distal fibula. There is also mild diffuse increased T2 signal involving the talus the at the body and neck of the talus with sparing of the anterior aspect of the talus. These areas also show increased T2 signal. Increased T2 signal involves the inferior aspect of the calcaneus posteriorly which may be postsurgical. No obvious abscess. There is diffuse subcutaneous soft tissue swelling. IMPRESSION: Abnormal MRI of the left leg and ankle with postsurgical changes with cellulitis and soft tissue defects with increased T2 signal involving the distal tibia medially, distal fibula, and talus which may be seen with osteomyelitis. Study is very limited technically. These findings could be confirmed with 3 phase bone scan if clinically warranted. Dictated by: Wally Banuelos MD 10/07/2019 12:00 Electronically signed by Wally Banuelos MD in [place] 10/07/2019 12:00
== END ==
PROVIDERS: PCP Internal Medicine; Visit Provider Orthopaedic Surgery
DX: S82.891A Other fracture of right lower leg, initial encounter for closed fracture; T81.49XA Infection following a procedure, other surgical site, initial encounter
CPT/HCPCS: 73723; A9576

== ENCOUNTER → 2019-10-07 12:19 | Outpatient (CLI) | payer MEDICARE, SELFPAY ==
--- NOTE | 2019-10-07 12:32 | XR_ITS ---
PROCEDURE: XR ANKLE RT MIN 3V CLINICAL INDICATION: pre operative planning Pain, infection, prior trauma with ORIF COMPARISON: XR ANKLE RT MIN 3V from 08/24/2019 XR ANKLE RT MIN 3V from 09/03/2019 XR ANKLE RT MIN 3V from 09/03/2019 XR ANKLE RT MIN 3V from 09/11/2019 MR ANKLE RT WO/W CON from 10/06/2019 FINDINGS: Posterior bone plate once again noted at the distal tibia with diffuse osteopenia. Ununited distal fibular fracture present. Low-density changes of the talus. Soft tissue defect noted at the medial malleolar region. Posterior splint is present. Decreased attenuation noted involving the distal tibia laterally suspicious for osteomyelitis. This area was obscured by artifact from the overlying bone plate on the MRI. IMPRESSION: Postsurgical changes with erosive change involving the lateral aspect of the distal tibia suspicious for osteomyelitis with postsurgical changes, osteopenia, and ununited fracture of the distal fibula Dictated by: Wally Banuelos MD 10/07/2019 13:38 Electronically signed by Wally Banuelos MD in [place] 10/07/2019 13:38
[2019-10-07 12:35] LABS: Basophils # 0.4 K/mm3 (0-0.2); Eosinophils # 0.6 K/mm3 (0.0-0.4); Eosinophils % 6.4 % (0.1-12.0); Hematocrit 30.8 % (37.0-47.0); Hemoglobin 9.7 g/dL (12.2-16.2); Lymphocytes # 1.8 K/mm3 (0.7-4.5); Lymphocytes % 17.9 % (10-50); Mean Corpuscular HGB Conc 31.4 g/dL (31.8-35.4); Mean Corpuscular Hemoglobin 29.9 pg (27.0-31.2); Mean Corpuscular Volume 95.4 fl (81-99); Mean Platelet Volume 10.8 fl (7.4-10.4); Monocytes # 0.5 K/mm3 (0.1-1.0); Monocytes % 4.9 % (1.7-9.3); Neutrophils % 70.9 % (37.0-80.0); Platelet Count 503 K/mm3 (142-424); Red Blood Count 3.23 M/mm3 (4.20-5.40); Red Cell Distribution Width 19.6 % (11.5-17.5); White Blood Count 9.9 K/mm3 (4.8-10.8)
[2019-10-07 13:01] LABS: C-Reactive Protein 31.3 mg/L (0-4)
[2019-10-07 13:05] LABS: Coronavirus 19 IgG Antibody Negative (Negative); Coronavirus 19 IgM Antibody Negative (Negative)
[2019-10-07 16:02] LABS: Erythrocyte Sedimentation Rate 116 mm/hr (0-30)
== END ==
PROVIDERS: Visit Provider Orthopaedic Surgery
DX: S82.891A Other fracture of right lower leg, initial encounter for closed fracture; T81.49XA Infection following a procedure, other surgical site, initial encounter; L03.90 Cellulitis, unspecified; S82.853A Displaced trimalleolar fracture of unspecified lower leg, initial encounter for closed fracture
CPT/HCPCS: 36415; 73610; 85025; 85651; 86140; 86328

== ENCOUNTER 2019-10-08 12:28 | Day surgery (SDC) | payer MEDICARE, SELFPAY ==
[2019-10-07 09:45] VITALS: BMI 36.0
[2019-10-08] VITALS (11 sets, daily range): BP systolic 122–164; BP diastolic 50–70; PULSE 88–96; RESP 16–20; TEMP 36.6–37.1; O2SAT 95–97
[2019-10-08 13:18] LABS: POC Glucose,Bedside 106 (70-110)
--- NOTE | 2019-10-08 13:20 | HMH.ANESCL ---
[facility] Anesthesia Checklist - Patient Identification Patient Identification: Arm Band, Verbal (Name & ) - Structural Data Admitted From: Home Planned Operative Procedure/s: i and d left ankle Consent for Planned Operative Procedure(s) Verified: Yes Verified Documents: History and Physical - NPO Status Verified Time NPO: 00:00 - Chart Verification Results Verified: CBC, BMP - Additional verifications Patient : No Anesthesia Reactions: No Hx Blood Transfusions: Yes Blood Transfusion Reaction: No Cephalosporin Allergy: No Previous Colonoscopy: No - Cardiovascular Assessment Heart Sounds: S1 & S2 Pulse Strength: Baseline Pulse Rhythm: Regular Peripheral Edema: No - Airway Assessment C-Spine Mobility Assessed: Yes TMJ Mobility Assessed: Yes Dentition: Good Dentition - Neurological Assessment Level of Consciousness: Awake, Alert, Appropriate Hx Seizures: No Numbness or tingling in extremities: No - Anesthesia Plan Anesthesia Risk discussed: Yes Anesthesia Plan: Verified ASA Class: III Anesthesia Type: General w/block [facility] History I have reviewed the patient's past medical history: Yes Medical History: Reports:: Congestive Heart Failure, Coronary Artery Disease, Diabetes Mellitus Type 1, Hypertension, MRSA Denies:: Cancer, Diabetes Mellitus Type 2, Internal Pacemaker, Seizures *Have you ever received a pneumonia vaccine?: Yes *Have you received a flu vaccine this season?: Yes Other Medical History: Reports: Cataracts, Hypothyroidism, Thyroid Disease. Denies: Blood Transfusion Reaction Anesthesia experience/problems:: none Laterality Cases: Bilateral: Cataract Other Surgeries: Yes: Appendectomy, Cardiac Catheterization, Cholecystectomy, Coronary Stent, Hysterectomy-Total, Tubal Ligation, Other. No: Pacemaker Amputation: No Fractures: Yes - *Social History Smoking Status: Current every day smoker Tobacco Type: cigarettes # Packs/Day (cigarettes): 1 #Yrs smoked (if former smoker): 20 Alcohol Intake: never Substance Use Type: denies use *Occupational Status:: unemployed Housing: house Household Members: family *Travel in the last 8 weeks: None Family Hx:: Anemia, Diabetes, Heart Attack, Hypertension, Stroke
--- NOTE | 2019-10-08 14:26 | XR_ITS ---
PROCEDURE: XR ANKLE RT 2V CLINICAL INDICATION: C-ARM USED FOR HARDWARE REMOVAL RIGHT ANKLE COMPARISON: No exams were available for comparison FINDINGS: Fluoroscopy time: 2 minutes and 50 seconds. C-arm utilized for hardware removal. Multiple images obtained during the process available for review. IMPRESSION: Status post bone plate removal of the distal tibia Dictated by: Wally Banuelos MD 10/09/2019 06:35 Electronically signed by Wally Banuelos MD in [place] 10/09/2019 06:35
--- NOTE | 2019-10-08 17:56 | HMH.ANESI ---
[facility] Anesthesia Record Part I Intake, IV Amount: 1,000 Estimated blood loss (mL): 100 Urine output (mL): 0 Blood Products used (#): none Blood Pressure: 151/62 SaO2: 97 Pulse Rate: 95 Respiratory Rate: 20 Temperature: 98.7 F Patient is:: Drowsy, Nasal O2, Stable Stable to PACU at:: 17:45
--- NOTE | 2019-10-08 21:47 | HMH.OPNOTE ---
Date of procedure: 10/08/19 Pre-op Diagnosis:: RIGHT ANKLE: 1) trimalleolar fracture s/p ORIF with non-union 2) impaired wound healing with cellulitis/wound infection 3) osteomyelitis 4) diabetes mellitus 5) history of nicotine dependence Post-op Diagnosis:: RIGHT ANKLE: 1) trimalleolar fracture s/p ORIF with non-union 2) impaired wound healing with cellulitis/wound infection 3) osteomyelitis 4) diabetes mellitus 5) history of nicotine dependence Procedure performed:: RIGHT ANKLE: 1) wound irrigation & debridement 2) removal of hardware 3) bone biopsy Surgeon:: Maria Antonia Gardner MD Industrial Engineering Analyst(s):: WESLEY Galeano PROMOTIONS EXECUTIVE:: Ovi Felix Anesthesia: regional (popliteal block), LMA Estimated blood loss (mL): 100 Clinical Note:: 64yo F who sustained a R trimalleolar ankle fracture 05/01/19. This was reduced by the ED physician that night but due to instability and significant swelling an external fixator was placed on 05/02/19. The reduction was lost with early Charcot changes in the frame, so it was removed on 05/15/19. ORIF of the ankle with recon external fixator placement was performed on 05/19/19. The patient had poor wound healing throughout this time but tolerated the frame well. The ex-fix was removed on 08/11/19 and wounds were debrided; Integra was placed on the wounds with the goal of later grafting with STSG. Unfortunately this developed an infection and the wounds were debrided on 09/03/19. Medial and lateral plates were exposed and so were removed. Acute osteomyelitis diagnosed on bone biopsy and the patient sent to infectious disease for consultation. During that time she also saw a plastic surgeon for possible free flap coverage of her wounds. She has elected to forego soft tissue coverage of her wounds by plastic surgery, as a latissimus flap was her only viable option and she did not desire the morbidity of this procedure. Infectious disease has expressed concern for Pseudomonas in her wound and wound cultures were taken in their office; we have yet to receive this result. She has been on vancomycin, and rifampin and Levaquin have since been added. The wound appearance in clinic yesterday was improved compared to that in past weeks, but repeat debridement was needed. Additionally, the discussion of below-knee amputation versus limb salvage has been ongoing, and at the moment the patient still desires to pursue limb salvage. I discussed the need for debridement of all nonviable soft tissue and bone, combined with hardware removal. At this time we will remove all remaining hardware, including her posterior plate and screws and syndesmosis tight ropes. I discussed the risks of the procedure with the patient, including bleeding, persistent or increasing infection, continued pain, and risks of eventual amputation, in addition to the risks of anesthesia. The patient vocalized understanding is provided informed consent for the procedure. Operative findings:: greenish-yellow appearance to wounds after dressing removal exposed bone both medially and laterally no pus or frankly necrotic tissue wound dimensions: Anteromedial: 4.3cm L x 9cm W x 0.8cm D Lateral: 13cm L x 4.5cm W x 1.1cm D *6.5cm skin bridge anteriorly between the 2 incisions Operative note:: The patient was identified in preoperative holding and the right ankle signed by myself. Operative consent was reviewed with the patient and all questions were answered. Popliteal nerve block was then performed by PROMOTIONS EXECUTIVE. The patient was taken to the OR and placed supine on the operative table; general anesthesia was induced with an LMA. After the patient was anesthetized, she was placed into a sloppy lateral position using a bray bag positioner and placing ample padding around all bony prominces. The splint was then removed from the right ankle and underlying kerlix packing noted to have full-thickness greenish-yellow drainage without malodor. The right ankle was then prepped
--- NOTE | 2019-10-09 06:52 | HMH.ANESII ---
[facility] Anesthesia Record Part II Discharge Time: 18:15 Destination: Surgical Day Care (OP Surgery) PACU nurse assessment reviewed?: Yes Patient Condition:: Good Anesthesia Complications:: None Swallowing reflex intact?: Yes Cyanosis?: No Blood Pressure: 146/66 Pulse Rate: 91 Temperature: 98.6 F Mental Status: Alert & Oriented Pain level:: 0 Nausea and/or vomitting:: None Intake, IV Amount: 20
[2019-10-09 06:53] VITALS: BP 146/66; PULSE 91; TEMP 37
== END 2019-10-08 19:22 | disposition home or self-care (01) ==
LOC: OR 12:29
PROVIDERS: PCP Internal Medicine; Visit Provider Orthopaedic Surgery
DX: S82.851G Displaced trimalleolar fracture of right lower leg, subsequent encounter for closed fracture with delayed healing (principal); L03.115 Cellulitis of right lower limb; M86.172 Other acute osteomyelitis, left ankle and foot; E10.65 Type 1 diabetes mellitus with hyperglycemia; Z79.4 Long term (current) use of insulin; E10.610 Type 1 diabetes mellitus with diabetic neuropathic arthropathy; E10.42 Type 1 diabetes mellitus with diabetic polyneuropathy; I11.0 Hypertensive heart disease with heart failure; I50.9 Heart failure, unspecified; I25.10 Atherosclerotic heart disease of native coronary artery without angina pectoris; Z87.891 Personal history of nicotine dependence; Z88.0 Allergy status to penicillin; E03.9 Hypothyroidism, unspecified; M86.161 Other acute osteomyelitis, right tibia and fibula; M87.86 Other osteonecrosis, tibia and fibula; M87.861 Other osteonecrosis, right tibia
CPT/HCPCS: 20225; 20680; 73600; 76000; 82962; 87070; 87075; 87077; 87186; 87205; 88307; 88311; 96374; J1956; J2405

== ENCOUNTER → 2019-10-13 08:58 | Outpatient (CLI) | payer MEDICARE, SELFPAY ==
[2019-10-13 09:27] LABS: Basophils # 0.1 K/mm3 (0-0.2); Basophils % 1.2 % (0.1-2.0); Eosinophils # 0.6 K/mm3 (0.0-0.4); Eosinophils % 6.2 % (0.1-12.0); Lymphocytes # 1.1 K/mm3 (0.7-4.5); Lymphocytes % 12.9 % (10-50); Mean Corpuscular HGB Conc 32.3 g/dL (31.8-35.4); Mean Corpuscular Hemoglobin 28.9 pg (27.0-31.2); Mean Corpuscular Volume 89.6 fl (81-99); Monocytes # 0.7 K/mm3 (0.1-1.0); Neutrophils # 6.3 K/mm3 (1.8-7.8); Neutrophils % 71.6 % (37.0-80.0); Platelet Count 418 K/mm3 (142-424); Red Blood Count 2.66 M/mm3 (4.20-5.40); Red Cell Distribution Width 16.3 % (11.5-17.5); White Blood Count 8.7 K/mm3 (4.8-10.8)
[2019-10-13 09:32] LABS: Hematocrit 23.8 % (37.0-47.0); Hemoglobin 7.7 g/dL (12.2-16.2)
[2019-10-13 10:13] LABS: C-Reactive Protein 75.5 mg/L (0-4)
[2019-10-13 10:18] VITALS: BMI 33.6
[2019-10-13 10:31] LABS: Erythrocyte Sedimentation Rate > 140 mm/hr (0-30)
--- NOTE | 2019-10-13 10:38 | XR_ITS ---
PROCEDURE: XR ANKLE RT MIN 3V CLINICAL INDICATION: s/p hardware removal Follow-up hardware removal COMPARISON: XR ANKLE RT MIN 3V from 09/03/2019 XR ANKLE RT MIN 3V from 09/03/2019 XR ANKLE RT MIN 3V from 09/11/2019 XR ANKLE RT 2V from 10/08/2019 FINDINGS: Status post hardware removal as well as amputation of the distal aspect of the fibula. Nonunion fracture noted at the medial malleolar region. Ankle mortise is widened. Soft tissue gas is present about the ankle with soft tissue defects along the lateral and medial malleolar region. IMPRESSION: Postsurgical changes as described above with soft tissue defect at the medial and lateral malleolar region with soft tissue gas and widened ankle mortise Dictated by: Wally Banuelos MD 10/13/2019 14:07 Electronically signed by Wally Banuelos MD in [place] 10/13/2019 14:07
== END ==
LOC: LAB 10:12 → INF 10:18
PROVIDERS: PCP Orthopaedic Surgery; Visit Provider Orthopaedic Surgery
DX: S82.891A Other fracture of right lower leg, initial encounter for closed fracture (principal); S82.853A Displaced trimalleolar fracture of unspecified lower leg, initial encounter for closed fracture; T81.49XA Infection following a procedure, other surgical site, initial encounter
CPT/HCPCS: 36415; 73610; 85025; 85651; 86140; 86850

== ENCOUNTER 2019-10-14 08:47 | Outpatient (CLI) | payer MEDICARE, SELFPAY ==
[2019-10-14] VITALS (20 sets, daily range): BP systolic 103–178; BP diastolic 47–79; PULSE 74–91; RESP 18–20; TEMP 36.7–37.3; O2SAT 97–99; BMI 36.8
[2019-10-14 15:02] LABS: Hematocrit 31.1 % (37.0-47.0); Hemoglobin 10.2 g/dL (12.2-16.2)
== END 2019-10-14 14:55 | disposition home or self-care (01) ==
LOC: INF 08:47
PROVIDERS: Visit Provider Orthopaedic Surgery
DX: D64.9 Anemia, unspecified (principal)
CPT/HCPCS: 36430; 85014; 85018; P9016

== ENCOUNTER → 2019-11-04 12:14 | Outpatient (CLI) | payer MEDICARE, SELFPAY ==
--- NOTE | 2019-11-04 12:20 | XR_ITS ---
PROCEDURE: XR ANKLE RT MIN 3V CLINICAL INDICATION: rt ankle fx fu Follow-up fracture COMPARISON: XR ANKLE RT MIN 3V from 10/13/2019 FINDINGS: Postsurgical changes once again noted. Hardware has been removed. Multiple lucencies are present at the distal tibia and fever from prior screws. Ununited medial malleolar fractures present in there is some fragmentation at the distal fibula status post prior surgery. Old posterior distal tibial fracture also noted. Soft tissue gas no longer apparent. Soft tissue defect is present at the lateral and medial malleolar region. Ankle mortise is widened IMPRESSION: Postsurgical changes as described above. Soft tissue defects noted. Soft tissue gas no longer identified Dictated by: Wally Banuelos MD 11/05/2019 07:28 Electronically signed by Wally Banuelos MD in [place] 11/05/2019 07:28
== END ==
PROVIDERS: PCP Internal Medicine; Visit Provider Orthopaedic Surgery
DX: S82.853A Displaced trimalleolar fracture of unspecified lower leg, initial encounter for closed fracture (principal)
CPT/HCPCS: 73610

== ENCOUNTER → 2019-11-30 14:03 | Outpatient (CLI) | payer MEDICARE, SELFPAY ==
[2019-11-30 14:35] LABS: Vancomycin,Trough 14.1 ug/mL (5.0-10.0)
== END ==
PROVIDERS: Visit Provider Internal Medicine Infectious Disease
DX: Z51.81 Encounter for therapeutic drug level monitoring (principal); Z79.2 Long term (current) use of antibiotics
CPT/HCPCS: 80202

== ENCOUNTER → 2020-02-09 15:00 | Outpatient (CLI) | payer MEDICARE, SELFPAY ==
[2020-02-10 05:51] LABS: Adenovirus,PCR Not Detected (NotDetected); Bordetella Pertussis Not Detected (NotDetected); Chlamydophila Pneumoniae, PCR Not Detected (NotDetected); Coronavirus 19, PCR Not Detected (NotDetected); Coronavirus 229E Not Detected (NotDetected); Coronavirus NL63 Not Detected (NotDetected); Coronavirus OC43 Not Detected (NotDetected); Coronovirus HKU1,PCR Not Detected (NotDetected); Human Metapneumovirus Not Detected (NotDetected); Influenza A, PCR Not Detected (NotDetected); Influenza AH1, 2009 Not Detected (NotDetected); Influenza AH1, PCR Not Detected (NotDetected); Influenza AH3,PCR Not Detected (NotDetected); Influenza B, PCR Not Detected (NotDetected); Mycoplasma Pneumoniae, PCR Not Detected (NotDetected); Parainfluenza 1, PCR Not Detected (NotDetected); Parainfluenza 2, PCR Not Detected (NotDetected); Parainfluenza 3, PCR Not Detected (NotDetected); Parainfluenza 4, PCR Not Detected (NotDetected); Respiratory Syncytial Virus Not Detected (NotDetected); Rhinovirus/Enterovirus Not Detected (NotDetected)
== END ==
PROVIDERS: Visit Provider Orthopaedic Surgery
DX: Z01.818 Encounter for other preprocedural examination (principal); S82.891A Other fracture of right lower leg, initial encounter for closed fracture
CPT/HCPCS: 87581; 87633; 87798; U0003

== ENCOUNTER → 2020-02-11 14:32 | Outpatient (CLI) | payer MEDICARE, SELFPAY ==
[2020-02-12 05:01] LABS: Adenovirus,PCR Not Detected (NotDetected); Bordetella Pertussis Not Detected (NotDetected); Chlamydophila Pneumoniae, PCR Not Detected (NotDetected); Coronavirus 19, PCR Not Detected (NotDetected); Coronavirus 229E Not Detected (NotDetected); Coronavirus NL63 Not Detected (NotDetected); Coronavirus OC43 Not Detected (NotDetected); Coronovirus HKU1,PCR Not Detected (NotDetected); Human Metapneumovirus Not Detected (NotDetected); Influenza A, PCR Not Detected (NotDetected); Influenza AH1, 2009 Not Detected (NotDetected); Influenza AH1, PCR Not Detected (NotDetected); Influenza AH3,PCR Not Detected (NotDetected); Influenza B, PCR Not Detected (NotDetected); Mycoplasma Pneumoniae, PCR Not Detected (NotDetected); Parainfluenza 1, PCR Not Detected (NotDetected); Parainfluenza 2, PCR Not Detected (NotDetected); Parainfluenza 3, PCR Not Detected (NotDetected); Parainfluenza 4, PCR Not Detected (NotDetected); Respiratory Syncytial Virus Not Detected (NotDetected); Rhinovirus/Enterovirus Not Detected (NotDetected)
== END ==
PROVIDERS: Visit Provider Orthopaedic Surgery
DX: Z03.818 Encounter for observation for suspected exposure to other biological agents ruled out (principal)
CPT/HCPCS: 87581; 87633; 87798; U0003; U0004

== ENCOUNTER 2020-08-19 15:19 | Emergency (ER) | payer MEDICARE, SELFPAY ==
[2020-08-19] VITALS (7 sets, daily range): BP systolic 103–143; BP diastolic 33–62; PULSE 71–104; RESP 18–20; TEMP 37.6; O2SAT 90–97; BMI 34.3
--- NOTE | 2020-08-19 15:51 | HMH.EDFEV ---
ED Disposition Clinical Impression: Elevated transaminase measurement, Chronic anemia, Chronic hyponatremia Disposition: Home, Self-Care Condition on Discharge: Good Instructions: Liver Function Tests Referrals: Marques Isbell [Primary Care Provider] - Isaiah Sykes MD [Staff Physician] - - Critical Care Critical Care Time: No Attestation: On 08/19/20, the high probability of a clinically significant, sudden or life threatening deterioration of the following system(s) required my full and direct attention, intervention and personal management. The time I documented below is in addition to time spent performing reported procedures but includes the following listed in this critical care notation. Medical Decision Making - Medical Records Medical records reviewed: Yes: I reviewed the patient's medical records. - Bro Inquiry Pt receiving controlled substance: No Vital Signs: 08/19/20 15:20 08/19/20 16:01 08/19/20 16:30 Temperature 99.6 F Temperature Source Oral Pulse Rate 90 71 Pulse Rate [Left Radial] 96 H Respiratory Rate 20 Blood Pressure 103/33 L 143/62 H Blood Pressure [Right Arm] 113/56 L Blood Pressure Mean 63 89 Blood Pressure Mean [Right Arm] 75 Blood Pressure Source [Right Arm] Automatic Cuff Blood Pressure Position [Right Arm] Sitting 02 Sat by Pulse Oximetry 96 94 L 94 L Oxygen Delivery Method Room Air - Lab Data Lab Results 08/19/20 15:33: WBC 5.6, RBC 2.99 L, Hgb 8.5 L, Hct 25.8 L, MCV 86.2, MCH 28.5, MCHC 33.1, RDW 14.6, Plt Count 272, MPV 8.9, Neut % (Auto) 63.3, Lymph % (Auto) 28.1, Door % (Auto) 7.1, Eos % (Auto) 0.2, Baso % (Auto) 1.3, Neut # (Auto) 3.5, Lymph # (Auto) 1.6, Door # (Auto) 0.4, Eos # (Auto) 0.0, Baso # (Auto) 0.1 08/19/20 15:33: Sodium 128 L, Potassium 3.8, Chloride 97 L, Carbon Dioxide 26, Anion Gap 8.8, BUN 19 H, Creatinine 1.30 H, Estimated Creat Clear 63, Estimated GFR 41 L, Est GFR ( Amer) 50 L, Glucose 56 L, Calcium 8.5, Total Bilirubin 0.5, AST 322 H*, ALT 154 H, Alkaline Phosphatase 177 H, Total Protein 7.0, Albumin 3.8, Globulin 3.2, Albumin/Globulin Ratio 1.2 Result diagrams: 08/19/20 15:33 08/19/20 15:33 - Reevaluation(s) Time: 17:04 Reevaluation #1: On reevaluation, the patient remains asymptomatic. She did have some abnormal laboratory findings. Patient does have significantly elevated liver enzymes. I did have discussion with the patient. She states that she has been taking Tylenol daily, however only about 2 g total. Patient denies any alcohol abuse. Could be secondary to her chronic IV antibiotics, however she is having absolutely no pain, nausea or vomiting. There is no jaundice or icterus. I did explain to the patient that we should further evaluate these findings. However she would like to follow-up with her primary care physician GI specialist. I did explain the patient that if she is to have any change of symptoms she is to return the emergency department immediately. She does need reevaluation in 48 hours. Given strict return precautions. Verbalized understanding. As far as her ulcers go in the right ankle, they appear to be healing well. No leukocytosis or fever. Medical Decision Narrative: 65-year-old female presented to the emergency department for evaluation of possible fever. In the emergency department, the patient has a normal oral temperature. She is asymptomatic. Her wound appears clean dry and intact. Patient states that it looks like it normally does. She is very vigilant about cleaning it. Basic work-up will be initiated. Fever HPI - General Chief Complaint: Fever Stated Complaint: Dr Isbell sent for fever, weakness Time Seen by Provider: 08/19/20 15:25 Mode of Arrival: Ambulatory Limitations: No Limitations Description of Symptoms (Recalled from ER Triage Doc. by RN): sent over by her pcp for right ankle drainage and temp 102 at the office. Pt states that her foot is normal and she
[2020-08-19 15:52] LABS: Basophils # 0.1 K/mm3 (0-0.2); Basophils % 1.3 % (0.1-2.0); Eosinophils % 0.2 % (0.1-12.0); Hematocrit 25.8 % (37.0-47.0); Hemoglobin 8.5 g/dL (12.2-16.2); Lymphocytes # 1.6 K/mm3 (0.7-4.5); Lymphocytes % 28.1 % (10-50); Mean Corpuscular HGB Conc 33.1 g/dL (31.8-35.4); Mean Corpuscular Hemoglobin 28.5 pg (27.0-31.2); Mean Corpuscular Volume 86.2 fl (81-99); Mean Platelet Volume 8.9 fl (7.4-10.4); Monocytes # 0.4 K/mm3 (0.1-1.0); Monocytes % 7.1 % (1.7-9.3); Neutrophils # 3.5 K/mm3 (1.8-7.8); Neutrophils % 63.3 % (37.0-80.0); Platelet Count 272 K/mm3 (142-424); Red Blood Count 2.99 M/mm3 (4.20-5.40); Red Cell Distribution Width 14.6 % (11.5-17.5); White Blood Count 5.6 K/mm3 (4.8-10.8)
[2020-08-19 16:13] LABS: Alanine Aminotransferase 154 U/L (12-78); Albumin Level 3.8 g/dl (3.5-5.0); Albumin/Globulin Ratio 1.2 (1.1-1.8); Alkaline Phosphatase 177 U/L (38-126); Anion Gap 8.8 mEq/L (5-15); Aspartate Amino Transferase 322 U/L (14-36); Bilirubin,Total 0.5 mg/dl (0.2-1.3); Blood Urea Nitrogen 19 mg/dl (7-17); Calcium 8.5 mg/dl (8.4-10.2); Carbon Dioxide 26 mmol/L (22.0-30.0); Chloride 97 mmol/L (98-107); Creatinine Clearance Estimated 63 mL/min (50-200); Estimated Glomerular Filt Rate 41 ml/min (>60); GFR (African American) 50 ML/MIN (>60); Globulin 3.2 g/dL (1.3-3.2); Glucose 56 mg/dl (74-100); Potassium 3.8 mmoL/L (3.5-5.1); Sodium 128 mmol/L (136-145)
== END 2020-08-19 18:03 | disposition home or self-care (01) ==
PROVIDERS: Emergency Provider Emergency Medicine; PCP Internal Medicine
DX: D64.9 Anemia, unspecified (principal); E87.1 Hypo-osmolality and hyponatremia; E10.40 Type 1 diabetes mellitus with diabetic neuropathy, unspecified; Z79.4 Long term (current) use of insulin; I10 Essential (primary) hypertension; I25.10 Atherosclerotic heart disease of native coronary artery without angina pectoris; E03.9 Hypothyroidism, unspecified; I50.9 Heart failure, unspecified; F17.210 Nicotine dependence, cigarettes, uncomplicated; Z79.899 Other long term (current) drug therapy; Z88.0 Allergy status to penicillin; Z88.5 Allergy status to narcotic agent
CPT/HCPCS: 80053; 85025; 99282

== ENCOUNTER 2020-09-09 15:22 | Emergency (ER) | payer MEDICARE, SELFPAY ==
[2020-09-09 15:30] VITALS: BP 129/61; PULSE 92; RESP 20; TEMP 36.9; O2SAT 97; BMI 31.3
--- NOTE | 2020-09-09 15:58 | HMH.EDUTC ---
[facility] [place] Clinical Impression: Otitis externa Qualifiers: Otitis externa type: other infective Chronicity: acute Laterality: left Qualified Code(s): H60.392 - Other infective otitis externa, left ear Disposition: Home, Self-Care Condition on Discharge: Good Instructions: DI for Otitis Externa Additional Instructions: kathie davis at 11 follow up with cesar rodriguez as ordered tylenol and motrin as needed. Prescriptions: Mupirocin [Bactroban 2% Ointment 22gm tube] 1 applicatio TP BID 7 Days #1 tube Transmission Status: Pending to [facility] cephALEXin [Cephalexin 500mg Tab] 500 mg PO BID 7 Days #14 tab Transmission Status: Pending to [facility] Neomycin/Polymyxin B/Hydrocort [Ecyavldt-Osusrvmid-Hd Ear Susp] 10 ml OT TID 7 Days #1 bottle Transmission Status: Pending to [facility] Referrals: Marques Isbell [Primary Care Provider] - Time of Disposition: 16:18 Medical Decision Making - Bro Inquiry Pt receiving controlled substance: No Vital Signs: 09/09/20 15:30 Temperature 98.4 F Temperature Source Oral Pulse Rate [Left Brachial] 92 H Respiratory Rate 20 Blood Pressure [Left Arm] 129/61 Blood Pressure Mean [Left Arm] 83 Blood Pressure Source [Left Arm] Automatic Cuff Blood Pressure Position [Left Arm] Sitting 02 Sat by Pulse Oximetry 97 Oxygen Delivery Method Room Air Orders (Tests/Meds): ED MEDICATIONS Discontinued Medications Generic Name Dose Route Start Last Admin Trade Name Freq PRN Reason Stop Dose Admin Dexamethasone Sodium Phosphate 4 mg 09/09/20 15:53 Dexamethasone 4mg/Ml 1ml Vial IM 09/09/20 15:54 ONCE ONE - Physician Consults Physician Consulted: kathie Time: 16:14 Reason -: Pt condition Comment/Response: recommends steroidsm antibitoics, ear drops once canal opened and bactroban oint at opening he will see pt ryan at 11 am [facility] [place] HPI - General Chief complaint: Urgent Treatment [facility] Stated complaint: left ear ache Time Seen by Provider: 09/09/20 15:58 Mode of Arrival: Ambulatory Source of Information: Patient Limitations: No Limitations Description of Symptoms (Recalled from Triage Doc. by RN): PATIENT C/O LEFT EAR PAIN AND SWELLING SINCE LAST NIGHT HEENT Symptoms (Recalled from RN notes): Yes Resp Symptoms (Recalled from RN notes): No Skin Symptoms (Recalled from RN notes): No MS Symptoms (Recalled from RN notes): No Functional Status (Recalled from RN notes): WNL - History of Present Illness Provider Complaint: 65 yr old female presents for left ear pain that started last pm - Related Data Home Medications Medication Instructions Recorded Confirmed Duloxetine HCl 60 mg PO HS 05/01/19 11/04/19 Gabapentin [Gabapentin 300mg Cap] 300 mg PO HS 05/01/19 11/04/19 Insulin Aspart [Novolog Flexpen] 10 units SQ TID 05/01/19 11/04/19 Levothyroxine Sodium 150 mcg PO DAILY 05/01/19 11/04/19 [Levothyroxine 150mcg (0.15mg) Tab] ramipriL [Ramipril] 1.25 mg PO HS 05/01/19 11/04/19 Insulin Glargine,Hum.rec.anlog 18 unit SQ HS 08/11/19 11/04/19 [Lantus Solostar 100 Units/mL 3mL flexpen] Oxycodone HCl/Acetaminophen 1 tab PO BID PRN 09/03/19 11/04/19 [Percocet 5/325mg tablet] Ertapenem Sodium [Invanz 1gm Vial] 1 gm IV Q24H 09/29/19 11/04/19 Insulin Lispro [HumaLOG 100 0 unit SQ ACHS 09/29/19 11/04/19 units/mL 3mL vial (SSI)] Vancomycin HCl [Vancomycin 1000mg 750 mg IV DAILY 10/08/19 11/04/19 vial] Previous Rx's Medication Instructions Recorded Acetaminophen [Acetaminophen 325mg 650 mg PO Q6HP PRN tab 05/23/19 tab] 0.9 % Sodium Chloride [Saline 10 ml IV NEEDED PRN syringe 09/08/19 Flush 10mL syringe] 0.9 % Sodium Chloride [Saline 10 ml IV NEEDED PRN syringe 09/08/19 Flush 10mL syringe] Docusate Sodium [Docusate Sodium 100 mg PO BIDP PRN cap 09/08/19 100mg Cap] Oxycodone HCl/Acetaminophen 1 each PO Q6HP PRN #30 tab 09/08/19 [Percocet 5/325mg tablet] Sennoside
[2020-09-09 16:12] VITALS: BP 129/61; PULSE 92; RESP 20; TEMP 36.9; O2SAT 97
== END 2020-09-09 16:30 | disposition home or self-care (01) ==
PROVIDERS: Emergency Provider Nurse Practitioner Family; PCP Internal Medicine
DX: H60.392 Other infective otitis externa, left ear (principal); E10.9 Type 1 diabetes mellitus without complications; Z79.4 Long term (current) use of insulin; I25.10 Atherosclerotic heart disease of native coronary artery without angina pectoris; E03.9 Hypothyroidism, unspecified; F17.210 Nicotine dependence, cigarettes, uncomplicated; Z88.0 Allergy status to penicillin; Z88.5 Allergy status to narcotic agent; Z79.899 Other long term (current) drug therapy
CPT/HCPCS: G0463; 96372; 99202

== ENCOUNTER → 2020-10-13 10:50 | Outpatient (CLI) | payer MEDICARE, SELFPAY ==
[2020-10-13 11:18] LABS: Potassium 5.3 mmoL/L (3.5-5.1)
[2020-10-13 11:29] LABS: Glucose,Fasting 36 mg/dl (74-100)
== END ==
PROVIDERS: Visit Provider Internal Medicine
DX: E11.59 Type 2 diabetes mellitus with other circulatory complications (principal); E11.42 Type 2 diabetes mellitus with diabetic polyneuropathy; E87.5 Hyperkalemia; Z79.4 Long term (current) use of insulin
CPT/HCPCS: 36415; 82947; 84132

== ENCOUNTER 2021-01-06 15:16 | Inpatient (IN) | payer MEDICARE, SELFPAY ==
[2021-01-06] VITALS (11 sets, daily range): BP systolic 183–244; BP diastolic 94–131; PULSE 107–140; RESP 14–20; TEMP 36.6–39.1; O2SAT 90–97; BMI 34.1; BMI 34.3; BMI 37.3
--- NOTE | 2021-01-06 15:20 | CT_ITS ---
PROCEDURE: CT HEAD/BRAIN WO CON CLINICAL INDICATION: AMS COMPARISON: No exams were available for comparison TECHNIQUE: Axial images obtained. All CT scans at the facility use one or more dose reduction, viz: automated exposure control, ma/kV adjustment per patient size (including targeted exams where dose is matched to indication, i.e. head), or iterative reconstruction technique. FINDINGS: No midline shift, mass effect, intracranial hemorrhage, hydrocephalus, or extra-axial fluid collection is evident. There is generalized atrophy with hypoattenuation of the periventricular white matter consistent with microangiopathic changes. The calvarium has an unremarkable appearance. No mastoid effusion. No sinus air-fluid level. IMPRESSION: No acute intracranial finding Dictated by: Wally Banuelos MD 01/06/2021 16:06 Wally aBnuelos MD in [place] 01/06/2021 16:06
--- NOTE | 2021-01-06 15:21 | CT_ITS ---
PROCEDURE: CT CERVICAL SPINE WO CON CLINICAL INDICATION: AMS FALL COMPARISON: No exams were available for comparison TECHNIQUE: Axial images obtained with sagittal and coronal reformats. All CT scans at the facility use one or more dose reduction, viz: automated exposure control, ma/kV adjustment per patient size (including targeted exams where dose is matched to indication, i.e. head), or iterative reconstruction technique. Axial spiral CT scanning performed of the cervical spine beginning at the base of the skull and continuing to the upper T-spine. 3-D multiplanar reconstruction with 3-D manipulation of volumetric data set in image rendering was completed by the radiologist and/or technologist with the supervision of the radiologist on independent workstation. FINDINGS: Normal alignment. No acute fracture or dislocation. Mild multilevel cervical spondylosis with facet hypertrophic changes. Mild right foraminal narrowing at C3-C4 and C4-C5 with severe foraminal narrowing on the right at C5-C6.. Small cervical lymph nodes are present. Lung apices are clear. IMPRESSION: No acute finding Dictated by: Wally Banuelos MD 01/06/2021 16:11 Wally Banuelos MD in [place] 01/06/2021 16:11
--- NOTE | 2021-01-06 15:23 | XR_ITS ---
PROCEDURE INFORMATION: Exam: XR Pelvis Exam date and time: 01/06/2021 3:23 PM Age: 65 years old Clinical indication: Injury or trauma; Fall; Blunt trauma (contusions or hematomas); Bilateral; Hip; Additional info: AMS fall TECHNIQUE: Imaging protocol: XR pelvis. Views: 1 or 2 view. COMPARISON: No relevant prior studies available. FINDINGS: Tubes, catheters and devices: Catheter is projected over the midline lower pelvis, correlate clinically. Bones/joints: No definite fracture, or dislocation as visualized. Bones appear mildly demineralized. Sacrum is partially obscured by overlying dense bowel content.There are no lytic skeletal lesions seen. Minimal arthritic changes at the hip joints. Degenerative changes in the lower lumbar spine with multilevel spondylosis. Soft tissues: No acute findings. Intraperitoneal space: Surgical clips in the lower right pelvis. Gastrointestinal tract: The rectum is distended with dense fecal material, and there is moderate amount of fecal material in the visualized colon, correlate for constipation or rectal fecal impaction. IMPRESSION: 1. No acute fracture or dislocation, as visualized. 2. Possible rectal fecal impaction and constipation. 3. Note that the lower sacrum is partially obscured by overlying dense bowel content. 4. Additional nonemergency and chronic findings as above.
--- NOTE | 2021-01-06 15:24 | PC.NURSE ---
pt taken to ct
--- NOTE | 2021-01-06 15:25 | XR_ITS ---
PROCEDURE INFORMATION: Exam: XR Chest Exam date and time: 01/06/2021 3:25 PM Age: 65 years old Clinical indication: Other: Fall; Additional info: Fall, AMS TECHNIQUE: Imaging protocol: XR of the chest. Views: 1 view. Portable AP upright exam 4:03 p.m. COMPARISON: CR XR CHEST PORTABLE PICC PLAC 09/04/2019 2:19 PM FINDINGS: Lungs: There is new hazy asymmetric right lower pulmonary airspace disease, increased interstitial prominence with peribronchial thickening and basilar subsegmental atelectasis. Correlate for bronchitis and pneumonia. No focal consolidation. No acute findings on the left. Tiny chronic calcific density at the left hilum, possible tiny calcified lymph node. Pleural spaces: Trace pleural thickening or fluid in the minor fissure on the right. No significant layering pleural effusion. No pneumothorax. Heart/Mediastinum: Upper normal heart size, considering portable AP technique. Bones/joints: Arthritis of the glenohumeral joints. Osteopenia. No definite acute fracture, as visualized. Soft tissues: No acute findings in the soft tissues. No soft tissue emphysema. Other findings: Overlying cardiac monitor technician electrodes. IMPRESSION: 1. No acute fracture seen. 2. New hazy right lower pulmonary airspace disease with peribronchial thickening and subsegmental atelectasis, correlate for pneumonia and bronchitis. 3. Additional nonemergency and chronic findings as above.
[2021-01-06 15:43] LABS: Microscopic, Urine URINE MICROSCOPIC (MICROSCOPIC)
[2021-01-06 15:47] LABS: Appearance,Urine CLEAR (Clear); Bilirubin,Urine Negative (Negative); Blood, Urine Negative (Negative); Color,Urine YELLOW (Yellow); Glucose,Urine (UA) TRACE (Negative); Ketones,Urine Negative (Negative); Leukocyte Esterase,Urine Negative (Negative); Nitrate,Urine Negative (Negative); Protein,Urine 2+ (Negative); Specific Gravity, Urine 1.015 (1.005-1.030); Urobilinogen,Urine 0.2 EU/dl (0.2)
[2021-01-06 15:48] LABS: Basophils # 0.2 K/mm3 (0-0.2); Basophils % 1.2 % (0.1-2.0); Eosinophils # 0.1 K/mm3 (0.0-0.4); Eosinophils % 0.9 % (0.1-12.0); Hematocrit 31.4 % (37.0-47.0); Hemoglobin 9.8 g/dL (12.2-16.2); Lymphocytes # 2.1 K/mm3 (0.7-4.5); Lymphocytes % 15.5 % (10-50); Mean Corpuscular HGB Conc 31.2 g/dL (31.8-35.4); Mean Corpuscular Hemoglobin 28.4 pg (27.0-31.2); Mean Platelet Volume 8.3 fl (7.4-10.4); Monocytes # 0.5 K/mm3 (0.1-1.0); Neutrophils # 10.7 K/mm3 (1.8-7.8); Neutrophils % 78.5 % (37.0-80.0); Platelet Count 493 K/mm3 (142-424); Red Blood Count 3.45 M/mm3 (4.20-5.40); Red Cell Distribution Width 15.8 % (11.5-17.5); White Blood Count 13.6 K/mm3 (4.8-10.8)
[2021-01-06 15:57] LABS: Chloride 102 mmol/L (98-107); Sodium 138 mmol/L (136-145)
[2021-01-06 15:58] LABS: Potassium 4.8 mmoL/L (3.5-5.1)
[2021-01-06 15:59] LABS: WBC,Urine Occasional #/hpf (0-3)
[2021-01-06 16:00] LABS: Alanine Aminotransferase 19 U/L (12-78); Alkaline Phosphatase 114 U/L (38-126); Anion Gap 15.8 mEq/L (5-15); Aspartate Amino Transferase 36 U/L (14-36); Bilirubin,Total 0.2 mg/dl (0.2-1.3); Blood Urea Nitrogen 20 mg/dl (7-17); Carbon Dioxide 25 mmol/L (22.0-30.0); Creatinine Clearance Estimated 81 mL/min (50-200); Estimated Glomerular Filt Rate 56 ml/min (>60); GFR (African American) 68 ML/MIN (>60); Lactic Acid 1.6 mmol/L (0.7-2.1)
--- NOTE | 2021-01-06 16:00 | PC.NURSE ---
PT VOMITING YELLOW EMESIS, PT WILL NOT FOLLOW COMMANDS OR ANSWER QUESTIONS. PT
[2021-01-06 16:01] LABS: Albumin/Globulin Ratio 1.1 (1.1-1.8); Calcium 9.1 mg/dl (8.4-10.2); Globulin 3.5 g/dL (1.3-3.2); Glucose 229 mg/dl (74-100); Total Protein,Serum 7.5 g/dl (6.3-8.2)
[2021-01-06 16:02] LABS: INR 0.91 (0.9-1.1); Prothrombin Time 10.4 seconds (10.1-12.5)
[2021-01-06 16:28] LABS: Procalcitonin 0.062 ng/mL (0.0-2.0); Troponin I < 0.01 ng/ml (0.00-0.034)
[2021-01-06 16:33] LABS: Acetone, Serum (Rapid) None Detected (None Detect)
--- NOTE | 2021-01-06 16:40 | HMH.EDAMS ---
ED Disposition Clinical Impression: Acute delirium, Obesity (BMI 30-39.9), Diabetes mellitus, insulin dependent (IDDM), uncontrolled CAP (community acquired pneumonia) Qualifiers: Laterality: right Lung location: lower lobe of lung Qualified Code(s): J18.9 - Pneumonia, unspecified organism Hypothyroidism Qualifiers: Hypothyroidism type: acquired Qualified Code(s): E03.9 - Hypothyroidism, unspecified Disposition: Admitted As Inpatient Condition on Discharge: Serious Instructions: DI for Altered Mental Status Referrals: Marques Isbell [Primary Care Provider] - - Critical Care Critical Care Time: No Attestation: On 01/06/21, the high probability of a clinically significant, sudden or life threatening deterioration of the following system(s) required my full and direct attention, intervention and personal management. The time I documented below is in addition to time spent performing reported procedures but includes the following listed in this critical care notation. Medical Decision Making - Medical Records Medical records reviewed: Yes: I reviewed the patient's medical records. - Bro Inquiry Pt receiving controlled substance: No Vital Signs: 01/06/21 15:17 01/06/21 16:01 01/06/21 16:30 Temperature 97.9 F Temperature Source Rectal Pulse Rate 109 H Pulse Rate [Right Radial] 107 H Respiratory Rate 18 16 14 Blood Pressure 200/131 H 244/113 H Blood Pressure [Right Arm] 200/131 H Blood Pressure Mean 135 Blood Pressure Mean [Right Arm] 154 Blood Pressure Source [Right Arm] Automatic Cuff Blood Pressure Position [Right Arm] Sitting 02 Sat by Pulse Oximetry 97 Oxygen Delivery Method Room Air 01/06/21 17:00 01/06/21 17:31 01/06/21 18:00 Temperature Temperature Source Pulse Rate 113 H 114 H Pulse Rate [Right Radial] Respiratory Rate 17 17 Blood Pressure 216/113 H 226/110 H 226/110 H Blood Pressure [Right Arm] Blood Pressure Mean 148 Blood Pressure Mean [Right Arm] Blood Pressure Source [Right Arm] Blood Pressure Position [Right Arm] 02 Sat by Pulse Oximetry Oxygen Delivery Method 01/06/21 18:31 Temperature Temperature Source Pulse Rate Pulse Rate [Right Radial] Respiratory Rate 16 Blood Pressure 201/98 H Blood Pressure [Right Arm] Blood Pressure Mean 132 Blood Pressure Mean [Right Arm] Blood Pressure Source [Right Arm] Blood Pressure Position [Right Arm] 02 Sat by Pulse Oximetry Oxygen Delivery Method - Lab Data Lab results reviewed: Yes: I reviewed the patient's lab results. Lab Results 01/06/21 15:25: WBC 13.6 H, RBC 3.45 L, Hgb 9.8 L, Hct 31.4 L, MCV 91.0, MCH 28.4, MCHC 31.2 L, RDW 15.8, Plt Count 493 H, MPV 8.3, Neut % (Auto) 78.5, Lymph % (Auto) 15.5, [place] % (Auto) 4.0, Eos % (Auto) 0.9, Baso % (Auto) 1.2, Neut # (Auto) 10.7 H, Lymph # (Auto) 2.1, Winn # (Auto) 0.5, Eos # (Auto) 0.1, Baso # (Auto) 0.2 01/06/21 15:25: Sodium 138, Potassium 4.8, Chloride 102, Carbon Dioxide 25, Anion Gap 15.8 H, BUN 20 H, Creatinine 1.00, Estimated Creat Clear 81, Estimated GFR 56 L, Est GFR ( Amer) 68, Glucose 229 H, Calcium 9.1, Total Bilirubin 0.2, AST 36, ALT 19, Alkaline Phosphatase 114, Total Protein 7.5, Albumin 4.0, Globulin 3.5 H, Albumin/Globulin Ratio 1.1 01/06/21 15:25: PT 10.4, INR 0.91 01/06/21 15:25: Urine Color Yellow, Urine Appearance Clear, Urine pH 7.0, Ur Specific [place] 1.015, Urine Protein 2+, Urine Glucose (UA) Trace, Urine Ketones Negative, Urine Blood Negative, Urine Nitrate Negative, Urine Bilirubin Negative, Urine Urobilinogen 0.2, Ur Leukocyte Esterase Negative, Urine RBC None, Urine WBC Occasional, Ur Squamous Epith Cells None, Urine Bacteria None 01/06/21 15:25: Lactate 1.6 01/06/21 15:25: Troponin I < 0.01, Procalcitonin 0.062 01/06/21 15:25: Acetone Level None detected 01/06/21 15:25: Urine Opiates Screen Negative, Urine Methadone Screen Negative, Ur Barbituates Screen Negative, Ur Phencyclidine Scrn Negati
[2021-01-06 17:23] LABS: Coronavirus 19, PCR Not Detected (NotDetected); Influenza A, PCR Not Detected (NotDetected); Influenza B, PCR Not Detected (NotDetected)
[2021-01-06 17:27] LABS: Amphetamine/Metha Screen,Urine Negative ng/ml (<1000)
[2021-01-06 17:28] LABS: Barbiturates Screen,Urine Negative ng/ml (<200)
[2021-01-06 17:29] LABS: Benzodiazepines Screen,Urine Negative ng/ml (<200); Cannabinoid Screen,Urine Negative ng/ml (<50)
[2021-01-06 17:30] LABS: Cocaine Screen,Urine Negative ng/ml (<300); Methadone Screen,Urine Negative ng/ml (<300)
[2021-01-06 17:31] LABS: Opiate Screen,Urine Negative ng/ml (<300)
[2021-01-06 17:32] LABS: Phencyclidine Screen,Urine Negative ng/ml (<25)
[2021-01-06 18:29] LABS: Occult Blood,Stool Negative (Negative)
--- NOTE | 2021-01-06 18:48 | PC.NURSE ---
paged Dr. Olmedo (vision therapist for Dr. Ford).
[2021-01-06 19:43] LABS: Troponin I 0.02 ng/ml (0.00-0.034)
[2021-01-06 19:54] LABS: Ammonia < 9 umol/L (9-30)
--- NOTE | 2021-01-06 20:37 | ECG_ITS ---
APPROVED REPORT Exam: Resting ECG HR:131 bpm ECG Measurements Heart Rate 131 AXES QRSd 94 QRS 75 QT 308 T 91 QTc 454 Conclusion Sinus tachycardia Poor R wave progression, unchanged from prior Abnormal ECG Electronically signed by : Ovi Olmedo MD 01/07/2021 12:46:44
--- NOTE | 2021-01-06 21:06 | PC.NURSE ---
patient up to floor via stretcher at @ 20:49.
[2021-01-06 21:44] LABS: POC Glucose,Bedside 416 (70-110)
[2021-01-06 21:59] LABS: POC Glucose,Bedside 403 (70-110)
[2021-01-06 23:02] LABS: Troponin I 0.25 ng/ml (0.00-0.034)
--- NOTE | 2021-01-06 23:40 | PC.NURSE ---
PT HAS BEEN INCREASINGLY CONFUSED SINCE ARRIVAL TO FLOOR. BED SAFETY APPLIED. PT TEMP ON ARRIVAL TO FLOOR 101.9 RECTAL. PT UNABLE TO SWALLOW PO MEDS, RECEIVED ORDER FOR RECTAL TYLENOL PER RUBINA. ADMINISTERED AT THIS TIME. PT HR IN 140s. MORE AGITATED. CRITICAL TROPONIN 0.25. MD CESPEDES NOTIFIED OF THESE. NEW ORDER FOR ATIVAN GIVEN. WILL RECHECK TEMP. PT RESTING AT THIS TIME. WILL CONTINUE TO MONITOR.
[2021-01-07] VITALS (7 sets, daily range): BP systolic 108–154; BP diastolic 48–88; PULSE 98–142; RESP 16–22; TEMP 36.6–38.7; O2SAT 96–100; BMI 37.3
--- NOTE | 2021-01-07 04:49 | PC.NURSE ---
PT HAS CONTINUED TO BE DISORIENTED. BED SAFETY ON. TOLERATING 3LNC. VSS WILL CONTINUE TO MONITOR.
--- NOTE | 2021-01-07 05:44 | PC.NURSE ---
PT BATHED AND FULL LINEN CHANGE. RESTING IN BED WITH EYES CLOSED AT THIS TIME.
[2021-01-07 05:54] LABS: POC Glucose,Bedside 410 (70-110)
--- NOTE | 2021-01-07 07:00 | XR_ITS ---
PROCEDURE INFORMATION: Exam: XR Chest Exam date and time: 01/07/2021 7:00 AM Age: 65 years old Clinical indication: Shortness of breath; Patient HX: SOB pneumonia - not covid positive TECHNIQUE: Imaging protocol: XR of the chest. Views: 1 view. COMPARISON: CR XR CHEST PORTABLE 01/06/2021 4:03 PM FINDINGS: Tubes, catheters and devices: Overlying EKG wires Lungs: Improving opacities in the right base may represent improving pneumonia.. Pleural spaces: Unremarkable. No pleural effusion. No pneumothorax. Heart/Mediastinum: Unremarkable. No cardiomegaly. Bones/joints: Unremarkable. IMPRESSION: Improving opacities in the right base may represent improving pneumonia..
[2021-01-07 07:29] LABS: Basophils # 0.1 K/mm3 (0-0.2); Basophils % 0.3 % (0.1-2.0); Hematocrit 28.2 % (37.0-47.0); Lymphocytes # 1.7 K/mm3 (0.7-4.5); Lymphocytes % 10.9 % (10-50); Mean Corpuscular HGB Conc 31.3 g/dL (31.8-35.4); Mean Corpuscular Hemoglobin 28.8 pg (27.0-31.2); Mean Corpuscular Volume 92.2 fl (81-99); Mean Platelet Volume 8.9 fl (7.4-10.4); Monocytes # 0.7 K/mm3 (0.1-1.0); Monocytes % 4.4 % (1.7-9.3); Neutrophils # 13.1 K/mm3 (1.8-7.8); Neutrophils % 84.4 % (37.0-80.0); Platelet Count 425 K/mm3 (142-424); Red Blood Count 3.06 M/mm3 (4.20-5.40); Red Cell Distribution Width 16.4 % (11.5-17.5); White Blood Count 15.5 K/mm3 (4.8-10.8)
[2021-01-07 07:31] LABS: MANUAL DIFFERENTIAL MANUAL DIFFERENTIAL (MANUAL DIFF)
[2021-01-07 08:00] LABS: Lymphocytes % 10 % (10-50); Monocytes % 6 % (2-9); Neutrophils % 84 % (42-76); Platelet Estimate Normal; RBC Morphology Normal; Total Cells Counted 100
[2021-01-07 08:09] LABS: Hemoglobin 8.8 g/dL (12.2-16.2)
--- NOTE | 2021-01-07 08:48 | HMH.HP ---
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 She was incoherent, babbling, nonsensical. But no focal deficits. In the emergency department she was found to have significant febrile status, slight hypertension. Covid negative, but work-up revealed leukocytosis and evidence of infiltrate on chest x-ray. The diagnosis of sepsis was made because of fever, tachycardia and elevated white count and she was admitted to hospital for broad-spectrum antibiotics, IV fluids and further evaluation. Work-up in the ER for mental status changes including negative CT scan of head and C-spine. Neck normal ammonia, TSH and other metabolic levels. [facility] History I have reviewed the patient's past medical history: Yes Medical History: Reports:: Congestive Heart Failure, Coronary Artery Disease, Diabetes Mellitus Type 1, Diabetes Mellitus Type 2, Hypertension, MRSA Denies:: Cancer, Internal Pacemaker, Seizures *Have you ever received a pneumonia vaccine?: Yes *Have you received a flu vaccine this season?: Yes Other Medical History: Reports: Anemia, Cataracts, Hypothyroidism, Thyroid Disease. Denies: Blood Transfusion Reaction Other Surgeries: Yes: Appendectomy, Cardiac Catheterization, Cholecystectomy, Coronary Stent, Hysterectomy-Total, Tubal Ligation, Other. No: Pacemaker Amputation: No Fractures: Yes - *Social History Smoking Status: Current every day smoker Tobacco Type: cigarettes # Packs/Day (cigarettes): 1 #Yrs smoked (if former smoker): 20 Alcohol Intake: never Substance Use Type: denies use *Occupational Status:: disabled Housing: house Household Members: family *Travel in the last 8 weeks: None Family Hx:: No significant family history Review of Systems - Review of Systems Review of systems:: unable to obtain - *Neurologic Reports confusion, Denies localized weakness, Denies seizure-like activity Meds Home Medications Medication Instructions Recorded Confirmed Type Duloxetine HCl 60 mg PO HS 05/01/19 11/04/19 History Gabapentin [Gabapentin 300mg Cap] 300 mg PO HS 05/01/19 11/04/19 History Insulin Aspart [Novolog Flexpen] 10 units SQ TID 05/01/19 11/04/19 History Levothyroxine Sodium 150 mcg PO DAILY 05/01/19 11/04/19 History [Levothyroxine 150mcg (0.15mg) Tab] ramipriL [Ramipril] 1.25 mg PO HS 05/01/19 11/04/19 History Acetaminophen [Acetaminophen 325mg 650 mg PO Q6HP PRN tab 05/23/19 11/04/19 Rx tab] Insulin Glargine,Hum.rec.anlog 18 unit SQ HS 08/11/19 11/04/19 History [Lantus Solostar 100 Units/mL 3mL flexpen] Docusate Sodium [Docusate Sodium 100 mg PO BIDP PRN cap 09/08/19 11/04/19 Rx 100mg Cap] Sennosides [Senokot 8.6mg tablet] 8.6 mg PO DAILYP PRN tab 09/08/19 11/04/19 Rx Insulin Lispro [HumaLOG 100 0 unit SQ ACHS 09/29/19 11/04/19 History units/mL 3mL vial (SSI)] cephALEXin [Cephalexin 500mg Tab] 500 mg PO BID 7 Days #14 tab 09/09/20 Rx Allergies Allergy/AdvReac Type Severity Reaction Status Date / Time codeine Allergy Intermediate MENTAL Verified 11/04/19 13:03 STATUS CHANGES/DROPS BLOOD SUGAR Penicillins Allergy Intermediate I-RASH Verified 11/04/19 13:03 Exam Vital signs and Labs for Last 24 Hours: Temp Pulse Resp BP Pulse Ox 99.7 F H 142 H 22 136/69 99 01/07/21 04:00 01/07/21 04:00 01/07/21 04:00 01/07/21 04:00 01/07/21 04:00 Laboratory Results - last 24 hr 01/06/21 15:25: WBC 13.6 H, RBC 3.45 L, Hgb 9.8 L, Hct 31.4 L, MCV 91.0, MCH 28.4, MCHC 31.2 L, RDW 15.8, Plt Count 493 H, MPV 8.3, Neut % (Auto) 78.5, Lymph % (Auto) 15.5, [place] % (Auto) 4.0, Eos % (Auto) 0.9, Baso % (Auto) 1.2, Neut # (Auto) 10.7
[2021-01-07 09:01] LABS: Chloride 104 mmol/L (98-107)
[2021-01-07 09:02] LABS: Potassium 4.3 mmoL/L (3.5-5.1); Sodium 138 mmol/L (136-145)
[2021-01-07 09:05] LABS: Anion Gap 19.3 mEq/L (5-15); Blood Urea Nitrogen 33 mg/dl (7-17); Calcium 8.5 mg/dl (8.4-10.2); Carbon Dioxide 19 mmol/L (22.0-30.0); Creatinine Clearance Estimated 56 mL/min (50-200); Estimated Glomerular Filt Rate 32 ml/min (>60); GFR (African American) 39 ML/MIN (>60); Glucose 341 mg/dl (74-100); Magnesium 1.7 mg/dl (1.6-2.3)
--- NOTE | 2021-01-07 15:55 | HMH.PHAINT ---
MEDICATION RECONCILIATION COMPLETE USING EXTERNAL PHARMACY FILL HISTORY.
--- NOTE | 2021-01-07 15:56 | HMH.PHAVTE ---
[facility] Pharmacy VTE Monitoring - Patient Demographics Admission date: 01/06/21 Report Date: 01/07/21 Time: 15:56 Allergies/Adverse Reactions: Patient Allergies codeine Allergy (Intermediate, Verified 11/04/19 13:03) MENTAL STATUS CHANGES/DROPS BLOOD SUGAR Penicillins Allergy (Intermediate, Verified 11/04/19 13:03) I-RASH Height: 1.63 m Weight: 99.246 kg Patient Problems: Current Active Problems Obesity (BMI 30-39.9) (Chronic) Diabetes mellitus, insulin dependent (IDDM), uncontrolled (Chronic) Hypothyroidism (Chronic) Acute delirium (Acute) CAP (community acquired pneumonia) (Acute) - VTE Risk Labs: VTE Related Lab Results Hgb 8.8 g/dL (12.2-16.2) L D 01/07/21 06:29 Hct 28.2 % (37.0-47.0) L 01/07/21 06:29 Plt Count 425 K/mm3 (142-424) H 01/07/21 06:29 PT 10.4 seconds (10.1-12.5) 01/06/21 15:25 INR 0.91 (0.9-1.1) 01/06/21 15:25 BUN 33 mg/dl (7-17) H D 01/07/21 06:29 Creatinine 1.60 mg/dl (0.52-1.04) H D 01/07/21 06:29 Estimated Creat Clear 56 mL/min (50-200) 01/07/21 06:29 Was VTE Risk Assessment Performed: No Clinical Trial Participant: No - Prophylaxis VTE Prophylaxis Ordered?: Yes Types of VTE Prophylaxis: TEDS Knee High Location of Applied Device: Bilateral Lower Extremeties
[2021-01-07 19:03] LABS: POC Glucose,Bedside 406 (70-110)
[2021-01-07 19:03] LABS: POC Glucose,Bedside 212 (70-110)
--- NOTE | 2021-01-07 19:21 | PC.NURSE ---
Pt has been pleasant and somewhat cooperative this shift. Alert to self. Pt is currently on room air with sats. >90%. Lungs CTA. No edema noted. Telemetry reveals NSR/ST. Skin is C/D/I. Pt has slept for the majority of the day and has received Ativan/Haldol when agitated. F/C is patent and draining clear, yellow urine at bedside to gravity. Pt is incontinent and has had 1 large, soft, brown BM thus far this shift. Pt is NPO and has received oral care Q2H this shift. Sputum specimen has been unable to be obtained. FSBS results have been 406 and 212. 20 G peripheral IV in the LT AC is patent and infusing NS @ 100 ML/HR. VSS. Call light within reach. Will continue to monitor.
[2021-01-08] VITALS (7 sets, daily range): BP systolic 142–183; BP diastolic 60–114; PULSE 101–112; RESP 16–20; TEMP 36.8–37.3; O2SAT 95–97; BMI 37.2
[2021-01-08 01:50] LABS: POC Glucose,Bedside 178 (70-110)
[2021-01-08 06:15] LABS: POC Glucose,Bedside 452 (70-110)
--- NOTE | 2021-01-08 06:42 | PC.NURSE ---
pt alert to self this shift. has been agitated at times, prn ativan given x1. pt has rested comfortably for a majority of the shift. lungs CTA, on room air. pt refused to leave cardiac monitor technician or gown on, it has been placed on her multiple times this shift. IV patent, call light in reach, no concerns at this time.
--- NOTE | 2021-01-08 08:30 | HMH.ACPN2 ---
Internal Medicine - PN: Subj *Date: 01/08/21 *Time: 08:30 Interval history: Patient's delirium has cleared somewhat through the night. She remains on room air, was able to recognize some of her excoworkers through the night and call them by name. This morning she is sleeping. When awakened was more responsive than yesterday and verbal. Was able to tell me she was at the doctor's office. Exam Vital signs and Labs for Last 24 Hours: Temp Pulse Resp BP Pulse Ox 98.6 F 112 H 20 144/78 H 95 01/08/21 04:00 01/08/21 04:00 01/08/21 04:00 01/08/21 04:00 01/08/21 04:00 Laboratory Results - last 24 hr 01/07/21 06:29: Sodium 138, Potassium 4.3, Chloride 104, Carbon Dioxide 19 L, Anion Gap 19.3 H, BUN 33 H D, Creatinine 1.60 H D, Estimated Creat Clear 56, Estimated GFR 32 L, Est GFR ( Amer) 39 L D, Glucose 341 H D, Calcium 8.5, Magnesium 1.7 01/07/21 11:32: POC Glucose 406 H* 01/07/21 16:49: POC Glucose 212 H 01/07/21 22:34: POC Glucose 178 H 01/08/21 05:49: POC Glucose 452 H* I & O for Last 24 hours: Intake & Output 01/05/21 01/06/21 01/07/21 01/08/21 11:59 11:59 11:59 11:59 Intake Total 415 / 415 Output Total 1300 / 1300 600 / 600 Balance -1300 / -1300 -185 / -185 Weight 218 lb 12.799 oz 218 lb 1.6 oz Narrative: Neurologically improved as noted above. Oropharynx clear. No JVD. Anterior lung stern are clear. Heart rate regular. Abdomen soft. No distal perfusion deficits, wounds or edema over her baseline. Assessment and Plan (1) Acute delirium Status: Acute Category: Medical Code(s): R41.0 - Disorientation, unspecified (2) CAP (community acquired pneumonia) Status: Acute Qualifiers: Laterality: right Lung location: lower lobe of lung Qualified Code(s): J18.9 - Pneumonia, unspecified organism Category: Medical Code(s): J18.9 - Pneumonia, unspecified organism - Assessment and plan all Dx Assessment and Plan for all problems:: Overall seems to be improving now the fever curve is improved. Await blood cultures. I will repeat chest x-ray tomorrow and reassess pneumonia. Continue current antibiotic therapy. I have asked nursing to try to cut back on Ativan use to help her clear mentally. Soft mechanical diet if she is able to eat today.
[2021-01-08 13:38] LABS: POC Glucose,Bedside 378 (70-110)
--- NOTE | 2021-01-08 18:22 | PC.NURSE ---
Staff responded to bed safety alarm and found pt sitting in the floor. Dr. Olmedo notified. No new orders received.
[2021-01-08 23:25] LABS: POC Glucose,Bedside 107 (70-110)
[2021-01-08 23:25] LABS: POC Glucose,Bedside 229 (70-110)
[2021-01-09] VITALS: BP 160/73; PULSE 102; RESP 18; TEMP 37.2; O2SAT 97
[2021-01-09 04:00] VITALS: BP 157/88; PULSE 100; RESP 18; TEMP 37; O2SAT 98
[2021-01-09 06:11] LABS: Basophils # 0.1 K/mm3 (0-0.2); Basophils % 0.7 % (0.1-2.0); Eosinophils # 0.1 K/mm3 (0.0-0.4); Eosinophils % 0.5 % (0.1-12.0); Hematocrit 25.7 % (37.0-47.0); Hemoglobin 7.9 g/dL (12.2-16.2); Lymphocytes # 3.2 K/mm3 (0.7-4.5); Lymphocytes % 20.7 % (10-50); Mean Corpuscular HGB Conc 30.6 g/dL (31.8-35.4); Mean Corpuscular Hemoglobin 29.3 pg (27.0-31.2); Mean Corpuscular Volume 95.7 fl (81-99); Mean Platelet Volume 9.6 fl (7.4-10.4); Monocytes # 0.8 K/mm3 (0.1-1.0); Monocytes % 5.1 % (1.7-9.3); Neutrophils # 11.2 K/mm3 (1.8-7.8); Platelet Count 377 K/mm3 (142-424); Red Blood Count 2.68 M/mm3 (4.20-5.40); Red Cell Distribution Width 16.4 % (11.5-17.5); White Blood Count 15.4 K/mm3 (4.8-10.8)
[2021-01-09 06:17] LABS: MANUAL DIFFERENTIAL MANUAL DIFFERENTIAL (MANUAL DIFF)
[2021-01-09 06:22] LABS: Anion Gap 20.4 mEq/L (5-15); Blood Urea Nitrogen 37 mg/dl (7-17); Calcium 7.9 mg/dl (8.4-10.2); Carbon Dioxide 12 mmol/L (22.0-30.0); Chloride 104 mmol/L (98-107); Creatinine Clearance Estimated 68 mL/min (50-200); Estimated Glomerular Filt Rate 41 ml/min (>60); GFR (African American) 50 ML/MIN (>60); Potassium 4.4 mmoL/L (3.5-5.1); Sodium 132 mmol/L (136-145)
[2021-01-09 06:25] LABS: Glucose 529 mg/dl (74-100)
--- NOTE | 2021-01-09 06:28 | PC.NURSE ---
Recieved call from [facility]- stat glucose was 529. Paged at this time.
--- NOTE | 2021-01-09 07:03 | PC.NURSE ---
called back and ordered to change SSI to high intensity scale, and to give 30 units at this time. Faxed pharm communication at this time.
[2021-01-09 07:05] LABS: Eosinophils % 1 % (0-3); Lymphocytes % 18 % (10-50); Monocytes % 4 % (2-9); Neutrophils % 77 % (42-76); Total Cells Counted 100
[2021-01-09 07:06] LABS: Anisocytosis 1+; Hypochromasia 2+; Macrocytosis 1+; Platelet Estimate Normal
[2021-01-09 08:00] VITALS: BP 109/65; TEMP 36.4; O2SAT 96
--- NOTE | 2021-01-09 08:07 | XR_ITS ---
PROCEDURE: XR CHEST 2V CLINICAL HISTORY: f/u pneumonia COMPARISON: CR XR CHEST PORTABLE from 01/06/2021 CR XR CHEST PORTABLE from 01/07/2021 CR XR CHEST PORTABLE from 01/09/2021 FINDINGS: There is cardiomegaly with mild pulmonary venous congestion and minimal interstitial edema. Previously described nodular opacity in the right upper lobe is less apparent possibly due to summation artifact. There does appear to be some patchy infiltrate in the right lower lobe which was not as evident on the portable radiograph. No effusions. No acute bony abnormalities. IMPRESSION: Mild CHF with some residual infiltrate in the right lower lobe not significantly changed. Dictated by: Wally Banuelos MD 01/09/2021 10:31 Wally Banuelos MD in [facility] 01/09/2021 10:31
--- NOTE | 2021-01-09 08:09 | HMH.ACPN2 ---
Internal Medicine - PN: Subj *Date: 01/09/21 *Time: 08:09 Interval history: Patient's mental status has cleared fairly nicely over the past 24 hours. She was able to eat a very good supper and has been snacking through the night as a result her glucose is over 500. Sliding scale was adjusted. She knows she is in the hospital, does not remember any details of how she got here. Denies pain symptoms. Wishes to be discharged home. Exam Vital signs and Labs for Last 24 Hours: Temp Pulse Resp BP Pulse Ox 98.6 F 100 H 18 157/88 H 98 01/09/21 04:00 01/09/21 04:00 01/09/21 04:00 01/09/21 04:00 01/09/21 04:00 Laboratory Results - last 24 hr 01/08/21 13:26: POC Glucose 378 H* 01/08/21 16:25: POC Glucose 229 H 01/08/21 20:01: POC Glucose 107 01/09/21 05:49: WBC 15.4 H, RBC 2.68 L, Hgb 7.9 L, Hct 25.7 L, MCV 95.7, MCH 29.3, MCHC 30.6 L, RDW 16.4, Plt Count 377, MPV 9.6, Neut % (Auto) 73.0, Lymph % (Auto) 20.7, [place] % (Auto) 5.1, Eos % (Auto) 0.5, Baso % (Auto) 0.7, Neut # (Auto) 11.2 H, Lymph # (Auto) 3.2, [place] # (Auto) 0.8, Eos # (Auto) 0.1, Baso # (Auto) 0.1, Total Counted 100, Neutrophils % (Manual) 77 H, Lymphocytes % (Manual) 18, Monocytes % (Manual) 4, Eosinophils % (Manual) 1, Platelet Estimate Normal, Hypochromasia 2+, Anisocytosis 1+, Macrocytosis 1+ 01/09/21 05:49: Sodium 132 L, Potassium 4.4, Chloride 104, Carbon Dioxide 12 L, Anion Gap 20.4 H, BUN 37 H, Creatinine 1.30 H, Estimated Creat Clear 68, Estimated GFR 41 L, Est GFR ( Amer) 50 L D, Glucose 529 H*, Calcium 7.9 L I & O for Last 24 hours: Intake & Output 01/06/21 01/07/21 01/08/21 01/09/21 11:59 11:59 11:59 11:59 Intake Total 415 / 415 60 / 60 Output Total 1300 / 1300 600 / 600 1400 / 1400 Balance -1300 / -1300 -185 / -185 -1340 / -1340 Weight 218 lb 12.799 oz 218 lb 1.6 oz Microbiology Reports for the Last 24 Hours: Microbiology 01/06/21 15:25 Blood Blood Culture - Preliminary NO GROWTH AFTER 48 HOURS 01/06/21 15:25 Blood Blood Culture - Preliminary NO GROWTH AFTER 48 HOURS Narrative: Patient is alert and more oriented but still fuzzy about the date and details of her presentation. Lungs have better air entry, minimal bibasilar rhonchi, heart rate regular. Abdomen soft. ENT exam clear. Extremities are unchanged. She appears globally weak with no focal neurologic deficits otherwise. Assessment and Plan (1) Acute delirium Status: Acute Category: Medical Code(s): R41.0 - Disorientation, unspecified (2) CAP (community acquired pneumonia) Status: Acute Qualifiers: Laterality: right Lung location: lower lobe of lung Qualified Code(s): J18.9 - Pneumonia, unspecified organism Category: Medical Code(s): J18.9 - Pneumonia, unspecified organism (3) Acute kidney injury Status: Acute Category: Medical Code(s): N17.9 - Acute kidney failure, unspecified (4) Diabetes mellitus, insulin dependent (IDDM), uncontrolled Status: Chronic Category: Medical Code(s): E11.65 - Type 2 diabetes mellitus with hyperglycemia; Z79.4 - senior living (current) use of insulin (5) Hypothyroidism Status: Chronic Qualifiers: Hypothyroidism type: acquired Qualified Code(s): E03.9 - Hypothyroidism, unspecified Category: Medical Code(s): E03.9 - Hypothyroidism, unspecified (6) Obesity (BMI 30-39.9) Status: Chronic Category: Medical Code(s): E66.9 - Obesity, unspecified (7) Chronic anemia Status: Acute Category: Medical Code(s): D64.9 - Anemia, unspecified - Assessment and plan all Dx Assessment and Plan for all problems:: Overall patient has improved: Issues as noted below: 1. Acute febrile illness-resolving. Probable pneumonia given lack of other sources. Recheck chest x-ray today in a nonportable format. Continue antibiotics. Await final results of blood cultures. Patient is not coughing. 2. Acute kidney i
--- NOTE | 2021-01-09 08:32 | XR_ITS ---
PROCEDURE: XR CHEST PORTABLE CLINICAL HISTORY: f/u pneumonia COMPARISON: No exams were available for comparison FINDINGS: Borderline cardiomegaly. There is mild pulmonary venous congestion with some Remi B line suggesting mild CHF. No lobar consolidation or collapse. Right lower lobe pneumonia has improved since 01/06/2021. there is a faint opacity in the right upper lobe at the 3rd interspace anteriorly possibly due to summation artifact. Follow-up PA and lateral chest may confirm. No acute bony abnormalities. IMPRESSION: Mild CHF with improvement in right lower lobe pneumonia Faint opacity right upper lobe Dictated by: Wally Banuelos MD 01/09/2021 08:20 Wally Banuelos MD in [facility] 01/09/2021 08:20
--- NOTE | 2021-01-09 10:30 | HMH.OTEV ---
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 She was incoherent, babbling, nonsensical. But no focal deficits. In the emergency department she was found to have significant febrile status, slight hypertension. Covid negative, but work-up revealed leukocytosis and evidence of infiltrate on chest x-ray. The diagnosis of sepsis was made because of fever, tachycardia and elevated white count and she was admitted to hospital for broad-spectrum antibiotics, IV fluids and further evaluation. Work-up in the ER for mental status changes including negative CT scan of head and C -spine. Neck normal ammonia, TSH and other metabolic levels . [facility] History Medical History: Reports:: Congestive Heart Failure, Coronary Artery Disease, Diabetes Subjective I can get up. Patient lives in a trailer with her sister and no CORY. Patient verbalize being independent with ADLs and fx'l mobility. Sister provides patient transportation to outside appointments. Objective Patient Orientation Person,Place,Birthday,Year Upper Extremity Gross ROM
--- NOTE | 2021-01-09 10:34 | HMH.PTEV ---
Physical Therapy Evaluation Rehab PT IP Evaluation Start: 01/09/21 08:07 Freq: ONCE Status: Active Protocol: Document 01/09/21 10:17 PWMORGAN (Rec: 01/09/21 10:34 PWMORGAN [id number]) Subjective/History History History This is the initial evlaution of Lilibeth Sena. Pt is a 65 y/ o female who reports with impaired mental status. Pt has sufferened previous hospital visits due to diabetic foot ulcers complications and non- compliance. - note done by Yohana Henry, SPT Subjective Subjective Pt reports she feels much better today. Pt reports she lives in a trailer with her sister. Pt reports she did not use any type of assistance device prior to hospital admission. Pt reporeted she has fallen at home many times. Rehab PT IP Eval Objective Appearance Patient Behavior Appropriate,Cooperative, Fatigued Patient Orientation Person,Place,Time,Name, Birthday Difficulty following instructions none Speech Pattern Clear,Appropriate,Coherent, Monotone,Mumbled Ambulation Patient Able to Ambulate Yes Ambulation Observation IP General Gait Pattern Observation Narrow Based Gait,Shuffling Step Ambulation Distance (feet) 2 Ambulation Assistive Device Rolling Walker Ambulation Ability Minimal x 1 (25% assist) Balance Ability to Arise Able, uses arms to help Sitting Balance Steady, safe Standing Balance Unsteady Dynamic Sitting Balance Ability Good Dynamic Standing Balance Ability Poor Transfers Bed Transfer Ability Contact Guard/Hand Hold Chair Transfer Ability Minimal x 1 (25% assist) Sit to Stand Bed Transfer Ability Moderate x 1 (50% assist) Sit to Stand Chair Transfer Ability Minimal x 1 (25% assist) Rehab PT IP prob,goals,plan Problems Date of Evaluation: 01/09/21 PT IP Problems Bed Mobility,Transfers,Gait, Balance,Self care Rehab Potential Rehab Potential Fair Equipment Needs Assistive Devices Rolling / Wheeled Walker Plan PT Intervention Plan Bed Mobility,Transfers,Gait, Balance,Self care,Safety PT Plan Frequency BID Duration
[2021-01-09 11:54] LABS: POC Glucose,Bedside 206 (70-110)
[2021-01-09 12:00] VITALS: BP 163/58; PULSE 88; RESP 16; TEMP 36.8; O2SAT 95
[2021-01-09 14:12] VITALS: BMI 37.3
--- NOTE | 2021-01-09 14:56 | SW/DCPLANNER ---
Addendum entered by Anh Steiner 01/10/21 09:33: Patient stated to myself and Dr Ford during morning rounds that is not interested in placement nor home health services at time of discharge. Patient plans to return home with her sister. Patient could potentially discharge later today or tomorrow. Original Note: I spoke with this patient today regarding discharge plans. Patient stated that she resides at home with her sister and prefers to return home at time of discharge. Patient is not interested in placement at this time but is open to home health services once medically stable for discharge. I will continue to follow up with this patient until medically stable for discharge.
[2021-01-09 15:17] VITALS: BP 128/56; PULSE 97; RESP 16; TEMP 36.8; O2SAT 18
[2021-01-09 16:48] LABS: POC Glucose,Bedside 141 (70-110)
--- NOTE | 2021-01-09 18:31 | PC.NURSE ---
Pt has became more alert as the shift has progressed. She states that she feels not quite herself yet and that she doesn't like that feeling. Garcia has been removed and she has urinated since. She had a bm this shift as well. She ambulated to the bathroom with assist x1 and a rolling walker with no issues. Appetite has been good. She was up to the chair for a few hours before requesting to go back to bed. Glucose was 206 and 141 at checks. Some swelling noted to right foot, pt states it is not new. She is currently resting in bed watching TV.
[2021-01-09 20:00] VITALS: BP 165/80; PULSE 91; RESP 19; TEMP 36.8; O2SAT 100
[2021-01-09 22:47] LABS: POC Glucose,Bedside 298 (70-110)
[2021-01-10] VITALS: BP 150/71; PULSE 87; RESP 18; TEMP 36.8; O2SAT 96
[2021-01-10 04:00] VITALS: BP 142/76; PULSE 87; RESP 18; TEMP 36.9; O2SAT 96
[2021-01-10 04:47] VITALS: BMI 39.1
[2021-01-10 06:32] LABS: POC Glucose,Bedside 208 (70-110)
[2021-01-10 06:33] LABS: Basophils # 0.1 K/mm3 (0-0.2); Basophils % 0.6 % (0.1-2.0); Eosinophils # 0.1 K/mm3 (0.0-0.4); Eosinophils % 1.3 % (0.1-12.0); Hematocrit 27.4 % (37.0-47.0); Hemoglobin 8.6 g/dL (12.2-16.2); Lymphocytes # 2.2 K/mm3 (0.7-4.5); Lymphocytes % 19.1 % (10-50); Mean Corpuscular HGB Conc 31.3 g/dL (31.8-35.4); Mean Corpuscular Hemoglobin 28.7 pg (27.0-31.2); Mean Corpuscular Volume 91.6 fl (81-99); Monocytes # 0.6 K/mm3 (0.1-1.0); Neutrophils # 8.4 K/mm3 (1.8-7.8); Neutrophils % 74.1 % (37.0-80.0); Platelet Count 416 K/mm3 (142-424); Red Blood Count 2.99 M/mm3 (4.20-5.40); Red Cell Distribution Width 16.4 % (11.5-17.5); White Blood Count 11.3 K/mm3 (4.8-10.8)
--- NOTE | 2021-01-10 07:31 | HMH.DCSUM ---
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 She was incoherent, babbling, nonsensical. But no focal deficits. In the emergency department she was found to have significant febrile status, slight hypertension. Covid negative, but work-up revealed leukocytosis and evidence of infiltrate on chest x-ray. The diagnosis of sepsis was made because of fever, tachycardia and elevated white count and she was admitted to hospital for broad-spectrum antibiotics, IV fluids and further evaluation. Work-up in the ER for mental status changes including negative CT scan of head and C-spine. Neck normal ammonia, TSH and other metabolic levels. Hospital Course Hospital Course: 65-year-old female admitted for pneumonia and febrile illness. Hospital course as follows: 1. Pneumonia/acute febrile illness. -Initiated on antibiotics at time of admission. Repeat x-ray obtained showing right lower lobe infiltrate. Gradually improved during hospitalization weaned off oxygen. Finished azithromycin course. Discharged home on Omnicef to finish empiric course for community-acquired pneumonia. Fevers resolved and was fever free for over 48 hours by day of discharge. Of note, on admission patient's PSI score was a 104. This put her at class IV risk, mortality 8.2 to 9.3% 2. Acute kidney injury. - occurred within first 24 hours of admission. Gradually improved with IV fluids. 3. Diabetes. -Longstanding, poorly controlled. Resumed her home insulin regimen. Will need significant adjustment addressing as an outpatient with her primary care. Question her control. No A1c available for over a year. -Treated with high intensity sliding scale insulin while admitted 4. Weakness with significant delirium -GERD during hospitalization. Gradually improved. Believed to be secondary to overall severity of her illness. Recovered to the point she was able to be evaluated by PT/OT. Patient stable to go home 5. Chronic anemia - Monitored through admission. Transfusion threshold hemoglobin less than 7. No active bleeding during hospitalization. No transfusions needed. Objective Vital signs: Temp Pulse Resp BP Pulse Ox 98.4 F 87 18 142/76 H 96 01/10/21 04:00 01/10/21 04:00 01/10/21 04:00 01/10/21 04:00 01/10/21 04:00 no acute distress - *Routine HEENT Exam Head: Present: normocephalic Eye: Present: EOMI, PERRL ENT: Present: mucous membranes moist - *Routine Neck Exam Present: supple - *Routine Respiratory Exam Present: CTA bilaterally - *Routine Cardiovascular Exam Present: RRR - *Routine Abdominal Exam Present: soft, normoactive bowel sounds, tenderness (mild non focal) - *Routine Extremities Exam Present: edema (trace). Absent: cyanosis, clubbing Comments: healing RLE wound - *Routine Skin Exam Present: warm. Absent: rash - Detailed Eye Exam Eyelids: Bilateral normal inspection Results Labs on day of discharge: Labs from last 24 hours 01/10/21 01/10/21 01/09/21 06:10 05:49 20:51 WBC 11.3 H D RBC 2.99 L Hgb 8.6 L Hct 27.4 L MCV 91.6 MCH 28.7 MCHC 31.3 L RDW 16.4 Plt Count 416 MPV 10.0 Neut % (Auto) 74.1 Lymph % (Auto) 19.1 [place] % (Auto) 5.0 Eos % (Auto) 1.3 Baso % (Auto) 0.6 Neut # (Auto) 8.4 H Lymph # (Auto) 2.2 [place] # (Auto) 0.6 Eos # (Auto) 0.1 Baso # (Auto) 0.1 POC Glucose 208 H 298 H 01/09/21 01/09/21 16:40 11:38 WBC RBC Hgb Hct MCV MCH MCHC RDW Plt Count MPV Neut % (Auto) Lymph % (Auto) [place] % (Auto) Eos % (Auto) Baso % (Auto) Neut # (Auto) Lymph #
[2021-01-10 07:53] VITALS: BP 157/68; PULSE 94; RESP 17; TEMP 36.6; O2SAT 99
[2021-01-10 08:05] LABS: Blood Urea Nitrogen 24 mg/dl (7-17); Calcium 8.3 mg/dl (8.4-10.2); Carbon Dioxide 16 mmol/L (22.0-30.0); Chloride 105 mmol/L (98-107); Creatinine Clearance Estimated 93 mL/min (50-200); Estimated Glomerular Filt Rate 56 ml/min (>60); GFR (African American) 68 ML/MIN (>60); Glucose 226 mg/dl (74-100); Sodium 135 mmol/L (136-145)
--- NOTE | 2021-01-10 08:27 | PC.NURSE ---
Shift summary : Pt. able to state name, , place; unable to state year. Pt. follows commands, states needs and can maintain conversation. Two episodes of n/v; relieved with zofran per mar. Reports nausea is fast-onset and abd is rumbling .
--- NOTE | 2021-01-10 09:26 | HMH.ACPN ---
Internal Medicine - PN: Subj *Date: 01/10/21 *Time: 09:26 Exam Vital signs and Labs for Last 24 Hours: Temp Pulse Resp BP Pulse Ox 98 F 94 H 17 157/68 H 99 01/10/21 07:53 01/10/21 07:53 01/10/21 07:53 01/10/21 07:53 01/10/21 07:53 Laboratory Results - last 24 hr 01/09/21 11:38: POC Glucose 206 H 01/09/21 16:40: POC Glucose 141 H 01/09/21 20:51: POC Glucose 298 H 01/10/21 05:49: POC Glucose 208 H 01/10/21 06:10: WBC 11.3 H D, RBC 2.99 L, Hgb 8.6 L, Hct 27.4 L, MCV 91.6, MCH 28.7, MCHC 31.3 L, RDW 16.4, Plt Count 416, MPV 10.0, Neut % (Auto) 74.1, Lymph % (Auto) 19.1, [place] % (Auto) 5.0, Eos % (Auto) 1.3, Baso % (Auto) 0.6, Neut # (Auto) 8.4 H, Lymph # (Auto) 2.2, [place] # (Auto) 0.6, Eos # (Auto) 0.1, Baso # (Auto) 0.1 01/10/21 06:10: Sodium 135 L, Potassium 4.0, Chloride 105, Carbon Dioxide 16 L, Anion Gap 18.0 H, BUN 24 H D, Creatinine 1.00 D, Estimated Creat Clear 93, Estimated GFR 56 L, Est GFR ( Amer) 68 D, Glucose 226 H, Calcium 8.3 L I & O for Last 24 hours: Intake & Output 01/07/21 01/08/21 01/09/21 01/10/21 23:59 23:59 23:59 23:59 Intake Total 415 / 415 60 / 60 2365 / 2365 903 / 903 Output Total 800 / 1000 1200 / 1600 1800 / 1800 0 / 0 Balance -385 / -585 -1140 / -1540 565 / 565 903 / 903 Weight 99.246 kg 98.928 kg 99 kg 103.873 kg Assessment and Plan (1) Acute delirium Status: Acute Category: Medical Code(s): R41.0 - Disorientation, unspecified (2) CAP (community acquired pneumonia) Status: Acute Qualifiers: Laterality: right Lung location: lower lobe of lung Qualified Code(s): J18.9 - Pneumonia, unspecified organism Category: Medical Code(s): J18.9 - Pneumonia, unspecified organism (3) Acute kidney injury Status: Acute Category: Medical Code(s): N17.9 - Acute kidney failure, unspecified (4) Diabetes mellitus, insulin dependent (IDDM), uncontrolled Status: Chronic Category: Medical Code(s): E11.65 - Type 2 diabetes mellitus with hyperglycemia; Z79.4 - [employer] (current) use of insulin (5) Hypothyroidism Status: Chronic Qualifiers: Hypothyroidism type: acquired Qualified Code(s): E03.9 - Hypothyroidism, unspecified Category: Medical Code(s): E03.9 - Hypothyroidism, unspecified (6) Obesity (BMI 30-39.9) Status: Chronic Category: Medical Code(s): E66.9 - Obesity, unspecified (7) Chronic anemia Status: Acute Category: Medical Code(s): D64.9 - Anemia, unspecified The patient's infection will respond to the chosen ABx?: Yes Is the patient receiving the right drug, dose, and route?: Yes Could a more targeted ABx be ordered?: No
[2021-01-10 11:19] LABS: POC Glucose,Bedside 213 (70-110)
[2021-01-10 11:59] VITALS: BP 162/66; PULSE 90; RESP 21; TEMP 36.9; O2SAT 96
[2021-01-10 16:00] VITALS: BP 134/88; PULSE 88; RESP 19; TEMP 37; O2SAT 97
[2021-01-10 20:55] LABS: POC Glucose,Bedside 180 (70-110)
== END 2021-01-10 18:43 | disposition home or self-care (01) | DRG 194 ==
LOC: ER 19:35 → 2ND 19:43
PROVIDERS: Admitting Provider Internal Medicine Adolescent Medicine; Emergency Provider Emergency Medicine; PCP Internal Medicine; Visit Provider Internal Medicine Adolescent Medicine
DX: J18.9 Pneumonia, unspecified organism (principal); N17.9 Acute kidney failure, unspecified; Z20.822 Contact with and (suspected) exposure to COVID-19; E11.65 Type 2 diabetes mellitus with hyperglycemia; Z79.4 Long term (current) use of insulin; E03.9 Hypothyroidism, unspecified; Z68.39 Body mass index [BMI] 39.0-39.9, adult; D64.9 Anemia, unspecified; I11.0 Hypertensive heart disease with heart failure; I50.9 Heart failure, unspecified; I25.10 Atherosclerotic heart disease of native coronary artery without angina pectoris; F17.210 Nicotine dependence, cigarettes, uncomplicated; Z95.5 Presence of coronary angioplasty implant and graft; E66.01 Morbid (severe) obesity due to excess calories
CPT/HCPCS: 36415; 70450; 71045; 71046; 72125; 72170; 80048; 80053; 80305; 81001; 82009; 82140; 82272; 82962; 83605; 83735; 84145; 84443; 84484; 85007; 85025; 85610; 87040; 93005; 96365; 96366; 96375; 97110; 97116; 97163; 97165; 97530; 97535; 99284; C9803; G0328; J0456; J2405; U0003; U0005

== ENCOUNTER → 2021-01-27 16:53 | Outpatient (CLI) | payer MEDICARE, SELFPAY ==
[2021-01-27 18:04] LABS: Basophils # 0.1 K/mm3 (0-0.2); Basophils % 0.7 % (0.1-2.0); Eosinophils % 0.4 % (0.1-12.0); Hematocrit 29.4 % (37.0-47.0); Hemoglobin 8.8 g/dL (12.2-16.2); Lymphocytes # 1.6 K/mm3 (0.7-4.5); Lymphocytes % 15.3 % (10-50); Mean Corpuscular HGB Conc 29.9 g/dL (31.8-35.4); Mean Corpuscular Hemoglobin 28.4 pg (27.0-31.2); Mean Corpuscular Volume 95.1 fl (81-99); Mean Platelet Volume 9.8 fl (7.4-10.4); Monocytes # 0.6 K/mm3 (0.1-1.0); Monocytes % 5.5 % (1.7-9.3); Neutrophils # 8.3 K/mm3 (1.8-7.8); Platelet Count 553 K/mm3 (142-424); Red Blood Count 3.09 M/mm3 (4.20-5.40); Red Cell Distribution Width 15.8 % (11.5-17.5); Reticulocyte % (Auto) 4.2 % (0.9-3.2); White Blood Count 10.7 K/mm3 (4.8-10.8)
[2021-01-27 18:07] LABS: Iron 41 ug/dL (37-170)
[2021-01-27 18:17] LABS: Total Iron Binding Capacity 374 ug/dL (265-497)
[2021-01-27 18:44] LABS: Ferritin 62.9 ng/ml (11.1-264)
[2021-01-27 20:03] LABS: Vitamin B12 786 pg/mL (239-931)
== END ==
PROVIDERS: Visit Provider Internal Medicine
DX: J18.9 Pneumonia, unspecified organism (principal); E11.59 Type 2 diabetes mellitus with other circulatory complications; D64.9 Anemia, unspecified
CPT/HCPCS: 82607; 82728; 83540; 83550; 85025; 85044

== ENCOUNTER → 2021-02-27 14:12 | Outpatient (CLI) | payer MEDICARE, SELFPAY ==
[2021-02-27 14:46] LABS: Basophils # 0.1 K/mm3 (0-0.2); Basophils % 1.5 % (0.1-2.0); Eosinophils # 0.1 K/mm3 (0.0-0.4); Eosinophils % 1.3 % (0.1-12.0); Hematocrit 31.5 % (37.0-47.0); Hemoglobin 9.5 g/dL (12.2-16.2); Lymphocytes # 2.3 K/mm3 (0.7-4.5); Lymphocytes % 25.6 % (10-50); Mean Corpuscular HGB Conc 30.1 g/dL (31.8-35.4); Mean Platelet Volume 10.8 fl (7.4-10.4); Monocytes # 0.5 K/mm3 (0.1-1.0); Monocytes % 5.3 % (1.7-9.3); Neutrophils % 66.4 % (37.0-80.0); Platelet Count 424 K/mm3 (142-424); Red Blood Count 3.39 M/mm3 (4.20-5.40); Red Cell Distribution Width 14.9 % (11.5-17.5); Reticulocyte % (Auto) 1.7 % (0.9-3.2); White Blood Count 9.1 K/mm3 (4.8-10.8)
== END ==
PROVIDERS: Visit Provider Internal Medicine
DX: D50.9 Iron deficiency anemia, unspecified (principal)
CPT/HCPCS: 85025; 85044

== ENCOUNTER → 2021-03-09 15:38 | Outpatient (CLI) | payer MEDICARE, SELFPAY ==
--- NOTE | 2021-03-09 15:41 | MM_ITS ---
PROCEDURE INFORMATION: Exam: MG Bilateral Screening 3D Mammography Exam date and time: 03/09/2021 3:41 PM Age: 65 years old Clinical indication: Encounter for screening mammogram for malignant neoplasm of breast TECHNIQUE: Imaging protocol: Bilateral screening tomosynthesis and 2D mammography including computer-aided detection (CAD) when performed. COMPARISON: No relevant prior studies available. FINDINGS: MAMMOGRAPHY: Breast composition: The breast tissue is composed of scattered areas of fibroglandular density. Mass: None. Architectural distortion: None. Calcifications: No suspicious calcifications. Asymmetric density: None. Skin thickening: None. Axillary adenopathy: None. IMPRESSION: No mammographic evidence of malignancy. Annual screening is recommended unless otherwise clinically indicated. ASSESSMENT: BI-RADS Category 1: Negative
== END ==
PROVIDERS: PCP Internal Medicine; Visit Provider Internal Medicine
DX: Z12.31 Encounter for screening mammogram for malignant neoplasm of breast (principal)
CPT/HCPCS: 77063; 77067

== ENCOUNTER → 2021-04-12 16:27 | Outpatient (CLI) | payer MEDICARE, SELFPAY ==
[2021-04-12 17:19] LABS: Basophils # 0.1 K/mm3 (0-0.2); Basophils % 2.2 % (0.1-2.0); Eosinophils # 0.2 K/mm3 (0.0-0.4); Eosinophils % 3.6 % (0.1-12.0); Hematocrit 28.7 % (37.0-47.0); Hemoglobin 9.1 g/dL (12.2-16.2); Lymphocytes # 2.3 K/mm3 (0.7-4.5); Lymphocytes % 34.7 % (10-50); Mean Corpuscular HGB Conc 31.6 g/dL (31.8-35.4); Mean Corpuscular Volume 88.8 fl (81-99); Mean Platelet Volume 9.3 fl (7.4-10.4); Monocytes # 0.5 K/mm3 (0.1-1.0); Monocytes % 7.1 % (1.7-9.3); Neutrophils # 3.5 K/mm3 (1.8-7.8); Neutrophils % 52.4 % (37.0-80.0); Platelet Count 418 K/mm3 (142-424); Red Blood Count 3.24 M/mm3 (4.20-5.40); Red Cell Distribution Width 16.7 % (11.5-17.5); White Blood Count 6.7 K/mm3 (4.8-10.8)
[2021-04-12 17:56] LABS: Alanine Aminotransferase 15 U/L (12-78); Albumin Level 3.9 g/dl (3.5-5.0); Albumin/Globulin Ratio 1.4 (1.1-1.8); Alkaline Phosphatase 71 U/L (38-126); Anion Gap 17.5 mEq/L (5-15); Aspartate Amino Transferase 24 U/L (14-36); Bilirubin,Total 0.2 mg/dl (0.2-1.3); Blood Urea Nitrogen 25 mg/dl (7-17); Calcium 8.8 mg/dl (8.4-10.2); Carbon Dioxide 24 mmol/L (22.0-30.0); Chloride 99 mmol/L (98-107); Chol/HDL Ratio 2.4 (1-3.5); Cholesterol 229 mg/dl (140-200); Estimated Glomerular Filt Rate 38 ml/min (>60); GFR (African American) 46 ML/MIN (>60); Globulin 2.7 g/dL (1.3-3.2); Glucose 169 mg/dl (74-100); HDL Cholesterol 97 mg/dl (40-60); Potassium 5.5 mmoL/L (3.5-5.1); Sodium 135 mmol/L (136-145); Total Protein,Serum 6.6 g/dl (6.3-8.2); Triglycerides 52 mg/dl (30-150); VLDL Cholesterol 10 mg/dL (0-40)
[2021-04-12 18:07] LABS: Direct LDL Cholesterol 110.77 mg/dL (100-129)
[2021-04-12 18:26] LABS: Thyroid Stimulating Hormone 4.33 uIU/mL (0.465-4.68)
[2021-04-14 10:18] LABS: Hemoglobin A1C 8.2 % (4.0-6.0)
== END ==
PROVIDERS: Visit Provider Internal Medicine
DX: I25.10 Atherosclerotic heart disease of native coronary artery without angina pectoris (principal); I10 Essential (primary) hypertension; E11.59 Type 2 diabetes mellitus with other circulatory complications; E11.42 Type 2 diabetes mellitus with diabetic polyneuropathy; E03.9 Hypothyroidism, unspecified; D50.9 Iron deficiency anemia, unspecified; Z79.4 Long term (current) use of insulin
CPT/HCPCS: 80053; 80061; 83036; 84443; 85025

== ENCOUNTER → 2021-05-25 13:43 | Outpatient (CLI) | payer MEDICARE, SELFPAY ==
--- NOTE | 2021-05-25 13:55 | XR_ITS ---
FINAL REPORT CLINICAL HISTORY: PNEUMONIA mar 2021 COMPARISON: January 2021 FINDINGS: Two views of the chest were obtained. The heart size and pulmonary vascularity are within normal limits. The mediastinum is normal. No acute pulmonary abnormality is identified. There is no pneumothorax. The bony thorax is intact. IMPRESSION: No active cardiopulmonary disease. Reviewed, Interpreted and Dictated by Mukesh Crowell III, MD Transcribed by SPIKE Mac Authenticated by Mukesh Crowell III, MD on 05/25/2021 02:50:22 PM [facility]
== END ==
PROVIDERS: PCP Internal Medicine; Visit Provider Internal Medicine
DX: Z87.01 Personal history of pneumonia (recurrent) (principal)
CPT/HCPCS: 71046

== ENCOUNTER → 2021-06-15 16:15 | Outpatient (CLI) | payer MEDICARE, SELFPAY | PROVIDERS: Visit Provider Orthopaedic Surgery | DX: Z01.818 Encounter for other preprocedural examination (principal); Z11.52 Encounter for screening for COVID-19 | CPT/HCPCS: C9803; U0003; U0005 ==

== ENCOUNTER 2021-08-16 01:25 | Emergency (ER) | payer MEDICARE, SELFPAY ==
[2021-08-16 01:26] VITALS: BP 166/93; PULSE 96; RESP 28; TEMP 36.3; O2SAT 98; BMI 43.0
[2021-08-16 01:30] VITALS: PULSE 119; RESP 28; O2SAT 97
--- NOTE | 2021-08-16 01:33 | ECG_ITS ---
APPROVED REPORT Exam: Resting ECG HR:113 bpm ECG Measurements Heart Rate 113 AXES GA 220 P 79 QRSd 110 QRS 98 QT 310 T 0 QTc 377 Conclusion SINUS TACHYCARDIA WITH FIRST DEGREE AV BLOCK WITH FREQUENT VENTRICULAR PREMATURE COMPLEXES BORDERLINE RIGHT AXIS DEVIATION [QRS AXIS > 90] SEPTAL MYOCARDIAL INFARCTION , OF INDETERMINATE AGE [40+ ms Q WAVE IN V1/V2] ABNORMAL ECG INTERPRETATION BASED ON A DEFAULT AGE OF 40 YEARS UNCONFIRMED REPORT Electronically signed by : Ovi Olmedo MD 08/16/2021 17:37:33
--- NOTE | 2021-08-16 01:33 | XR_ITS ---
PROCEDURE INFORMATION: Exam: XR Chest Exam date and time: 08/16/2021 1:38 AM Age: 66 years old Clinical indication: Wheezing and other: AMS; Additional info: Altered mental status TECHNIQUE: Imaging protocol: XR of the chest. Views: 1 view. COMPARISON: CR XR CHEST 2V 05/25/2021 1:58 PM FINDINGS: Lungs: Hazy interstitial opacities in both lungs concerning for interstitial edema less likely interstitial pneumonia. Granulomatous change. Pleural spaces: Mild bilateral pleural effusion. No pneumothorax. Heart/Mediastinum: Cardiomegaly. Bones/joints: Unremarkable. IMPRESSION: Interstitial opacities bilaterally concerning for pulmonary edema. Correlate clinically. Mild bilateral pleural effusions.
[2021-08-16 01:35] VITALS: BMI 37.8
[2021-08-16 01:35] LABS: ABG Base Excess -7.2 mmol/L (-2.4-2.3); ABG HCO3 20.8 mmhg (22.0-26.0); ABG Oxygen Saturation 97 % (90-100); ABG PO2 107.2 mmhg (80-100); ABG TCO2 22.5 mmhg (23-27); Allen's Test Acceptable; Oxygen 100 %; Source Right Radial
--- NOTE | 2021-08-16 01:35 | PC.NURSE ---
Respiratory notified Dr. Foster of ABG results
[2021-08-16 01:36] LABS: ABG PCO2 54.8 mmhg (35.0-45.0)
[2021-08-16 01:42] LABS: Microscopic, Urine URINE MICROSCOPIC (MICROSCOPIC)
[2021-08-16 01:44] LABS: Basophils # 0.3 K/mm3 (0-0.2); Basophils % 2.4 % (0.1-2.0); Eosinophils # 0.5 K/mm3 (0.0-0.4); Eosinophils % 3.7 % (0.1-12.0); Hemoglobin 8.9 g/dL (12.2-16.2); Lymphocytes # 3.8 K/mm3 (0.7-4.5); Lymphocytes % 30.7 % (10-50); Mean Corpuscular HGB Conc 33.1 g/dL (31.8-35.4); Mean Corpuscular Hemoglobin 28.8 pg (27.0-31.2); Mean Platelet Volume 8.9 fl (7.4-10.4); Monocytes # 0.7 K/mm3 (0.1-1.0); Monocytes % 5.6 % (1.7-9.3); Neutrophils # 7.1 K/mm3 (1.8-7.8); Neutrophils % 57.7 % (37.0-80.0); Platelet Count 467 K/mm3 (142-424); Red Cell Distribution Width 18.2 % (11.5-17.5); White Blood Count 12.4 K/mm3 (4.8-10.8)
[2021-08-16 01:51] LABS: Appearance,Urine CLEAR (Clear); Bilirubin,Urine Negative (Negative); Blood, Urine Negative (Negative); Color,Urine YELLOW (Yellow); Glucose,Urine (UA) Negative (Negative); Ketones,Urine Negative (Negative); Leukocyte Esterase,Urine Negative (Negative); Nitrate,Urine Negative (Negative); Protein,Urine TRACE (Negative); Specific Gravity, Urine <= 1.005 (1.005-1.030); Urobilinogen,Urine 0.2 EU/dl (0.2)
[2021-08-16 01:57] LABS: Chloride 100 mmol/L (98-107); Sodium 133 mmol/L (136-145)
[2021-08-16 01:58] LABS: Potassium 5.3 mmoL/L (3.5-5.1)
[2021-08-16 02:00] VITALS: BP 166/96
[2021-08-16 02:00] LABS: Alanine Aminotransferase 77 U/L (12-78); Alkaline Phosphatase 127 U/L (38-126); Aspartate Amino Transferase 139 U/L (14-36); Bilirubin,Total 0.4 mg/dl (0.2-1.3); Blood Urea Nitrogen 34 mg/dl (7-17); Creatinine Clearance Estimated 68 mL/min (50-200); Estimated Glomerular Filt Rate 41 ml/min (>60); GFR (African American) 50 ML/MIN (>60)
[2021-08-16 02:01] LABS: Albumin Level 4.2 g/dl (3.5-5.0); Albumin/Globulin Ratio 1.2 (1.1-1.8); Anion Gap 15.3 mEq/L (5-15); Carbon Dioxide 23 mmol/L (22.0-30.0); Globulin 3.5 g/dL (1.3-3.2); Glucose 109 mg/dl (74-100); Total Protein,Serum 7.7 g/dl (6.3-8.2)
[2021-08-16 02:05] LABS: Lactic Acid 3.3 mmol/L (0.7-2.1)
[2021-08-16 02:12] LABS: NT Pro Brain Natriuretic Pep. 2520 pg/mL (0-125)
[2021-08-16 02:14] LABS: Acetone, Serum (Rapid) None Detected (None Detect)
[2021-08-16 02:15] LABS: Bacteria,Urine Trace /lpf; WBC,Urine Occasional #/hpf (0-3)
[2021-08-16 02:16] LABS: Troponin I < 0.01 ng/ml (0.00-0.034)
[2021-08-16 02:55] LABS: Erythrocyte Sedimentation Rate 69 mm/hr (0-30)
[2021-08-16 03:00] LABS: POC Glucose,Bedside 196 (70-110)
--- NOTE | 2021-08-16 03:05 | PC.NURSE ---
[facility] notified of , will contact him again once son arrives and decision is made as to where patient will be transferred
[2021-08-16 03:51] LABS: Procalcitonin 0.203 ng/mL (0.0-2.0)
--- NOTE | 2021-08-16 04:03 | PC.NURSE ---
Called [facility] and they deferred. . s/w Yohana Stroud.
--- NOTE | 2021-08-16 04:41 | PC.NURSE ---
[facility] notified of families decision to have [facility] take possession of body
--- NOTE | 2021-08-16 05:42 | PC.NURSE ---
T Afua left with pt
--- NOTE | 2021-08-16 05:44 | HMH.EDSOB ---
ED Disposition Clinical Impression: Cardiopulmonary arrest Congestive heart failure Qualifiers: Heart failure type: unspecified Heart failure chronicity: acute on chronic Qualified Code(s): I50.9 - Heart failure, unspecified Disposition: Condition on Discharge: Critical Referrals: Marques Isbell [Primary Care Provider] - - Critical Care Critical Care Time: Yes Attestation: On 08/16/21, the high probability of a clinically significant, sudden or life threatening deterioration of the following system(s) required my full and direct attention, intervention and personal management. The time I documented below is in addition to time spent performing reported procedures but includes the following listed in this critical care notation. Total Critical Care Time: 30 Vital system(s) involved:: Circulatory Failure My critical care processes included: Assessment & monitoring of V/S, Coordinating Care Medical Decision Making - Medical Records Medical records reviewed: Yes: I reviewed the patient's medical records. - Bro Inquiry Pt receiving controlled substance: No Vital Signs: 08/16/21 01:26 08/16/21 01:30 08/16/21 02:00 Temperature 97.3 F L Temperature Source Rectal Pulse Rate 119 H Pulse Rate [Right] 96 H Respiratory Rate 28 H 28 H Blood Pressure 166/96 H Blood Pressure [Right Arm] 166/93 H Blood Pressure Mean [Right Arm] 117 Blood Pressure Source [Right Arm] Automatic Cuff 02 Sat by Pulse Oximetry 98 97 Oxygen Delivery Method Non-Rebreather Non-Rebreather Oxygen Flow Rate (LPM) 08/16/21 02:22 Temperature Temperature Source Pulse Rate Pulse Rate [Right] Respiratory Rate Blood Pressure Blood Pressure [Right Arm] Blood Pressure Mean [Right Arm] Blood Pressure Source [Right Arm] 02 Sat by Pulse Oximetry Oxygen Delivery Method Oxygen Flow Rate (LPM) 15 - Lab Data Lab results reviewed: Yes: I reviewed the patient's lab results. Lab Results 08/16/21 01:30: Urine Color Yellow, Urine Appearance Clear, Urine pH 6.0, Ur Specific [place] <= 1.005, Urine Protein Trace, Urine Glucose (UA) Negative, Urine Ketones Negative, Urine Blood Negative, Urine Nitrate Negative, Urine Bilirubin Negative, Urine Urobilinogen 0.2, Ur Leukocyte Esterase Negative, Urine WBC Occasional, Urine Bacteria Trace 08/16/21 01:30: WBC 12.4 H, RBC 3.10 L, Hgb 8.9 L, Hct 27.0 L, MCV 87.0, MCH 28.8, MCHC 33.1, RDW 18.2 H, Plt Count 467 H, MPV 8.9, Neut % (Auto) 57.7, Lymph % (Auto) 30.7, [place] % (Auto) 5.6, Eos % (Auto) 3.7, Baso % (Auto) 2.4 H, Neut # (Auto) 7.1, Lymph # (Auto) 3.8, [place] # (Auto) 0.7, Eos # (Auto) 0.5 H, Baso # (Auto) 0.3 H, ESR 69 H 08/16/21 01:30: Sodium 133 L, Potassium 5.3 H, Chloride 100, Carbon Dioxide 23, Anion Gap 15.3 H, BUN 34 H, Creatinine 1.30 H, Estimated Creat Clear 68, Estimated GFR 41 L, Est GFR ( Amer) 50 L, Glucose 109 H, Calcium 9.0, Total Bilirubin 0.4, AST 139 H, ALT 77, Alkaline Phosphatase 127 H, Troponin I < 0.01, C-Reactive Protein 20.0 H, Total Protein 7.7, Albumin 4.2, Globulin 3.5 H, Albumin/Globulin Ratio 1.2, Procalcitonin 0.203, Acetone Level None detected 08/16/21 01:30: Lactate 3.3 H 08/16/21 01:30: NT-Pro-B Natriuret Pep 2520 H 08/16/21 01:34: Specimen Source Right radial, O2 % 100, ABG pH 7.20 L*, ABG pCO2 54.8 H, ABG pO2 107.2 H, ABG HCO3 20.8 L, ABG Total CO2 22.5 L, ABG O2 Saturation 97, ABG Base Excess -7.2 L, Wally Test Acceptable 08/16/21 02:05: POC Glucose 196 H Result diagrams: 08/16/21 01:30 08/16/21 01:30 Orders (Tests/Meds): ED MEDICATIONS Generic Name Dose Route Start Last Admin Trade Name Freq PRN Reason Stop Dose Admin Atropine Sulfate 1 mg 08/16/21 02:05 08/16/21 02:07 Atropine 1mg/10ml Syringe (Crash Cart) IV 09/15/21 02:04 1 mg ONCE PRN Administration bradycardia Epinephrine HCl 1 mg 08/16/21 03:14 08/16/21 02:18 Epinephrine 0.1 Mg/Ml 10ml Syringe (Crash Cart) IV 09/15/21 03:13 1 mg NEEDE
--- NOTE | 2021-08-16 05:48 | PC.NURSE ---
Late Entry: 0201 Pt leads were off, she was in bed scooting to bottom of bed, and pulled gown off. Pt still had her NRB mask on. Lynette Wynn RN called for staff to assist her pull pt up in bed, when pt became unresponsive. 0202 No pulse detected. chest compressions started & Code Blue paged. 0203 #1 Epi IVP administered via Left AC (LAC) peripheral IV cath (PIV). And Dr. Foster attempting to intubate. 0205 FS 196 0206 #2 Epi IVP given via LAC PIV 0207 ROSC obtained, sinus giselle on monitor HR 54. Atropine 1mg IVP given via LAC PIV. 0208 No pulse detected, CPR reinstated. Continuing to attempt to intubate. Suctioning secretions. Pt has had spontaneous vomit. 0209 #3 Epi IVP given via LAC PIV. giselle on monitor 30-40s, no pulse detected via palpation. Cont' CPR 0212 #4 Epi IVP given via LAC PIV. no pulse detected, cont' CPR. Dr. Foster cont' to attempt to intubate. Suctioned spontaneous vomit. 0213 PEA on monitor, no pulse, cont' CPR 0215 #5 Epi IVP given via LAC PIV 0216 Bicarb 1 amp IVP given via LAC PIV 0218 #6 Epi IVP given via LAC PIV, no pulse, cont' CPR. MD cheng' to attempt to intubate. 0221 #7 Epi IVP given via LAC PIV, PEA on monitor. C 0222 no pulse detected manually or via Doppler. called end to CODE. Pt's sister taken to triage room and MD s/w her. She would like to call pt's son and wait for him to arrive before coming back. 0250 Pt's son here, walked him & fiance' & pt's sister back to pt's room. Asked if they needed any refreshments, they declined. Gave tissues and allowed for privacy. They declined clergy service consult at this time.
[2021-08-16 06:31] VITALS: BP 00/00; PULSE 0; RESP 0; TEMP -17.7; TEMP 0; O2SAT 0
== END 2021-08-16 06:39 | disposition expired ==
PROVIDERS: Emergency Provider Emergency Medicine; PCP Internal Medicine
DX: I46.9 Cardiac arrest, cause unspecified (principal); I50.9 Heart failure, unspecified; E03.9 Hypothyroidism, unspecified; E11.65 Type 2 diabetes mellitus with hyperglycemia
CPT/HCPCS: 51702; 71045; 80053; 81001; 82009; 82803; 82962; 83605; 83880; 84145; 84484; 85025; 85651; 86140; 87040; 92950; 93005; 96374; 96375; 99291